=== PATIENT | female | born 1935 | race Caucasian/White ===

== ENCOUNTER 2018-08-27 07:41 | Inpatient (IN) | payer MEDICARE, SELFPAY ==
[2018-08-27] VITALS (24 sets, daily range): BP systolic 108–149; BP diastolic 42–71; PULSE 61–98; RESP 14–18; TEMP 36.3–37.6; O2SAT 92–99; BMI 33.0; BMI 30.8
--- NOTE | 2018-08-27 07:49 | RAD_ITS ---
STUDY: X-RAY CHEST REASON FOR EXAM: Female, 82 years old. Pain TECHNIQUE: Single AP portable view of the chest. COMPARISON: None. FINDINGS: There is a well-circumscribed calcific density in the left apex measuring 4 mm compatible with old granulomatous disease. There is no demonstrated pleural abnormality. There is borderline cardiomegaly. Normal mediastinum and carlton. Normal visualized pulmonary arteries. There is atherosclerotic tortuosity of the aortic arch and descending thoracic aorta. There are diffuse degenerative changes of the visualized thoracic spine. Normal visualized ribs, clavicles, and shoulders. There is no demonstrated abnormality of the visualized soft tissue structures of the upper abdomen. RAD/Chest 1 View (Portable) IMPRESSION: Borderline cardiac enlargement. No evidence of acute focal infiltrate. Electronically Signed: Vicki Gomez MD at 8:32 EST Tel , Service support ,
--- NOTE | 2018-08-27 07:49 | EKG12_ITS ---
Test Reason : CP Blood Pressure : / mmHG Vent. Rate : 068 BPM Atrial Rate : 068 BPM P-R Int : 192 ms QRS Dur : 130 ms QT Int : 414 ms P-R-T Axes : 024 -36 123 degrees QTc Int : 440 ms Normal sinus rhythm with sinus arrhythmia Left axis deviation Left ventricular hypertrophy with QRS widening and repolarization abnormality Cannot rule out Septal infarct , age undetermined Abnormal ECG Confirmed by VAMSI JULES, ERIKA ([id number]), film editor supervisor HAWK ROMAN ([id number]) on 08/30/2018 2:22:18 PM Referred By: THELMA Confirmed By:ERIKA AGUSTIN MD
--- NOTE | 2018-08-27 07:57 | ED.VISSUMM ---
- ER Visit Summary Date of Service: 08/27/18 Chief Complaint: Chest pain History of Present Illness: The patient is a 82 F with history of hypertension, hyperlipidemia, and [id number] diabetes presents to the emergency department chest pain. Patient symptoms began over the past 3 days. She states that every time that she exerts herself or walks a distance, she will get substernal pain that radiates into her back. She will feel mildly short of breath. She denies diaphoresis. She denies any nausea. She states if she rests, the pain goes away. She is never had pain like this before. She denies any fevers chills or cough. The patient does have a history of aortic valve disease and has seen Dr. Melo in the past, but she states she has never had a stress test or heart catheterization. Physical Examination: Vital signs reviewed General: Well-nourished, well-developed Head: Normocephalic, atraumatic Eyes: Pupils equal and reactive, extraocular muscles intact Neck, supple, no lymphadenopathy Heart: Regular rate and rhythm, 3 out of 6 systolic ejection murmur Respiratory: No distress, clear bilaterally Abdomen: Soft, nontender, nondistended, no peritoneal signs Back: Nontender Extremities: Nontender, no edema, no cords Skin: Normal color no rash Neuro: Alert and oriented, no focal or lateralizing deficits Test Results: [] Emergency Department Course and Treatment: [The patient presents with exertional chest pain. Her EKG does show some LVH and what appears to be U waves. The patient has no pain at rest. Screening labs were obtained. Her cardiac enzymes are normal. Her chest x-ray does show some mild cardiomegaly, but there is no CHF. The patient is also hypokalemic. She has been on potassium replacement therapy and states her potassium has been low before. The patient is also anemic. She has seen Dr. Strong in the past for anemia, but has not had a colonoscopy. She states that they held on it because her counts were stable. She is on iron replacement therapy. Rectal exam was done. There is no gross blood. Fecal occult testing was negative. I am unsure of the acute etiology of her anemia, but I do feel that the patient is likely symptomatic she has been having exertional chest pain. The patient's potassium was replaced. I do feel that she is going require admission for her exertional chest pain, symptomatic anemia, and hypokalemia. Patient was discussed with the hospitalist. Treatment Plan: [] Disposition: Admission Impression: 1. Exertional chest pain 2. Hypokalemia with EKG changes 3. Symptomatic anemia This note was generated with [employer] dictation software. It may contain incorrect words, spelling, and punctuation that were not noted in review of the chart prior to signing ED Disposition - Plan for ED Patient: Chief Complaint: Chest Pain Referrals: Gordo Weeks DO [Primary Care Provider] -
[2018-08-27] MEDS: Aspirin 81 MG TAB.CHEW 324 MG PO (08:13)
[2018-08-27 08:14] LABS: Absolute Lymphocyte Count 1.42 X10^3/ul (0.83-4.51); Absolute Neutrophil Count 4.7 X10^3/uL (2.0-7.7); Basophil# 0.02 X10^3/uL; Basophil% 0.3 % (0-1); Eosinophil# 0.05 X10^3/uL; Eosinophils% 0.7 % (0-5); Hematocrit 19.7 % (37-47); Hemoglobin 6.4 g/dl (12.0-15.0); Lymphocyte # 1.42 X10^3/ul (4.0); Lymphocyte % 21.2 % (19-41); Mean Corp Hgb Conc 32.5 g/gl (32-36); Mean Corpuscular Hgb 29.5 pg (27.0-32.0); Mean Corpuscular Volume 90.8 fL (81-99); Mean Platelet Vol. 8.7 fl (6.2-12.0); Monocyte# 0.47 X10^3/uL; Neutrophil # 4.71 X10^3/uL (2.7-7.7); Neutrophil % 70.5 % (47-70); Platelet Count 201 K/mm3 (150-450); RBC Distribution Width CV 17.8 % (11.6-14.6); RBC Distribution Width SD 51.9 fl (35.1-43.9); Red Blood Count 2.17 M/mm3 (4.2-5.4); White Blood Count 6.7 K/mm3 (4.4-11.0)
[2018-08-27 08:15] LABS: POSITIVE COUNT NO; POSITIVE DIFFERENTIAL NO; POSITIVE MORPHOLOGY NO
[2018-08-27 08:42] LABS: Anion Gap 11 (5-15); BUN 38 mg/dL (7-18); BUN/Creat Ratio 35.2 RATIO (10-20); Calcium,Total 9.2 mg/dL (8.5-10.1); Chloride 95 mmol/L (98-107); Creatinine, Serum 1.08 mg/dL (0.55-1.02); EST Glomerular Filtration Rate 52 mL/min (>60); Est Glom Filt Rate - Afr Amer 62 mL/min (>60); Estimated Creatinine Clearance 31.76 ml/min; Glucose 252 mg/dL (74-106); Potassium 2.5 mmol/L (3.5-5.1); Sodium Level 138 mmol/L (136-145)
[2018-08-27] MEDS: Potassium Chloride 10mEq/100mL 10 MEQ/100 ML IV.SOLN. 100 MEQ IV BOLUS ×2 (09:39→10:26)
--- NOTE | 2018-08-27 10:02 | ECHOD_ITS ---
Reason For Study: Chest pain Procedure This was a 2D Doppler, Color Flow transthoracic echocardiogram. The exam was of adequate technical quality. Exam performed in department. Left Ventricle Normal LV size. Left ventricular systolic function is normal. The estimated ejection fraction is 70 %. Diastolic function is indeterminate. No regional wall motion abnormalities noted. Right Ventricle Normal RV size. Normal systolic function. Atria The left atrium is mildly enlarged. Normal right atrium. No doppler evidence for ASD. Mitral Valve There is mild mitral annular calcification. Mild diffuse mitral valve thickening. The mitral papillary muscle appears thickened and/or calcified. Mild (1+) mitral valve insufficiency. Tricuspid Valve Normal tricuspid valve. Trivial tricuspid valve insufficiency. Aortic Valve Trisinus/trileaflet aortic valve. Severe diffuse aortic valve calcification. Severe aortic stenosis. Pulmonic Valve The pulmonic valve is not well visualized. Great Vessels Normal sized aortic root. Pericardium/Pleural No pericardial effusion. MMode/2D Measurements & Calculations LVIDd: 4.3 cm IVSd: 1.2 cm LVOT diam: 2.0 cm LVIDs: 2.6 cm LVPWd: 1.2 cm LVOT area: 3.1 cm2 RVDd: 3.2 cm FS: 40.1 % Ao root diam: 3.0 cm LAV(MOD-bp): 57.1 ml EDV(MOD-sp4): 87.1 ml LAV(MOD-bp) Indexed: 31.3 ml/m2 ESV(MOD-sp4): 34.6 ml LAV(MOD-sp2): 55.0 ml EF(MOD-sp4): 60.3 % LAV(MOD-sp4): 58.1 ml SV(MOD-sp4): 52.5 ml LA dimension(2D): 3.5 cm LA A4 area: 19.0 cm2 RA A4 area: 13.9 cm2 Doppler Measurements & Calculations MV E max huseyin: 92.4 cm/sec Lat Peak E' Huseyin: 6.3 cm/sec Med Peak E' Huseyin: 7.1 cm/sec MV A max huseyin: 114.0 cm/sec E/E' lat: 14.7 E/E' med: 13.0 MV E/A: 0.81 Ao V2 max: 541.5 cm/sec LV V1 max: 138.7 cm/sec SV(LVOT): 101.6 ml Ao max P.3 mmHg LV V1 max P.7 mmHg Ao V2 mean: 367.0 cm/sec LV V1 mean P.9 mmHg Ao mean P.6 mmHg LV V1 mean: 92.9 cm/sec Ao V2 VTI: 126.4 cm LV V1 VTI: 33.3 cm JACINTA(I,D): 0.80 cm2 JACINTA(V,D): 0.78 cm2 PA V2 max: 129.8 cm/sec Interpretation Summary Left ventricular systolic function is normal. The estimated ejection fraction is 70 %. The left atrium is mildly enlarged. There is mild mitral annular calcification. Mild diffuse mitral valve thickening. The mitral papillary muscle appears thickened and/or calcified. Mild (1+) mitral valve insufficiency. Trivial tricuspid valve insufficiency. Severe aortic stenosis. Diastolic function is indeterminate. Ordering Physician: Thai Antonio Referring Physician: Gordo Weeks Performed By: Saima Rubin RDCS
[2018-08-27 10:26] LABS: Iron 23 ug/dL (50-170); Iron Binding Capacity,Total 386 ug/dL (250-450)
[2018-08-27] MEDS: Levothyroxine 125 MCG Tablet PO (11:15)
[2018-08-27] MEDS: Pravastatin 20 MG Tablet PO (11:16)
[2018-08-27] MEDS: amLODIPine 5 MG Tablet PO ×2 (11:16→22:16)
[2018-08-27] MEDS: Doxazosin 4 MG Tablet PO ×2 (11:16→22:16)
[2018-08-27 11:35] LABS: Bedside Glucose 265 mg/dL (70-110)
[2018-08-27 17:06] LABS: Anion Gap 9 (5-15); BUN 33 mg/dL (7-18); BUN/Creat Ratio 29.7 RATIO (10-20); Chloride 97 mmol/L (98-107); Creatinine, Serum 1.11 mg/dL (0.55-1.02); EST Glomerular Filtration Rate 50 mL/min (>60); Est Glom Filt Rate - Afr Amer 60 mL/min (>60); Estimated Creatinine Clearance 33.74 ml/min; Glucose 205 mg/dL (74-106); Sodium Level 138 mmol/L (136-145)
[2018-08-27] MEDS: Insulin Lispro 100 UNIT/ML INSULN.PEN SC ×2 (17:08→22:16)
[2018-08-27 17:10] LABS: Bedside Glucose 208 mg/dL (70-110)
--- NOTE | 2018-08-27 17:30 | HP.PCM_ITS ---
Problem List (1) Chest pain Status: Acute Qualifiers: Chest pain type: precordial pain Qualified Code(s): R07.2 - Precordial pain History of Present Illness Date of Admission: 08/27/18 Chief Complaint: Chest pain The patient is a 82 year old F was seen in the emergency room was from [facility] with chief complaint of precordial chest discomfort which has been nonradiating into her neck or arms, there is some radiation of the discomfort into her mid back area however. She describes the chest discomfort as burning in nature, she denies any diaphoresis, nausea, or vomiting. She states the episodes are intermittent and not related to any particular activity although when she rest, the discomfort goes away. These episodes last 2-3 minutes according to the patient. Patient has had a history of anemia in the past, she underwent iron supplementation which corrected the problem, at one time she saw a GI physician for possible endoscopy but it was felt that she did not need the endoscopy due to the fact her blood count corrected. Lab was performed in the emergency room, CBC was remarkable for hemoglobin of 6.4, chemistry panel was remarkable for a potassium of 2.5, creatinine was 1.08, BUN was 38, troponin was normal. Patient's glucose was elevated at 252. Chest x-ray was unremarkable except for borderline cardiac enlargement. EKG showed a normal sinus rhythm without evidence of ischemia. Patient will be admitted to PCU for hypokalemia, acute anemia, and chest pain. Past Medical History Allergies No Known Allergies Allergy (Verified 08/27/18 07:42) Home Medications: Ambulatory Orders Medication Instructions Recorded Amlodipine [Norvasc] 5 mg PO BID 08/27/18 Doxazosin Mesylate [Cardura] 4 mg PO BID 08/27/18 Furosemide [Lasix] 20 mg PO DAILY 08/27/18 Hydrochlorothiazide [Hctz] 50 mg PO DAILY 08/27/18 Iron Carbonyl [Feosol] 45 mg PO DAILYCM 08/27/18 Levothyroxine Sodium [Synthroid] 125 mcg PO DAILY 08/27/18 Metformin HCl [Glucophage Xr] 500 mg PO BID 08/27/18 Pravastatin [Pravachol] 20 mg PO DAILY 08/27/18 Surgical History: no surgical history Psychiatric History: No pertinent psych hx [employer]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 Denies: Claudication, Chest Pressure, Chest Tightness, Edema, Heaviness, Orthopnea, Palpitations, Paroxysmal Noc. Dyspnea, Syncope Respiratory: Denies: Cough, Hemoptysis, Pleuritic Pain, Shortness of Breath, Shortness of breath at rest, Shortness of breath upon exertion, Sputum production Gastrointestinal: Denies: Abdominal Pain, Constipation, Diarrhea, Hematemesis, Hematochezia, Nausea, Melena, Vomiting Genitourinary: Denies: Dysuria, Frequency, Hematuria, Hesitancy, Nocturia, Urgency Gynecological: Denies: Breast symptoms Musculoskeletal: Denies: Foot Pain, Hand Pain, Joint Pain, Joint stiffness, Joint swelling, Joint Tenderness, Leg Pain Skin: Denies: Dryness, Pruritis, Rash Neurological: Denies: Blurred vision, Double vision, Change in Speech, Slurred speech, Difficulty swallowing, Focal weakness, Headaches, Numbness, Tingling Psychiatric: Denies: Anxiety, Depression, Homicidal Ideations, Suicidal Ideations Endocrine: Denies: Change in Body Habitus, Heat/ Cold Intolerance, Polydipsia, Polyuria Hematologic/ Lymphatic: Denies: Adenopathy, Anemia, Easy Bruising, Easy Bleeding, Petechiae, Purpura VTE Information - Inpt Only VTE Present on Admission: No VTE Mechan Device Prophylaxis: SCD's VTE Pharm Prophylaxis ordered?: No Reason prophylaxis not ordered:: Treatment Not Indicated - SCDs were ordered Patient Problems: Active and Suspected Problems Chest pain (Acute) - Physical Exam General: Alert, Oriented x3, Cooperative, No apparent distress, Well developed HEENT: Atraumatic, PERRLA, EOMI, Normocephalic Oral: Moist Mucosa Neck: Supple, No JVD, Negative Carotid Bruits, No Nuchal Rigidity, Trachea Midline, Thyroid Normal Size and Texture Lungs: Clear to auscultation, Normal air movement, No rhonchi, No wheeze, No rales Cardiovascular: Regular rate, Regular Rhythm, Normal S1, Normal S2, No Ectopic Activity, PMI Normal, Murmur - 2/6 systolic murmur was noted at the apex and left sternal border, No rub noted, No Gallop Abdomen: Bowel Sounds Present, Soft, Non Tender, Non-Distended, No hernias noted Extremities: No clubbing, No cyanosis, No edema, Capillary Refill Less than 3 Seconds Skin: No rashes, No breakdown Musculoskeletal: No Tenderness to Palpation of Joints or Extremities Neurological: Cranial nerves II-XII grossly intact, Neuro grossly intact, Senso ry exam intact to light touch and pain, Coordination normal Psych/Mental Status: Normal Affect, Appropriate, Alert and oriented to time, place, person, mood and affect Vital Signs Temp Pulse Resp BP Pulse Ox 98.8 F 62 18 129/56 H 99 08/27/18 16:50 08/27/18 16:50 08/27/18 16:50 08/27/18 16:50 08/27/18 16:50 Oxygen Delivery Method Room Air Weight: 81.4 kg Body Mass Index (BMI) 30.8 Intake and Output for Last 24 Hours 08/25/18 08/26/18 08/27/18 23:59 23:59 23:59 Intake Total 625 / 625 Balance 625 / 625 Microbiology Past 72 Hours 08/27/18 08:30 Stool Occult Blood (IDRIS) - Final Stool Laboratory Tests Past 24 Hrs 08/27/18 08/27/18 08/27/18 07:55 07:55 07:55 WBC 6.7 RBC 2.17 L Hgb 6.4 L Hct 19.7 L MCV 90.8 MCH 29.5 MCHC 32.5 RDW 17.8 H RDW Differential 51.9 H Plt Count 201 MPV 8.7 Immature Gran % (Auto) 0.300 Neut % (Auto) 70.5 H Lymph % (Auto) 21.2 Bradford % (Auto) 7.0 Eos % (Auto) 0.7 Baso % (Auto) 0.3 Absolute Neuts (auto) 4.7 Absolute Lymphs (auto) 1.42 Total Counted Not Reportable Sodium 138 Potassium 2.5 L* Chloride 95 L Carbon Dioxide 32.0 Anion Gap 11 BUN 38 H Creatinine 1.08 H Estim Creat Clear Calc 31.76 Est GFR (MDRD) Af Amer 62 Est GFR (MDRD) Non-Af 52 L BUN/Creatinine Ratio 35.2 H Glucose 252 H Calcium 9.2 Iron 23 L TIBC 386 Iron Saturation 6.0 L Troponin I < 0.015 Blood Type Antibody Screen Crossmatch 08/27/18 08/27/18 08/27/18 08:40 08:40 10:55 WBC RBC Hgb Hct MCV MCH MCHC RDW RDW Differential Plt Count MPV Immature Gran % (Auto) Neut % (Auto) Lymph % (Auto) Bradford % (Auto) Eos % (Auto) Baso % (Auto) Absolute Neuts (auto) Absolute Lymphs (auto) Total Counted Sodium Potassium Chloride Carbon Dioxide Anion Gap BUN Creatinine Estim Creat Clear Calc Est GFR (MDRD) Af Amer Est GFR (MDRD) Non-Af BUN/Creatinine Ratio Glucose Calcium Iron TIBC Iron Saturation Troponin I 0.027 Blood Type A POSITIVE Antibody Screen NEGATIVE Crossmatch See Detail 08/27/18 08/27/18 14:00 16:40 WBC RBC Hgb Hct MCV MCH MCHC RDW RDW Differential Plt Count MPV Immature Gran % (Auto) Neut % (Auto) Lymph % (Auto) Bradford % (Auto) Eos % (Auto) Baso % (Auto) Absolute Neuts (auto) Absolute Lymphs (auto) Total Counted Sodium 138 Potassium 3.0 L Chloride 97 L Carbon Dioxide 32.0 Anion Gap 9 BUN 33 H Creatinine 1.11 H Estim Creat Clear Calc 33.74 Est GFR (MDRD) Af Amer 60 Est GFR (MDRD) Non-Af 50 L BUN/Creatinine Ratio 29.7 H Glucose 205 H Calcium 9.0 Iron TIBC Iron Saturation Troponin I < 0.015 Blood Type Antibody Screen Crossmatch POC Glucose 08/27/18 08/27/18 16:56 11:20 POC Glucose 208 H 265 H Assessment/Plan All Active Problems Chest pain (Acute) #1 acute on chronic iron deficiency anemia-etiology unclear at this point, patient will be admitted to PCU, she will receive packed red blood cells, iron level will be checked, labs will be repeated. #2 chest pain-etiology unclear, possibly anginal in nature, patient will be scheduled for a resting pharmacological nuclear stress test tomorrow if her enzymes remain normal. Cardiac enzymes will be cycled, patient will be monitored on telemetry, echocardiogram will be obtained. #3 hypokalemia-secondary to use of furosemide and hydrochlorothiazide without potassium replacement, patient has been taking [id number] potassium which has very little potassium in it, I discussed the use of 2 different diuretics with the patient, I do not think it is a harvey idea to take 2 different diuretics and I have told her I would change her medications at the time of discharge. She will also need potassium supplementation when she is discharged #4 moderate aortic stenosis-patient had an echocardiogram 10/14/16 which showed moderate aortic stenosis, echocardiogram will be repeated during this admission #5 hypertension #6 osteoarthritis-patient states she is taking 2 adult aspirins a day in addition to taking ibuprofen on a daily basis, I told her I would not recommend taking either full-strength aspirin or ibuprofen, only Tylenol for pain. This is due to her age and risk for GI bleeding and kidney failure. #7 type 2 diabetes-patient's blood sugars will be monitored, sliding scale insulin will be administered per protocol #8 hyperlipidemia #9 hypothyroidism Code Visit Inpatient E&M: 87431 Init Hosp L3
[2018-08-27 20:11] LABS: Hematocrit 24.2 % (37-47); Hemoglobin 7.8 g/dl (12.0-15.0)
[2018-08-27 22:31] LABS: Bedside Glucose 219 mg/dL (70-110)
[2018-08-28] VITALS (13 sets, daily range): BP systolic 125–152; BP diastolic 50–82; PULSE 52–80; RESP 16–20; TEMP 36.7–37.1; O2SAT 92–95
[2018-08-28 01:55] LABS: Hematocrit 27.7 % (37-47)
[2018-08-28 05:24] LABS: Absolute Lymphocyte Count 1.46 X10^3/ul (0.83-4.51); Absolute Neutrophil Count 4.2 X10^3/uL (2.0-7.7); Basophil# 0.02 X10^3/uL; Basophil% 0.3 % (0-1); Eosinophil# 0.11 X10^3/uL; Eosinophils% 1.8 % (0-5); Hematocrit 26.9 % (37-47); Hemoglobin 8.8 g/dl (12.0-15.0); Lymphocyte # 1.46 X10^3/ul (4.0); Lymphocyte % 23.3 % (19-41); Mean Corp Hgb Conc 32.7 g/gl (32-36); Mean Corpuscular Hgb 28.9 pg (27.0-32.0); Mean Corpuscular Volume 88.5 fL (81-99); Mean Platelet Vol. 8.5 fl (6.2-12.0); Monocyte% 6.4 % (0-10); Neutrophil # 4.23 X10^3/uL (2.7-7.7); Neutrophil % 67.6 % (47-70); Platelet Count 175 K/mm3 (150-450); RBC Distribution Width CV 18.2 % (11.6-14.6); RBC Distribution Width SD 53.5 fl (35.1-43.9); Red Blood Count 3.04 M/mm3 (4.2-5.4); White Blood Count 6.3 K/mm3 (4.4-11.0)
[2018-08-28 05:32] LABS: International Normalized Ratio 1.1; Partial Thromboplast Time 26.7 Seconds (24.1-36.2); Prothrombin Time (Protime)PT. 14.2 SECONDS (11.7-14.9)
[2018-08-28 05:35] LABS: POSITIVE COUNT NO; POSITIVE DIFFERENTIAL NO; POSITIVE MORPHOLOGY NO
[2018-08-28 05:41] LABS: Anion Gap 8 (5-15); BUN 28 mg/dL (7-18); BUN/Creat Ratio 31.1 RATIO (10-20); Calcium,Total 8.6 mg/dL (8.5-10.1); Chloride 103 mmol/L (98-107); EST Glomerular Filtration Rate 64 mL/min (>60); Est Glom Filt Rate - Afr Amer 77 mL/min (>60); Estimated Creatinine Clearance 41.62 ml/min; Glucose 122 mg/dL (74-106); Potassium 3.2 mmol/L (3.5-5.1); Sodium Level 143 mmol/L (136-145)
--- NOTE | 2018-08-28 05:55 | EKG12_ITS ---
Test Reason : AM EKG Blood Pressure : / mmHG Vent. Rate : 059 BPM Atrial Rate : 059 BPM P-R Int : 196 ms QRS Dur : 120 ms QT Int : 422 ms P-R-T Axes : 020 -54 097 degrees QTc Int : 417 ms Sinus bradycardia with sinus arrhythmia Left anterior fascicular block Left ventricular hypertrophy with QRS widening and repolarization abnormality Cannot rule out Septal infarct , age undetermined Abnormal ECG Confirmed by VAMSI JULES, ERIKA ([id number]), technical writer and editor HAWK ROMAN ([id number]) on 08/30/2018 3:01:42 PM Referred By: AMARI Confirmed By:ERIKA AGUSTIN MD
[2018-08-28] MEDS: Levothyroxine 125 MCG Tablet PO (06:04)
[2018-08-28 06:12] LABS: Bedside Glucose 131 mg/dL (70-110)
[2018-08-28 06:58] LABS: Magnesium 1.7 mg/dL (1.6-2.6)
[2018-08-28] MEDS: Doxazosin 4 MG Tablet PO (08:55)
[2018-08-28] MEDS: amLODIPine 5 MG Tablet PO (08:55)
[2018-08-28] MEDS: Magnesium Oxide 400 MG Tablet PO (09:13)
[2018-08-28] MEDS: Insulin Lispro 100 UNIT/ML INSULN.PEN SC (11:58)
--- NOTE | 2018-08-28 12:01 | CASEMGMT ---
KORI RHODES assessment: Face to Face with patient for initial transition planning/care coordination assessment. KORI RHODES introduced self and role at [facility], pt voices understanding and consents to assessment at this time. Pt is sitting up in bed in no distress at this time. Pt is A/Ox4 at this time and answers all questions appropriately at this time. Pt's daughters at bedside during assessment. Care providers, pharmacy, and demographics verified/updated at this time. PCP: Desi Specialists: Kameron, cardio; Preferred [facility]acy: [facility] Insurance: MCR A, AA Prescription Benefit: Self pay and pt states no concerns. Living Will/HPOA: Pt states does not have LW/HPOA and declines info at this time. LNOK: Hunter Avalos, ; Alda Shrestha, daughter Living Arrangements: Pt states lives with on main level of 2 story home and states no concerns at home at this time. Pt states no concerns with ADL's Transportation: Pt states no transportation concerns at this time. DME/HHC: Pt has the following DME: cane and grab bars. Pt states no need for any further DME at this time. Pt states no hx of HHC or SNF in the past. Pt states no concerns with going home at time of discharge. Pt states does not smoke or drink ETOH. Pt states no further concerns/needs at this time. CM to follow for any further discharge planning/needs. Advised pt to ask for CM if any further questions/concerns/needs arise, voices understanding. Plan: [place] KORI RHODES
[2018-08-28 12:11] LABS: Bedside Glucose 160 mg/dL (70-110)
[2018-08-28 17:26] LABS: Bedside Glucose 164 mg/dL (70-110)
--- NOTE | 2018-08-28 17:35 | DCINST_ITS ---
- Discharge Diagnoses Current Active Problems: Current Active and Chronic Problems Chest pain (Acute) You will use the following diet at home:: No restrictions Your food should be the consistency of: Regular Your liquids should be the consistency of: Regular/Thin Discharge Activity: Return to Normal Activity Weight Bearing Status: Full weight bearing Allergies/Adverse Reactions: Allergies No Known Allergies Allergy (Verified 08/27/18 07:42) Medications to take at Discharge Amlodipine [Norvasc] 5 mg PO BID 08/27/18 Doxazosin Mesylate [Cardura] 4 mg PO BID 08/27/18 Furosemide [Lasix] 20 mg PO DAILY 08/27/18 Levothyroxine Sodium [Synthroid] 125 mcg PO DAILY 08/27/18 Metformin HCl [Glucophage Xr] 500 mg PO BID 08/27/18 Pravastatin [Pravachol] 20 mg PO DAILY 08/27/18 Acetaminophen [Tylenol Tablet] 650 mg PO Q6H PRN PRN tablet 08/28/18 Iron Carbonyl [Feosol] 45 mg PO BIDCM #1 capsule 08/28/18 Omeprazole 20 mg PO DAILY #30 tablet. 08/28/18 Potassium Chloride 20 meq PO DAILY #60 capsule.er 08/28/18 The following prescriptions were given: Omeprazole 20 mg PO DAILY #30 tablet.dr Potassium Chloride 20 meq PO DAILY #60 capsule.er Iron Carbonyl [Feosol] 45 mg PO BIDCM #1 capsule Primary Care Physician: Gordo Weeks DO [Primary Care Provider] - Please follow up with your Primary Care Physician in: in 1 week- get repoeat blood count Test Results: Test results from this visit will be discussed in further detail at your follow- up appointment, if applicable. Please Follow Up With: Regis Melo MD When: within 3 weeks
--- NOTE | 2018-08-30 08:37 | DS.PCM_ITS ---
Discharge Date and Diagnosis Date of Admission: 08/27/18 Date of Discharge: 08/28/18 - Primary Discharge Diagnosis #1 Acute on chronic iron deficiency anemia secondary to undiagnosed blood loss in the gastrointestinal tract requiring blood transfusion #2 chest pain-etiology unclear #3 severe aortic stenosis #4 hypothyroidism #5 type 2 diabetes #6 essential hypertension #7 hyperlipidemia #8 osteoarthritis #9 hypokalemia secondary to medication usage (diuretics) #10 chronic kidney disease stage III secondary to type 2 diabetes and hypertension Hospital Course and Treatment Operations: None Procedures: 2-D Echocardiogram, Blood transfusion Summary of Care Provided: The patient is a 82 year old F was seen in the emergency room at [facility] with chief complaint of chest pain. Workup in the emergency room included cardiac enzymes which were negative, chest x-ray which showed borderline cardiac enlargement, chemistry profile which was remarkable for a potassium of 2.5, creatinine of 1.08, glucose of 252, and CBC was obtained which showed a normal blood cell count at 6.7 but a low hemoglobin at 6.4. Patient was admitted to PCU, she was given several units of blood, cardiac enzymes were monitored and remained normal, she was given potassium replacement. She was initially set up for a nuclear stress test but this was canceled owing to her persistent anemia. Patient had an echocardiogram performed which showed severe aortic stenosis. Patient was given IV iron during her hospitalization. On 08/28/18, patient was seen and examined: On examination she appeared in good health and spirits. Vital signs as documented. Skin warm and dry and without overt rashes. Neck without JVD. Lungs clear. Heart exam notable for regular rhythm, normal sounds, there was a 2/6 systolic murmur noted at the apex and left sternal border, no rubs or gallops. Abdomen unremarkable and without evidence of organomegaly, masses, or abdominal aortic enlargement. Extremities nonedematous. Neuro: Cranial nerves II through XII are grossly intact, no focal motor deficits were noted. Psych: Patient was alert and oriented x3 and appropriate, she did not appear to be depressed or anxious. Patient was instructed to follow-up with her architecture professor-Dr. Strong, he was contacted and I requested that their office contact the patient for a GI workup for her chronic anemia. Dr. Strong stated that his office will contact the patient for follow-up. In addition, patient was instructed to follow-up with her manager human resources Dr. Melo concerning her severe aortic stenosis. On 08/28/18, patient was seen and examined and was felt to be in stable condition for discharge home. - Physical Exam Vital Signs Temp Pulse Resp BP Pulse Ox 98.2 F 64 18 148/62 H 94 08/28/18 17:37 08/28/18 17:37 08/28/18 17:37 08/28/18 17:37 08/28/18 17:37 Oxygen Delivery Method Room Air Weight: 81.4 kg Body Mass Index (BMI) 30.8 Intake and Output for Last 24 Hours 08/28/18 08/29/18 08/30/18 23:59 23:59 23:59 Intake Total 830 / 830 Output Total 100 / 100 Balance 730 / 730 Microbiology Past 72 Hours 08/27/18 08:30 Stool Occult Blood (IDRIS) - Final Stool Discharge Activity: Return to Normal Activity Weight Bearing Status: Full weight bearing Home Medications: Medications to take at Discharge Amlodipine [Norvasc] 5 mg PO BID 08/27/18 Doxazosin Mesylate [Cardura] 4 mg PO BID 08/27/18 Furosemide [Lasix] 20 mg PO DAILY 08/27/18 Levothyroxine Sodium [Synthroid] 125 mcg PO DAILY 08/27/18 Metformin HCl [Glucophage Xr] 500 mg PO BID 08/27/18 Pravastatin [Pravachol] 20 mg PO DAILY 08/27/18 Acetaminophen [Tylenol Tablet] 650 mg PO Q6H PRN PRN tablet 08/28/18 Iron Carbonyl [Feosol] 45 mg PO BIDCM #1 capsule 08/28/18 Omeprazole 20 mg PO DAILY #30 tablet. 08/28/18 Potassium Chloride 20 meq PO DAILY #60 capsule.er 08/28/18 Following Prescrptions Were Given to Patient: Omeprazole 20 mg PO DAILY #30 tablet. Potassium Chloride 20 meq PO DAILY #60 capsule.er Iron Carbonyl [Feosol] 45 mg PO BIDCM #1 capsule Primary Care Physician: Gordo Weeks DO [Primary Care Provider] - Please follow up with your Primary Care Physician in: in 1 week- get repoeat blood count Please Follow Up With: Regis Melo MD When: within 3 weeks Disposition: Home Minutes spent on discharge:: 32 Patient Condition:: Stable Medical Necessity - Tobacco Use Smoking Status: Never smoker Tobacco Use: Non-smoker Meaningful Use Info Meaningful Use Diagnoses (Choose all that apply): None applicable Code Visit Inpatient E&M: 26622 Disch Hosp
== END 2018-08-28 18:24 | disposition home or self-care (01) | DRG 812 ==
LOC: ED 09:30 → PCU 09:37
PROVIDERS: Hospitalist; Admitting Provider Internal Medicine; Emergency Provider Emergency Medicine; Family Provider Family Medicine; PCP Family Medicine; Visit Provider Internal Medicine
DX: D50.0 Iron deficiency anemia secondary to blood loss (chronic) (principal); K92.2 Gastrointestinal hemorrhage, unspecified; I35.0 Nonrheumatic aortic (valve) stenosis; M19.90 Unspecified osteoarthritis, unspecified site; E11.9 Type 2 diabetes mellitus without complications; E78.5 Hyperlipidemia, unspecified; E03.9 Hypothyroidism, unspecified; R07.9 Chest pain, unspecified; E11.22 Type 2 diabetes mellitus with diabetic chronic kidney disease; I12.9 Hypertensive chronic kidney disease with stage 1 through stage 4 chronic kidney disease, or unspecified chronic kidney disease; N18.3 Chronic kidney disease, stage 3 (moderate); E87.6 Hypokalemia; T50.1X5A Adverse effect of loop [high-ceiling] diuretics, initial encounter; T50.2X5A Adverse effect of carbonic-anhydrase inhibitors, benzothiadiazides and other diuretics, initial encounter; Z79.84 Long term (current) use of oral hypoglycemic drugs
CPT/HCPCS: 36415; 71045; 80048; 82274; 82962; 83540; 83550; 83735; 84484; 85014; 85018; 85025; 85610; 85730; 86850; 86900; 86920; 86922; 93005; 93306; 99284; J1756; J7040; P9016; A4216; J2785

== ENCOUNTER → 2018-12-14 08:19 | Outpatient (CLI) | payer SELFPAY, OTHER ==
[2018-09-22 08:16] VITALS: BMI 34.4
--- NOTE | 2018-12-14 08:23 | ECHOD_ITS ---
Reason For Study: MURMUR Procedure This was a 2D Doppler, Color Flow transthoracic echocardiogram. Exam performed in department. Left Ventricle Normal LV size. Mild concentric left ventricular hypertrophy. Left ventricular systolic function is normal. The estimated ejection fraction is 65 %. Stage 1 diastolic dysfunction. No regional wall motion abnormalities noted. Right Ventricle Normal RV size. Normal systolic function. Atria The left atrium is mildly enlarged. Normal right atrium. Mitral Valve There is mild mitral annular calcification. Mild (1+) eccentric mitral valve insufficiency. Aortic Valve Trisinus/trileaflet aortic valve. Severe focal aortic valve calcification. Peak aortic valve gradient 117 mmHg. Mean aortic valve gradient 70 mmHg. Calculated aortic valve area (continuity equation) is 0.6 cm2. Critical aortic stenosis. Mild (1+) aortic valve insufficiency. Pulmonic Valve Normal pulmonic valve. Great Vessels Normal aortic root. The pulmonary artery is normal size. Normal inferior vena cava. Pericardium/Pleural No pericardial effusion. MMode/2D Measurements & Calculations LVIDd: 4.4 cm IVSd: 1.2 cm LVOT diam: 2.0 cm LVIDs: 2.7 cm LVPWd: 1.2 cm LVOT area: 3.1 cm2 RVDd: 3.4 cm FS: 39.8 % Ao root diam: 2.9 cm LAV(MOD-bp): 67.6 ml LVAd ap4: 30.3 cm2 LAV(MOD-bp) Indexed: 37.0 ml/m2 EDV(MOD-sp4): 102.0 ml LAV(MOD-sp2): 70.1 ml EDV(sp4-el): 106.6 ml LAV(MOD-sp4): 64.6 ml LVAs ap4: 16.5 cm2 ESV(MOD-sp4): 37.1 ml ESV(sp4-el): 38.2 ml EF(MOD-sp4): 63.6 % EF(sp4-el): 64.1 % SV(MOD-sp4): 64.9 ml SV(sp4-el): 68.4 ml LA A4 area: 21.2 cm2 LA dimension(2D): 3.1 cm RA A4 area: 11.9 cm2 Time Measurements MV dec time: 0.35 sec Doppler Measurements & Calculations MV E max huseyin: 63.2 cm/sec Lat Peak E' Huseyin: 6.9 cm/sec Med Peak E' Huseyin: 5.0 cm/sec MV A max huseyin: 112.3 cm/sec E/E' lat: 9.2 E/E' med: 12.5 MV E/A: 0.56 Ao V2 max: 541.8 cm/sec AI max huseyin: 342.0 cm/sec LV V1 max: 100.9 cm/sec Ao max P.6 mmHg AI max P.8 mmHg LV V1 max P.1 mmHg Ao V2 mean: 403.6 cm/sec LV V1 mean P.1 mmHg Ao mean P.8 mmHg AI dec slope: 158.0 cm/sec2 LV V1 mean: 67.0 cm/sec Ao V2 VTI: 139.0 cm AI P1/2t: 634.2 msec LV V1 VTI: 25.8 cm JACINTA(I,D): 0.58 cm2 JACINTA(V,D): 0.58 cm2 SV(LVOT): 80.9 ml PA V2 max: 133.2 cm/sec TR max huseyin: 263.5 cm/sec TR max P.8 mmHg Interpretation Summary Normal LV size. Mild concentric left ventricular hypertrophy. Left ventricular systolic function is normal. The estimated ejection fraction is 65 %. Stage 1 diastolic dysfunction. The left atrium is mildly enlarged. Severe focal aortic valve calcification. Critical aortic stenosis. Calculated aortic valve area (continuity equation) is 0.6 cm2. AV area is unchanged Compared to previous study, the left ventricular systolic function is the same.. Ordering Physician: Regis Melo Referring Physician: JANES DUGAN Performed By: Emma Treviño RDCS
[2018-12-14 11:35] LABS: Absolute Lymphocyte Count 1.64 X10^3/ul (0.83-4.51); Absolute Neutrophil Count 3.7 X10^3/uL (2.0-7.7); Basophil# 0.02 X10^3/uL; Basophil% 0.3 % (0-1); Eosinophil# 0.09 X10^3/uL; Eosinophils% 1.5 % (0-5); Hematocrit 35.4 % (37-47); Hemoglobin 12.1 g/dl (12.0-15.0); Lymphocyte # 1.64 X10^3/ul (4.0); Lymphocyte % 28.2 % (19-41); Mean Corp Hgb Conc 34.2 g/gl (32-36); Mean Corpuscular Hgb 29.8 pg (27.0-32.0); Mean Corpuscular Volume 87.2 fL (81-99); Mean Platelet Vol. 8.9 fl (6.2-12.0); Monocyte% 5.2 % (0-10); Neutrophil # 3.74 X10^3/uL (2.7-7.7); Neutrophil % 64.5 % (47-70); Platelet Count 174 K/mm3 (150-450); RBC Distribution Width CV 13.8 % (11.6-14.6); RBC Distribution Width SD 43.6 fl (35.1-43.9); Red Blood Count 4.06 M/mm3 (4.2-5.4); White Blood Count 5.8 K/mm3 (4.4-11.0)
[2018-12-14 11:36] LABS: POSITIVE COUNT NO; POSITIVE DIFFERENTIAL NO; POSITIVE MORPHOLOGY NO
[2018-12-14 12:01] LABS: Anion Gap 7 (5-15); BUN 33 mg/dL (7-18); BUN/Creat Ratio 30.8 RATIO (10-20); Chloride 105 mmol/L (98-107); Creatinine, Serum 1.07 mg/dL (0.55-1.02); EST Glomerular Filtration Rate 52 mL/min (>60); Est Glom Filt Rate - Afr Amer 63 mL/min (>60); Glucose 133 mg/dL (74-106); Potassium 4.1 mmol/L (3.5-5.1); Sodium Level 142 mmol/L (136-145)
== END ==
PROVIDERS: Family Provider Family Medicine; PCP Family Medicine; Referring Provider Internal Medicine Cardiovascular Disease; Visit Provider Internal Medicine Cardiovascular Disease
DX: I35.0 Nonrheumatic aortic (valve) stenosis (principal)
CPT/HCPCS: 36415; 80048; 85025; 93306

== ENCOUNTER 2019-10-09 19:29 | Inpatient (IN) | payer MEDICARE, SELFPAY ==
[2019-09-25 11:46] VITALS: BMI 34.7
[2019-10-09] VITALS (8 sets, daily range): BP systolic 110–152; BP diastolic 48–70; PULSE 63–79; RESP 15–18; TEMP 36.6–36.9; O2SAT 95–97; BMI 31.2; BMI 31.1; BMI 31.3
--- NOTE | 2019-10-09 19:52 | EKG12_ITS ---
Test Reason : WEAKNESS Blood Pressure : / mmHG Vent. Rate : 068 BPM Atrial Rate : 068 BPM P-R Int : 200 ms QRS Dur : 122 ms QT Int : 376 ms P-R-T Axes : 033 -41 108 degrees QTc Int : 399 ms Sinus rhythm with Fusion complexes and Premature atrial complexes Left axis deviation Left ventricular hypertrophy with QRS widening and repolarization abnormality Abnormal ECG Confirmed by NGUYEN RUTLEDGE ([id number]), editor book HAWK ROMAN ([id number]) on 10/11/2019 3:08:19 PM Referred By: ROSMERY Confirmed By:NGUYEN RUTLEDGE
--- NOTE | 2019-10-09 19:56 | RAD_ITS ---
STUDY: X-RAY CHEST REASON FOR EXAM: Female, 84 years old. WEAKNESS TECHNIQUE: Single AP portable view of the chest. COMPARISON: Prior study of 08/27/2018 FINDINGS: personnel monitor leads are present. The lungs are clear and expanded. There is no demonstrated pleural abnormality. Normal size heart. Normal mediastinum and carlton. Normal visualized pulmonary arteries. There are calcified plaques of the aortic arch. Normal visualized thoracic spine. Normal visualized ribs, clavicles, and shoulders. There is no demonstrated abnormality of the visualized soft tissue structures of the upper abdomen. RAD/Chest 1 View (Portable) IMPRESSION: Calcified plaques of the aortic arch. A 4 mm left apical density noted on the previous study is not seen at this time. This may have represented a pulmonary vessel viewed en face. Electronically Signed: Corbin Higginbotham MD at 20:18 EST , Service support ,
--- NOTE | 2019-10-09 20:03 | ED.DCSUM_ITS ---
History of Present Illness Chief Complaint: Dizziness Informant: Patient Onset: Days Context: Gradual Onset Timing: Continuous Current Severity: Moderate Maximum Severity: Moderate Narrative: The patient is an 84-year-old female with history of aortic valve regurgitation, diabetes, hypertension, and anemia that presents to the emergency department generalized weakness. Patient states on Tuesday, she has had just generalized malaise. She feels like she cannot walk a distance without getting short of breath. She denies any fevers or chills. She denies any cough. She states the last time this happened, she was found to be anemic. The patient is on iron supplementation. She has had dark stools, but states that this has been going on for months since she started her iron replacement. She was admitted over a year ago when she was anemic. She had upper and lower endoscopy with no evidence of bleeding. She is not on anticoagulants. Prior similar symptoms: Yes Recent Illness/Hospitalization: No Past Medical History - Allergies and Home Meds Allergies/Adverse Reactions: Allergies No Known Allergies Allergy (Verified 10/09/19 19:29) Primary Care Physician: Gordo Weeks DO [Primary Care Provider] - Prior records reviewed: Yes Past Medical History: - - Hypertension, hyperlipidemia Surgical History: no surgical history Smoking Status: Never smoker - Family History Maternal Family History: Family History (Last Reviewed 09/25/19 @ 13:29 by Regis Melo MD) Father CAD (coronary artery disease) Myocardial infarction Brother CAD (coronary artery disease) Myocardial infarction Sister Heart disease Family History: Reports: Diabetes Paternal Family History: Family History (Last Reviewed 09/25/19 @ 13:29 by Regis Melo MD) Father CAD (coronary artery disease) Myocardial infarction Brother CAD (coronary artery disease) Myocardial infarction Sister Heart disease Family History: Reports: Diabetes Review of Systems General: Denies: Chills, Fever, Sweats Eyes: Denies: Visual changes - bilaterally, Diplopia ENT: Denies: Rhinorrhea, Sore throat Cardiovascular: Denies: Chest pain, Palpitations Respiratory: Reports: Dyspnea. Denies: Cough, Dyspnea on exertion Gastrointestinal: Reports: Nausea. Denies: Abdominal pain, Vomiting, Diarrhea, Melena, Hematochezia Genitourinary: Denies: Dysuria, Hematuria, Frequency Musculoskeletal: Denies: Back pain, Extremity Pain Skin: Denies: Rash, Wounds Neurological: Denies: Headache, Weakness, Numbness Physical Exam Vital Signs/Narrative: Vital Signs Temp Pulse Resp BP Pulse Ox 10/09/19 19:30 97.8 F 63 17 148/62 H 97 Inital Vital Signs reviewed: Yes General: Well nourished, Well developed, No Acute Distress Head: Normocephalic, Atraumatic Eyes: Perrl, EOMI ENT: Moist mucous membranes, No rhinorrhea Neck: Supple, Nontender Cardiovascular: Regular rate, Regular rhythm, No murmurs Respiratory: No distress, CTA bilaterally, Chest nontender Abdomen: Soft, Nontender, Nondistended, Normal bowel sounds Back: Nontender, Normal Inspection Extremities: Nontender, No edema Skin: Normal color, No rash Neurological: Alert, Oriented x3, Cranial nerves II-XII grossly intact, Normal Strength, Normal Sensation Psychological: Normal affect, Normal Mood Diagnostic/Tx/Re-eval Clinical Impression(s) from Imaging Studies Chest X-Ray 10/09/19 19:56 IMPRESSION: Calcified plaques of the aortic arch. A 4 mm left apical density noted on the previous study is not seen at this time. This may have represented a pulmonary vessel viewed en face. Electronically Signed: Corbin Higginbotham MD at 20:18 EST , Service support , Abnormal Lab Results 10/09/19 10/09/19 10/09/19 20:15 20:15 20:15 WBC 5.8 RBC 2.40 L Hgb 7.0 L Hct 22.0 L MCV 91.7 MCH 29.2 MCHC 31.8 L RDW Std Deviation 47.2 H RDW Coeff of Elisabeth 14.8 H Plt Count 210 MPV 9.1 Immature Gran % (Auto) 0.500 Neut % (Auto) 69.4 Lymph % (Auto) 21.4 [place]ding % (Auto) 7.0 Eos % (Auto) 1.4 Baso % (Auto) 0.3 Absolute Neuts (auto) 4.0 Absolute Lymphs (auto) 1.23 Nucleated RBC % 0 PT 13.5 INR 1.1 APTT 27.7 Sodium 137 Potassium 4.8 Chloride 106 Carbon Dioxide 24.0 Anion Gap 7 BUN 49 H Creatinine 1.49 H Estim Creat Clear Calc 24.27 Est GFR (MDRD) Af Amer 43 L Est GFR (MDRD) Non-Af 35 L BUN/Creatinine Ratio 32.9 H Glucose 197 H Calcium 9.6 Total Bilirubin 0.20 AST 12 L ALT 21 Alkaline Phosphatase 65 Troponin I < 0.015 Total Protein 6.9 Albumin 3.4 Globulin 3.5 Albumin/Globulin Ratio 1.0 Blood Type Antibody Screen Crossmatch 10/09/19 10/09/19 20:15 20:15 WBC RBC Hgb Hct MCV MCH MCHC RDW Std Deviation RDW Coeff of Elisabeth Plt Count MPV Immature Gran % (Auto) Neut % (Auto) Lymph % (Auto) [place] % (Auto) Eos % (Auto) Baso % (Auto) Absolute Neuts (auto) Absolute Lymphs (auto) Nucleated RBC % PT INR APTT Sodium Potassium Chloride Carbon Dioxide Anion Gap BUN Creatinine Estim Creat Clear Calc Est GFR (MDRD) Af Amer Est GFR (MDRD) Non-Af BUN/Creatinine Ratio Glucose Calcium Total Bilirubin AST ALT Alkaline Phosphatase Troponin I Total Protein Albumin Globulin Albumin/Globulin Ratio Blood Type A POSITIVE Antibody Screen NEGATIVE Crossmatch See Detail - Rhythm Strip Rhythm Strip: Sinus Rhythm Rate: 80 Ectopy: PVC(s) - EKG Initial EKG Interpretation: Sinus Rhythm, No Acute Injury Pattern - Medical Decision Making The patient presents to the emergency department with lightheadedness and generalized weakness. She is felt this way before when she has been anemic. The patient has had multiple upper and lower endoscopies with no definitive etiology of her bleeding found. EKG was obtained. It was sinus rhythm with few PACs. The patient then had what appears to be a rate-dependent right bundle branch block. She has not had chest pain and does have history of underlying aortic stenosis. Chest x-ray shows no evidence of acute volume overload. The patient was found to be anemic with a hemoglobin of 7. Orthostatics were obtained which were negative. She also has mild renal insufficiency. At this point, I do feel the patient has been to require admission for transfusion given her symptomatic anemia. She is agreeable with this plan of care. Impression 1. Symptomatic anemia ED Disposition - Plan for ED Patient: Referrals: Gordo Weeks DO [Primary Care Provider] -
[2019-10-09 20:26] LABS: Absolute Lymphocyte Count 1.23 X10^3/uL (0.83-4.51); Basophil# 0.02 X10^3/uL; Basophil% 0.3 % (0-1); Eosinophil# 0.08 X10^3/uL; Eosinophils% 1.4 % (0-5); Lymphocyte # 1.23 X10^3/ul (4.0); Lymphocyte % 21.4 % (19-41); Mean Corp Hgb Conc 31.8 g/dL (32-36); Mean Corpuscular Hgb 29.2 pg (27.0-32.0); Mean Corpuscular Volume 91.7 fL (81-99); Mean Platelet Vol. 9.1 fl (6.2-12.0); NRBC Flagged by Analyzer 0 % (0-5); Neutrophil # 3.99 X10^3/uL (2.7-7.7); Neutrophil % 69.4 % (47-70); Platelet Count 210 K/mm3 (150-450); RBC Distribution Width CV 14.8 % (11.6-14.6); RBC Distribution Width SD 47.2 fl (35.1-43.9); White Blood Count 5.8 K/mm3 (4.4-11.0)
[2019-10-09 20:39] LABS: International Normalized Ratio 1.1; Prothrombin Time (Protime)PT. 13.5 SECONDS (11.7-14.9)
[2019-10-09 20:40] LABS: Partial Thromboplast Time 27.7 Seconds (24.1-36.2)
[2019-10-09 20:51] LABS: AST(SGOT) 12 U/L (15-37); Alanine Aminotransfer ALT/SGPT 21 U/L (13-56); Albumin, Serum 3.4 g/dL (3.2-5.0); Alkaline Phosphatase 65 U/L (45-117); Anion Gap 7 (5-15); BUN 49 mg/dL (7-18); BUN/Creat Ratio 32.9 RATIO (10-20); Calcium,Total 9.6 mg/dL (8.5-10.1); Chloride 106 mmol/L (98-107); Creatinine, Serum 1.49 mg/dL (0.55-1.02); EST Glomerular Filtration Rate 35 mL/min (>60); Est Glom Filt Rate - Afr Amer 43 mL/min (>60); Estimated Creatinine Clearance 24.27 ml/min; Globulin 3.5 g/dL (2.2-4.2); Glucose 197 mg/dL (74-106); Potassium 4.8 mmol/L (3.5-5.1); Protein, Total 6.9 g/dL (6.4-8.2); Sodium Level 137 mmol/L (136-145)
[2019-10-09 21:17] LABS: Color, Urine Straw (Yellow); Glucose, Dipstick Normal (Normal); Ketone-Dipstick Negative (Negative); Leukocyte Esterase-Dipstick 500 /ul (Negative); Nitrite-Dipstick Negative (Negative); Occult Blood-Urine Negative /ul (Negative); Protein-Dipstick Negative (Negative); Specific Gravity, Urine 1.015 (1.002-1.030); Urine Bilirubin Dipstick Negative (Negative); Urine Clarity Clear (Clear); Urine Urobilinogen Normal (Normal)
--- NOTE | 2019-10-09 21:48 | PCM.HP.STD ---
Problem List (1) GI bleed Status: Acute Qualifiers: GI bleed type/associated pathology: unspecified gastrointestinal hemorrhage type Qualified Code(s): K92.2 - Gastrointestinal hemorrhage, unspecified (2) Acute on chronic blood loss anemia Status: Acute (3) MICHELLE (acute kidney injury) Status: Acute (4) Hypothyroidism Status: Chronic Qualifiers: Hypothyroidism type: unspecified Qualified Code(s): E03.9 - Hypothyroidism, unspecified (5) Diabetes mellitus, type II Status: Chronic Qualifiers: Diabetes mellitus retirement insulin use: without retirement use Diabetes mellitus complication status: with other specified complication Qualified Code(s): E11.69 - Type 2 diabetes mellitus with other specified complication (6) CKD (chronic kidney disease), stage III Status: Chronic (7) Valvular heart disease Status: Chronic (8) Essential (primary) hypertension Status: Chronic (9) Hyperlipidemia Status: Chronic Qualifiers: Hyperlipidemia type: unspecified Qualified Code(s): E78.5 - Hyperlipidemia, unspecified History of Present Illness Date of Admission: 10/09/19 Chief Complaint: Dizziness, weakness, nausea The patient is a 84 y/o F w/ PMHx: HTN, HLD, Chronic anemia, Hypothyroidism, Diabetes mellitus type II, Obesity, Valvular Heart Disease, CKD stage III, Hx GI Bleed with last known endoscopies [place] [address] Strong with no obvious source of bleeding at time who presents to the [facility] ED on 10/09/19 with history of 5 days of progressively worsening fatigue, weakness, mild lightheadedness and dizziness, dyspnea, worse with any exertion with ongoing dark stools of unchanged appearance on chronic iron supplementation with sensation that likely her hemoglobin was decreased as she has felt like this prior prompting eventual ED presentation. Patient denies any abdominal cramping associated nor change in specific change in stool texture. Denies any nausea or emesis. Work-up in the ED included T 97.8, heart rate 63, BP 148/62, respiratory rate 17, 97% on room air, unremarkable orthostatic vital signs, CBC with WBC 5.8, hemoglobin 7, platelet 210 without shift, unremarkable coags, CMP with BUN/creatinine 49/1.49, glucose 197, troponin less than 0.015, urinalysis pending, chest x-ray with calcified plaques of the aortic arch, a 4 mm left apical density noted on the previous study not visualized. In the ED patient initiated with 2 unit PRBC per ED in addition to 40 mg IV Protonix as well as normal saline. Past Medical History Past Medical History (Chronic Problems): Chronic Problems (Last Reviewed 09/25/19 @ 13:29 by Regis Melo MD) Hypothyroidism (Chronic) Diabetes mellitus, type II (Chronic) CKD (chronic kidney disease), stage III (Chronic) Valvular heart disease (Chronic) Non-rheumatic aortic stenosis (Chronic) Essential (primary) hypertension (Chronic) Hyperlipidemia (Chronic) Medical History: Medical History (Last Reviewed 09/25/19 @ 13:29 by Regis Melo MD) Non-rheumatic aortic stenosis (Chronic) I35.0 Essential (primary) hypertension (Chronic) I10 Hyperlipidemia (Chronic) E78.5 Anemia D64.9 Chronic kidney disease, stage 3 N18.3 GI bleed K92.2 Hypothyroidism E03.9 Iron deficiency anemia D50.9 Obesity E66.9 Osteoarthritis M19.90 Type 2 diabetes mellitus E11.9 Allergies No Known Allergies Allergy (Verified 10/09/19 19:29) Home Medications: Ambulatory Orders Medication Instructions Recorded Levothyroxine Sodium [Synthroid] 125 mcg PO DAILY 08/27/18 Metformin HCl [Glucophage Xr] 500 mg PO BID 08/27/18 furosemide 40 mg tablet 40 mg PO DAILY #90 tab 09/25/19 lisinopril 10 mg tablet 10 mg PO BID #180 tab 09/25/19 Acetaminophen [Tylenol Extra 500 mg PO Q6H PRN PRN 10/09/19 Strength] Amlodipine [Norvasc] 5 mg PO BID 10/09/19 Ferrous Sulfate [Iron] 325 mg PO TID 10/09/19 Potassium Chloride 10 meq PO BID 10/09/19 Pravastatin [Pravachol] 20 mg PO QHS 10/09/19 Surgical History: no surgical history 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 PUBLIC HEALTH history Lives: Spouse/ Significant Other Smoking Status: Never smoker Alcohol: None Drugs: None - *Family History Maternal Family History: Family History (Last Reviewed 09/25/19 @ 13:29 by Regis Melo MD) Father CAD (coronary artery disease) Myocardial infarction Brother CAD (coronary artery disease) Myocardial infarction Sister Heart disease History Items: Diabetes Paternal Family History: Family History (Last Reviewed 09/25/19 @ 13:29 by Regis Meol MD) Father CAD (coronary artery disease) Myocardial infarction Brother CAD (coronary artery disease) Myocardial infarction Sister Heart disease History Items: Diabetes, High Cholesterol, Heart Disease, Hypertension Review of Systems Constitutional: Reports: Malaise, Weakness, Fatigue. Denies: Chills, Fever, Weight Change HEENT: Denies: Head Aches, Sinus Congestion, Sinus Drainage Cardiovascular: Reports: Light Headedness. Denies: Chest Pain, Palpitations Respiratory: Reports: Shortness of Breath, Shortness of breath at rest, Shortness of breath upon exertion. Denies: Cough, Sputum production, Wheezing Gastrointestinal: Reports: - - Chronic dark stools, unchanged.. Denies: Abdominal Pain, Nausea, Vomiting Genitourinary: Denies: Dysuria Musculoskeletal: Reports: Back Pain, Joint Pain. Denies: Joint Tenderness Skin: Denies: Rash, Wounds Neurological: Denies: Numbness, Tingling, Focal weakness Psychiatric: Denies: Anxiety, Depression, Homicidal Ideations, Suicidal Ideations Hematologic/ Lymphatic: Reports: Anemia, Easy Bruising, Easy Bleeding VTE Information - Inpt Only VTE Present on Admission: No VTE Mechan Device Prophylaxis: SCD's VTE Pharm Prophylaxis ordered?: No Reason prophylaxis not ordered:: Medical Contraindication Patient Problems: Active and Suspected Problems (Last Reviewed 09/25/19 @ 13:29 by Regis Melo MD) GI bleed (Acute) Acute on chronic blood loss anemia (Acute) MICHELLE (acute kidney injury) (Acute) Subjective: Seated upright in ED bed, fatigued appearance, no acute distress. Objective: Physical Examination: General: awake, alert, oriented x 3 and cooperative, seated upright in the ED bed in no apparent distress. Skin: Pale color, turgor, no icterus, cyanosis. HEENT: AT/NC, EOMI, PERRLA, MMM, no carotid bruits or JVD noted. Lungs: Diminished breath sounds bilaterally, greater bilateral bases, moderate effort, no rales, ronchi or wheezing. Heart: Regular rate and rhythm; no gallop, rub audible, significant SM present. Abdomen: soft, NTTP, ND, mildly hyperactive BS, no HSM. Extremities: no cyanosis, clubbing, or edema. Neurological: patient awake, alert, oriented x 3; cognitive function intact; pupils equally reactive to light and accomodation; cranial nerves II-XII grossly normal, moving all 4 extremities, no focal deficits, strength moderately to severely global decrease secondary to acute presentation. Psychiatric: affect appears mildly fatigued otherwise normal, no acute evidence of depressive or anxiety feelings. - Physical Exam Vitals/I&O's: Vital Signs Temp Pulse Resp BP Pulse Ox 98.2 F 68 16 126/48 H 96 10/09/19 21:36 10/09/19 21:36 10/09/19 21:36 10/09/19 21:36 10/09/19 21:36 Oxygen Delivery Method Room Air Weight: 182 lb 1.629 oz Body Mass Index (BMI) 31.2 Intake and Output for Last 24 Hours 10/07/19 10/08/19 10/09/19 23:59 23:59 23:59 Intake Total 500 / 500 Balance 500 / 500 Laboratory Results 10/09/19 20:15: WBC 5.8, RBC 2.40 L, Hgb 7.0 L, Hct 22.0 L, MCV 91.7, MCH 29.2, MCHC 31.8 L, RDW Std Deviation 47.2 H, RDW Coeff of Elisabeth 14.8 H, Plt Count 210, MPV 9.1, Immature Gran % (Auto) 0.500, Neut % (Auto) 69.4, Lymph % (Auto) 21.4, [place] % (Auto) 7.0, Eos % (Auto) 1.4, Baso % (Auto) 0.3, Absolute Neuts (auto) 4.0, Absolute Lymphs (auto) 1.23, Nucleated RBC % 0 10/09/19 20:15: PT 13.5, INR 1.1, APTT 27.7 10/09/19 20:15: Sodium 137, Potassium 4.8, Chloride 106, Carbon Dioxide 24.0, Anion Gap 7, BUN 49 H, Creatinine 1.49 H, Estim Creat Clear Calc 24.27, Est GFR (MDRD) Af Amer 43 L, Est GFR (MDRD) Non-Af 35 L, BUN/Creatinine Ratio 32.9 H, Glucose 197 H, Calcium 9.6, Total Bilirubin 0.20, AST 12 L, ALT 21, Alkaline Phosphatase 65, Troponin I < 0.015, Total Protein 6.9, Albumin 3.4, Globulin 3.5, Albumin/Globulin Ratio 1.0 10/09/19 20:15: Blood Type A POSITIVE, Antibody Screen NEGATIVE 10/09/19 20:15: Crossmatch See Detail 10/09/19 21:00: Urine Color Straw, Urine Clarity Clear, Urine pH 6.0, Ur Specific [place] 1.015, Urine Protein Negative, Urine Glucose (UA) Normal, Urine Ketones Negative, Urine Occult Blood Negative, Urine Nitrite Negative, Urine Bilirubin Negative, Urine Urobilinogen Normal, Ur Leukocyte Esterase 500 H Assessment/Plan All Active Problems (Last Reviewed 09/25/19 @ 13:29 by Regis Melo MD) GI bleed (Acute) Acute on chronic blood loss anemia (Acute) MICHELLE (acute kidney injury) (Acute) Dyspnea on exertion (Acute) The patient is a 84 y/o F w/ PMHx: HTN, HLD, Chronic anemia, Hypothyroidism, Diabetes mellitus type II, Obesity, Valvular Heart Disease, CKD stage III, Hx GI Bleed with last known endoscopies [place] [address] Strong with no obvious source of bleeding at time who presents to the [facility] ED on 10/09/19 with history of 5 days of progressively worsening fatigue, weakness, mild lightheadedness and dizziness, dyspnea, worse with any exertion with ongoing dark stools of unchanged appearance on chronic iron supplementation. 1. Presumed Acute on Chronic GI Bleed w/ resultant Acute on Chronic Blood Loss Anemia: Admission Hgb 7.0, will admit to PCU, maintain on IVFs, obtain serial H+H q 6 hours, T+C per ED with 2 u PRBC administration started, maintain on IV PPI, will consult General surgery. May need administration lasix following, will closely monitor. 2. Acute kidney injury on CKD stage III: Secondary to acute presentation, #1 as well as concurrent nephrotoxic regimen. Admission BUN/Cr 49/1.49, prior baseline creatinine noted to be 0.9-1.0. Will hydrate, hold nephrotoxic medications and repeat chemistry in AM. If no improvement would plan FeNa assessment on the renal ultrasound. 3. Hypertension: Continue home regimen including Norvasc with hold parameters, temporarily holding lisinopril and Lasix given MICHELLE, PRN hydralazine. 4. Hyperlipidemia: Continue home statin regimen. 5. Diabetes mellitus type II: Hold oral home regimen, continue home insulin regimen, currently n.p.o. status, accu checks w/ ISS. 6. Hypothyroidism: Continue home synthroid regimen. 7. Valvular heart disease: 12/14/18 ECHO w/ size, mild concentric LVH, LV systolic function normal, EF 65%, stage I diastolic dysfunction, LA mildly large, severe focal AV calcification, critical left ear, 0.6 cm?. Patient has deferred cardiac catheterization with TAVR option. 8. GERD: Maintained on IV PPI. 9. DVT prophylaxis: SCDs, defer chemoprophylaxis given acute presentation #1. 10. CODE status: Patient's family and present, she does not have a healthcare power of finance attorney nor living will, recommended that they discuss these items with case management if interested in help setting these things up. Discussed CODE status at length including difference between FULL code, DNR-CCA and DNR-CC status. Following discussions about the differences in these status, requested DNR CCA, no intubation. Advanced Care Planning Face to Face Time: 16 minutes. Code Visit Inpatient E&M: 06706 Init Hosp L3 Procedures: 71824 Advncd Care Plan 30 Min
[2019-10-09 22:08] LABS: Bacteria 0 SEEN /hpf (None Seen); Mucous, Urine 0 SEEN /hpf (<or=2+); Red Blood Cells-Urine 0 SEEN /hpf (0-5)
[2019-10-09 22:10] LABS: Hyaline Cast 0-5 SEEN /lpf (0-5); Squamous Epithelial Cells - UA 0-5 SEEN /hpf (5-10)
[2019-10-09 22:12] LABS: Transitional Epithelial - Ur 0-5 SEEN /hpf (0-5); White Blood Cells 25-50 SEEN /hpf (0-5)
[2019-10-09 23:07] LABS: Magnesium 2.1 mg/dL (1.6-2.6)
[2019-10-09 23:26] LABS: Bedside Glucose 122 mg/dL (70-110)
[2019-10-10] VITALS (13 sets, daily range): BP systolic 113–146; BP diastolic 43–74; PULSE 57–66; RESP 18; TEMP 36.6–36.8; O2SAT 93–97
[2019-10-10] MEDS: 0.9% Normal Saline 1,000 ML 75 ML IV ×2 (02:06→12:45)
[2019-10-10] MEDS: Levothyroxine 125 MCG Tablet PO (06:33)
[2019-10-10 07:01] LABS: Bedside Glucose 94 mg/dL (70-110)
--- NOTE | 2019-10-10 07:04 | CON.PCM_ITS ---
Reason for Consult Date of Consultation: 10/10/19 History of Present Illness: The patient is a 84 year old F presented to the ER due to fatigue. Patient states since Tuesday she noticed she was more fatigued than usual especially when she was up moving around. In the ER patient was found to have a hemoglobin of 7. Patient did get units of packed red blood cells. Currently patient states she is feeling better. Patient states she has bowel movements almost every day but they have been dark however since June she has been on iron 3 times a day. Patient denies being on any PPI at home. Currently she is on Protonix IV. Patient currently does not have a repeat hemoglobin the patient states she would like to go home today. Patient denies any abdominal pain any nausea or vomiting or reflux symptoms. States her last colonoscopy was a year ago by Dr. Strong she had an EGD and colonoscopy which were both negative per patient. Past Medical History Past Medical History (Chronic Problems): Chronic Problems (Last Reviewed 09/25/19 @ 13:29 by Regis Melo MD) Hypothyroidism (Chronic) Diabetes mellitus, type II (Chronic) CKD (chronic kidney disease), stage III (Chronic) Valvular heart disease (Chronic) Non-rheumatic aortic stenosis (Chronic) Essential (primary) hypertension (Chronic) Hyperlipidemia (Chronic) Medical History: Medical History (Last Reviewed 09/25/19 @ 13:29 by Regis Melo MD) Non-rheumatic aortic stenosis (Chronic) I35.0 Essential (primary) hypertension (Chronic) I10 Hyperlipidemia (Chronic) E78.5 Anemia D64.9 Chronic kidney disease, stage 3 N18.3 GI bleed K92.2 Hypothyroidism E03.9 Iron deficiency anemia D50.9 Obesity E66.9 Osteoarthritis M19.90 Type 2 diabetes mellitus E11.9 Allergies No Known Allergies Allergy (Verified 10/09/19 19:29) Home Medications: Ambulatory Orders Medication Instructions Recorded Levothyroxine Sodium [Synthroid] 125 mcg PO DAILY 08/27/18 Metformin HCl [Glucophage Xr] 500 mg PO BID 08/27/18 furosemide 40 mg tablet 40 mg PO DAILY #90 tab 09/25/19 lisinopril 10 mg tablet 10 mg PO BID #180 tab 09/25/19 Acetaminophen [Tylenol Extra 500 mg PO Q6H PRN PRN 10/09/19 Strength] Amlodipine [Norvasc] 5 mg PO BID 10/09/19 Ferrous Sulfate [Iron] 325 mg PO TID 10/09/19 Potassium Chloride 10 meq PO BID 10/09/19 Pravastatin [Pravachol] 20 mg PO QHS 10/09/19 Surgical History: - - Patient states she had an EGD and colonoscopy in [address] Strong which were negative. 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 Lives: Spouse/ Significant Other Smoking Status: Never smoker Alcohol: None Drugs: None - *Family History Maternal Family History: Family History (Last Reviewed 09/25/19 @ 13:29 by Regis Melo MD) Father CAD (coronary artery disease) Myocardial infarction Brother CAD (coronary artery disease) Myocardial infarction Sister Heart disease History Items: Diabetes Paternal Family History: Family History (Last Reviewed 09/25/19 @ 13:29 by Regis Melo MD) Father CAD (coronary artery disease) Myocardial infarction Brother CAD (coronary artery disease) Myocardial infarction Sister Heart disease History Items: Diabetes, High Cholesterol, Heart Disease, Hypertension Review of Systems Constitutional: Reports: Fatigue. Denies: Anorexia Eyes: Denies: Blurred vision HEENT: Denies: Difficulty Swallowing Cardiovascular: Denies: Chest Pain Respiratory: Denies: Cough Gastrointestinal: Reports: Melena - However patient states she is been on iron since June. Denies: Abdominal Pain, Nausea, Vomiting Genitourinary: Denies: Dysuria Musculoskeletal: Denies: Joint Pain Skin: Denies: Rash Neurological: Denies: Balance problems Psychiatric: Denies: Depression Hematologic/ Lymphatic: Denies: Easy Bleeding Patient Problems: Active and Suspected Problems (Last Reviewed 09/25/19 @ 13:29 by Regis Melo MD) GI bleed (Acute) Acute on chronic blood loss anemia (Acute) MICHELLE (acute kidney injury) (Acute) - Physical Exam Vitals/I&O's: Vital Signs Temp Pulse Resp BP Pulse Ox 98 F 57 L 18 113/66 94 10/10/19 01:50 10/10/19 02:58 10/10/19 01:50 10/10/19 01:50 10/10/19 01:50 Oxygen Delivery Method Room Air Weight: 181 lb 10.574 oz Body Mass Index (BMI) 31.1 Intake and Output for Last 24 Hours 10/08/19 10/09/19 10/10/19 23:59 23:59 23:59 Intake Total 900 / 900 511.25 / 511.25 Output Total 0 / 0 Balance 900 / 900 511.25 / 511.25 General: Alert, Oriented x3, Cooperative, No apparent distress HEENT: Atraumatic Lungs: Normal air movement Cardiovascular: Regular rate Abdomen: Soft, Non Tender, Non-Distended Extremities: No clubbing, No cyanosis, No edema Neurological: Cranial nerves II-XII grossly intact Psych/Mental Status: Normal Affect Laboratory Results 10/09/19 20:15: WBC 5.8, RBC 2.40 L, Hgb 7.0 L, Hct 22.0 L, MCV 91.7, MCH 29.2, MCHC 31.8 L, RDW Std Deviation 47.2 H, RDW Coeff of Elisabeth 14.8 H, Plt Count 210, MPV 9.1, Immature Gran % (Auto) 0.500, Neut % (Auto) 69.4, Lymph % (Auto) 21.4, [place] % (Auto) 7.0, Eos % (Auto) 1.4, Baso % (Auto) 0.3, Absolute Neuts (auto) 4.0, Absolute Lymphs (auto) 1.23, Nucleated RBC % 0 10/09/19 20:15: PT 13.5, INR 1.1, APTT 27.7 10/09/19 20:15: Sodium 137, Potassium 4.8, Chloride 106, Carbon Dioxide 24.0, Anion Gap 7, BUN 49 H, Creatinine 1.49 H, Estim Creat Clear Calc 24.27, Est GFR (MDRD) Af Amer 43 L, Est GFR (MDRD) Non-Af 35 L, BUN/Creatinine Ratio 32.9 H, Glucose 197 H, Calcium 9.6, Total Bilirubin 0.20, AST 12 L, ALT 21, Alkaline Phosphatase 65, Troponin I < 0.015, Total Protein 6.9, Albumin 3.4, Globulin 3.5, Albumin/Globulin Ratio 1.0 10/09/19 20:15: Blood Type A POSITIVE, Antibody Screen NEGATIVE 10/09/19 20:15: Crossmatch See Detail 10/09/19 20:15: Magnesium 2.1 10/09/19 21:00: Urine Color Straw, Urine Clarity Clear, Urine pH 6.0, Ur Specific [place] 1.015, Urine Protein Negative, Urine Glucose (UA) Normal, Urine Ketones Negative, Urine Occult Blood Negative, Urine Nitrite Negative, Urine Bilirubin Negative, Urine Urobilinogen Normal, Ur Leukocyte Esterase 500 H, Urine RBC 0 SEEN, Urine WBC 25-50 SEEN, Ur Squamous Epith Cells 0-5 SEEN, Ur Transition Epith Cell 0-5 SEEN, Urine Bacteria 0 SEEN, Hyaline Casts 0-5 SEEN, Urine Mucus 0 SEEN 10/09/19 21:00: Urine Color Cancelled, Urine Clarity Cancelled, Urine pH Cancelled, Ur Specific [place] Cancelled, U Specif Grav (Refrac) Cancelled, Urine Protein Cancelled, Urine Glucose (UA) Cancelled, Urine Ketones Cancelled, Urine Occult Blood Cancelled, Urine Nitrite Cancelled, Urine Bilirubin Cancelled, Urine Urobilinogen Cancelled, Ur Leukocyte Esterase Cancelled, Urine RBC Cancelled, Urine WBC Cancelled, Ur Squamous Epith Cells Cancelled, Ur Transition Epith Cell Cancelled, Ur Renal Epithelial Cell Cancelled, Calcium Ox alate Crystal Cancelled, Uric Acid Crystals Cancelled, Triple Phos Crystals Cancelled, Other Crystals Cancelled, Amorphous Sediment Cancelled, Urine Bacteria Cancelled, Hyaline Casts Cancelled, Fine Granular Casts Cancelled, Coarse Granular Casts Cancelled, Waxy Casts Cancelled, RBC Casts Cancelled, WBC Casts Cancelled, Urine Mucus Cancelled, Urine Trichomonas Cancelled, Urine Yeast Cancelled 10/09/19 23:19: POC Glucose 122 H 10/10/19 06:30: POC Glucose 94 10/10/19 06:40: WBC Pending, RBC Pending, Hgb Pending, Hct Pending, MCV Pending, MCH Pending, MCHC Pending, RDW Std Deviation Pending, RDW Coeff of Elisabeth Pending, Plt Count Pending, Neut % (Auto) Pending, Absolute Neuts (auto) Pending 10/10/19 06:40: Sodium Pending, Potassium Pending, Chloride Pending, Carbon Dioxide Pending, Anion Gap Pending, BUN Pending, Creatinine Pending, Est GFR (MDRD) Af Amer Pending, Est GFR (MDRD) Non-Af Pending, BUN/Creatinine Ratio Pe nding, Glucose Pending, Calcium Pending Current Medications Acetaminophen (Tylenol) 650 mg PO Q6H PRN PRN PRN Reason: Pain Score 1-10/Temp > 100.7 F Albuterol Sulfate (Ventolin Aerosols) 2.5 mg INHALATION Q2H PRN PRN PRN Reason: SOB/Wheezing Amlodipine Besylate (Norvasc) 5 mg PO BID JOSEPH Ferrous Sulfate (Ferrous Sulfate) 325 mg PO 1200,1700,2200 [facility] Furosemide (Lasix) 20 mg IV .with PRBCs PRN PRN Reason: Overload w/PRBCs Glucagon () 1 mg IM .X1 PRN PRN Reason: Hypoglycemia Guaifenesin (Robitussin) 20 ml PO Q4H PRN PRN PRN Reason: COUGH Hydralazine HCl (Apresoline Iv) 10 mg IV Q4H PRN PRN PRN Reason: SBP > 160 Sodium Chloride () 1,000 mls @ 75 mls/hr IV .[id number] [facility] Last Infusion: 10/10/19 02:32 Dose: 75 mls/hr Documented by: Dextrose (Dextrose 10%-Water) 250 mls @ 999 mls/hr IV .Q16M PRN; Protocol PRN Reason: HYPOGLYCEMIA Sodium Chloride () 250 mls @ 15 mls/hr IV .[id number] PRN PRN Reason: Saline Flush Sodium Chloride () 250 mls @ 15 mls/hr IV .[id number] PRN PRN Reason: Additional IVPB Infusion Insulin Human Lispro (Humalog Kwikpen (Bkc)) 0 unit SC Q6 [facility]; Protocol Last Admin: 10/10/19 06:33 Dose: Not Given Documented by: Levothyroxine Sodium (Synthroid) 125 mcg PO DAILY@0600 [facility] Last Admin: 10/10/19 06:33 Dose: 125 mcg Documented by: Melatonin (Melatonin) 3 mg PO QHS PRN PRN PRN Reason: INSOMNIA Morphine Sulfate () 2 mg IV Q3H PRN PRN PRN Reason: Pain Score 6-10/10 Nitroglycerin (Nitrostat) 0.4 mg SUBLINGUAL Q5M PRN PRN Reason: CARDIAC/CHEST PAIN Ondansetron HCl (Zofran) 4 mg IV Q8H PRN PRN PRN Reason: NAUSEA/VOMITING Oxycodone HCl (Oxyir) 5 mg PO Q4H PRN PRN PRN Reason: Pain Score 4-5/10 Potassium Chloride (K-Dur) 10 meq PO BID JOSEPH Pravastatin Sodium (Pravachol) 20 mg PO QHS JOSEPH Prochlorperazine Edisylate (Compazine Iv) 5 mg IV Q4H PRN PRN PRN Reason: Breakthrough Nausea/Vomiting Sodium Chloride () 10 - 40 ml IV UD PRN PRN Reason: SALINE FLUSH Throat Lozenges (Cepacol Sore Throat Lozenge) 1 lozenge MUCOUS MEM Q2H PRN PRN PRN Reason: SORE THROAT Assessment/Plan All Active Problems (Last Reviewed 09/25/19 @ 13:29 by Regis Melo MD) GI bleed (Acute) Acute on chronic blood loss anemia (Acute) MICHELLE (acute kidney injury) (Acute) Dyspnea on exertion (Acute) 84-year-old female with GI bleed 1. Discussed with patient doing EGD and/or colonoscopy. Patient would prefer to defer the colonoscopy unless needed. Did discuss the procedure of an EGD. I have explained the risks/benefits of the procedure and described the procedure. I have discussed the risks with the patient, including but not limited to: infection, bleeding, perforation of the GI tract requiring emergency surgery, inability to complete the procedure, injury to any internal organs, complications of anesthesia, etc. - the patient understands and agrees to proceed. I have answered all the patient's questions to the patient's satisfaction and the patient has no further questions. --- We will check with scheduling--- likely be able to do the EGD tomorrow as patient is also likely benefit from staying on IV Protonix for today as well. Patient does states she would like to go home tonight. Daija Benjamin M.D. Pager: [phone] [facility] [address] [place] [address], [facility], [address] [place] [address] Office: [phone] Code Visit Inpatient E&M: 03806 Init Hosp L2 Multi Select Codes - Visit Charges Visit Charges: 47751 Init Hosp L2
[2019-10-10 07:09] LABS: Absolute Lymphocyte Count 1.77 X10^3/uL (0.83-4.51); Absolute Neutrophil Count 3.6 X10^3/uL (2.0-7.7); Basophil# 0.03 X10^3/uL; Basophil% 0.5 % (0-1); Eosinophil# 0.11 X10^3/uL; Eosinophils% 1.8 % (0-5); Hematocrit 28.6 % (37-47); Hemoglobin 9.5 g/dL (12.0-15.0); Lymphocyte # 1.77 X10^3/ul (4.0); Lymphocyte % 29.7 % (19-41); Mean Corp Hgb Conc 33.2 g/dL (32-36); Mean Corpuscular Hgb 29.7 pg (27.0-32.0); Mean Corpuscular Volume 89.4 fL (81-99); Mean Platelet Vol. 9.2 fl (6.2-12.0); Monocyte# 0.46 X10^3/uL; Monocyte% 7.7 % (0-10); NRBC Flagged by Analyzer 0 % (0-5); Neutrophil # 3.55 X10^3/uL (2.7-7.7); Neutrophil % 59.6 % (47-70); Platelet Count 179 K/mm3 (150-450); RBC Distribution Width CV 14.6 % (11.6-14.6)
[2019-10-10 07:57] LABS: Anion Gap 4 (5-15); BUN 35 mg/dL (7-18); BUN/Creat Ratio 30.4 RATIO (10-20); Calcium,Total 9.3 mg/dL (8.5-10.1); Chloride 112 mmol/L (98-107); Creatinine, Serum 1.15 mg/dL (0.55-1.02); EST Glomerular Filtration Rate 48 mL/min (>60); Est Glom Filt Rate - Afr Amer 58 mL/min (>60); Estimated Creatinine Clearance 31.45 ml/min; Glucose 97 mg/dL (74-106); Potassium 4.5 mmol/L (3.5-5.1); Sodium Level 141 mmol/L (136-145)
[2019-10-10] MEDS: amLODIPine 5 MG Tablet PO ×2 (10:29→21:07)
--- NOTE | 2019-10-10 10:39 | PCM.PN.HOSP ---
Patient Problems: Active and Suspected Problems (Last Reviewed 09/25/19 @ 13:29 by Regis Melo MD) GI bleed (Acute) Acute on chronic blood loss anemia (Acute) MICHELLE (acute kidney injury) (Acute) Reason for Visit: Acute anemia most probably GI bleed Objective: Patient had drop in H&H which required PRBC transfusion. Last H&H 9.01/23. Platelet count 179. Vitals/I&O's: Vital Signs Temp Pulse Resp BP Pulse Ox 97.9 F 63 18 137/50 H 96 10/10/19 07:50 10/10/19 07:50 10/10/19 07:50 10/10/19 07:50 10/10/19 07:50 Oxygen Delivery Method Room Air Weight: 181 lb 10.574 oz Body Mass Index (BMI) 31.1 Intake and Output for Last 24 Hours 10/08/19 10/09/19 10/10/19 23:59 23:59 23:59 Intake Total 900 / 900 511.25 / 511.25 Output Total 0 / 0 Balance 900 / 900 511.25 / 511.25 General: Alert, Oriented x3, Cooperative HEENT: Atraumatic, PERRLA, EOMI, Normocephalic Neck: Supple, No JVD, Negative Carotid Bruits Lungs: Clear to auscultation, No rhonchi, No wheeze, No rales, Diminished Cardiovascular: Regular rate, Normal S1, Normal S2, No murmurs, Murmur - Pansystolic murmur present over left lower sternal border, apical area. Abdomen: Bowel Sounds Present, Soft, Non Tender, Non-Distended Extremities: Capillary Refill Less than 3 Seconds, Edema Skin: No rashes, No breakdown Musculoskeletal: No Tenderness to Palpation of Joints or Extremities, Arthritic Changes Lymphatic: No Cervical, Supraclavicular, or Inguinal Adenopathy Neurological: Cranial nerves II-XII grossly intact, Deep Tendon Reflexes 2+/4 and Symmetrical, Neuro grossly intact Psych/Mental Status: Normal Affect, Appropriate Laboratory Results 10/09/19 20:15: WBC 5.8, RBC 2.40 L, Hgb 7.0 L, Hct 22.0 L, MCV 91.7, MCH 29.2, MCHC 31.8 L, RDW Std Deviation 47.2 H, RDW Coeff of Elisabeth 14.8 H, Plt Count 210, MPV 9.1, Immature Gran % (Auto) 0.500, Neut % (Auto) 69.4, Lymph % (Auto) 21.4, [place] % (Auto) 7.0, Eos % (Auto) 1.4, Baso % (Auto) 0.3, Absolute Neuts (auto) 4.0, Absolute Lymphs (auto) 1.23, Nucleated RBC % 0 10/09/19 20:15: PT 13.5, INR 1.1, APTT 27.7 10/09/19 20:15: Sodium 137, Potassium 4.8, Chloride 106, Carbon Dioxide 24.0, Anion Gap 7, BUN 49 H, Creatinine 1.49 H, Estim Creat Clear Calc 24.27, Est GFR (MDRD) Af Amer 43 L, Est GFR (MDRD) Non-Af 35 L, BUN/Creatinine Ratio 32.9 H, Glucose 197 H, Calcium 9.6, Total Bilirubin 0.20, AST 12 L, ALT 21, Alkaline Phosphatase 65, Troponin I < 0.015, Total Protein 6.9, Albumin 3.4, Globulin 3.5, Albumin/Globulin Ratio 1.0 10/09/19 20:15: Blood Type A POSITIVE, Antibody Screen NEGATIVE 10/09/19 20:15: Crossmatch See Detail 10/09/19 20:15: Magnesium 2.1 10/09/19 21:00: Urine Color Straw, Urine Clarity Clear, Urine pH 6.0, Ur Specific [place] 1.015, Urine Protein Negative, Urine Glucose (UA) Normal, Urine Ketones Negative, Urine Occult Blood Negative, Urine Nitrite Negative, Urine Bilirubin Negative, Urine Urobilinogen Normal, Ur Leukocyte Esterase 500 H, Urine RBC 0 SEEN, Urine WBC 25-50 SEEN, Ur Squamous Epith Cells 0-5 SEEN, Ur Transition Epith Cell 0-5 SEEN, Urine Bacteria 0 SEEN, Hyaline Casts 0-5 SEEN, Urine Mucus 0 SEEN 10/09/19 21:00: Urine Color Cancelled, Urine Clarity Cancelled, Urine pH Cancelled, Ur Specific [place] Cancelled, U Specif Grav (Refrac) Cancelled, Urine Protein Cancelled, Urine Glucose (UA) Cancelled, Urine Ketones Cancelled, Urine Occult Blood Cancelled, Urine Nitrite Cancelled, Urine Bilirubin Cancelled, Urine Urobilinogen Cancelled, Ur Leukocyte Esterase Cancelled, Urine RBC Cancelled, Urine WBC Cancelled, Ur Squamous Epith Cells Cancelled, Ur Transition Epith Cell Cancelled, Ur Renal Epithelial Cell Cancelled, Calcium Oxalate Crystal Cancelled, Uric Acid Crystals Cancelled, Triple Phos Crystals Cancelled, Other Crystals Cancelled, Amorphous Sediment Cancelled, Urine Bacteria Cancelled, Hyaline Casts Cancelled, Fine Granular Casts Cancelled, Coarse Granular Casts Cancelled, Waxy Casts Cancelled, RBC Casts Cancelled, WBC Casts Cancelled, Urine Mucus Cancelled, Urine Trichomonas Cancelled, Urine Yeast Cancelled 10/09/19 23:19: POC Glucose 122 H 10/10/19 06:30: POC Glucose 94 10/10/19 06:40: WBC 6.0, RBC 3.20 L, Hgb 9.5 L, Hct 28.6 L, MCV 89.4, MCH 29.7, MCHC 33.2, RDW Std Deviation 46.0 H, RDW Coeff of Elisabeth 14.6, Plt Count 179, MPV 9.2, Immature Gran % (Auto) 0.700, Neut % (Auto) 59.6, Lymph % (Auto) 29.7, [place] % (Auto) 7.7, Eos % (Auto) 1.8, Baso % (Auto) 0.5, Absolute Neuts (auto) 3.6, Absolute Lymphs (auto) 1.77, Nucleated RBC % 0 10/10/19 06:40: Sodium 141, Potassium 4.5, Chloride 112 H, Carbon Dioxide 25.0, Anion Gap 4 L, BUN 35 H, Creatinine 1.15 H, Estim Creat Clear Calc 31.45, Est GFR (MDRD) Af Amer 58 L, Est GFR (MDRD) Non-Af 48 L, BUN/Creatinine Ratio 30.4 H, Glucose 97, Calcium 9.3 Current Medications Acetaminophen (Tylenol) 650 mg PO Q6H PRN PRN PRN Reason: Pain Score 1-10/Temp > 100.7 F Albuterol Sulfate (Ventolin Aerosols) 2.5 mg INHALATION Q2H PRN PRN PRN Reason: SOB/Wheezing Amlodipine Besylate (Norvasc) 5 mg PO BID [facility] Last Admin: 10/10/19 10:29 Dose: 5 mg Documented by: Ferrous Sulfate (Ferrous Sulfate) 325 mg PO 1200,1700,2200 [facility] Furosemide (Lasix) 20 mg IV .with PRBCs PRN PRN Reason: Overload w/PRBCs Glucagon () 1 mg IM .X1 PRN PRN Reason: Hypoglycemia Guaifenesin (Robitussin) 20 ml PO Q4H PRN PRN PRN Reason: COUGH Hydralazine HCl (Apresoline Iv) 10 mg IV Q4H PRN PRN PRN Reason: SBP > 160 Sodium Chloride () 1,000 mls @ 75 mls/hr IV .[id number] [facility] Last Infusion: 10/10/19 02:32 Dose: 75 mls/hr Documented by: Dextrose (Dextrose 10%-Water) 250 mls @ 999 mls/hr IV .Q16M PRN; Protocol PRN Reason: HYPOGLYCEMIA Sodium Chloride () 250 mls @ 15 mls/hr IV .[id number] PRN PRN Reason: Saline Flush Sodium Chloride () 250 mls @ 15 mls/hr IV .[id number] PRN PRN Reason: Additional IVPB Infusion Pantoprazole Sodium 40 mg/ (Sodium Chloride) 110 mls @ 330 mls/hr IV Q12 [facility] Last Admin: 10/10/19 10:27 Dose: 330 mls/hr Documented by: Insulin Human Lispro (Humalog Kwikpen (Bkc)) 0 unit SC Q6 [facility]; Protocol Last Admin: 10/10/19 06:33 Dose: Not Given Documented by: Levothyroxine Sodium (Synthroid) 125 mcg PO DAILY@0600 [facility] Last Admin: 10/10/19 06:33 Dose: 125 mcg Documented by: Melatonin (Melatonin) 3 mg PO QHS PRN PRN PRN Reason: INSOMNIA Morphine Sulfate () 2 mg IV Q3H PRN PRN PRN Reason: Pain Score 6-10/10 Nitroglycerin (Nitrostat) 0.4 mg SUBLINGUAL Q5M PRN PRN Reason: CARDIAC/CHEST PAIN Ondansetron HCl (Zofran) 4 mg IV Q8H PRN PRN PRN Reason: NAUSEA/VOMITING Oxycodone HCl (Oxyir) 5 mg PO Q4H PRN PRN PRN Reason: Pain Score 4-5/10 Potassium Chloride (K-Dur) 10 meq PO BID [facility] Last Admin: 10/10/19 10:29 Dose: 10 meq Documented by: Pravastatin Sodium (Pravachol) 20 mg PO QHS [facility] Prochlorperazine Edisylate (Compazine Iv) 5 mg IV Q4H PRN PRN PRN Reason: Breakthrough Nausea/Vomiting Sodium Chloride () 10 - 40 ml IV UD PRN PRN Reason: SALINE FLUSH Throat Lozenges (Cepacol Sore Throat Lozenge) 1 lozenge MUCOUS MEM Q2H PRN PRN PRN Reason: SORE THROAT STROKE Vital Signs/Narrative: Vital Signs Temp Pulse Resp BP Pulse Ox 10/10/19 07:50 97.9 F 63 18 137/50 H 96 10/10/19 07:45 94 10/10/19 07:00 64 Medical Necessity - Tobacco Use Smoking Status: Never smoker Assessment/Plan All Active Problems (Last Reviewed 09/25/19 @ 13:29 by Regis Melo MD) GI bleed (Acute) Acute on chronic blood loss anemia (Acute) MICHELLE (acute kidney injury) (Acute) Dyspnea on exertion (Acute) This 84-year-old female with history of hypertension, dyslipidemia, chronic anemia hypothyroidism, diabetes mellitus type 2, valvular heart disease, CKD stage III prior GI bleed admitted with progressive fatigue, weakness lightheadedness and dizziness dyspnea on exertion with ongoing dark stool on iron supplement consistent with acute on chronic anemia. 1. Acute on chronic anemia of blood loss most probably GI origin, acute on chronic GI bleed: Patient is admitted in PCU. Admitting hemoglobin 7.0. Had clearance of PRBC transfusion. Last hemoglobin 9.5. Stool for occult blood ordered. As per daughter, she had EGD and colonoscopy by Dr. Noe recently less than a year and no obvious source of bleeding was found. Monitoring H&H. Hemodynamically stable. Discussed with the surgeon. Plan for EGD tomorrow a.m. Patient wanted to have EGD with Dr. Strong but later on changed mine and wants to get it done here 2. Acute kidney injury on CKD stage III: BUN/creatinine 49/1.49, seems probably from upper GI bleed. Repeat kidney profile is improving. Continue IV fluid, hold nephrotoxic medications and repeat chemistry in AM. 3. Hypertension: Pressure hemodynamically stable. On Norvasc. Lisinopril and Lasix on hold. PRN hydralazine Continue home regimen including Norvasc with hold parameters, temporarily holding lisinopril and Lasix given MICHELLE, PRN hydralazine. 4 Hyperlipidemia: Continue home statin regimen. 5. Diabetes mellitus type II: Hold oral home regimen, continue home insulin regimen, started on clear liquid with Accu-Cheks before meals and at bedtime coverage Humalog sliding scale. 6. Hypothyroidism: Continue home synthroid regimen. 7. Valvular heart disease: As per echo 12/14/18 mild concentric LVH, EF 65%, stage I diastolic dysfunction, LA mildly enlarged, severe focal AV calcification, critical 0.6 cm?. Mild MR patient has deferred cardiac catheterization with TAVR option. 8. GERD: Maintained on IV PPI. 9. DVT prophylaxis: SCDs, pharmacological prophylaxis contraindicated secondary to GI acute anemia 10. CODE status: DNR CCA, no intubation. Total time of the visit including total time spent in counseling or coordination of care, (more than 50% of the total time, spent in obtaining medical information from nurses and other ancillary care providers), discussion with daughter, and her in the room, review of labs and imaging is 35 minutes Laboratory Results 10/09/19 20:15: WBC 5.8, RBC 2.40 L, Hgb 7.0 L, Hct 22.0 L, MCV 91.7, MCH 29.2, MCHC 31.8 L, RDW Std Deviation 47.2 H, RDW Coeff of Elisabeth 14.8 H, Plt Count 210, MPV 9.1, Immature Gran % (Auto) 0.500, Neut % (Auto) 69.4, Lymph % (Auto) 21.4, [place] % (Auto) 7.0, Eos % (Auto) 1.4, Baso % (Auto) 0.3, Absolute Neuts (auto) 4.0, Absolute Lymphs (auto) 1.23, Nucleated RBC % 0 10/09/19 20:15: PT 13.5, INR 1.1, APTT 27.7 10/09/19 20:15: Sodium 137, Potassium 4.8, Chloride 106, Carbon Dioxide 24.0, Anion Gap 7, BUN 49 H, Creatinine 1.49 H, Estim Creat Clear Calc 24.27, Est GFR (MDRD) Af Amer 43 L, Est GFR (MDRD) Non-Af 35 L, BUN/Creatinine Ratio 32.9 H, Glucose 197 H, Calcium 9.6, Total Bilirubin 0.20, AST 12 L, ALT 21, Alkaline Phosphatase 65, Troponin I < 0.015, Total Protein 6.9, Albumin 3.4, Globulin 3.5, Albumin/Globulin Ratio 1.0 10/09/19 20:15: Blood Type A POSITIVE, Antibody Screen NEGATIVE 10/09/19 20:15: Crossmatch See Detail 10/09/19 20:15: Magnesium 2.1 10/09/19 21:00: Urine Color Straw, Urine Clarity Clear, Urine pH 6.0, Ur Specific [place] 1.015, Urine Protein Negative, Urine Glucose (UA) Normal, Urine Ketones Negative, Urine Occult Blood Negative, Urine Nitrite Negative, Urine Bilirubin Negative, Urine Urobilinogen Normal, Ur Leukocyte Esterase 500 H, Urine RBC 0 SEEN, Urine WBC 25-50 SEEN, Ur Squamous Epith Cells 0-5 SEEN, Ur Transition Epith Cell 0-5 SEEN, Urine Bacteria 0 SEEN, Hyaline Casts 0-5 SEEN, Urine Mucus 0 SEEN 10/09/19 23:19: POC Glucose 122 H 10/10/19 06:30: POC Glucose 94 10/10/19 06:40: WBC 6.0, RBC 3.20 L, Hgb 9.5 L, Hct 28.6 L, MCV 89.4, MCH 29.7, MCHC 33.2, RDW Std Deviation 46.0 H, RDW Coeff of Elisabeth 14.6, Plt Count 179, MPV 9.2, Immature Gran % (Auto) 0.700, Neut % (Auto) 59.6, Lymph % (Auto) 29.7, [place] % (Auto) 7.7, Eos % (Auto) 1.8, Baso % (Auto) 0.5, Absolute Neuts (auto) 3.6, Absolute Lymphs (auto) 1.77, Nucleated RBC % 0 10/10/19 06:40: Sodium 141, Potassium 4.5, Chloride 112 H, Carbon Dioxide 25.0, Anion Gap 4 L, BUN 35 H, Creatinine 1.15 H, Estim Creat Clear Calc 31.45, Est GFR (MDRD) Af Amer 58 L, Est GFR (MDRD) Non-Af 48 L, BUN/Creatinine Ratio 30.4 H, Glucose 97, Calcium 9.3 Code Visit Inpatient E&M: 64230 Subs Hosp L3
[2019-10-10 11:40] LABS: Hematocrit 27.7 % (37-47); Hemoglobin 9.3 g/dL (12.0-15.0)
[2019-10-10] MEDS: Ferrous Sulfate 325 MG Tablet PO ×3 (12:44→21:07)
[2019-10-10 13:11] LABS: Bedside Glucose 163 mg/dL (70-110)
--- NOTE | 2019-10-10 13:22 | CASEMGMT ---
Addendum entered by Shaan Diego 10/10/19 13:29: RN CM assessment occurred at 1025 Original Note: RN CM [employer] CM to room to meet with patient for initial transition planning/care coordination assessment. RN CM introduced self and role at [facility]. Pt voices understanding and consents to assessment at this time. Pt resting in bed in no distress at this time. and daughter @ bedside. Pt is A/O at this time and answers all questions appropriately. Care providers, pharmacy, and demographics verified at this time. PCP: Dr Gordo Weeks Specialists: Dr Melo--cardiology Preferred Pharmacy: [facility] in [place] Insurance: MCR A only, [employer] Prescription Benefit: None Living Will/HPOA: Pt does not currently have LW/HCPOA and declines info at this time. Pt made aware that she can contact as an out-pt and make appt in the future if she decides she would like to talk with someone about this or would like to utilize [facility] social work for advanced directive completion. Given [employer] card with information and contact number. Pt expresses understanding. LNOK: Hunter. 7 adult children Living Arrangements: Lives with her in one-story home. Independent. Transportation: [employer] DME: States has the following DME: grab bars in shower, cane--uses on occasion, glucometer-states it is working properly and she has all the needed supplies for it Pt states no need for further DME at this time. HHC/SNF: No history of either, denies needs, and no needs identified Pt wishes to return home and states has no concerns with going home at time of discharge. CM to follow for any discharge planning/needs. Pt//daughter voice no concerns/needs at this time. Advised them to ask for CM if any further questions/concerns/needs arise. They voice understanding. PLAN: Home PT/OT evals pending Pt does not have prescription coverage-- CM to follow for any needs Mckay MANUEL RN, CM
[2019-10-10 17:31] LABS: Bedside Glucose 157 mg/dL (70-110)
[2019-10-10 19:10] LABS: Hematocrit 27.6 % (37-47); Hemoglobin 8.9 g/dL (12.0-15.0)
[2019-10-10] MEDS: Pravastatin 20 MG Tablet PO (21:07)
[2019-10-11] VITALS (10 sets, daily range): BP systolic 102–128; BP diastolic 46–81; PULSE 51–69; RESP 14–18; TEMP 36.7–36.9; O2SAT 92–98; BMI 31.1
[2019-10-11 00:16] LABS: Bedside Glucose 89 mg/dL (70-110)
[2019-10-11] MEDS: 0.9% Normal Saline 1,000 ML 75 ML IV (01:33)
--- NOTE | 2019-10-11 04:00 | EKG12_ITS ---
Test Reason : AM EKG Blood Pressure : / mmHG Vent. Rate : 060 BPM Atrial Rate : 060 BPM P-R Int : 196 ms QRS Dur : 162 ms QT Int : 438 ms P-R-T Axes : 006 -83 017 degrees QTc Int : 438 ms Normal sinus rhythm Right bundle branch block Left anterior fascicular block Bifascicular block Septal infarct (cited on or before 27-AUG-2018) Abnormal ECG When compared with ECG of 28-AUG-2018 05:20, Right bundle branch block is now Present Questionable change in initial forces of Septal leads Confirmed by NGUYEN RUTLEDGE ([id number]), advertising editor DIYA TERRY ([id number]) on 10/12/2019 1:23:29 PM Referred By: DR BRITO Confirmed By:NGUYEN RUTLEDGE
[2019-10-11 04:19] LABS: Absolute Lymphocyte Count 1.28 X10^3/uL (0.83-4.51); Absolute Neutrophil Count 4.1 X10^3/uL (2.0-7.7); Basophil# 0.03 X10^3/uL; Basophil% 0.5 % (0-1); Eosinophil# 0.11 X10^3/uL; Eosinophils% 1.8 % (0-5); Hematocrit 28.9 % (37-47); Hemoglobin 9.2 g/dL (12.0-15.0); Lymphocyte # 1.28 X10^3/ul (4.0); Lymphocyte % 21.5 % (19-41); Mean Corp Hgb Conc 31.8 g/dL (32-36); Mean Corpuscular Hgb 29.2 pg (27.0-32.0); Mean Corpuscular Volume 91.7 fL (81-99); Mean Platelet Vol. 9.9 fl (6.2-12.0); Monocyte# 0.38 X10^3/uL; Monocyte% 6.4 % (0-10); NRBC Flagged by Analyzer 0 % (0-5); Neutrophil # 4.08 X10^3/uL (2.7-7.7); Neutrophil % 68.5 % (47-70); Platelet Count 196 K/mm3 (150-450); RBC Distribution Width CV 14.8 % (11.6-14.6); RBC Distribution Width SD 47.3 fl (35.1-43.9); Red Blood Count 3.15 M/mm3 (4.2-5.4)
[2019-10-11 04:32] LABS: International Normalized Ratio 1.1; Prothrombin Time (Protime)PT. 14.2 SECONDS (11.7-14.9)
[2019-10-11 04:33] LABS: Partial Thromboplast Time 30.2 Seconds (24.1-36.2)
[2019-10-11 04:51] LABS: Anion Gap 5 (5-15); BUN 29 mg/dL (7-18); BUN/Creat Ratio 28.2 RATIO (10-20); Calcium,Total 8.9 mg/dL (8.5-10.1); Chloride 111 mmol/L (98-107); Creatinine, Serum 1.03 mg/dL (0.55-1.02); EST Glomerular Filtration Rate 54 mL/min (>60); Est Glom Filt Rate - Afr Amer 66 mL/min (>60); Estimated Creatinine Clearance 35.11 ml/min; Glucose 94 mg/dL (74-106); Potassium 5.1 mmol/L (3.5-5.1); Sodium Level 139 mmol/L (136-145)
[2019-10-11 04:53] LABS: Thyroid Stim Hormone (TSH) 1.71 uIU/mL (0.358-3.74)
[2019-10-11 06:06] LABS: Bedside Glucose 104 mg/dL (70-110)
--- NOTE | 2019-10-11 07:26 | PCM.PN.SRG ---
Patient Problems: Active and Suspected Problems (Last Reviewed 09/25/19 @ 13:29 by Regis Melo MD) GI bleed (Acute) Acute on chronic blood loss anemia (Acute) MICHELLE (acute kidney injury) (Acute) Subjective: Patient's hemoglobin stable at 9.2 after the initial 2 units packed red blood cells - Physical Exam Vitals/I&O's: Vital Signs Temp Pulse Resp BP Pulse Ox 98.0 F 62 17 123/81 H 95 10/11/19 06:06 10/11/19 06:06 10/11/19 06:06 10/11/19 06:06 10/11/19 06:06 Oxygen Delivery Method Room Air Weight: 181 lb 10.574 oz Body Mass Index (BMI) 31.1 Intake and Output for Last 24 Hours 10/09/19 10/10/19 10/11/19 23:59 23:59 23:59 Intake Total 900 / 900 3086.25 / 3086.25 497.50 / 497.50 Output Total 0 / 0 Balance 900 / 900 3086.25 / 3086.25 497.50 / 497.50 General: Alert, Oriented x3, Cooperative, No apparent distress HEENT: Atraumatic Lungs: Normal air movement Cardiovascular: Regular rate Abdomen: Soft, Non Tender, Non-Distended Neurological: Cranial nerves II-XII grossly intact Laboratory Results 10/10/19 06:40: Sodium 141, Potassium 4.5, Chloride 112 H, Carbon Dioxide 25.0, Anion Gap 4 L, BUN 35 H, Creatinine 1.15 H, Estim Creat Clear Calc 31.45, Est GFR (MDRD) Af Amer 58 L, Est GFR (MDRD) Non-Af 48 L, BUN/Creatinine Ratio 30.4 H, Glucose 97, Calcium 9.3 10/10/19 11:28: Hgb 9.3 L, Hct 27.7 L 10/10/19 12:40: POC Glucose 163 H 10/10/19 17:18: POC Glucose 157 H 10/10/19 19:00: Hgb 8.9 L, Hct 27.6 L 10/11/19 00:00: POC Glucose 89 10/11/19 03:58: WBC 6.0, RBC 3.15 L, Hgb 9.2 L, Hct 28.9 L, MCV 91.7, MCH 29.2, MCHC 31.8 L, RDW Std Deviation 47.3 H, RDW Coeff of Elisabeth 14.8 H, Plt Count 196, MPV 9.9, Immature Gran % (Auto) 1.300 H, Neut % (Auto) 68.5, Lymph % (Auto) 21.5, [place] % (Auto) 6.4, Eos % (Auto) 1.8, Baso % (Auto) 0.5, Absolute Neuts (auto) 4.1, Absolute Lymphs (auto) 1.28, Nucleated RBC % 0 10/11/19 03:58: Sodium 139, Potassium 5.1, Chloride 111 H, Carbon Dioxide 23.0, Anion Gap 5, BUN 29 H, Creatinine 1.03 H, Estim Creat Clear Calc 35.11, Est GFR (MDRD) Af Amer 66, Est GFR (MDRD) Non-Af 54 L, BUN/Creatinine Ratio 28.2 H, Glucose 94, Calcium 8.9 10/11/19 03:58: PT 14.2, INR 1.1, APTT 30.2 10/11/19 03:58: TSH 1.71 10/11/19 03:58: Hemoglobin A1c Pending 10/11/19 05:56: POC Glucose 104 Current Medications Acetaminophen (Tylenol) 650 mg PO Q6H PRN PRN PRN Reason: Pain Score 1-10/Temp > 100.7 F Albuterol Sulfate (Ventolin Aerosols) 2.5 mg INHALATION Q2H PRN PRN PRN Reason: SOB/Wheezing Amlodipine Besylate (Norvasc) 5 mg PO BID [facility] Last Admin: 10/10/19 21:07 Dose: 5 mg Documented by: Ferrous Sulfate (Ferrous Sulfate) 325 mg PO 1200,1700,2200 [facility] Last Admin: 10/10/19 21:07 Dose: 325 mg Documented by: Furosemide (Lasix) 20 mg IV .with PRBCs PRN PRN Reason: Overload w/PRBCs Glucagon () 1 mg IM .X1 PRN PRN Reason: Hypoglycemia Guaifenesin (Robitussin) 20 ml PO Q4H PRN PRN PRN Reason: COUGH Hydralazine HCl (Apresoline Iv) 10 mg IV Q4H PRN PRN PRN Reason: SBP > 160 Sodium Chloride () 1,000 mls @ 75 mls/hr IV .[id number] [facility] Last Infusion: 10/11/19 06:02 Dose: 75 mls/hr Documented by: Dextrose (Dextrose 10%-Water) 250 mls @ 999 mls/hr IV .Q16M PRN; Protocol PRN Reason: HYPOGLYCEMIA Sodium Chloride () 250 mls @ 15 mls/hr IV .[id number] PRN PRN Reason: Saline Flush Sodium Chloride () 250 mls @ 15 mls/hr IV .[id number] PRN PRN Reason: Additional IVPB Infusion Pantoprazole Sodium 40 mg/ (Sodium Chloride) 110 mls @ 330 mls/hr IV Q12 [facility] Last Infusion: 10/10/19 21:27 Dose: Infused Documented by: Insulin Human Lispro (Humalog Kwikpen (Bkc)) 0 unit SC Q6 [facility]; Protocol Last Admin: 10/11/19 06:01 Dose: Not Given Documented by: Levothyroxine Sodium (Synthroid) 125 mcg PO DAILY@0600 [facility] Last Admin: 10/10/19 06:33 Dose: 125 mcg Documented by: Melatonin (Melatonin) 3 mg PO QHS PRN PRN PRN Reason: INSOMNIA Morphine Sulfate () 2 mg IV Q3H PRN PRN PRN Reason: Pain Score 6-10/10 Nitroglycerin (Nitrostat) 0.4 mg SUBLINGUAL Q5M PRN PRN Reason: CARDIAC/CHEST PAIN Ondansetron HCl (Zofran) 4 mg IV Q8H PRN PRN PRN Reason: NAUSEA/VOMITING Oxycodone HCl (Oxyir) 5 mg PO Q4H PRN PRN PRN Reason: Pain Score 4-5/10 Potassium Chloride (K-Dur) 10 meq PO BID [facility] Last Admin: 10/10/19 21:07 Dose: 10 meq Documented by: Pravastatin Sodium (Pravachol) 20 mg PO QHS [facility] Last Admin: 10/10/19 21:07 Dose: 20 mg Documented by: Prochlorperazine Edisylate (Compazine Iv) 5 mg IV Q4H PRN PRN PRN Reason: Breakthrough Nausea/Vomiting Sodium Chloride () 10 - 40 ml IV UD PRN PRN Reason: SALINE FLUSH Throat Lozenges (Cepacol Sore Throat Lozenge) 1 lozenge MUCOUS MEM Q2H PRN PRN PRN Reason: SORE THROAT Medical Necessity - Tobacco Use Smoking Status: Never smoker Assessment/Plan All Active Problems (Last Reviewed 09/25/19 @ 13:29 by Regis Melo MD) GI bleed (Acute) Acute on chronic blood loss anemia (Acute) MICHELLE (acute kidney injury) (Acute) Dyspnea on exertion (Acute) 84-year-old female with GI bleed 1. Patient's hemoglobin is been stable, EGD this morning. Daija Benjamin M.D. Pager: [phone] [facility] [address] [place] [address], [facility], [address] [place] [address] Office: [phone]
--- NOTE | 2019-10-11 07:30 | IMM_PTH ---
PATIENT: JAMIR TORRES LOC: PCU U#:[id number] AGE/SX: 84/F ROOM: [facility] RE10/09/[address]: Dr. Con Smith MD : [id number] BED: 1 DIS: 10/11/2019 SPEC #: [id number] RECD: 10/11/19 12:23 STATUS: DEAN REQ #: [id number] MARCUS: 10/11/19 07:[address]: Daija Benjamin DEPT: IMMUNOHISTOCHEMISTRY RECD BY: Salima Tapia ENTERED: 10/11/19 12:24 SP TYPE: IMMUNO OTHR DR: MD Dr. Gordo Dee DO Dr. Prakash Chand, MD Tissues: A - Stomach, NOS Procedures: H Pylori (initial) PHYSICIAN & INSTITUTION [place] [id number] SPECIMEN INFORMATION: Tissue Source: A - Antrum biopsy Clinical Info: GI bleed Specimen Number: [id number] CPT code: 41356 METHODOLOGY: Deparaffinized sections of prefer/formalin-fixed tissue or PAP/DQ stained slides are incubated with monoclonal/polyclonal antibodies/oligonucleotide probes. Localization is made via biotin free immunoperoxidase method. Appropriate controls are performed and reacted as expected. Results on target cell population are indicated in the following table: RESULTS: ANTIBODY / CLONE RESULT Block A H Pylori (polyclonal) negative These tests were developed and their performance characteristics determined by [facility]. They may not have been cleared or approved by the U.S. Food and Drug Administration. The FDA has determined that such clearance or approval is not necessary. The above immunohistochemical/dualISH markers are ordered and reviewed by the Pathologist. INTERPRETATION: A. Antrum biopsy: Negative for Helicobacter pylori organisms. AM:erin 10/12/19
--- NOTE | 2019-10-11 07:30 | EGD_PTH ---
PATIENT: JAMIR TORRES LOC: PCU U#:[id number] AGE/SX: 84/F ROOM: [facility] RE10/09/[address]: Dr. Con Smith MD : 1935 BED: 1 DIS: 10/11/2019 SPEC #: [id number] RECD: 10/11/19 08:18 STATUS: DEAN RECourtney #: [id number] MARCUS: 10/11/19 07:[address]: Daija Benjamin DEPT: SURGICAL PATHOLOGY RECD BY: Tom Maddox ENTERED: 10/11/19 11:23 SP TYPE: EGD BIOPSY OT DR: MD Dr. Gordo Dee DO Dr. Prakash Chand, MD Tissues: A - Gastric mucous membrane B - Gastric mucous membrane C - Gastric mucous membrane Procedures: Special Stain Group II Surgery Specimen Level IV Alcian Blue/PAS (control) HEADER OPERATION: EGD ([facility]) PRE-OP DIAGNOSIS: GI bleed TISSUE SUBMITTED: A - Antrum biopsy for histo and H. pylori, B - Gastric polyp biopsy, C - GE junction biopsy MICROSCOPIC DIAGNOSIS A. Gastric antrum, biopsy: Mild chronic gastritis. See comment. B. Gastric polyp, biopsy: Suggestive of fundic gland polyp. C. Gastroesophageal junction, biopsy: Fragments of gastric mucosa with mild chronic inflammation. No evidence of intestinal metaplasia. See comment. AM:erin 10/12/19 COMMENT A. The results of immunohistochemistry for Helicobacter pylori will be reported separately ([id number]). C. Alcian blue/PAS stain with matched control supports the above diagnosis. MICROSCOPIC DESCRIPTION Slides are reviewed. GROSS DESCRIPTION A - Received in fixative is one container labeled with the patient's name and designated antrum biopsy. The specimen consists of one irregular fragment of light paulino soft tissue that measures 0.3 x 0.2 x 0.1 cm. The specimen is totally submitted in one cassette. B - Received in fixative is one container labeled with the patient's name and designated gastric polyp biopsy. The specimen consists of one irregular fragment of light paulino soft tissue that measures 0.3 x 0.3 x 0.1 cm. The specimen is totally submitted in one cassette. C - Received in fixative is one container labeled with the patient's name and designated GE junction biopsy. The specimen consists of two irregular fragments of light paulino soft tissue that in aggregate measure 0.5 x 0.3 x 0.1 cm. The specimen is totally submitted in one cassette. / AM:erin 10/11/19 TC:5 CPT: 91519 x3, 25990
--- NOTE | 2019-10-11 07:51 | OP.EGD_ITS ---
Patient Name: Gracie Avalos Procedure Date: 10/11/2019 7:17 AM Date of : 1935 Age: 84 Procedure: Upper GI endoscopy Indications: Iron deficiency anemia Providers: Daija Benjamin MD Medicines: Monitored Anesthesia Care Patient Profile: This is an 84 year old female. Complications: No immediate complications. Procedure: Pre-Anesthesia Assessment: - Prior to the procedure, a History and Physical was performed, and patient medications and allergies were reviewed. The patient's tolerance of previous anesthesia was also reviewed. The risks and benefits of the procedure and the sedation options and risks were discussed with the patient. All questions were answered, and informed consent was obtained. Prior Anticoagulants: The patient has taken no previous anticoagulant or antiplatelet agents. ASA Grade Assessment: II - A patient with mild systemic disease. After reviewing the risks and benefits, the patient was deemed in satisfactory condition to undergo the procedure. After obtaining informed consent, the endoscope was passed under direct vision. Throughout the procedure, the patient's blood pressure, pulse, and oxygen saturations were monitored continuously. The gastroscope was introduced through the mouth, and advanced to the second part of duodenum. The upper GI endoscopy was accomplished without difficulty. The patient tolerated the procedure well. Scope In: 7:35:05 AM Scope Out: 7:41:43 AM Total Procedure Duration Time 0 hours 6 minutes 38 seconds Findings: The Z-line was variable and was found 35 cm from the incisors. Biopsies were taken with a cold forceps for histology. Mildly erythematous mucosa without bleeding was found in the gastric antrum. Biopsies were taken with a cold forceps for histology. Biopsies were taken with a cold forceps for Helicobacter pylori cultures. The examined duodenum was normal. A few less than 5 mm sessile polyps with no bleeding and no stigmata of recent bleeding were found on the lesser curvature of the gastric body. The polyp was removed with a cold biopsy forceps. Resection and retrieval were complete. Impression: - Z-line variable, 35 cm from the incisors. Biopsied. - Erythematous mucosa in the antrum. Biopsied. - Normal examined duodenum. - A few gastric polyps. Resected and retrieved. Recommendation: - Await pathology results. - Return patient to hospital [facility] for ongoing care. - Resume regular diet. - Continue present medications. - Perform a colonoscopy can be scheduled at outpatient with or Dr. Strong as she has seen him in the past - last scopes by him in 09/2018. Procedure Code(s): --- Professional --- 54165, Esophagogastroduodenoscopy, flexible, transoral; with biopsy, single or multiple Diagnosis Code(s): --- Professional --- K22.8, Other specified diseases of esophagus K31.89, Other diseases of stomach and duodenum K31.7, Polyp of stomach and duodenum D50.9, Iron deficiency anemia, unspecified CPT copyright 2017 [employer]. All rights reserved. The codes documented in this report are preliminary and upon medical biller/coder review may be revised to meet current compliance requirements. MD Daija Cagle MD 10/11/2019 7:50:47 AM This report has been signed electronically. Number of Addenda: 0 Note Initiated On: 10/11/2019 7:17 AM
--- NOTE | 2019-10-11 07:51 | OP.CCLET_ITS ---
10/11/2019 Gordo Weeks Re : Upper GI endoscopy procedure for Gracie Avalos Dear Desi This procedure was performed on September. My impressions and recommendations are as follows: Impressions : - Z-line variable, 35 cm from the incisors. Biopsied. - Erythematous mucosa in the antrum. Biopsied. - Normal examined duodenum. - A few gastric polyps. Resected and retrieved. Recommendations : - Await pathology results. - Return patient to hospital [facility] for ongoing care. - Resume regular diet. - Continue present medications. - Perform a colonoscopy can be scheduled at outpatient with me or Dr. Strong as she has seen him in the past - last scopes by him in 09/2018. My findings are described in the full procedure note, which is enclosed. If I can be of further assistance, please feel free to contact me at Doctor phone number(s): , Work: . Sincerely, MD Daija Cagle MD 10/11/2019 7:50:47 AM This report has been signed electronically.
[2019-10-11 07:53] LABS: Hemoglobin A1c 5.5 % (4.2-6.3)
--- NOTE | 2019-10-11 09:33 | PCM.DC ---
- Discharge Diagnoses Current Active Problems: Current Active and Chronic Problems (Last Reviewed 09/25/19 @ 13:29 by Regis Melo MD) GI bleed (Acute) Acute on chronic blood loss anemia (Acute) Hypothyroidism (Chronic) Diabetes mellitus, type II (Chronic) MICHELLE (acute kidney injury) (Acute) CKD (chronic kidney disease), stage III (Chronic) Valvular heart disease (Chronic) You will use the following diet at home:: Calorie/Carbohydrate Controlled (specify 1200, 1400, etc), Cardiac Your food should be the consistency of: Regular Your liquids should be the consistency of: Regular/Thin Discharge Activity: May Not Drive Call your doctor if you observe: Fever of 101 or Higher, Coldness, Increased Pain, Numbness or Tingling, Inability to urinate, Inability to have a bowel movement, Shortness of breath, Dizziness, Fainting spells, Swelling in the ankles, Chest pain, Prolonged hiccoughing, Increased palpitations (irregular heartbeat), Calf discomfort, Uncontrolled pain Allergies/Adverse Reactions: Allergies No Known Allergies Allergy (Verified 10/09/19 19:29) Medications to take at Discharge Levothyroxine Sodium [Synthroid] 125 mcg PO DAILY 08/27/18 Metformin HCl [Glucophage Xr] 500 mg PO BID 08/27/18 furosemide 40 mg tablet 40 mg PO DAILY #90 tab 09/25/19 lisinopril 10 mg tablet 10 mg PO BID #180 tab 09/25/19 Acetaminophen [Tylenol] 500 mg PO Q6H PRN PRN 10/09/19 Amlodipine [Norvasc] 5 mg PO BID 10/09/19 Pravastatin [Pravachol] 20 mg PO QHS 10/09/19 Ferrous Sulfate [Iron] 325 mg PO BID #0 10/11/19 Pantoprazole Sodium [Protonix] 40 mg PO BID #60 tab 10/11/19 Potassium Chloride 10 meq PO BID #60 10/11/19 The following prescriptions were given: Potassium Chloride 10 meq PO BID #60 Pantoprazole Sodium [Protonix] 40 mg PO BID #60 tab Transmission Status: Pending to [facility] Primary Care Physician: Gordo Weeks DO [Primary Care Provider] - Please follow up with your Primary Care Physician in: in 2 weeks Test Results: Test results from this visit will be discussed in further detail at your follow-up appointment, if applicable. Please Follow Up With: Real Strong MD When: in 2-4 weeks for GI Bleed
--- NOTE | 2019-10-11 09:34 | PCM.DC.SUM ---
Discharge Date and Diagnosis - Problem List Patient Problems: Active and Suspected Problems (Last Reviewed 09/25/19 @ 13:29 by Regis Melo MD) GI bleed (Acute) Acute on chronic blood loss anemia (Acute) MICHELLE (acute kidney injury) (Acute) Date of Admission: 10/09/19 Date of Discharge: 10/11/19 - Primary Discharge Diagnosis Active and Suspected Problems (Last Reviewed 09/25/19 @ 13:29 by Regis Melo MD) GI bleed (Acute) Acute on chronic blood loss anemia (Acute) MICHELLE (acute kidney injury) (Acute) - Secondary Discharge Diagnosis Chronic Problems (Last Reviewed 09/25/19 @ 13:29 by Regis Melo MD) Hypothyroidism (Chronic) Diabetes mellitus, type II (Chronic) CKD (chronic kidney disease), stage III (Chronic) Valvular heart disease (Chronic) Non-rheumatic aortic stenosis (Chronic) Essential (primary) hypertension (Chronic) Hyperlipidemia (Chronic) Hospital Course and Treatment Operations: None Summary of Care Provided: This 84-year-old female with history of hypertension, dyslipidemia, chronic anemia hypothyroidism, diabetes mellitus type 2, valvular heart disease, CKD stage III prior GI bleed admitted with progressive fatigue, weakness lightheadedness and dizziness dyspnea on exertion with ongoing dark stool on iron supplement consistent with acute on chronic anemia. 1. Acute on chronic anemia of blood loss most probably GI origin, acute on chronic GI bleed: Patient is admitted in PCU. Admitting hemoglobin 7.0. Had clearance of PRBC transfusion. Last hemoglobin 9.5. Stool for occult blood ordered. As per daughter, she had EGD and colonoscopy by Dr. Noe recently less than a year and no obvious source of bleeding was found. Monitoring H&H. Hemodynamically stable. Discussed with the surgeon. 10/11/2019: Patient had EGD in the morning. It was found erythematous mucosa in antrum. Few gastric polyps removed. Advised to follow-up with Dr. Noe. 2. Acute kidney injury on CKD stage III: BUN/creatinine 49/1.49, seems probably from upper GI bleed. Repeat kidney profile is improving. Continue IV fluid, hold nephrotoxic medications and repeat chemistry in AM. 10/11/2019: Kidney function improved. BUN/creatinine 29/1.03. Advised to hold Lasix and potassium for 3 days and follow with PCP to resume Lasix and potassium. 3. Hypertension: Pressure hemodynamically stable. On Norvasc. Lisinopril and Lasix on hold. PRN hydralazine Continue home regimen including Norvasc with hold parameters, temporarily holding lisinopril and Lasix given MICHELLE, PRN hydralazine. 4 Hyperlipidemia: Continue home statin regimen. 5. Diabetes mellitus type II: Hold oral home regimen, continue home insulin regimen, started on clear liquid with Accu-Cheks before meals and at bedtime coverage Humalog sliding scale. HOld Metformin for 5 days 6. Hypothyroidism: Continue home synthroid regimen. 7. Valvular heart disease: As per echo 12/14/18 mild concentric LVH, EF 65%, stage I diastolic dysfunction, LA mildly enlarged, severe focal AV calcification, critical 0.6 cm?. Mild MR patient has deferred cardiac catheterization with TAVR option. 8. GERD: Maintained on IV PPI. 9. DVT prophylaxis: SCDs, pharmacological prophylaxis contraindicated secondary to GI acute anemia 10. CODE status: DNR CCA, no intubation. Discharge medication reconciliation done. Discharge follow-up instructions completed. Discharge process discussed with the patient and all questions were answered to patient's satisfaction. Prescription given for Protonix. Patient has ferrous sulfate. Rest as mentioned above Total time spent, exact 35 minutes on discharge meds reconciliation, examination, coordination of care with nurses and ancillary staff, review of imaging and blood test and discussion with the patient on follow-up instructions Patient Problems: Active and Suspected Problems (Last Reviewed 09/25/19 @ 13:29 by Regis Melo MD) GI bleed (Acute) Acute on chronic blood loss anemia (Acute) MICHELLE (acute kidney injury) (Acute) Subjective: Patient wants to go home today. Patient wants to go home today. - Physical Exam Vitals/I&O's: Vital Signs Temp Pulse Resp BP Pulse Ox 98.3 F 51 L 14 123/57 H 96 10/11/19 08:36 10/11/19 08:36 10/11/19 08:36 10/11/19 08:36 10/11/19 08:36 Oxygen Flow Rate (L/min) 2 Oxygen Delivery Method Room Air Weight: 181 lb 10.574 oz Body Mass Index (BMI) 31.1 Intake and Output for Last 24 Hours 10/09/19 10/10/1910/11/20 23:59 23:59 23:59 Intake Total 900 / 900 3086.25 / 3086.25 497.50 / 497.50 Output Total 0 / 0 0 / 0 Balance 900 / 900 3086.25 / 3086.25 497.50 / 497.50 General: Alert, Oriented x3, Cooperative HEENT: Atraumatic, PERRLA, EOMI, Normocephalic Neck: Supple, No JVD, Negative Carotid Bruits Lungs: Clear to auscultation, Normal air movement, No rhonchi, No wheeze, No rales Cardiovascular: Regular rate, Regular Rhythm, Normal S1, Normal S2, Murmur Abdomen: Bowel Sounds Present, Soft, Non Tender, Non-Distended Extremities: No edema, Capillary Refill Less than 3 Seconds Skin: No rashes, No breakdown Musculoskeletal: No Tenderness to Palpation of Joints or Extremities, Arthritic Changes Neurological: Cranial nerves II-XII grossly intact Psych/Mental Status: Normal Affect, Appropriate Laboratory Results 10/10/19 11:28: Hgb 9.3 L, Hct 27.7 L 10/10/19 12:40: POC Glucose 163 H 10/10/19 17:18: POC Glucose 157 H 10/10/19 19:00: Hgb 8.9 L, Hct 27.6 L 10/11/19 00:00: POC Glucose 89 10/11/19 03:58: WBC 6.0, RBC 3.15 L, Hgb 9.2 L, Hct 28.9 L, MCV 91.7, MCH 29.2, MCHC 31.8 L, RDW Std Deviation 47.3 H, RDW Coeff of Elisabeth 14.8 H, Plt Count 196, MPV 9.9, Immature Gran % (Auto) 1.300 H, Neut % (Auto) 68.5, Lymph % (Auto) 21.5, Cabell % (Auto) 6.4, Eos % (Auto) 1.8, Baso % (Auto) 0.5, Absolute Neuts (auto) 4.1, Absolute Lymphs (auto) 1.28, Nucleated RBC % 0 10/11/19 03:58: Sodium 139, Potassium 5.1, Chloride 111 H, Carbon Dioxide 23.0, Anion Gap 5, BUN 29 H, Creatinine 1.03 H, Estim Creat Clear Calc 35.11, Est GFR (MDRD) Af Amer 66, Est GFR (MDRD) Non-Af 54 L, BUN/Creatinine Ratio 28.2 H, Glucose 94, Calcium 8.9 10/11/19 03:58: PT 14.2, INR 1.1, APTT 30.2 10/11/19 03:58: TSH 1.71 10/11/19 03:58: Hemoglobin A1c 5.5 10/11/19 05:56: POC Glucose 104 Current Medications Acetaminophen (Tylenol) 650 mg PO Q6H PRN PRN PRN Reason: Pain Score 1-10/Temp > 100.7 F Albuterol Sulfate (Ventolin Aerosols) 2.5 mg INHALATION Q2H PRN PRN PRN Reason: SOB/Wheezing Amlodipine Besylate (Norvasc) 5 mg PO BID [facility] Last Admin: 10/10/19 21:07 Dose: 5 mg Documented by: Ferrous Sulfate (Ferrous Sulfate) 325 mg PO 1200,1700,2200 [facility] Last Admin: 10/10/19 21:07 Dose: 325 mg Documented by: Furosemide (Lasix) 20 mg IV .with PRBCs PRN PRN Reason: Overload w/PRBCs Glucagon () 1 mg IM .X1 PRN PRN Reason: Hypoglycemia Guaifenesin (Robitussin) 20 ml PO Q4H PRN PRN PRN Reason: COUGH Hydralazine HCl (Apresoline Iv) 10 mg IV Q4H PRN PRN PRN Reason: SBP > 160 Sodium Chloride () 1,000 mls @ 75 mls/hr IV .[id number] [facility] Last Infusion: 10/11/19 06:02 Dose: 75 mls/hr Documented by: Dextrose (Dextrose 10%-Water) 250 mls @ 999 mls/hr IV .Q16M PRN; Protocol PRN Reason: HYPOGLYCEMIA Sodium Chloride () 250 mls @ 15 mls/hr IV .[id number] PRN PRN Reason: Saline Flush Sodium Chloride () 250 mls @ 15 mls/hr IV .[id number] PRN PRN Reason: Additional IVPB Infusion Pantoprazole Sodium 40 mg/ (Sodium Chloride) 110 mls @ 330 mls/hr IV Q12 [facility] Last Infusion: 10/10/19 21:27 Dose: Infused Documented by: Insulin Human Lispro (Humalog Kwikpen (Bkc)) 0 unit SC Q6 [facility]; Protocol Last Admin: 10/11/19 06:01 Dose: Not Given Documented by: Levothyroxine Sodium (Synthroid) 125 mcg PO DAILY@0600 [facility] Last Admin: 10/10/19 06:33 Dose: 125 mcg Documented by: Melatonin (Melatonin) 3 mg PO QHS PRN PRN PRN Reason: INSOMNIA Morphine Sulfate () 2 mg IV Q3H PRN PRN PRN Reason: Pain Score 6-10/10 Nitroglycerin (Nitrostat) 0.4 mg SUBLINGUAL Q5M PRN PRN Reason: CARDIAC/CHEST PAIN Ondansetron HCl (Zofran) 4 mg IV Q8H PRN PRN PRN Reason: NAUSEA/VOMITING Oxycodone HCl (Oxyir) 5 mg PO Q4H PRN PRN PRN Reason: Pain Score 4-5/10 Potassium Chloride (K-Dur) 10 meq PO BID [facility] Last Admin: 10/10/19 21:07 Dose: 10 meq Documented by: Pravastatin Sodium (Pravachol) 20 mg PO QHS [facility] Last Admin: 10/10/19 21:07 Dose: 20 mg Documented by: Prochlorperazine Edisylate (Compazine Iv) 5 mg IV Q4H PRN PRN PRN Reason: Breakthrough Nausea/Vomiting Sodium Chloride () 10 - 40 ml IV UD PRN PRN Reason: SALINE FLUSH Throat Lozenges (Cepacol Sore Throat Lozenge) 1 lozenge MUCOUS MEM Q2H PRN PRN PRN Reason: SORE THROAT Discharge Activity: May Not Drive Call your doctor if you observe: Fever of 101 or Higher, Coldness, Increased Pain, Numbness or Tingling, Inability to urinate, Inability to have a bowel movement, Shortness of breath, Dizziness, Fainting spells, Swelling in the ankles, Chest pain, Prolonged hiccoughing, Increased palpitations (irregular heartbeat), Calf discomfort, Uncontrolled pain Home Medications: Medications to take at Discharge Levothyroxine Sodium [Synthroid] 125 mcg PO DAILY 08/27/18 Metformin HCl [Glucophage Xr] 500 mg PO BID 08/27/18 furosemide 40 mg tablet 40 mg PO DAILY #90 tab 09/25/19 lisinopril 10 mg tablet 10 mg PO BID #180 tab 09/25/19 Acetaminophen [Tylenol] 500 mg PO Q6H PRN PRN 10/09/19 Amlodipine [Norvasc] 5 mg PO BID 10/09/19 Pravastatin [Pravachol] 20 mg PO QHS 10/09/19 Ferrous Sulfate [Iron] 325 mg PO BID #0 10/11/19 Pantoprazole Sodium [Protonix] 40 mg PO BID #60 tab 10/11/19 Potassium Chloride 10 meq PO BID #60 10/11/19 Following Prescrptions Were Given to Patient: Potassium Chloride 10 meq PO BID #60 Pantoprazole Sodium [Protonix] 40 mg PO BID #60 tab Transmission Status: Pending to [facility] Primary Care Physician: Gordo Weeks DO [Primary Care Provider] - Please follow up with your Primary Care Physician in: in 2 weeks Please Follow Up With: Real Strong MD When: in 2-4 weeks for GI Bleed Additional Instructions: Hold Lasix and potassium supplement for 3 days and metformin for 5 days 8 follow-up with PCP within 1 week with repeat BMP Medical Necessity - Tobacco Use Smoking Status: Never smoker Meaningful Use Info Meaningful Use Diagnoses (Choose all that apply): None applicable Code Visit Inpatient E&M: 55236 Disch Hosp
[2019-10-11] MEDS: Ferrous Sulfate 325 MG Tablet PO (09:57)
[2019-10-11] MEDS: Levothyroxine 125 MCG Tablet PO (09:57)
[2019-10-11] MEDS: amLODIPine 5 MG Tablet PO (09:57)
== END 2019-10-11 12:13 | disposition home or self-care (01) | DRG 378 ==
LOC: ED 20:12 → PCU 22:15
PROVIDERS: Anesthesiology; Surgery; Admitting Provider Family Medicine; Emergency Provider Emergency Medicine; PCP Family Medicine; Visit Provider Internal Medicine
PROC: 0DJ08ZZ Inspection of Upper Intestinal Tract, Via Natural or Artificial Opening Endoscopic (ICD-10-PCS; CPT 43235; principal; 2019-10-11 07:25)
DX: K92.2 Gastrointestinal hemorrhage, unspecified (principal); D62 Acute posthemorrhagic anemia; N17.9 Acute kidney failure, unspecified; I12.9 Hypertensive chronic kidney disease with stage 1 through stage 4 chronic kidney disease, or unspecified chronic kidney disease; N18.3 Chronic kidney disease, stage 3 (moderate); Z66 Do not resuscitate; E78.5 Hyperlipidemia, unspecified; E03.9 Hypothyroidism, unspecified; E11.22 Type 2 diabetes mellitus with diabetic chronic kidney disease; Z79.4 Long term (current) use of insulin; I35.0 Nonrheumatic aortic (valve) stenosis; K31.7 Polyp of stomach and duodenum
CPT/HCPCS: 36415; 71045; 80048; 80053; 81002; 82962; 83036; 83735; 84443; 84484; 85014; 85018; 85025; 85610; 85730; 86850; 86900; 86901; 86920; 87077; 87086; 87088; 87186; 88305; 88313; 88342; 93005; 97161; 97166; 99251; 99285; J7030; J7040; P9016; A4216; G0463; J2405

== ENCOUNTER → 2020-01-14 12:40 | Outpatient (CLI) | payer SELFPAY ==
[2019-09-25 11:46] VITALS: BMI 34.7
[2019-10-11 06:06] VITALS: BMI 31.1
--- NOTE | 2020-01-14 12:42 | ECHOD_ITS ---
Reason For Study: MURMUR Procedure This was a 2D Doppler, Color Flow transthoracic echocardiogram. The study was technically limited. Very difficult images - pt was not able to lay on her left side due to left hip pain. Exam performed in department. Left Ventricle Normal LV size. Left ventricular systolic function is normal. The estimated ejection fraction is 65 %. Stage 1 diastolic dysfunction. Right Ventricle Normal RV size. Normal systolic function. Atria Normal left atrium. Normal right atrium. Mitral Valve There is moderate mitral annular calcification. Mild-Moderate (1-2+) eccentric mitral valve insufficiency. Tricuspid Valve Normal tricuspid valve. Mild (1+) tricuspid valve insufficiency. Pulmonary artery systolic pressure is 40 mmHg. Aortic Valve Trisinus/trileaflet aortic valve. Severe focal aortic valve calcification. Peak aortic valve gradient 93 mmHg. Mean aortic valve gradient 58 mmHg. Severe aortic stenosis. Calculated aortic valve area (continuity equation) is 0.6 cm2. Mild (1+) aortic valve insufficiency. Pulmonic Valve Normal pulmonic valve. Great Vessels Normal aortic root. The pulmonary artery is normal size. Normal inferior vena cava. Pericardium/Pleural No pericardial effusion. MMode/2D Measurements & Calculations LVIDd: 4.6 cm IVSd: 1.1 cm LVOT diam: 2.0 cm LVIDs: 2.4 cm LVPWd: 1.1 cm LVOT area: 3.0 cm2 RVDd: 3.6 cm FS: 47.5 % Ao root diam: 3.4 cm LAV(MOD-bp): 45.9 ml LA A4 area: 13.9 cm2 LAV(MOD-bp) Indexed: 25.7 ml/m2 LAV(MOD-sp2): 61.2 ml LAV(MOD-sp4): 33.3 ml LA dimension(2D): 3.9 cm RA A4 area: 17.3 cm2 Time Measurements MV dec time: 0.34 sec Doppler Measurements & Calculations MV E max huseyin: 75.2 cm/sec Lat Peak E' Huseyin: 5.8 cm/sec Med Peak E' Huseyin: 4.3 cm/sec MV A max huseyin: 115.4 cm/sec E/E' lat: 12.9 E/E' med: 17.4 MV E/A: 0.65 Ao V2 max: 482.8 cm/sec AI max huseyin: 269.9 cm/sec LV V1 max: 90.6 cm/sec Ao max P.3 mmHg AI max P.1 mmHg LV V1 max P.3 mmHg Ao V2 mean: 366.1 cm/sec AI dec slope: 195.2 cm/sec2 LV V1 mean P.7 mmHg Ao mean P.6 mmHg AI P1/2t: 405.1 msec LV V1 mean: 61.3 cm/sec Ao V2 VTI: 120.4 cm LV V1 VTI: 27.4 cm JACINTA(I,D): 0.68 cm2 JACINTA(V,D): 0.57 cm2 SV(LVOT): 82.4 ml PA V2 max: 136.0 cm/sec TR max huseyin: 302.0 cm/sec TR max P.6 mmHg Interpretation Summary Normal LV size. Left ventricular systolic function is normal. The estimated ejection fraction is 65 %. Stage 1 diastolic dysfunction. Severe aortic stenosis. Calculated aortic valve area (continuity equation) is 0.6 cm2. Mild (1+) aortic valve insufficiency. Pulmonary artery systolic pressure is 40 mmHg. Ordering Physician: Regis Melo Referring Physician: JANES DUGAN Performed By: Zelda Mandel, RDCS, RVT
== END ==
PROVIDERS: PCP Family Medicine; Referring Provider Internal Medicine Cardiovascular Disease; Visit Provider Internal Medicine Cardiovascular Disease
DX: I35.0 Nonrheumatic aortic (valve) stenosis (principal)
CPT/HCPCS: 93306

== ENCOUNTER 2020-04-08 11:23 | Inpatient (IN) | payer MEDICARE, SELFPAY ==
[2020-01-25 13:01] VITALS: BMI 32.1
[2020-04-08] VITALS (19 sets, daily range): BP systolic 113–159; BP diastolic 46–71; PULSE 53–96; RESP 16–20; TEMP 36.1–37.1; O2SAT 94–98; BMI 29.5; BMI 31.0
[2020-04-08] MEDS: 0.9% Normal Saline 1,000 ML 125 ML IV (12:01)
[2020-04-08 12:09] LABS: Absolute Neutrophil Count 4.2 X10^3/uL (2.0-7.7); Basophil# 0.03 X10^3/uL; Basophil% 0.5 % (0-1); Eosinophil# 0.11 X10^3/uL; Eosinophils% 1.8 % (0-5); Hematocrit 20.2 % (37-47); Hemoglobin 6.3 g/dL (12.0-15.0); Lymphocyte % 20.1 % (19-41); Mean Corp Hgb Conc 31.2 g/dL (32-36); Mean Corpuscular Hgb 29.3 pg (27.0-32.0); Mean Platelet Vol. 9.7 fl (6.2-12.0); Monocyte% 6.7 % (0-10); NRBC Flagged by Analyzer 0.3 % (0-5); Neutrophil # 4.17 X10^3/uL (2.7-7.7); Neutrophil % 69.7 % (47-70); Platelet Count 203 K/mm3 (150-450); RBC Distribution Width CV 16.7 % (11.6-14.6); RBC Distribution Width SD 55.8 fl (35.1-43.9); Red Blood Count 2.15 M/mm3 (4.2-5.4)
[2020-04-08 12:21] LABS: Anion Gap 7 (5-15); BUN 48 mg/dL (7-18); Calcium,Total 9.4 mg/dL (8.5-10.1); Chloride 102 mmol/L (98-107); Creatinine, Serum 1.41 mg/dL (0.55-1.02); EST Glomerular Filtration Rate 38 mL/min (>60); Est Glom Filt Rate - Afr Amer 46 mL/min (>60); Estimated Creatinine Clearance 25.65 ml/min; Glucose 137 mg/dL (74-106); Potassium 4.4 mmol/L (3.5-5.1); Sodium Level 137 mmol/L (136-145)
--- NOTE | 2020-04-08 13:09 | ED.DCSUM_ITS ---
- ER Visit Summary Date of Service: 04/08/20 Chief Complaint: [Low hemoglobin] History of Present Illness: The patient is a 84 F [ presents the emergency department with complaint of low hemoglobin counts. Patient apparently had blood work as an outpatient yesterday by her primary care physician due to com plaint of weakness for the last several days. Patient denies any blood in her stool or hematemesis. Patient states she takes iron and her blood is always dark. Patient states that she had a recent EGD in September that was unremarkable and she is had recent colonoscopy which did not show any evidence of bleeding. Patient has history of diabetes, hypertension, high cholesterol.] Physical Examination: [HEENT-PERRLA, EOMI. Cranial nerves II through XII grossly intact. TMs clear. Mucous membranes moist. No adenopathy. Cardiovascular-regular rate and rhythm without murmur or ectopy Lungs-clear to auscultation, chest wall stable without crepitus or subcu emphysema Abdomen-normoactive bowel sounds, soft, nontender, no rebound or rigidity, no peritoneal signs. Rectal exam-patient has dark stool that is blackish green. No rectal masses palpated. Stool was Hemoccult negative. Extremities-intact ?4, normal range of motion, normal pulses, atraumatic] Test Results: [CBC with differential obtained showing a 6.0, hemoglobin 6.3, hematocrit 20, platelets 203. Chemistries unremarkable. BUN was 48 and creatinine 1.41. Orthostatic vital signs were positive and that patient was feeling dizzy with standing but blood pressure did not drop and heart rate did not go up significantly.] Emergency Department Course and Treatment: [Patient was typed and crossed for 2 units packed red cells.] Patient's daughter states that she does not want to have the patient undergo any further diagnostics as she is recently had significant work-up for GI bleed. She would like her to have the blood and then be discharged. Treatment Plan: [Admit for blood transfusion] Disposition: [Admit] Impression: [Symptomatic anemia] This note was generated with [employer] dictation software. It may contain incorrect words, spelling, and punctuation that were not noted in review of the chart prior to signing ED Disposition - Plan for ED Patient: Referrals: Gordo Weeks, [Primary Care Provider] -
--- NOTE | 2020-04-08 13:32 | NURSING ---
PCU SYMPPTOMATIC ANEMIA, MICHELLE GONZALEZ
--- NOTE | 2020-04-08 13:35 | HP.PCM_ITS ---
Problem List (1) Acute on chronic symptomatic anemia Status: Acute (2) Chronic anemia Status: Chronic (3) GI bleed Status: Chronic Qualifiers: (4) Non-rheumatic aortic stenosis Status: Chronic (5) Essential (primary) hypertension Status: Chronic (6) Hyperlipidemia Status: Chronic Qualifiers: (7) CKD (chronic kidney disease), stage III Status: Chronic History of Present Illness Date of Admission: 04/08/20 Chief Complaint: Weakness, fatigue. The patient is a 84 year old F with past medical history as mentioned above presented to the emergency room because of weakness and fatigue. Apparently, patient had blood work done as outpatient by her PCP and she was found to have anemia and she was sent to the emergency department for admission blood transfusion. Patient mentioned that over the last several days, she has been feeling very weak, tired and fatigued, generalized weakness, associated with poor appetite and without aggravating or relieving factors. She does have a history of chronic anemia with acute exacerbations required blood transfusion. Patient denied epistaxis, hemoptysis, hematemesis, hematochezia or melena. She did report dark stools but she has been taking iron pills. She denied chest pain, shortness of breath, dizziness, lightheadedness, syncope or presyncope. Patient mentioned that she is ago, she had upper endoscopy and colonoscopy by Dr. Weiss for GI bleed and there was no evidence of active bleed and no definitive diagnosis was made according to the patient and her daughter. On September,, she was admitted for acute on chronic anemia and GI bleed, had upper EGD that revealed erythematous mucosa in the antrum, few gastric polyps, no active upper GI bleed. In the emergency department, her vital signs are stable. Her orthostatic vitals were unremarkable. Routine blood work was remarkable for hemoglobin 6.3 g/dL, BUN of 48, creatinine 1.41. She is being admitted for acute on chronic symptomatic anemia for blood transfusion and she was found to have acute kidney injury on top of stage III chronic kidney disease. Past Medical History Past Medical History (Chronic Problems): Chronic Problems (Last Updated 04/08/20 @ 13:[address] 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) I45.2 Essential (primary) hypertension (Chronic) I10 Hyperlipidemia (Chronic) E78.5 CKD (chronic kidney disease), stage III (Chronic) N18.3 Chronic kidney disease, stage 3 N18.3 Hypothyroidism E03.9 Iron deficiency anemia D50.9 Obesity E66.9 Osteoarthritis M19.90 Type 2 diabetes mellitus E11.9 Acute on chronic blood loss anemia D62 Allergies No Known Allergies Allergy (Verified 04/08/20 11:25) Home Medications: Ambulatory Orders Medication Instructions Recorded Levothyroxine Sodium [Synthroid] 125 mcg PO DAILY 08/27/18 lisinopril 10 mg tablet 10 mg PO BID #180 tab 09/25/19 Pravastatin [Pravachol] 20 mg PO QHS 10/09/19 Ferrous Sulfate [Iron] 325 mg PO BID #0 10/11/19 Potassium Chloride [K-Dur] 10 meq PO BID tab 10/11/19 amlodipine 5 mg tablet 5 mg PO BID tab 01/25/20 metformin 500 mg tablet,extended 500 mg PO BID tab 01/25/20 release 24 hr Furosemide 40 mg PO DAILY 04/08/20 Lorazepam [Ativan] 0.5 mg PO BID PRN PRN 04/08/20 Surgical History: Surgical History (Last Reviewed 04/08/20 @ 14:[address] Kelsie Solorzano MD) History of esophagogastroduodenoscopy (EGD) Onset Date: 09/2019 Z98.890 Surgical History: - - Patient states she had an EGD and colonoscopy in [address] Strong which were negative. Psychiatric History: No pertinent psych hx [employer] History: No pertinent [employer] history Lives: With Family Smoking Status: Never smoker Alcohol: None Drugs: None - *Family History Paternal Family History: Family History (Last Reviewed 04/08/20 @ 14:[address] Kelsie Solorzano MD) Father CAD (coronary artery disease) Myocardial infarction Brother CAD (coronary artery disease) Myocardial infarction Sister Heart disease Maternal Family History: Family History (Last Reviewed 04/08/20 @ 14:[address] Kelsie Solorzano MD) Father CAD (coronary artery disease) Myocardial infarction Brother CAD (coronary artery disease) Myocardial infarction Sister Heart disease Review of Systems Constitutional: Reports: Anorexia, Weakness, Fatigue. Denies: Chills, Fever Eyes: Denies: Blurred vision, Double vision, Drainage, Redness HEENT: Denies: Difficulty Hearing, Ear Pain, Eye Pain, Nasal Congestion, Sore Throat Cardiovascular: Denies: Chest Pain, Chest Pressure, Chest Tightness, Edema, Heaviness, Light Headedness, Palpitations, Syncope Respiratory: Denies: Cough, Hemoptysis, Pleuritic Pain, Shortness of Breath, Sputum production, Wheezing Gastrointestinal: Denies: Abdominal Pain, Constipation, Diarrhea, Hematemesis, Hematochezia, Nausea, Melena, Vomiting Genitourinary: Denies: Dysuria, Frequency, Hematuria Musculoskeletal: Denies: Arm Pain, Back Pain, Foot Pain Skin: Denies: Dryness, Rash Neurological: Denies: Balance problems, Change in Speech, Slurred speech, Confusion, Focal weakness, Headaches, Incoordination, Numbness Psychiatric: Denies: Anxiety, Depression Endocrine: Denies: Change in Body Habitus, Polydipsia, Polyuria VTE Information - Inpt Only VTE Present on Admission: No VTE Mechan Device Prophylaxis: None VTE Pharm Prophylaxis ordered?: Yes Patient Problems: Active and Suspected Problems (Last Updated 04/08/20 @ 13:[address] Kelsie Solorzano MD) Acute kidney injury superimposed on CKD (Acute) Acute on chronic symptomatic anemia (Acute) - Physical Exam Vitals/I&O's: Vital Signs Temp Pulse Resp BP Pulse Ox 97.6 F L 70 18 115/51 L 97 04/08/20 11:23 04/08/20 12:09 04/08/20 11:23 04/08/20 12:09 04/08/20 11:23 Oxygen Delivery Method Room Air Weight: 171 lb 11.841 oz Body Mass Index (BMI) 29.5 General: Alert, Oriented x3, Cooperative, No apparent distress HEENT: Atraumatic, PERRLA, EOMI, Normocephalic Oral: Moist Mucosa, No Gingival or Mucosal Lesions/ Ulcerations Neck: Supple, No JVD, Negative Carotid Bruits, Trachea Midline, Thyroid Normal Size and Texture Lungs: Clear to auscultation, Normal air movement, No rhonchi, No wheeze, No rales, Diminished Cardiovascular: Regular rate, Regular Rhythm, Normal S1, Normal S2, PMI Normal Abdomen: Bowel Sounds Present, Soft, Non Tender, Non-Distended, No Hepato-splenomegaly Extremities: No clubbing, No cyanosis, No edema Skin: No rashes, No breakdown Lymphatic: No Cervical, Supraclavicular, or Inguinal Adenopathy Neurological: Cranial nerves II-XII grossly intact, Motor Exam 5/5 strength throughout Psych/Mental Status: Normal Affect, Appropriate, Alert and oriented to time, place, person, mood and affect Microbiology Past 72 Hours 04/08/20 12:20 Stool Stool Occult Blood (IDRIS) - Final Laboratory Results 04/08/20 11:55: WBC 6.0, RBC 2.15 L, Hgb 6.3 L, Hct 20.2 L, MCV 94.0, MCH 29.3, MCHC 31.2 L, RDW Std Deviation 55.8 H, RDW Coeff of Elisabeth 16.7 H, Plt Count 203, MPV 9.7, Immature Gran % (Auto) 1.200 H, Neut % (Auto) 69.7, Lymph % (Auto) 20.1, [place] % (Auto) 6.7, Eos % (Auto) 1.8, Baso % (Auto) 0.5, Absolute Neuts (auto) 4.2, Absolute Lymphs (auto) 1.20, Nucleated RBC % 0.3 04/08/20 11:55: Sodium 137, Potassium 4.4, Chloride 102, Carbon Dioxide 28.0, Anion Gap 7, BUN 48 H, Creatinine 1.41 H, Estim Creat Clear Calc 25.65, Est GFR (MDRD) Af Amer 46 L, Est GFR (MDRD) Non-Af 38 L, BUN/Creatinine Ratio 34.0 H, Glucose 137 H, Calcium 9.4 04/08/20 11:55: Blood Type A POSITIVE, Antibody Screen NEGATIVE 04/08/20 11:55: Crossmatch See Detail Current Medications Sodium Chloride () 1,000 mls @ 125 mls/hr IV .Q8H JOSEPH Last Admin: 04/08/20 12:01 Dose: 125 mls/hr Documented by: Assessment/Plan All Active Problems (Last Updated 04/08/20 @ 13:[address] Kelsie Solorzano MD) Acute kidney injury superimposed on CKD (Acute) Acute on chronic symptomatic anemia (Acute) This is an 84 years old female patient was referred to the ED by her PCP because of acute on chronic anemia, found to have MICHELLE on CKD and she is being admitted for treatment of blood transfusion. #1 acute on chronic symptomatic anemia: Patient had upper EGD on September, that showed no upper GI bleed. She had upper EGD and colonoscopy on [address] Strong and no definitive diagnosis was made. At this time, patient requested blood transfusion and no more work-up for this anemia. Her vital signs are stable. Orthostatic vitals were normal. Pro time and INR were normal, platelet count is normal. Plan: Admit to PCU, cardiac monitoring, check H&H every 8 hours x 3, transfuse total of 3 units of packed RBCs, will give IV Lasix in between transfusion, gentle IV fluids for hydration, repeat CBC and BMP tomorrow morning, continue iron supplement, PT OT evaluation and treatment. #2 acute kidney injury on top of stage III chronic kidney disease: Most recent BUN was 29, creatinine was 1.03. Admission BUN is 48, creatinine is 1.41. Likely because of dehydration and poor appetite. Plan: Gentle IV fluids for hydration, input output chart, repeat BMP tomorrow morning. #3 hypertension: Blood pressure stable, continue Norvasc, Lasix. #4 hyperlipidemia: Stable, continue statins. #5 hypothyroidism: Continue levothyroxine. #6 type 2 diabetes mellitus: ADA diet, Accu-Cheks, insulin sliding scale, hold metformin for now. #7 DVT prophylaxis: Subcu heparin. This note was generated with [employer] software. It may contain incorrect words, spelling, and punctuation that were not noted in checking the note bef ore signing. Inpatient E&M: 82934 Init Hosp L3
[2020-04-08 14:29] LABS: International Normalized Ratio 1.1; Prothrombin Time (Protime)PT. 13.5 SECONDS (11.7-14.9)
[2020-04-08] MEDS: 0.9% Normal Saline 1,000 ML 75 ML IV (14:53)
[2020-04-08] MEDS: Ferrous Sulfate 325 MG Tablet PO (16:54)
[2020-04-08 17:00] LABS: Bedside Glucose 125 mg/dL (70-110)
[2020-04-08] MEDS: Furosemide 20 MG/2 ML VIAL IV (18:42)
[2020-04-08] MEDS: 0.9% Saline Lock 10 ML Syringe IV (18:42)
[2020-04-08] MEDS: amLODIPine 5 MG Tablet PO (21:20)
[2020-04-08] MEDS: Pravastatin 20 MG Tablet PO (21:20)
[2020-04-08] MEDS: Heparin Injection (Vial) 5,000 UNIT/ML VIAL 5000 UNIT SC (21:26)
[2020-04-08 21:36] LABS: Bedside Glucose 142 mg/dL (70-110)
[2020-04-09] VITALS (7 sets, daily range): BP systolic 123–148; BP diastolic 48–63; PULSE 57–72; RESP 16–18; TEMP 36.3–36.8; O2SAT 93–96
[2020-04-09 02:36] LABS: Hematocrit 27.9 % (37-47); Hemoglobin 9.4 g/dL (12.0-15.0)
[2020-04-09] MEDS: Levothyroxine 125 MCG Tablet PO (05:28)
[2020-04-09 06:11] LABS: Absolute Lymphocyte Count 1.44 X10^3/uL (0.83-4.51); Absolute Neutrophil Count 4.2 X10^3/uL (2.0-7.7); Basophil# 0.03 X10^3/uL; Basophil% 0.5 % (0-1); Eosinophils% 1.6 % (0-5); Hematocrit 27.4 % (37-47); Hemoglobin 8.7 g/dL (12.0-15.0); Lymphocyte # 1.44 X10^3/ul (4.0); Lymphocyte % 22.6 % (19-41); Mean Corp Hgb Conc 31.8 g/dL (32-36); Mean Corpuscular Hgb 29.3 pg (27.0-32.0); Mean Corpuscular Volume 92.3 fL (81-99); Mean Platelet Vol. 9.1 fl (6.2-12.0); Monocyte# 0.53 X10^3/uL; Monocyte% 8.3 % (0-10); NRBC Flagged by Analyzer 0 % (0-5); Neutrophil # 4.23 X10^3/uL (2.7-7.7); Neutrophil % 66.4 % (47-70); Platelet Count 169 K/mm3 (150-450); RBC Distribution Width CV 15.6 % (11.6-14.6); RBC Distribution Width SD 50.3 fl (35.1-43.9); Red Blood Count 2.97 M/mm3 (4.2-5.4); White Blood Count 6.4 K/mm3 (4.4-11.0)
[2020-04-09 06:45] LABS: Anion Gap 4 (5-15); BUN 45 mg/dL (7-18); BUN/Creat Ratio 40.5 RATIO (10-20); Chloride 110 mmol/L (98-107); Creatinine, Serum 1.11 mg/dL (0.55-1.02); EST Glomerular Filtration Rate 50 mL/min (>60); Est Glom Filt Rate - Afr Amer 60 mL/min (>60); Estimated Creatinine Clearance 29.84 ml/min; Glucose 108 mg/dL (74-106); Potassium 3.9 mmol/L (3.5-5.1); Sodium Level 142 mmol/L (136-145)
[2020-04-09 06:51] LABS: Bedside Glucose 111 mg/dL (70-110)
[2020-04-09] MEDS: Furosemide 40 MG Tablet PO (08:49)
[2020-04-09] MEDS: Heparin Injection (Vial) 5,000 UNIT/ML VIAL 5000 UNIT SC (08:49)
[2020-04-09] MEDS: amLODIPine 5 MG Tablet PO (08:49)
[2020-04-09] MEDS: Ferrous Sulfate 325 MG Tablet PO (10:47)
[2020-04-09] MEDS: Insulin Lispro 100 UNIT/ML INSULN.PEN SC (10:49)
[2020-04-09 11:01] LABS: Bedside Glucose 176 mg/dL (70-110)
[2020-04-09 11:59] LABS: Magnesium 1.9 mg/dL (1.6-2.6)
--- NOTE | 2020-04-09 13:02 | DCINST_ITS ---
- Discharge Diagnoses Current Active Problems: Current Active and Chronic Problems (Last Updated 04/08/20 @ 13:[address] Kelsie Solorzano MD) Acute kidney injury superimposed on CKD (Acute) Acute on chronic symptomatic anemia (Acute) Chronic anemia (Chronic) You will use the following diet at home:: Cardiac Your food should be the consistency of: Regular Your liquids should be the consistency of: Regular/Thin Discharge Activity: Return to Normal Activity Call your doctor if you observe: Shortness of breath, Swelling in the ankles, Chest pain Allergies/Adverse Reactions: Allergies No Known Allergies Allergy (Verified 04/08/20 11:25) Medications to take at Discharge Levothyroxine Sodium [Synthroid] 125 mcg PO DAILY 08/27/18 lisinopril 10 mg tablet 10 mg PO BID #180 tab 09/25/19 Pravastatin [Pravachol] 20 mg PO QHS 10/09/19 Ferrous Sulfate [Iron] 325 mg PO BID #0 10/11/19 Potassium Chloride [K-Dur] 10 meq PO BID tab 10/11/19 amlodipine 5 mg tablet 5 mg PO BID tab 01/25/20 metformin 500 mg tablet,extended release 24 hr 500 mg PO BID tab 01/25/20 Furosemide 40 mg PO DAILY 04/08/20 Lorazepam [Ativan] 0.5 mg PO BID PRN PRN 04/08/20 Primary Care Physician: Gordo Weeks DO [Primary Care Provider] - Please follow up with your Primary Care Physician in: 1-2 weeks Test Results: Test results from this visit will be discussed in further detail at your follow- up appointment, if applicable. Please Follow Up With: call for appt for chronic anemia
--- NOTE | 2020-04-09 13:04 | DS.PCM_ITS ---
Discharge Date and Diagnosis - Problem List Patient Problems: Active and Suspected Problems (Last Updated 04/08/20 @ 13:[address] Kelsie Solorzano MD) Acute kidney injury superimposed on CKD (Acute) Acute on chronic symptomatic anemia (Acute) Date of Admission: 04/08/20 Date of Discharge: 04/09/20 - Primary Discharge Diagnosis Acute Problems: Active Problems (Last Updated 04/08/20 @ 13:[address] Kelsie Solorzano MD) Acute kidney injury superimposed on CKD (Acute) Acute on chronic symptomatic anemia (Acute) - Secondary Discharge Diagnosis Chronic Problems: Chronic Problems (Last Updated 04/08/20 @ 13:[address] 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 She has undergone recent EGD and C-Scopes and they were both negative. She was never able to undergo a capsule endoscopy because she has difficulty swallowing pills. She to the ED with weakness and fatigue on 04/08 and her PCP sent her to the ED for a blood transfusion. She Had 3 units of blood and her hgb went from 6.3 to 9.7 after transfusion. She take Fe daily with Vit C and states that she has a family h/o anemia. She has known severe but from discussing this with her today the only time she gets symptomatic (SOB) from this is when she needs blood and now that she has had blood she states that she feels that she is back to baseline. She has decided with her that she, at her age, does not want any aggressive interventions done. She is anxious to go home today. She needs further w/u regarding her anemia and if a cause can be found we should correct this but if not she would like to be able to have periodic transfusions without being admitted to this hospital. She was given the name of a [facility] and recommend to f/u for further workup. She declined staying for further workup acutely. She would like to discuss this option with her and call and make an appt if they agree this is the best course for her care. She was referred to Dr. Epperson. Patient Problems: Active and Suspected Problems (Last Updated 04/08/20 @ 13:[address] Kelsie Solorzano MD) Acute kidney injury superimposed on CKD (Acute) Acute on chronic symptomatic anemia (Acute) Subjective: Pt states that she feels like she is back to her baseline and is anxious to go home. - Physical Exam Vitals/I&O's: Vital Signs Temp Pulse Resp BP Pulse Ox 97.4 F L 65 18 123/48 H 96 04/09/20 08:47 04/09/20 11:01 04/09/20 08:47 04/09/20 08:47 04/09/20 08:47 Oxygen Delivery Method Room Air Weight: 77 kg Body Mass Index (BMI) 31.0 Intake and Output for Last 24 Hours 04/07/20 04/08/20 04/09/20 23:59 23:59 23:59 Intake Total 977.50 / 977.50 1810 / 1810 Balance 977.50 / 977.50 1809 / 1809 General: Alert, Oriented x3, Cooperative, No apparent distress, Well developed, Well nourished, - - Elderly WF sitting up in a chair with daughter at bedside, appears well HEENT: Atraumatic, PERRLA, EOMI, Normocephalic, EAC Clear Oral: Moist Mucosa, No Gingival or Mucosal Lesions/ Ulcerations Neck: Supple, Trachea Midline, - - radiation of murmur to B carotids Lungs: Clear to auscultation, No rhonchi, No wheeze, No rales Cardiovascular: Regular rate, Regular Rhythm, Normal S1, Murmur - 4/6 SM radiates to B carotids, No rub noted, No Gallop, - - soft S2 Abdomen: Bowel Sounds Present, Soft, Non Tender, Non-Distended Extremities: No clubbing, No cyanosis, Capillary Refill Less than 3 Seconds, Edema - trace Skin: No rashes, No breakdown, Ulcer/ Wound Musculoskeletal: No Tenderness to Palpation of Joints or Extremities, No Muscle Wasting Lymphatic: No Cervical, Supraclavicular, or Inguinal Adenopathy Neurological: Muscle tone normal, Coordination normal Psych/Mental Status: Normal Affect, Appropriate, - - pleasant, Alert and oriented to time, place, person, mood and affect Microbiology Past 72 Hours 04/08/20 12:20 Stool Stool Occult Blood (IDRIS) - Final Laboratory Results 04/08/20 11:55: Blood Type A POSITIVE, Antibody Screen NEGATIVE 04/08/20 11:55: Crossmatch See Detail 04/08/20 11:55: Crossmatch See Detail 04/08/20 11:55: PT 13.5, INR 1.1 04/08/20 16:52: POC Glucose 125 H 04/08/20 21:25: POC Glucose 142 H 04/09/20 02:15: Hgb 9.4 L, Hct 27.9 L 04/09/20 05:50: Sodium 142, Potassium 3.9, Chloride 110 H, Carbon Dioxide 28.0, Anion Gap 4 L, BUN 45 H, Creatinine 1.11 H, Estim Creat Clear Calc 29.84, Est GFR (MDRD) Af Amer 60, Est GFR (MDRD) Non-Af 50 L, BUN/Creatinine Ratio 40.5 H, Glucose 108 H, Calcium 9.0 04/09/20 05:50: WBC 6.4, RBC 2.97 L, Hgb 8.7 L, Hct 27.4 L, MCV 92.3, MCH 29.3, MCHC 31.8 L, RDW Std Deviation 50.3 H, RDW Coeff of Elisabeth 15.6 H, Plt Count 169, MPV 9.1, Immature Gran % (Auto) 0.600, Neut % (Auto) 66.4, Lymph % (Auto) 22.6, [place] % (Auto) 8.3, Eos % (Auto) 1.6, Baso % (Auto) 0.5, Absolute Neuts (auto) 4.2, Absolute Lymphs (auto) 1.44, Nucleated RBC % 0 04/09/20 05:50: Magnesium 1.9 04/09/20 06:45: POC Glucose 111 H 04/09/20 10:46: POC Glucose 176 H Current Medications Acetaminophen (Tylenol) 650 mg PO Q6H PRN PRN PRN Reason: Pain Score 1-10/Temp > 100.7 F Amlodipine Besylate (Norvasc) 5 mg PO BID COUNTS INCLUDE 234 BEDS AT THE [facility] Last Admin: 04/09/20 08:49 Dose: 5 mg Documented by: Ferrous Sulfate (Ferrous Sulfate) 325 mg PO BID@1200,1700 COUNTS INCLUDE 234 BEDS AT THE [facility] Last Admin: 04/09/20 10:47 Dose: 325 mg Documented by: Furosemide (Lasix) 40 mg PO DAILY COUNTS INCLUDE 234 BEDS AT THE [facility] Last Admin: 04/09/20 08:49 Dose: 40 mg Documented by: Heparin Sodium (Porcine) (Heparin Na) 5,000 unit SC Q12 COUNTS INCLUDE 234 BEDS AT THE [facility] Last Admin: 04/09/20 08:49 Dose: 5,000 unit Documented by: Sodium Chloride () 250 mls @ 15 mls/hr IV .[id number] PRN PRN Reason: Saline Flush Sodium Chloride () 250 mls @ 15 mls/hr IV .[id number] PRN PRN Reason: Additional IVPB Infusion Insulin Human Lispro (Humalog Kwikpen (Bkc)) 0 unit SC ACHS COUNTS INCLUDE 234 BEDS AT THE [facility]; Protocol Last Admin: 04/09/20 10:49 Dose: 1 units Documented by: Levothyroxine Sodium (Synthroid) 125 mcg PO DAILY@0600 COUNTS INCLUDE 234 BEDS AT THE [facility] Last Admin: 04/09/20 05:28 Dose: 125 mcg Documented by: Ondansetron HCl (Zofran) 4 mg IV Q8H PRN PRN PRN Reason: NAUSEA/VOMITING [facility] Last Admin: 04/09/20 08:49 Dose: 10 meq Documented by: Pravastatin Sodium (Pravachol) 20 mg PO QHS COUNTS INCLUDE 234 BEDS AT THE [facility] Last Admin: 04/08/20 21:20 Dose: 20 mg Documented by: Senna/Docusate Sodium (Senokot-S, Irene-Colace) 2 tablet PO BID PRN PRN PRN Reason: Constipation Sodium Chloride () 10 - 40 ml IV UD PRN PRN Reason: SALINE FLUSH Last Admin: 04/08/20 18:42 Dose: 10 ml Documented by: Zolpidem Tartrate (Ambien (Generic)) 5 mg PO QHS PRN PRN PRN Reason: INSOMNIA Discharge Activity: Return to Normal Activity Call your doctor if you observe: Shortness of breath, Swelling in the ankles, Chest pain Home Medications: Medications to take at Discharge Levothyroxine Sodium [Synthroid] 125 mcg PO DAILY 08/27/18 lisinopril 10 mg tablet 10 mg PO BID #180 tab 09/25/19 Pravastatin [Pravachol] 20 mg PO QHS 10/09/19 Ferrous Sulfate [Iron] 325 mg PO BID #0 10/11/19 Potassium Chloride [K-Dur] 10 meq PO BID tab 10/11/19 amlodipine 5 mg tablet 5 mg PO BID tab 01/25/20 metformin 500 mg tablet,extended release 24 hr 500 mg PO BID tab 01/25/20 Furosemide 40 mg PO DAILY 04/08/20 Lorazepam [Ativan] 0.5 mg PO BID PRN PRN 04/08/20 Primary Care Physician: Gordo Weeks DO [Primary Care Provider] - Please follow up with your Primary Care Physician in: 1-2 weeks Please Follow Up With: call for appt for chronic anemia Medical Necessity - Tobacco Use Smoking Status: Never smoker Meaningful Use Info Meaningful Use Diagnoses (Choose all that apply): None applicable Inpatient E&M: 47525 [facility] Hosp
--- NOTE | 2020-04-09 13:23 | PCA ---
At the RN's request I asked the PT if she would like me to schedule a f/u appt. with her PCP and the PT told me she would like to call and make that appt. on her own. Lucina Chen
--- NOTE | 2020-04-09 13:44 | CASEMGMT ---
RN CM Assessment Note Intro role of CM to patient and her daughter. Patient is dressed, sitting in chair and ready to go home. Patient states she is independent and does not have concerns re: discharge today. -discussed referral for Dr. Epperson that is recommended for f/u with H/H and outpt blood transfusions if needed. Daughter and asked questions, daughter states patient would like to speak with her re: f/u, but daughter did say she would assist with making appointment. Presentation: weakness, fatigue Diagnosis: MICHELLE, chronic anemia PCP: Dr. Weeks Specialists: Referral to F/U with Dr. Epperson for workup and outpatient transfusions if needed. Insurance: [facility] A only/ patient states she uses [employer] for Outpt expenses. Preferred Pharmacy: [facility] Prescription Benefit: no.patient states they are able to pay out of pocket for medications LNOK: Hunter Avalos Living Arrangements: Lives independently, no DME. Daughter is able to assist with any needs. DME: no DME use per patient Patient DC Goals: Home DC Plan: Home today. No questions or concerns by pt or daughter. Olamide MANUEL RN ACM
--- NOTE | 2020-04-09 13:52 | PHA.DC.MR ---
Pharmacy Service has performed discharge medication reconciliation for this patient. The patient's discharge medication list was reviewed for discrepancies and discrepancies were resolved. Home Medications Levothyroxine Sodium [Synthroid] 125 mcg PO DAILY 08/27/18 lisinopril 10 mg tablet 10 mg PO BID #180 tab 09/25/19 Pravastatin [Pravachol] 20 mg PO QHS 10/09/19 Ferrous Sulfate [Iron] 325 mg PO BID #0 10/11/19 Potassium Chloride [K-Dur] 10 meq PO BID tab 10/11/19 amlodipine 5 mg tablet 5 mg PO BID tab 01/25/20 metformin 500 mg tablet,extended release 24 hr 500 mg PO BID tab 01/25/20 Furosemide 40 mg PO DAILY 04/08/20 Lorazepam [Ativan] 0.5 mg PO BID PRN PRN 04/08/20
--- NOTE | 2020-04-10 14:40 | CASEMGMT ---
KORI RHODES Discharge Follow-Up Phone Call. Kelin: Ever Strata: 3 Discharge Date: 04/09/20 Adm Dx: Acute on Chronic symptomatic anemia, MICHELLE Call to pt to inquire about how she has been doing since being discharged from the hospital. She states, I'm doing okay. A little tired, but I guess it will take awhile to get my strength back. She denies having any questions about the discharge instructions or medications. She states she has made a f/u appt w/Dr Weeks yet but plans to do so soon. She denies having any concerns/needs. She states I'm very satisfied with the care I got. KORI RHODES thanked pt for choosing [facility]. Mckay MANUEL RN, CM
== END 2020-04-09 14:21 | disposition home or self-care (01) | DRG 812 ==
LOC: ED 13:37 → PCU 14:27
PROVIDERS: Admitting Provider Hospitalist; Emergency Provider Emergency Medicine; PCP Family Medicine; Visit Provider Internal Medicine
DX: D64.9 Anemia, unspecified (principal); N17.9 Acute kidney failure, unspecified; I45.2 Bifascicular block; I12.9 Hypertensive chronic kidney disease with stage 1 through stage 4 chronic kidney disease, or unspecified chronic kidney disease; E11.22 Type 2 diabetes mellitus with diabetic chronic kidney disease; N18.3 Chronic kidney disease, stage 3 (moderate); I27.21 Secondary pulmonary arterial hypertension; I35.0 Nonrheumatic aortic (valve) stenosis; Z87.19 Personal history of other diseases of the digestive system; E03.9 Hypothyroidism, unspecified; E66.9 Obesity, unspecified; M19.90 Unspecified osteoarthritis, unspecified site; Z79.84 Long term (current) use of oral hypoglycemic drugs; Z79.899 Other long term (current) drug therapy; E78.00 Pure hypercholesterolemia, unspecified; Z68.31 Body mass index [BMI] 31.0-31.9, adult; E86.0 Dehydration; E78.5 Hyperlipidemia, unspecified
CPT/HCPCS: 36415; 80048; 82274; 82962; 83735; 85014; 85018; 85025; 85610; 86850; 86900; 86901; 86920; 86922; 97161; 97166; 99251; 99285; J7030; J7040; P9016; A4216; G0463; J1940

== ENCOUNTER 2021-07-12 16:57 | Observation (INO) | payer OTHER, SELFPAY ==
[2021-07-12] VITALS (10 sets, daily range): BP systolic 124–148; BP diastolic 48–64; PULSE 63–75; RESP 14–16; TEMP 35.6–36.3; O2SAT 94–99; BMI 35.9; BMI 33.7
--- NOTE | 2021-07-12 17:24 | RAD_ITS ---
STUDY: X-RAY CHEST REASON FOR EXAM: Female, 85 years old. Technologist Notes CHEST PAIN STARTED AT 0300 TODAY, WOKE PT UP, PT C/O PAIN IS INTERMITTENT THROUGHOUT TODAY, DENIES PAIN AT THIS TIME. PT DID VOMIT LARGE AMOUNT WHEN SQUAD PLACED PT ON COT. chest pain TECHNIQUE: XR Chest 1 View COMPARISON: 10.09.19 FINDINGS: There is no demonstrated pleural abnormality. Normal size heart. Normal mediastinum and carlton. Normal visualized pulmonary arteries. There is atherosclerotic calcification of the aortic arch with tortuosity. There are diffuse degenerative changes of the visualized thoracic spine. There is degenerative osteoarthritis of the bilateral shoulders. There is no demonstrated abnormality of the visualized soft tissue structures of the upper abdomen. RAD/Chest 1 View (Portable) IMPRESSION: There are no acute findings. Electronically Signed: Holden Aguilera MD at 17:44 EST , Service support ,
--- NOTE | 2021-07-12 17:24 | EKG12_ITS ---
Test Reason : CP Blood Pressure : / mmHG Vent. Rate : 067 BPM Atrial Rate : 067 BPM P-R Int : 210 ms QRS Dur : 170 ms QT Int : 482 ms P-R-T Axes : 021 -84 035 degrees QTc Int : 509 ms Sinus rhythm with 1st degree A-V block Right bundle branch block Left anterior fascicular block Bifascicular block Septal infarct , age undetermined Abnormal ECG Confirmed by NGUYEN RUTLEDGE ([id number]), editor department TULIO MEANS ([id number]) on 07/13/2021 11:08:40 AM Referred By: LISHA/DEVANTE Confirmed By:NGUYEN RUTLEDGE
--- NOTE | 2021-07-12 17:25 | ED.VIS.CHEST ---
HPI History of Present Illness Chief Complaint: Chest Pain Informant: patient and family Onset/Context/Timing Onset: Today and Hours Activity at onset: gradual Timing: Continuous Quality: Positive for Heaviness Location: Substernal Current Severity: Gone Maximum Severity: Moderate Worsened By: Nothing Relieved By: Nothing Narrative Narrative: 85-year-old female history of chronic kidney disease, anemia, diabetes right bundle branch block and aortic stenosis. Prior Similar Symptoms: Yes Recent Illness/Hospitalization: No CVD Risk Factors: Positive for Diabetes PE Risk Factors: Negative for Recent Travel/Surgery, Recent Immobilization, Prior DVT or PE, Cancer and OCP + Smoking + >/=35 TAD Risk Factors: Negative for Marfan's Syndrome [facility] Medical History Acute kidney injury superimposed on CKD Acute on chronic blood loss anemia Chronic anemia Chronic kidney disease, stage 3 CKD (chronic kidney disease), stage III Essential (primary) hypertension GI bleed (10/09/19) Hyperlipidemia Hypothyroidism Iron deficiency anemia Non-rheumatic aortic stenosis Obesity Osteoarthritis 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 Type 2 diabetes mellitus Home Medications levothyroxine 125 mcg PO DAILY 08/27/18 [History Last Taken 04/08/20 07:00] pravastatin 20 mg PO QHS 10/09/19 [History Last Taken 04/07/20 21:00] ferrous sulfate 325 mg PO BID #0 10/11/19 [Rx Last Taken 04/08/20 10:00] potassium chloride 10 meq PO BID tab 10/11/19 [Rx Last Taken 04/08/20 07:00] metformin 500 mg tablet,extended release 24 hr 500 mg PO BID tab 01/25/20 [History Last Taken 04/08/20 07:00] lorazepam 0.5 mg PO BID PRN PRN 04/08/20 [History Last Taken 04/07/20 21:00] amlodipine 5 mg tablet 5 mg PO DAILY tab 07/09/20 [History Last Taken Unknown] lisinopril 10 mg tablet 10 mg PO BID #180 tab 09/05/20 [Rx Last Taken Unknown] furosemide 40 mg tablet 40 mg PO DAILY #90 tab 03/18/21 [Rx Last Taken Unknown] Allergy/AdvReac Type Severity Reaction Status Date / Time No Known Allergies Allergy Verified 03/18/21 09:12 Family History Father CAD (coronary artery disease) Myocardial infarction in his 80's from 80's Brother CAD (coronary artery disease) Myocardial infarction from his 70's from [place] Sister Heart disease Rheumatic Heart Disease Surgical History History of esophagogastroduodenoscopy (EGD) (09/2019) Social History Smoking Status: Never smoker ROS ROS ED ROS Narrative Denies recent illness. Review of Systems ROS Unobtainable: Denies due to encephalopathy Constitutional Constitutional ED: Denies fever(s) Eyes Eyes: Denies none ENT ENT ED: Denies ear pain Cardiovascular Cardiovascular: Reports as per HPI and chest pain Respiratory/Chest Respiratory/Chest: Denies cough or dyspnea Gastrointestinal Gastrointestinal: Reports nausea and vomiting; Denies abdominal pain Genitourinary Genitourinary ED: Denies dysuria Musculoskeletal Musculoskeletal: Denies myalgias Integumentary Denies rash Neurologic Neurologic: Denies headache(s) Psychiatric Psychiatric: Denies depression Endocrine Endocrinology: Denies polyuria Hematologic/Lymphatic Hematologic/Lymphatic: Denies easy bruising Allergic/Immunologic Allergic/Immunologic ED: Denies urticaria EXAM Physical Exam Narrative Exam Narrative: 85-year-old female lying in bed no acute distress currently pain-free. 96% on room air. No hypoxia. HEENT exam unremarkable. Neck nontender no JVD. Lungs clear to auscultation bilaterally. Heart regular rhythm rate about 70 4/6 systolic ejection murmur. She has a history of a heart murmur and aortic stenosis. Abdomen soft nontender normal bowel sounds no peritoneal signs. Moving all four extremities. Calves are nontender without edema or cords. Neurologically she is awake and alert with no focal motor deficits. Const Vital Signs: 07/12/21 16:58 07/12/21 17:03 07/12/21 17:45 Temperature 96.0 F L 96.0 F L Temperature Source Temporal Temporal Pulse Rate 68 70 Respiratory Rate 16 16 Blood Pressure 133/48 H 133/48 H Blood Pressure Mean 76 76 Pulse Ox 96 94 96 Oxygen Delivery Method Room Air Room Air Room Air 07/12/21 18:04 07/12/21 19:05 Temperature Temperature Source Pulse Rate 63 69 Respiratory Rate 16 16 Blood Pressure 132/52 H 125/64 H Blood Pressure Mean 78 84 Pulse Ox 98 95 Oxygen Delivery Method Room Air Room Air Positive well nourished, well developed and obese; Negative for cachectic, contractures or unkempt General Appearance ED: well developed and NAD; Negative for unkempt, cachectic or contractures Nutritional Appearance: obese; Negative for cachectic HEENT Reports moist mucous membranes normocephalic and atraumatic; Negative for trauma or tenderness Eyes PERRL and EOMs intact bilaterally Neck no lymphadenopathy, supple and no JVD General: Negative for tenderness Chest Wall inspection of chest normal and palpation of chest normal Resp normal respiratory effort and clear to auscultation bilaterally Effort and Inspection: respiratory distress Auscultation: Negative for rales, rhonchi or wheezes Cardio regular rate, regular rhythm, S1 normal heart sound and S2 normal heart sound; Negative for no murmurs GI normal to inspection, nondistended, normoactive bowel sounds, soft to palpation, non-tender, non-distended and no masses Auscultation: Negative for hyperactive bowel sounds Back/Spine no CVA tenderness Extremity normal to inspection General Extremety ED: Negative for edema or tenderness General Extremity: Negative for edema Neuro oriented x3 Sensorium / Orientation: awake, alert, oriented to person, oriented to place and oriented to time Motor Exam: strength 5/5 throughout Psych mental status grossly normal Appearance: Negative for unkempt Skin no rashes or lesions noted and no wounds General Skin Exam: Negative for jaundice Heart Score History: Highly Suspicious ECG: Normal Age: >/= 65 years Risk Factors: 1 or 2 Risk Factors Score: 5 MDM MDM MDM Narrative Medical decision making narrative: 85-year-old female with chest pain that woke her up this morning. She has a history of valvular heart disease. She denies ever having cardiac catheterization or stress test. She is currently and has been under the care of Dr. Melo. Exam is benign except for an impressive cardiac murmur which she has been told she has had in the past. She will undergo cardiac work-up the most likely need admitted. Lab Data Attestation: I reviewed the patient's lab results. Lab results narrative: CBC showed a white count of 5. Hemoglobin is 7. Platelets of 176. Electrolytes unremarkable gap of 8 BUN of 89 creatinine 1.63 she has a history of chronic renal insufficiency glucose of 245 troponin of 35. Chest x-ray chronic changes no acute process. Labs: Laboratory Results - last 24 hr 07/12/21 07/12/21 17:10 17:10 WBC 5.7 RBC 2.24 L Hgb 7.0 L Hct 20.7 L MCV 92.4 MCH 31.3 MCHC 33.8 RDW Std Deviation 48.6 H RDW Coeff of Elisabeth 15.1 H Plt Count 176 MPV 9.9 Immature Gran % (Auto) 1.800 H Neut % (Auto) 71.0 H Lymph % (Auto) 20.0 [place] % (Auto) 6.2 Eos % (Auto) 0.5 Baso % (Auto) 0.5 Absolute Neuts (auto) 4.0 Absolute Lymphs (auto) 1.13 Nucleated RBC % 0.4 Sodium 136 Potassium 4.4 Chloride 103 Carbon Dioxide 25.0 Anion Gap 8 BUN 89 H Creatinine 1.63 H Estim Creat Clear Calc 19.96 Est GFR (MDRD) Af Amer 39 L Est GFR (MDRD) Non-Af 32 L BUN/Creatinine Ratio 54.6 H Glucose 245 H Calcium 9.3 Troponin I High Sens 35 Radiography Chest X-Ray - ED: 1 View, Read by ED Physician, Heart, Lungs, Mediastinum, Bony Structures, No Acute Disease and Chronic Changes Diagnostic Testing: Clinical Impression(s) from Imaging Studies Chest X-Ray 07/12/21 17:24 IMPRESSION: There are no acute findings. Electronically Signed: Holden Aguilera MD at 17:44 EST , Service support , Chest x-ray shows chronic changes no acute processes normal cardiac silhouette mediastinum interpreted by myself and the radiologist. Rhythm Strip Rhythm Strip: Sinus Rhythm Rate: 67 Ectopy: None EKG Initial EKG: Attestation: I personally reviewed and interpreted this EKG as follows: Interpretation: Sinus Rhythm and No Acute Injury Pattern Comments: Normal sinus rhythm rate of 67 no acute signs of CO or ischemia. She has a right bundle branch block and left anterior fascicular block which have been seen on prior EKGs in the past. Prior EKG tracings: available for review Prior: Unchanged Discharge Plan Triage Chief Complaint: Chest Pain ED Provider: Matt Peters Dx/Rx/DC Orders Clinical Impression: Chest pain, CKD (chronic kidney disease), stage III, Acute on chronic anemia Prescriptions: No Action metformin 500 mg tablet extended release 24 hr 500 mg PO BID RF: 0 amlodipine 5 mg tablet 5 mg PO DAILY RF: 0 furosemide 40 mg tablet 40 mg PO DAILY Qty: 90 RF: 3 levothyroxine 125 MCG tablet 125 mcg PO DAILY RF: 0 pravastatin 20 MG tablet 20 mg PO QHS RF: 0 ferrous sulfate 325 mg (65 mg iron) tablet 325 mg PO BID Qty: 0 RF: 0 potassium chloride 10 MEQ tablet 10 meq PO BID RF: 0 lorazepam 0.5 MG tablet 0.5 mg PO BID PRN PRN (Reason: Anxiety) RF: 0 lisinopril 10 mg tablet 10 mg PO BID Qty: 180 RF: 3 Primary Care Provider: Gordo eWeks Referrals: Gordo Weeks DO [Primary Care Provider] - Disposition Disposition: Acute Care Hospital [facility] [place] [facility]
[2021-07-12 17:47] LABS: Absolute Lymphocyte Count 1.13 X10^3/uL (0.83-4.51); Basophil# 0.03 X10^3/uL; Basophil% 0.5 % (0-1); Eosinophil# 0.03 X10^3/uL; Eosinophils% 0.5 % (0-5); Hematocrit 20.7 % (37-47); Lymphocyte # 1.13 X10^3/ul (0.83-4.51); Mean Corp Hgb Conc 33.8 g/dL (32-36); Mean Corpuscular Hgb 31.3 pg (27.0-32.0); Mean Corpuscular Volume 92.4 fL (81-99); Mean Platelet Vol. 9.9 fl (6.2-12.0); Monocyte# 0.35 X10^3/uL; Monocyte% 6.2 % (0-10); NRBC Flagged by Analyzer 0.4 % (0-5); Neutrophil # 4.02 X10^3/uL (2.7-7.7); Platelet Count 176 K/mm3 (150-450); RBC Distribution Width CV 15.1 % (11.6-14.6); RBC Distribution Width SD 48.6 fl (35.1-43.9); Red Blood Count 2.24 M/mm3 (4.2-5.4); White Blood Count 5.7 K/mm3 (4.4-11.0)
[2021-07-12] MEDS: Aspirin 81 MG TAB.CHEW 324 MG PO (17:47)
[2021-07-12 18:01] LABS: Anion Gap 8 (5-15); BUN 89 mg/dL (7-18); BUN/Creat Ratio 54.6 RATIO (10-20); Calcium,Total 9.3 mg/dL (8.5-10.1); Chloride 103 mmol/L (98-107); Creatinine, Serum 1.63 mg/dL (0.55-1.02); EST Glomerular Filtration Rate 32 mL/min (>60); Est Glom Filt Rate - Afr Amer 39 mL/min (>60); Estimated Creatinine Clearance 19.96 ml/min; Glucose 245 mg/dL (74-106); Potassium 4.4 mmol/L (3.5-5.1); Sodium Level 136 mmol/L (136-145); Troponin-I HS 35 pg/mL (3.0-54.0)
--- NOTE | 2021-07-12 20:23 | PCS.PANDOC ---
PANDEMIC DOCUMENTATION INITIATED: Date: 04/13/2021 Time: 190
--- NOTE | 2021-07-12 20:25 | EKG12_ITS ---
Test Reason : CP ADMISSION Blood Pressure : / mmHG Vent. Rate : 066 BPM Atrial Rate : 066 BPM P-R Int : 200 ms QRS Dur : 168 ms QT Int : 462 ms P-R-T Axes : 038 -83 008 degrees QTc Int : 484 ms Sinus rhythm with occasional Premature ventricular complexes Right bundle branch block Left anterior fascicular block Bifascicular block Septal infarct , age undetermined Abnormal ECG When compared with ECG of 12-JUL-2021 17:03, MANUAL COMPARISON REQUIRED, DATA IS UNCONFIRMED Confirmed by BATSHEVA JULES, TRENA ([id number]), editor in chief TULIO MEANS ([id number]) on 07/14/2021 11:22:27 AM Referred By: KRISTEN Confirmed By:TRENA HERMAN MD
--- NOTE | 2021-07-12 20:39 | HP.PCM.HOS_ITS ---
HPI - General General Date of Admission: 07/12/21 HPI Narrative JAMIR TORRES, is a 85 F who presents to the hospital with chest pain. She says that it it happens pretty much every day throughout the day she notices it mostly as pressure but she also has some chronic dizziness throughout the day as well. Yesterday the family was concerned decent size dinner and had some chest pain afterwards. She assumed that lisinopril was on heart medication to help with her pain therefore she took 2 doses last night and then she took 1 dose again this morning. I explained to her that lisinopril is a blood pressure medication that does not help with any type of chest pain. She is aware that she has severe aortic stenosis and does not want any heart cath or aggressive intervention. She was offered an aortic valve replacement a few years ago which she has refused. She does have a history of chronic anemia that she is being followed up as an outpatient. She has had multiple EGDs and colonoscopies which have never been able to find a diagnosis and on occasions she gets severe enough that she needs transfusion. 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 Type 2 diabetes mellitus Home Medications levothyroxine 125 mcg PO DAILY 08/27/18 [History Last Taken 04/08/20 07:00] pravastatin 20 mg PO QHS 10/09/19 [History Last Taken 04/07/20 21:00] ferrous sulfate 325 mg PO BID #0 10/11/19 [Rx Last Taken 04/08/20 10:00] metformin 500 mg tablet,extended release 24 hr 500 mg PO BID tab 01/25/20 [History Last Taken 04/08/20 07:00] lorazepam 0.5 mg PO BID PRN PRN 04/08/20 [History Last Taken 04/07/20 21:00] amlodipine 5 mg tablet 5 mg PO DAILY tab 07/09/20 [History Last Taken Unknown] furosemide 40 mg tablet 40 mg PO DAILY #90 tab 03/18/21 [Rx Last Taken Unknown] lisinopril 10 mg PO BID 07/12/21 [History Last Taken Unknown] potassium chloride 10 meq PO BID 07/12/21 [History Last Taken Unknown] Allergy/AdvReac Type Severity Reaction Status Date / Time No Known Allergies Allergy Verified 03/18/21 09:12 Family History Father CAD (coronary artery disease) Myocardial infarction in his 80's from 80's Brother CAD (coronary artery disease) Myocardial infarction from his 70's [place] Sister Heart disease Rheumatic Heart Disease Surgical History History of esophagogastroduodenoscopy (EGD) (09/2019) Social History Smoking Status: Never smoker ROS Constitutional Constitutional: Denies chills, fatigue, fever(s) or malaise Eyes Eyes: Denies blurry vision ENT HEENT: Denies headache(s) or nasal discharge Cardiovascular Cardiovascular: Reports chest pain and lightheadedness; Denies dyspnea on exertion or syncope Respiratory/Chest Respiratory/Chest: Denies cough, shortness of breath at rest or shortness of breath with exertion Gastrointestinal Gastrointestinal: Denies constipation, diarrhea, nausea or vomiting Genitourinary Genitourinary: Denies dysuria Neurologic Neurologic: Denies focal weakness, numbness or tremor(s) Psychiatric Psychiatric: Denies anxiety or depression Vital Signs Vital Signs Vital Signs: 07/12/21 16:58 07/12/21 17:03 07/12/21 17:45 Temperature 96.0 F L 96.0 F L Temperature Source Temporal Temporal Pulse Rate 68 70 Respiratory Rate 16 16 Blood Pressure 133/48 H 133/48 H Blood Pressure Mean 76 76 Blood Pressure Source Blood Pressure Position Blood Pressure Location Pulse Ox 96 94 96 Oxygen Delivery Method Room Air Room Air Room Air 07/12/21 18:04 07/12/21 19:05 07/12/21 19:52 Temperature 97.3 F L Temperature Source Temporal Pulse Rate 63 69 66 Respiratory Rate 16 16 14 Blood Pressure 132/52 H 125/64 H 132/58 H Blood Pressure Mean 78 84 82 Blood Pressure Source Blood Pressure Position Blood Pressure Location Pulse Ox 98 95 95 Oxygen Delivery Method Room Air Room Air Room Air 07/12/21 20:25 Temperature 97.0 F L Temperature Source Temporal Pulse Rate 75 Respiratory Rate 16 Blood Pressure 148/53 H Blood Pressure Mean 84 Blood Pressure Source Monitor Blood Pressure Position Semi-Fowlers Blood Pressure Location Right Arm Pulse Ox 99 Oxygen Delivery Method Room Air Weight Weight: 184 lb 8.43 oz Body Mass Index (BMI) 33.7 Physical Exam Const alert, oriented x3 and no apparent distress General Appearance: cooperative HEENT normocephalic Mouth: dry mucous membranes Eyes PERRL, EOMs intact bilaterally and conjunctivae normal Neck supple and no JVD Resp normal respiratory effort, no retractions, no use of accessory muscles and clear to auscultation bilaterally Auscultation: Negative for crackles, rales, rhonchi or wheezes Cardio regular rate, regular rhythm, S1 normal heart sound and S2 normal heart sound Heart Sounds: murmur systolic III/ GI soft to palpation, non-tender and non-distended; Negative for hepatosplenomegaly Extremity no clubbing, cyanosis or edema Skin no rashes or lesions noted Neuro no focal motor deficits and no sensory deficits noted Psych affect normal Appearance: appropriate Results Lab / Micro Data Result Diagrams: 07/12/21 17:10 07/12/21 17:10 Labs: Laboratory Results - last 24 hr 07/12/21 17:10: WBC 5.7, RBC 2.24 L, Hgb 7.0 L, Hct 20.7 L, MCV 92.4, MCH 31.3, MCHC 33.8, RDW Std Deviation 48.6 H, RDW Coeff of Elisabeth 15.1 H, Plt Count 176, MPV 9.9, Immature Gran % (Auto) 1.800 H, Neut % (Auto) 71.0 H, Lymph % (Auto) 20.0, [place] % (Auto) 6.2, Eos % (Auto) 0.5, Baso % (Auto) 0.5, Absolute Neuts (auto) 4.0, Absolute Lymphs (auto) 1.13, Nucleated RBC % 0.4 07/12/21 17:10: Sodium 136, Potassium 4.4, Chloride 103, Carbon Dioxide 25.0, Anion Gap 8, BUN 89 H, Creatinine 1.63 H, Estim Creat Clear Calc 19.96, Est GFR (MDRD) Af Amer 39 L, Est GFR (MDRD) Non-Af 32 L, BUN/Creatinine Ratio 54.6 H, Glucose 245 H, Calcium 9.3, Troponin I High Sens 35 Rhythm Strip Rhythm Strip: Sinus Rhythm Rate: 67 Ectopy: None Radiology Impression Chest X-Ray 07/12/21 17:24 IMPRESSION: There are no acute findings. Electronically Signed: Holden Aguilera MD at 17:44 EST , Service support , Assessment & Plan Assessment/Plan (1) Acute on chronic anemia: (2) Non-rheumatic aortic stenosis: (3) Chest pain: PLAN: 1. Chest pain/HTN/HLD/severe aortic stenosis/pulmonary hypertension -Blood pressure is stable we will continue with her home medications -We will consult cardiology to see if there is any medication adjustments that can be made to assist with her pain or if this is something that she needs to live with -I did broach the topic of hospice with the family as they were at one point considering going home with her and were asking what that would look like -We will obtain cardiac enzymes -Given her chronic anemia, will plan on transfusing her 1 unit 2. DM2 -Blood glucose is stable, will hold her home Metformin -Accu-Cheks AC at bedtime, sliding scale insulin -We will make adjustments as necessary 3. Acute on chronic anemia -No etiology is known she is on iron replacement -Given her cardiac disease, will transfuse 1 unit and continue with her iron DVT: SCDs Charges/Coding Visit Charges OBSV E&M: 79230 Initial observation care L3
[2021-07-12 21:50] LABS: Troponin-I HS 76 pg/mL (3.0-54.0)
[2021-07-12] MEDS: Insulin Lispro 100 UNIT/ML INSULN.PEN SC (22:16)
[2021-07-12] MEDS: Lisinopril 10 MG Tablet PO (22:17)
[2021-07-12] MEDS: LORazepam 0.5 MG Tablet PO (22:17)
[2021-07-12] MEDS: Pravastatin 20 MG Tablet PO (22:17)
[2021-07-12] MEDS: 0.9% Saline Lock 10 ML Syringe IV (22:19)
[2021-07-12 22:36] LABS: Bedside Glucose 221 mg/dL (70-110)
[2021-07-12] MEDS: MELATONIN 3 MG TABLET PO (23:10)
[2021-07-13] VITALS (13 sets, daily range): BP systolic 108–143; BP diastolic 48–70; PULSE 50–64; RESP 16–18; TEMP 36.1–37.3; O2SAT 94–99
[2021-07-13 00:08] LABS: Troponin-I HS 73 pg/mL (3.0-54.0)
[2021-07-13] MEDS: Levothyroxine 125 MCG Tablet PO (06:01)
[2021-07-13 06:41] LABS: Bedside Glucose 144 mg/dL (70-110)
[2021-07-13 07:17] LABS: Absolute Lymphocyte Count 1.41 X10^3/uL (0.83-4.51); Absolute Neutrophil Count 4.1 X10^3/uL (2.0-7.7); Basophil# 0.02 X10^3/uL; Basophil% 0.3 % (0-1); Eosinophil# 0.01 X10^3/uL; Eosinophils% 0.2 % (0-5); Hematocrit 21.4 % (37-47); Lymphocyte # 1.41 X10^3/ul (0.83-4.51); Lymphocyte % 23.4 % (19-41); Mean Corp Hgb Conc 32.7 g/dL (32-36); Mean Corpuscular Hgb 29.8 pg (27.0-32.0); Mean Corpuscular Volume 91.1 fL (81-99); Monocyte# 0.39 X10^3/uL; Monocyte% 6.5 % (0-10); NRBC Flagged by Analyzer 0.5 % (0-5); Neutrophil # 4.12 X10^3/uL (2.7-7.7); Neutrophil % 68.3 % (47-70); Platelet Count 167 K/mm3 (150-450); RBC Distribution Width CV 15.9 % (11.6-14.6); RBC Distribution Width SD 50.3 fl (35.1-43.9); Red Blood Count 2.35 M/mm3 (4.2-5.4)
[2021-07-13 07:47] LABS: Anion Gap 4 (5-15); BUN 72 mg/dL (7-18); BUN/Creat Ratio 55.8 RATIO (10-20); Chloride 108 mmol/L (98-107); Creatinine, Serum 1.29 mg/dL (0.55-1.02); EST Glomerular Filtration Rate 42 mL/min (>60); Est Glom Filt Rate - Afr Amer 50 mL/min (>60); Estimated Creatinine Clearance 25.22 ml/min; Glucose 157 mg/dL (74-106); Potassium 4.5 mmol/L (3.5-5.1); Sodium Level 138 mmol/L (136-145)
--- NOTE | 2021-07-13 07:48 | PCM.CONS.C ---
Assessment & Plan Assessment/Plan (1) Chest pain: PLAN: She does have chest discomfort which is somewhat atypical. There are no EKG changes noted and no cardiac enzyme abnormalities. I suspect the above is secondary to the anemia with a fixed aortic stenosis. She has been transfused and appears to be feeling better. At this time the therapy for the above would be to try and keep her hemoglobin over a critical level of probably 8 or 9. We will need to discuss this with a pharmacist per diem. Not inclined to perform any invasive therapy and the patient is not interested anyway. (2) Non-rheumatic aortic stenosis: PLAN: The patient has critical aortic stenosis and does not want any intervention. We will continue to follow her clinically. At this time antihypertensive medication appears to be stable and I would not make any major changes. 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 I would not recommend that we make any changes with respect to the above. (4) Essential (primary) hypertension: PLAN: Her blood pressure is under good control at this particular time. No major changes will be made. She is on lisinopril, and amlodipine. We will continue these at the present dose for now. There does not appear to be of any indication of hypotension induced. (5) Iron deficiency anemia: PLAN: She does have severe iron deficiency anemia. The plan will be to continue her on her iron therapy as well as follow-up with the oncologist. The plan to be to keep her hemoglobin over 8 or 9. I think this would help with preventing any symptomatology. For now we will continue with expectant therapy. HPI Consult Data Date of Consult: 07/13/21 HPI Narrative HPI Narrative: JAMIR TORRES, is a 85 F who presents for evaluation of chest discomfort which she describes as a chest heaviness. She presented to the emergency room last evening on account of the above and was admitted because she was severely anemic and was transfused 1 unit of packed red blood cells. She is a lady with a history of known aortic stenosis. She has previously been known to have a history of significant anemia the etiology of which is not entirely clear but has been secondary to undiagnosed blood loss in the GI tract. Her hemoglobin at one time was 6.4 and currently is up to 11 on iron supplementation. As part of her evaluation she was noted to be hypertensive and also had an echocardiogram performed which demonstrated severe aortic stenosis with a peak gradient of 117 mmHg and a mean gradient of 60 mmHg across the aortic valve. Her aortic valve area was calculated at 0.8 cm square. A repeat echocardiogram was performed in December of this year which demonstrated an ejection fraction of 65%, moderate mitral calcification, 1-2+ mitral regurgitation, and a mean gradient of 58 mmHg across the aortic valve with a peak gradient of 93 mmHg. The aortic valve area was 0.6 cm?. This suggests critical aortic stenosis. She has some shortness of breath with exertion but no dizziness or diaphoresis no near syncope or syncope. She tells me that she has been following with the pharmacist per diem oncologist. She has had some bilateral pedal edema which is better in the morning. As you know we have discussed with her on multiple occasions about aortic valve replacement and she is not interested. We have therefore continued medical therapy. She appears to be fairly normotensive on this medication. 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 Type 2 diabetes mellitus Home Medications levothyroxine 125 mcg PO DAILY 08/27/18 [History Last Taken 07/12/21 09:00] pravastatin 20 mg PO QHS 10/09/19 [History Last Taken 07/11/21 22:00] ferrous sulfate 325 mg PO BID #0 10/11/19 [Rx Last Taken 07/12/21 09:00] metformin 500 mg tablet,extended release 24 hr 500 mg PO BID tab 01/25/20 [History Last Taken 07/12/21 09:00] lorazepam 0.5 mg PO BID PRN PRN 04/08/20 [History Last Taken 07/11/21 22:00] amlodipine 5 mg tablet 5 mg PO DAILY tab 07/09/20 [History Last Taken 07/12/21 09:00] furosemide 40 mg tablet 40 mg PO DAILY #90 tab 03/18/21 [Rx Last Taken 07/12/21 09:00] lisinopril 10 mg PO BID 07/12/21 [History Last Taken 07/12/21 09:00] potassium chloride 10 meq PO BID 07/12/21 [History Last Taken 07/12/21 09:00] Allergy/AdvReac Type Severity Reaction Status Date / Time No Known Allergies Allergy Verified 03/18/21 09:12 Family History Father CAD (coronary artery disease) Myocardial infarction in his 80's from 80's Brother CAD (coronary artery disease) Myocardial infarction from his 70's from [place] Sister Heart disease Rheumatic Heart Disease Surgical History History of esophagogastroduodenoscopy (EGD) (09/2019) Social History Smoking Status: Never smoker ROS Constitutional Constitutional: Denies fever(s) or weight loss Eyes Eyes: Reports systems reviewed and no addt'l complaints, except as documented ENT HEENT: Reports systems reviewed and no addt'l complaints, except as documented Cardiovascular Cardiovascular: Reports chest pain at rest and dyspnea at rest; Denies chest pain with activity, dyspnea on exertion, edema, palpitations or paroxysmal nocturnal dyspnea Respiratory/Chest Respiratory/Chest: Denies dyspnea on exertion, productive cough, shortness of breath at rest or shortness of breath with exertion Gastrointestinal Gastrointestinal: Denies change in bowel habits, nausea, vomiting or weight changes Genitourinary Genitourinary: Denies difficulty urinating Musculoskeletal Musculoskeletal: Denies joint stiffness or muscle weakness Integumentary Integumentary: Denies lesions Neurologic Neurologic: Denies dizziness or syncope Psychiatric Psychiatric: Denies anxiety Endocrine Endocrinology: Denies excessive sweating or fatigue Hematologic/Lymphatic Hematologic/Lymphatic: Denies anemia Allergic/Immunologic Allergic/Immunologic: Denies seasonal rhinorrhea Physical Exam Const alert, oriented x3 and no apparent distress General Appearance: cooperative HEENT hearing grossly normal bilaterally Head and Scalp: atraumatic Eyes EOMs intact bilaterally Neck General: normal visual inspection Chest inspection of chest normal and palpation of chest normal Resp normal respiratory effort Auscultation: clear to auscultation bilaterally Cardio regular rate, regular rhythm, S1 normal heart sound and S2 normal heart sound Jugular Venous Distention: JVD Heart Sounds: murmur systolic IV/ crescendo LVOT GI normal to inspection, nondistended, normoactive bowel sounds Extremity normal capillary refill and no pedal edema Peripheral Pulses: Yes pulses 2+ throughout and femoral pulses present Skin no rashes or lesions noted Neuro oriented x3 and CN's II-XII intact bilaterally Psych Appearance: grossly normal and appropriate Risk Stratification Risk Stratification Applicable: Yes Age >/= 65: Yes >/= 3 CAD Risk Factors (HTN, HLD, DM, family hx of CAD, or current smoker): Yes Aspirin Use in the Past 7 Days: No Severe Angina (>/= episodes in 24 hours): No EKG ST Changes >/= 0.5mm: No Positive Cardiac Marker: No MARCIO Risk Stratification Score: 2 MARCIO % Risk: 8% Risk Objective Data Vital Signs: Vital Signs Temp Pulse Resp BP Pulse Ox 97.6 F L 61 16 127/52 H 98 07/13/21 06:05 07/13/21 06:39 07/13/21 06:05 07/13/21 06:05 07/13/21 06:05 Oxygen Delivery Method Room Air Weight: 184 lb 8.43 oz Body Mass Index (BMI) 33.7 Intake & Output: Intake and Output for Last 24 Hours 07/11/21 07/12/21 07/13/21 23:59 23:59 23:59 Intake Total 0 / 240 760 / 760 Balance 0 / 240 760 / 760 Lab / Micro Data Result Diagrams: 07/13/21 06:10 07/13/21 06:10 Labs: Laboratory Results - last 24 hr 07/12/21 17:10: WBC 5.7, RBC 2.24 L, Hgb 7.0 L, Hct 20.7 L, MCV 92.4, MCH 31.3, MCHC 33.8, RDW Std Deviation 48.6 H, RDW Coeff of Elisabeth 15.1 H, Plt Count 176, MPV 9.9, Immature Gran % (Auto) 1.800 H, Neut % (Auto) 71.0 H, Lymph % (Auto) 20.0, Wilkinson % (Auto) 6.2, Eos % (Auto) 0.5, Baso % (Auto) 0.5, Absolute Neuts (auto) 4.0, Absolute Lymphs (auto) 1.13, Nucleated RBC % 0.4 07/12/21 17:10: Sodium 136, Potassium 4.4, Chloride 103, Carbon Dioxide 25.0, Anion Gap 8, BUN 89 H, Creatinine 1.63 H, Estim Creat Clear Calc 19.96, Est GFR (MDRD) Af Amer 39 L, Est GFR (MDRD) Non-Af 32 L, BUN/Creatinine Ratio 54.6 H, Glucose 245 H, Calcium 9.3, Troponin I High Sens 35 07/12/21 19:24: Blood Type A POSITIVE, Antibody Screen NEGATIVE 07/12/21 19:24: Crossmatch See Detail 07/12/21 21:12: Troponin I High Sens 76 H 07/12/21 22:15: POC Glucose 221 H 07/12/21 23:36: Troponin I High Sens 73 H 07/13/21 06:10: WBC 6.0, RBC 2.35 L, Hgb 7.0 L, Hct 21.4 L, MCV 91.1, MCH 29.8, MCHC 32.7, RDW Std Deviation 50.3 H, RDW Coeff of Elisabeth 15.9 H, Plt Count 167, MPV 10.0, Immature Gran % (Auto) 1.300 H, Neut % (Auto) 68.3, Lymph % (Auto) 23.4, Wilkinson % (Auto) 6.5, Eos % (Auto) 0.2, Baso % (Auto) 0.3, Absolute Neuts (auto) 4.1, Absolute Lymphs (auto) 1.41, Nucleated RBC % 0.5 07/13/21 06:10: Sodium 138, Potassium 4.5, Chloride 108 H, Carbon Dioxide 26.0, Anion Gap 4 L, BUN 72 H, Creatinine 1.29 H, Estim Creat Clear Calc 25.22, Est GFR (MDRD) Af Amer 50 L, Est GFR (MDRD) Non-Af 42 L, BUN/Creatinine Ratio 55.8 H, Glucose 157 H, Calcium 9.0 07/13/21 06:13: POC Glucose 144 H Rhythm Strip Rhythm Strip: Sinus Rhythm Rate: 67 Ectopy: None Cardiology Labs/Tests 07/12/21 17:10: WBC 5.7, RBC 2.24 L, Hgb 7.0 L, Hct 20.7 L, MCV 92.4, MCH 31.3, MCHC 33.8, Plt Count 176, MPV 9.9, Immature Gran % (Auto) 1.800 H, Neut % (Auto) 71.0 H, Lymph % (Auto) 20.0, Wilkinson % (Auto) 6.2, Eos % (Auto) 0.5, Baso % (Auto) 0.5, Absolute Neuts (auto) 4.0, Nucleated RBC % 0.4 07/12/21 17:10: Sodium 136, Potassium 4.4, Chloride 103, Carbon Dioxide 25.0, Anion Gap 8, BUN 89 H, Creatinine 1.63 H, Est GFR (MDRD) Af Amer 39 L, Est GFR (MDRD) Non-Af 32 L, BUN/Creatinine Ratio 54.6 H, Glucose 245 H, Calcium 9.3 07/13/21 06:10: WBC 6.0, RBC 2.35 L, Hgb 7.0 L, Hct 21.4 L, MCV 91.1, MCH 29.8, MCHC 32.7, Plt Count 167, MPV 10.0, Immature Gran % (Auto) 1.300 H, Neut % (Auto) 68.3, Lymph % (Auto) 23.4, Wilkinson % (Auto) 6.5, Eos % (Auto) 0.2, Baso % (Auto) 0.3, Absolute Neuts (auto) 4.1, Nucleated RBC % 0.5 07/13/21 06:10: Sodium 138, Potassium 4.5, Chloride 108 H, Carbon Dioxide 26.0, Anion Gap 4 L, BUN 72 H, Creatinine 1.29 H, Est GFR (MDRD) Af Amer 50 L, Est GFR (MDRD) Non-Af 42 L, BUN/Creatinine Ratio 55.8 H, Glucose 157 H, Calcium 9.0 Rhythm: EKG: ECHO: Stress Test: Cardiac Cath: PCI: CT Surgery: Holter monitor: EPS: PPM: CXR: Chest CT Scan: Radiography Diagnostic Testing: Radiology Impression Chest X-Ray 07/12/21 17:24 IMPRESSION: There are no acute findings. Electronically Signed: Holden Aguilera MD at 17:44 EST , Service support ,
[2021-07-13] MEDS: Potassium Chloride Oral Tablet 10 MEQ PO ×2 (07:57→16:36)
[2021-07-13] MEDS: metFORMIN (XR) 500 MG Tablet PO ×2 (07:57→16:36)
[2021-07-13] MEDS: Lisinopril 10 MG Tablet PO (09:06)
[2021-07-13] MEDS: amLODIPine 5 MG Tablet PO (09:06)
[2021-07-13] MEDS: Furosemide 40 MG Tablet PO (09:07)
--- NOTE | 2021-07-13 10:45 | PCM.PN.HOSP ---
Subjective Subjective Feels little bit better today. Especially after her blood transfusion. In discussion with cardiology this is likely the reason why she was having some dizziness and chest pain was her anemia. Objective Data Objective Data Vital Signs: Vital Signs Temp Pulse Resp BP Pulse Ox 98.1 F 64 18 126/64 H 97 07/13/21 09:04 07/13/21 09:04 07/13/21 09:04 07/13/21 09:04 07/13/21 09:04 Oxygen Delivery Method Room Air Weight: 184 lb 8.43 oz Body Mass Index (BMI) 33.7 Intake & Output: Intake and Output for Last 24 Hours 07/12/21 07/13/21 07/14/21 03:59 03:59 03:59 Intake Total 640 / 640 120 / 120 Balance 640 / 640 120 / 120 Lab / Micro Data Result Diagrams: 07/13/21 06:10 07/13/21 06:10 Labs: Laboratory Results - last 24 hr 07/12/21 17:10: WBC 5.7, RBC 2.24 L, Hgb 7.0 L, Hct 20.7 L, MCV 92.4, MCH 31.3, MCHC 33.8, RDW Std Deviation 48.6 H, RDW Coeff of Elisabeth 15.1 H, Plt Count 176, MPV 9.9, Immature Gran % (Auto) 1.800 H, Neut % (Auto) 71.0 H, Lymph % (Auto) 20.0, Louisa % (Auto) 6.2, Eos % (Auto) 0.5, Baso % (Auto) 0.5, Absolute Neuts (auto) 4.0, Absolute Lymphs (auto) 1.13, Nucleated RBC % 0.4 07/12/21 17:10: Sodium 136, Potassium 4.4, Chloride 103, Carbon Dioxide 25.0, Anion Gap 8, BUN 89 H, Creatinine 1.63 H, Estim Creat Clear Calc 19.96, Est GFR (MDRD) Af Amer 39 L, Est GFR (MDRD) Non-Af 32 L, BUN/Creatinine Ratio 54.6 H, Glucose 245 H, Calcium 9.3, Troponin I High Sens 35 07/12/21 19:24: Blood Type A POSITIVE, Antibody Screen NEGATIVE 07/12/21 19:24: Crossmatch See Detail 07/12/21 21:12: Troponin I High Sens 76 H 07/12/21 22:15: POC Glucose 221 H 07/12/21 23:36: Troponin I High Sens 73 H 07/13/21 06:10: WBC 6.0, RBC 2.35 L, Hgb 7.0 L, Hct 21.4 L, MCV 91.1, MCH 29.8, MCHC 32.7, RDW Std Deviation 50.3 H, RDW Coeff of Elisabeth 15.9 H, Plt Count 167, MPV 10.0, Immature Gran % (Auto) 1.300 H, Neut % (Auto) 68.3, Lymph % (Auto) 23.4, Louisa % (Auto) 6.5, Eos % (Auto) 0.2, Baso % (Auto) 0.3, Absolute Neuts (auto) 4.1, Absolute Lymphs (auto) 1.41, Nucleated RBC % 0.5 07/13/21 06:10: Sodium 138, Potassium 4.5, Chloride 108 H, Carbon Dioxide 26.0, Anion Gap 4 L, BUN 72 H, Creatinine 1.29 H, Estim Creat Clear Calc 25.22, Est GFR (MDRD) Af Amer 50 L, Est GFR (MDRD) Non-Af 42 L, BUN/Creatinine Ratio 55.8 H, Glucose 157 H, Calcium 9.0 07/13/21 06:13: POC Glucose 144 H Radiography Diagnostic Testing: Radiology Impression Chest X-Ray 07/12/21 17:24 IMPRESSION: There are no acute findings. Electronically Signed: Holden Aguilera MD at 17:44 EST , Service support , Rhythm Strip Rhythm Strip: Sinus Rhythm Rate: 67 Ectopy: None Physical Exam Const alert, oriented x3 and no apparent distress General Appearance: cooperative HEENT normocephalic Eyes PERRL, EOMs intact bilaterally and conjunctivae normal Neck supple and no JVD Resp normal respiratory effort, no retractions, no use of accessory muscles and clear to auscultation bilaterally Auscultation: Negative for crackles, rales, rhonchi or wheezes Cardio regular rate, regular rhythm, S1 normal heart sound and S2 normal heart sound Heart Sounds: murmur systolic III/ GI soft to palpation, non-tender and non-distended; Negative for hepatosplenomegaly Extremity no clubbing, cyanosis or edema Skin no rashes or lesions noted Neuro no focal motor deficits and no sensory deficits noted Psych affect normal Appearance: appropriate Assessment & Plan Assessment/Plan (1) Acute on chronic anemia: (2) Non-rheumatic aortic stenosis: (3) Chest pain: PLAN: 1. Chest pain/HTN/HLD/severe aortic stenosis/pulmonary hypertension -Blood pressure is stable we will continue with her home medications -Cardiology did not have any further medication changes other than continuing with transfusions. -I did broach the topic of hospice with the family as they were at one point considering going home with her and were asking what that would look like -Troponins came back minimally elevated -Given her chronic anemia, will plan on transfusing her 1 more unit today 2. DM2 -Blood glucose is stable, will hold her home Metformin -Accu-Cheks AC at bedtime, sliding scale insulin -We will make adjustments as necessary 3. 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
[2021-07-13] MEDS: Ferrous Sulfate 325 MG Tablet PO ×2 (11:05→16:36)
[2021-07-13] MEDS: Insulin Lispro 100 UNIT/ML INSULN.PEN SC (11:06)
[2021-07-13 11:11] LABS: Bedside Glucose 236 mg/dL (70-110)
[2021-07-13 17:05] LABS: Hematocrit 26.9 % (37-47); Hemoglobin 8.9 g/dL (12.0-15.0)
--- NOTE | 2021-07-13 17:06 | PCM.DC ---
Discharge Instructions Diet Discharge Diet: Low fat / Low cholesterol Activity Discharge Activity: Return to Normal Activity Dressing / Incision Call your doctor if you observe: Fever of 101 or Higher, Shortness of breath, Dizziness, Fainting spells, Swelling in the ankles, Chest pain and Increased palpitations (irregular heartbeat) Follow Up Care Test Results: Test results from this visit will be discussed in further detail at your follow-up appointment, if applicable. Discharge Plan Admission Admit Date/Time: 07/12/21 20:37 Attending Provider: Isaac Hassan Primary Care Provider: Gordo Weeks Consulting Providers: Sara Jain Instructions Additional Instructions / Restrictions: Follow-up with your PCP in 3 to 5 days to obtain a CBC to monitor your hemoglobin. On discharge her hemoglobin is 8.9 Discharge Orders/Prescriptions Prescriptions: Continued metformin 500 mg tablet extended release 24 hr 500 mg PO BID RF: 0 amlodipine 5 mg tablet 5 mg PO DAILY RF: 0 furosemide 40 mg tablet 40 mg PO DAILY Qty: 90 RF: 3 levothyroxine 125 MCG tablet 125 mcg PO DAILY RF: 0 pravastatin 20 MG tablet 20 mg PO QHS RF: 0 ferrous sulfate 325 mg (65 mg iron) tablet 325 mg PO BID Qty: 0 RF: 0 lorazepam 0.5 MG tablet 0.5 mg PO BID PRN PRN (Reason: Anxiety) RF: 0 lisinopril 10 mg tablet 10 mg PO BID RF: 0 potassium chloride 10 MEQ tablet,ER particles/crystals 10 meq PO BID RF: 0 Referrals / Follow Up: Gordo Weeks DO [Primary Care Provider] - Within 1 Week Phani Epperson DO [STAFF PHYSICIAN] - Within 2 Weeks Disposition Disposition (needs filled in before D/C Order can be placed): Home, Self Care
--- NOTE | 2021-07-13 17:10 | DS.PCM_ITS ---
Providers Date of Admission: 07/12/21 Primary Care Physician: Dr. Gordo Weeks, Consultations 07/12/21 20:36 Consult: Cardiology Routine Consulting Provider: Sara Jain Reason for Consult: chest pain EMERGENT Consult: No MD Notified: Yes Date Notified: 07/13/21 Time Notified: 06:55 Method of Notification: Text Reason For Visit: CP ANEMIA CKD AORTIC STENOSIS Diagnosis Discharge Diagnosis (1) Acute on chronic anemia: Status: Chronic Code(s): D64.9 - Anemia, unspecified (2) Non-rheumatic aortic stenosis: Status: Chronic Code(s): I35.0 - Nonrheumatic aortic (valve) stenosis (3) Chest pain: Status: Acute Code(s): R07.9 - Chest pain, unspecified Medications at Discharge Home Medications levothyroxine 125 mcg PO DAILY 08/27/18 pravastatin 20 mg PO QHS 10/09/19 ferrous sulfate 325 mg PO BID #0 10/11/19 metformin 500 mg tablet,extended release 24 hr 500 mg PO BID tab 01/25/20 lorazepam 0.5 mg PO BID PRN PRN 04/08/20 amlodipine 5 mg tablet 5 mg PO DAILY tab 07/09/20 furosemide 40 mg tablet 40 mg PO DAILY #90 tab 03/18/21 lisinopril 10 mg PO BID 07/12/21 potassium chloride 10 meq PO BID 07/12/21 Hospital Course Operations None Procedures Blood transfusion Summary of Care Provided Minutes Spent on Discharge: 45 Hospital Course: Per HPI: JAMIR TORRES, is a 85 F who presents to the hospital with chest pain. She says that it it happens pretty much every day throughout the day she notices it mostly as pressure but she also has some chronic dizziness throughout the day as well. Yesterday the family was concerned decent size dinner and had some chest pain afterwards. She assumed that lisinopril was on heart medication to help with her pain therefore she took 2 doses last night and then she took 1 dose again this morning. I explained to her that lisinopril is a blood pressure medication that does not help with any type of chest pain. She is aware that she has severe aortic stenosis and does not want any heart cath or aggressive intervention. She was offered an aortic valve replacement a few years ago which she has refused. She does have a history of chronic anemia that she is being followed up as an outpatient. She has had multiple EGDs and colonoscopies which have never been able to find a diagnosis and on occasions she gets severe enough that she needs transfusion. Hospital Course: 1. Chest pain/HTN/HLD/severe aortic stenosis/pulmonary hypertension -Blood pressure is stable we will continue with her home medications -Cardiology did not have any further medication changes other than continuing with transfusions. -I did broach the topic of hospice with the family as they were at one point considering going home with her and were asking what that would look like -Troponins came back minimally elevated -Given her chronic anemia, will plan on transfusing her 1 more unit today -Hemoglobin an hour after her transfusion was completed, was 8.9. I discussed with her and the daughter the plan for discharge and expressed understanding of the risk benefits going home and would like to go home today. I did discuss with them that the need to follow-up with her aerospace quality engineer for further iron infusions and closer monitoring of her hemoglobin given the symptomatic nature of her aortic stenosis and the fact that cardiology feels that her symptoms are attributable to her anemia in the setting of aortic stenosis. No changes were made to her medications and I recommended she follow-up with her PCP in 3 to 5 days for repeat CBC. 2. DM2 -Blood glucose is stable, will hold her home Metformin -Accu-Cheks AC at bedtime, sliding scale insulin -We will make adjustments as necessary 3. Acute on chronic anemia -No etiology is known she is on iron replacement -Given her cardiac disease, will transfuse 1 unit again today and continue with her iron -If her hemoglobin is stable after transfusion then we can plan for discharge later today especially since she does not want any cardiac intervention ?We will need to follow-up with her aerospace quality engineer for outpatient management Weight / BMI Weight Weight: 184 lb 8.43 oz Body Mass Index (BMI) 33.7 ABG / Lab / Microbiology Data Result Diagrams: 07/13/21 16:57 07/13/21 06:10 Laboratory: Laboratory Results - last 24 hr 07/12/21 17:10: WBC 5.7, RBC 2.24 L, Hgb 7.0 L, Hct 20.7 L, MCV 92.4, MCH 31.3, MCHC 33.8, RDW Std Deviation 48.6 H, RDW Coeff of Elisabeth 15.1 H, Plt Count 176, MPV 9.9, Immature Gran % (Auto) 1.800 H, Neut % (Auto) 71.0 H, Lymph % (Auto) 20.0, [place] % (Auto) 6.2, Eos % (Auto) 0.5, Baso % (Auto) 0.5, Absolute Neuts (auto) 4.0, Absolute Lymphs (auto) 1.13, Nucleated RBC % 0.4 07/12/21 17:10: Sodium 136, Potassium 4.4, Chloride 103, Carbon Dioxide 25.0, Anion Gap 8, BUN 89 H, Creatinine 1.63 H, Estim Creat Clear Calc 19.96, Est GFR (MDRD) Af Amer 39 L, Est GFR (MDRD) Non-Af 32 L, BUN/Creatinine Ratio 54.6 H, Gl ucose 245 H, Calcium 9.3, Troponin I High Sens 35 07/12/21 19:24: Blood Type A POSITIVE, Antibody Screen NEGATIVE 07/12/21 19:24: Crossmatch See Detail 07/12/21 19:24: Crossmatch See Detail 07/12/21 21:12: Troponin I High Sens 76 H 07/12/21 22:15: POC Glucose 221 H 07/12/21 23:36: Troponin I High Sens 73 H 07/13/21 06:10: WBC 6.0, RBC 2.35 L, Hgb 7.0 L, Hct 21.4 L, MCV 91.1, MCH 29.8, MCHC 32.7, RDW Std Deviation 50.3 H, RDW Coeff of Elisabeth 15.9 H, Plt Count 167, MPV 10.0, Immature Gran % (Auto) 1.300 H, Neut % (Auto) 68.3, Lymph % (Auto) 23.4, [place] % (Auto) 6.5, Eos % (Auto) 0.2, Baso % (Auto) 0.3, Absolute Neuts (auto) 4.1, Absolute Lymphs (auto) 1.41, Nucleated RBC % 0.5 07/13/21 06:10: Sodium 138, Potassium 4.5, Chloride 108 H, Carbon Dioxide 26.0, Anion Gap 4 L, BUN 72 H, Creatinine 1.29 H, Estim Creat Clear Calc 25.22, Est GFR (MDRD) Af Amer 50 L, Est GFR (MDRD) Non-Af 42 L, BUN/Creatinine Ratio 55.8 H , Glucose 157 H, Calcium 9.0 07/13/21 06:13: POC Glucose 144 H 07/13/21 11:04: POC Glucose 236 H 07/13/21 16:57: Hgb 8.9 L, Hct 26.9 L Radiography Diagnostic Testing: Radiology Impression Chest X-Ray 07/12/21 17:24 IMPRESSION: There are no acute findings. Electronically Signed: Holden Aguilera MD at 17:44 EST , Service support , D/C Instructions Discharge Diet: Low fat / Low cholesterol Call your doctor if you observe: Fever of 101 or Higher, Shortness of breath, Dizziness, Fainting spells, Swelling in the ankles, Chest pain and Increased palpitations (irregular heartbeat) Meaningful Use Info Meaningful Use Diagnoses (Choose all that apply): None applicable Discharge Plan Admission Admit Date/Time: 07/12/21 20:37 Attending Provider: Isaac Hassan Primary Care Provider: Gordo Weeks Consulting Providers: Sara Jain Instructions Additional Instructions / Restrictions: Follow-up with your PCP in 3 to 5 days to obtain a CBC to monitor your hemoglobin. On discharge her hemoglobin is 8.9 Discharge Orders/Prescriptions Prescriptions: Continued metformin 500 mg tablet extended release 24 hr 500 mg PO BID RF: 0 amlodipine 5 mg tablet 5 mg PO DAILY RF: 0 furosemide 40 mg tablet 40 mg PO DAILY Qty: 90 RF: 3 levothyroxine 125 MCG tablet 125 mcg PO DAILY RF: 0 pravastatin 20 MG tablet 20 mg PO QHS RF: 0 ferrous sulfate 325 mg (65 mg iron) tablet 325 mg PO BID Qty: 0 RF: 0 lorazepam 0.5 MG tablet 0.5 mg PO BID PRN PRN (Reason: Anxiety) RF: 0 lisinopril 10 mg tablet 10 mg PO BID RF: 0 potassium chloride 10 MEQ tablet,ER particles/crystals 10 meq PO BID RF: 0 Referrals / Follow Up: Gordo Weeks DO [Primary Care Provider] - Within 1 Week Phani Epperson DO [STAFF PHYSICIAN] - Within 2 Weeks Disposition Disposition (needs filled in before D/C Order can be placed): Home, Self Care Charges/Coding Visit Charges OBSV E&M: 73092 Observation care discharge
== END 2021-07-13 17:09 | disposition home or self-care (01) ==
LOC: ED 19:14 → PCU 20:58
PROVIDERS: Admitting Provider Family Medicine; Emergency Provider Emergency Medicine; PCP Family Medicine; Visit Provider Family Medicine
DX: R07.89 Other chest pain (principal); E11.22 Type 2 diabetes mellitus with diabetic chronic kidney disease; I12.9 Hypertensive chronic kidney disease with stage 1 through stage 4 chronic kidney disease, or unspecified chronic kidney disease; E03.9 Hypothyroidism, unspecified; E78.5 Hyperlipidemia, unspecified; E66.9 Obesity, unspecified; M19.90 Unspecified osteoarthritis, unspecified site; I27.21 Secondary pulmonary arterial hypertension; N18.32 Chronic kidney disease, stage 3b; I45.2 Bifascicular block; D50.9 Iron deficiency anemia, unspecified; Z79.899 Other long term (current) drug therapy; Z79.84 Long term (current) use of oral hypoglycemic drugs; Z68.33 Body mass index [BMI] 33.0-33.9, adult
CPT/HCPCS: 36415; 36430; 71045; 80048; 82962; 84484; 85014; 85018; 85025; 86850; 86900; 86901; 86920; 86922; 93005; 97802; 99218; 99285; J7040; P9016; A4216; G0378

== ENCOUNTER → 2021-07-17 10:27 | Outpatient (CLI) | payer MEDICARE, SELFPAY ==
[2021-07-17] MEDS: 0.9% NaCl Peripheral Flush Adult/Peds IV (10:55)
[2021-07-17 11:31] VITALS: BP 107/56; PULSE 56; RESP 16; TEMP 36.3; O2SAT 100
[2021-07-17 11:55] VITALS: BP 110/42; PULSE 54; RESP 16; TEMP 35.9; O2SAT 98
[2021-07-17 12:55] VITALS: BP 114/38; PULSE 59; RESP 16; TEMP 36.1; O2SAT 98
[2021-07-17 14:16] VITALS: BP 116/48; PULSE 60; RESP 16; TEMP 36.4; O2SAT 99
[2021-07-17] MEDS: Furosemide 20 MG/2 ML VIAL IV (14:20)
== END ==
PROVIDERS: PCP Family Medicine; Referring Provider Internal Medicine Hematology & Oncology; Visit Provider Internal Medicine Hematology & Oncology
DX: N18.30 Chronic kidney disease, stage 3 unspecified (principal); D63.1 Anemia in chronic kidney disease
CPT/HCPCS: 36430; 86850; 86900; 86901; 86920; 86922; J7040; P9016; A4216; J1940

== ENCOUNTER 2021-09-16 14:18 | Outpatient (CLI) | payer OTHER, SELFPAY | END 2021-09-16 23:59 | disposition home or self-care (01) | LOC: MEDOUTP 11-24 14:18 | PROVIDERS: PCP Family Medicine; Referring Provider Internal Medicine Hematology & Oncology; Visit Provider Internal Medicine Hematology & Oncology | DX: N18.30 Chronic kidney disease, stage 3 unspecified (principal); D63.1 Anemia in chronic kidney disease | CPT/HCPCS: 86850; 86900; 86901; 86920; 86922 ==

== ENCOUNTER 2021-09-16 21:01 | Inpatient (IN) | payer MEDICARE, SELFPAY ==
[2021-09-16 21:02] VITALS: BP 100/50; PULSE 92; RESP 23; TEMP 35.9; O2SAT 95; BMI 33.6
[2021-09-16 21:09] VITALS: O2SAT 96
--- NOTE | 2021-09-16 21:09 | EKG12_ITS ---
Test Reason : CP Blood Pressure : / mmHG Vent. Rate : 094 BPM Atrial Rate : 100 BPM P-R Int : 000 ms QRS Dur : 160 ms QT Int : 374 ms P-R-T Axes : 000 263 044 degrees QTc Int : 467 ms Atrial fibrillation Right bundle branch block Septal infarct , age undetermined Abnormal ECG Confirmed by VAMSI JULES, ERIKA ([id number]), metropolitan editor TULIO MEANS ([id number]) on 09/18/2021 8:59:27 AM Referred By: ISADORA Confirmed By:ERIKA AGUSTIN MD
--- NOTE | 2021-09-16 21:19 | EDS_ITS ---
HPI History of Present Illness Chief Complaint: Chest Pain Informant: patient Onset/Context/Timing Onset: Today Activity at onset: gradual Timing: Intermittent (Intermittent all day but constant for the past 2 hours) Location: Left Chest Worsened By: Nothing Relieved By: Nothing Associated Symptoms: Positive for Diaphoresis, Dyspnea, Lightheadedness and Palpitations; Negative for Nausea, Vomiting, Cough, Fever and Acid Reflux Narrative Narrative: Patient presents with chest pain that began today. Patient states it has been constant for the past 2 hours. Patient states it has been intermittent throughout the day however. Patient states it came on gradually. Patient states pain is over the left side of her chest. Patient is unable to describe the pain. Patient states nothing makes it worse and nothing makes it better. Patient admits to some shortness of breath and lightheadedness. Patient also admits to some palpitations and diaphoresis. Patient denies any nausea or vomiting. CVD Risk Factors: Positive for Hypertension, Diabetes and Hypercholesterolemia; Negative for Family History 1' </=55 and Smoking PE Risk Factors: Negative for Recent Travel/Surgery, Recent Immobilization, Prior DVT or PE, Cancer and OCP + Smoking + >/=35 PFSH PFS Medical History Acute kidney injury superimposed on CKD Acute on chronic anemia Acute on chronic blood loss anemia Chronic anemia Chronic kidney disease, stage 3 CKD (chronic kidney disease), stage III Essential (primary) hypertension GI bleed (10/09/19) Hyperlipidemia Hypothyroidism Iron deficiency anemia Iron deficiency anemia Non-rheumatic aortic stenosis Obesity Osteoarthritis 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 Type 2 diabetes mellitus Home Medications levothyroxine 125 mcg PO DAILY 08/27/18 [History Last Taken 07/12/21 09:00] pravastatin 20 mg PO QHS 10/09/19 [History Last Taken 07/11/21 22:00] ferrous sulfate 325 mg PO BID #0 10/11/19 [Rx Last Taken 07/12/21 09:00] metformin 500 mg tablet,extended release 24 hr 500 mg PO BID tab 01/25/20 [History Last Taken 07/12/21 09:00] lorazepam 0.5 mg PO BID PRN PRN 04/08/20 [History Last Taken 07/11/21 22:00] furosemide 40 mg tablet 40 mg PO DAILY #90 tab 03/18/21 [Rx Last Taken 07/12/21 09:00] lisinopril 10 mg PO BID 07/12/21 [History Last Taken 07/12/21 09:00] potassium chloride 10 meq PO BID 07/12/21 [History Last Taken 07/12/21 09:00] amlodipine [Norvasc] 5 mg PO DAILY 09/16/21 [History Last Taken Unknown] Allergy/AdvReac Type Severity Reaction Status Date / Time No Known Allergies Allergy Verified 09/16/21 21:02 Family History Father CAD (coronary artery disease) Myocardial infarction in his 80's from 80's Brother CAD (coronary artery disease) Myocardial infarction from his 70's from [place] Sister Heart disease Rheumatic Heart Disease Surgical History History of esophagogastroduodenoscopy (EGD) (09/2019) Social History Smoking Status: Never smoker ROS ROS ED Constitutional Constitutional ED: Denies chills or fever(s) Eyes Eyes: Denies blurry vision or change in vision ENT ENT ED: Denies rhinorrhea or sore throat Cardiovascular Cardiovascular: Reports as per HPI, chest pain and palpitations Respiratory/Chest Respiratory/Chest: Reports dyspnea; Denies cough Gastrointestinal Gastrointestinal: Denies abdominal pain, nausea or vomiting Genitourinary Genitourinary ED: Denies dysuria or hematuria Musculoskeletal Musculoskeletal: Reports back pain; Denies neck pain Integumentary Denies abscess or rash Neurologic Neurologic: Denies headache(s) or weakness Allergic/Immunologic Allergic/Immunologic ED: Denies mouth swelling or urticaria EXAM Physical Exam Const Vital Signs: 09/16/21 21:02 09/16/21 21:09 09/16/21 21:14 Temperature 96.7 F L Temperature Source Temporal Pulse Rate 92 Respiratory Rate 23 H Respiratory Effort Normal Non-Labored Respiratory Pattern Normal Blood Pressure 100/50 L Blood Pressure Mean 66 Pulse Ox 95 96 Oxygen Delivery Method Room Air Room Air 09/16/21 22:43 09/16/21 22:45 09/16/21 22:48 Temperature Temperature Source Pulse Rate 91 91 Respiratory Rate 19 H Respiratory Effort Respiratory Pattern Blood Pressure 126/66 H 126/66 H 101/56 L Blood Pressure Mean 86 71 Pulse Ox 96 Oxygen Delivery Method Room Air Positive well nourished, well developed and obese General Appearance ED: well developed Nutritional Appearance: obese HEENT normocephalic and atraumatic Eyes PERRL and EOMs intact bilaterally Neck supple and no JVD Chest Wall palpation of chest normal Resp normal respiratory effort and clear to auscultation bilaterally Effort and Inspection: Negative for respiratory distress Cardio regular rate Rate: other Other Details: There is a 3/6 systolic murmur at the right upper sternal border Rhythm: abnormal rhythm irregularly irregular GI normal to inspection, nondistended, normoactive bowel sounds, soft to palpation, non-tender and non-distended Extremity normal to inspection General Extremety ED: Negative for edema or tenderness General Extremity: Negative for edema Neuro oriented x3, CN's II-XII intact bilaterally and no sensory deficits noted Sensorium / Orientation: awake and alert Motor Exam: strength 5/5 throughout Psych mental status grossly normal Heart Score History: Moderately Suspicious ECG: Nonspecific Repolarization Age: >/= 65 years Risk Factors: 1 or 2 Risk Factors Troponin: </= Normal Limit Score: 5 MDM MDM MDM Narrative Medical decision making narrative: Patient was given aspirin. Patient was given a dose of sublingual nitroglycerin. Patient's blood pressure dropped after this but her chest pain did not change. Therefore this was not given any further. Patient's blood pressure improved. EKG was obtained. On my interpretation, it shows atrial fibrillation with a rate of 94. There is a right bundle branch block pattern noted. There are nonspecific ST-T wave changes. This was uncha nged compared to previous EKG. CBC shows a hemoglobin of 6.5 and hematocrit of 20.0. Platelets were normal. Basic metabolic profile showed a BUN of 105 and creatinine of 1.63. These were slightly increased from previous results. Glucose was 316 and potassium was 5.2. Patient was given 10 units of Humalog subcu for this. Initial high-sensitivity troponin was normal at 23. Portable chest x-ray was obtained. On my interpretation, there are chronic changes. There is no cardiomegaly. The film was rotated. Bony thorax is normal. Radiologist also interpreted the x-ray and felt that there could be bronchopneumonia in the right upper and lower lobes and left lower lobe. Patient does not have a cough or fever. I do not feel that this is pneumonia. Stool was sent for occult blood. Patient was typed and crossed for 1 unit of packed red blood cells. Case was discussed with the hospitalist. He will admit the patient for observation. Patient and family understood and were agreeable with the plan. All questions were answered. 2-hour repeat high-sensitivity troponin was elevated at 254. Lab Data Attestation: I reviewed the patient's lab results. Labs: Laboratory Results - last 24 hr 09/16/21 09/16/21 09/16/21 21:05 21:05 21:05 WBC 7.0 RBC 2.11 L Hgb 6.5 L Hct 20.0 L MCV 94.8 MCH 30.8 MCHC 32.5 RDW Std Deviation 45.5 H RDW Coeff of Elisabeth 13.4 Plt Count 208 MPV 9.8 Immature Gran % (Auto) 1.600 H Neut % (Auto) 82.5 H Lymph % (Auto) 11.0 L [place] % (Auto) 4.7 Eos % (Auto) 0.1 Baso % (Auto) 0.1 Absolute Neuts (auto) 5.8 Absolute Lymphs (auto) 0.77 L Nucleated RBC % 0.4 Sodium 136 Potassium 5.2 H Chloride 104 Carbon Dioxide 21.0 Anion Gap 11 BUN 105 H* Creatinine 1.63 H Estim Creat Clear Calc 19.59 Est GFR (MDRD) Af Amer 39 L Est GFR (MDRD) Non-Af 32 L BUN/Creatinine Ratio 64.4 H Glucose 316 H Calcium 9.8 Troponin I High Sens 23 Crossmatch See Detail 09/16/21 09/16/21 23:05 23:06 WBC RBC Hgb Hct MCV MCH MCHC RDW Std Deviation RDW Coeff of Elisabeth Plt Count MPV Immature Gran % (Auto) Neut % (Auto) Lymph % (Auto) [place] % (Auto) Eos % (Auto) Baso % (Auto) Absolute Neuts (auto) Absolute Lymphs (auto) Nucleated RBC % Sodium Cancelled Potassium Cancelled Chloride Cancelled Carbon Dioxide Cancelled Anion Gap Cancelled BUN Cancelled Creatinine Cancelled Estim Creat Clear Calc Est GFR (MDRD) Af Amer Cancelled Est GFR (MDRD) Non-Af Cancelled BUN/Creatinine Ratio Cancelled Glucose Cancelled Calcium Cancelled Troponin I High Sens 254 H* Crossmatch Radiography Chest X-Ray - ED: 1 View, Read by ED Physician, Read by Radiologist and Chronic Changes Diagnostic Testing: Clinical Impression(s) from Imaging Studies Chest X-Ray 09/16/21 21:20 IMPRESSION: Heterogeneous ill-defined opacities involving the right upper and lower lobes and left lower lobe may represent bronchopneumonia in the appropriate clinical setting. Electronically Signed: Aguilar Thorne MD at 22:05 EST Tel , Service support , EKG Initial EKG: Attestation: I personally reviewed and interpreted this EKG as follows: Interpretation: Atrial Fibrillation (94), RBBB and Non-Specific ST Changes Prior EKG tracings: available for review Prior: Unchanged (07/12/2021) Treatment and Re-Evaluation Vital Sign Attestation:: Vital signs were reviewed prior to admission. They are stable. Discharge Plan Dx/Rx/DC Orders Clinical Impression: Chest pain, Anemia, Acute kidney injury superimposed on CKD Disposition Disposition: Acute Care Hospital [facility]
--- NOTE | 2021-09-16 21:20 | RAD_ITS ---
EXAM: XR CHEST, 1 VIEW CLINICAL INDICATION: chest pain TECHNIQUE: Frontal view of the chest. This report was created using [employer] report generation technology. COMPARISON: 07/12/2021 chest x-ray FINDINGS: LUNGS AND PLEURAL SPACES: Heterogeneous opacities involving the right upper and lower lobes and the left lower lobe. No pleural effusion or pneumothorax. HEART: Fullness on the cardiac silhouette raises concern for cardiomegaly. MEDIASTINUM: Central airways and mediastinal contour are unremarkable. BONES/JOINTS: Degenerative changes of spine and acromioclavicular joints. SOFT TISSUES: Unremarkable. VASCULATURE: Atherosclerotic calculations of the nonenlarged thoracic arch. LYMPH NODES: Fullness of the mediastinum for which adenopathy is not excluded. RAD/Chest 1 View (Portable) IMPRESSION: Heterogeneous ill-defined opacities involving the right upper and lower lobes and left lower lobe may represent bronchopneumonia in the appropriate clinical setting. Electronically Signed: Aguilar Thorne MD at 22:05 EST Tel , Service support ,
[2021-09-16 21:30] LABS: Absolute Lymphocyte Count 0.77 X10^3/uL (0.83-4.51); Absolute Neutrophil Count 5.8 X10^3/uL (2.0-7.7); Basophil# 0.01 X10^3/uL; Basophil% 0.1 % (0-1); Eosinophil# 0.01 X10^3/uL; Eosinophils% 0.1 % (0-5); Hemoglobin 6.5 g/dL (12.0-15.0); Lymphocyte # 0.77 X10^3/ul (0.83-4.51); Mean Corp Hgb Conc 32.5 g/dL (32-36); Mean Corpuscular Hgb 30.8 pg (27.0-32.0); Mean Corpuscular Volume 94.8 fL (81-99); Mean Platelet Vol. 9.8 fl (6.2-12.0); Monocyte# 0.33 X10^3/uL; Monocyte% 4.7 % (0-10); NRBC Flagged by Analyzer 0.4 % (0-5); Neutrophil % 82.5 % (47-70); Platelet Count 208 K/mm3 (150-450); RBC Distribution Width CV 13.4 % (11.6-14.6); RBC Distribution Width SD 45.5 fl (35.1-43.9); Red Blood Count 2.11 M/mm3 (4.2-5.4)
[2021-09-16] MEDS: Aspirin 81 MG TAB.CHEW 324 MG PO (21:38)
[2021-09-16 22:16] LABS: Troponin-I HS 23 pg/mL (3.0-54.0)
[2021-09-16 22:43] VITALS: BP 126/66; PULSE 91; RESP 19; O2SAT 96
[2021-09-16 22:45] VITALS: BP 126/66; PULSE 91
[2021-09-16] MEDS: Nitroglycerin SL (ED/IMG/CATH) 0.4 MG TABLET SL (22:45)
[2021-09-16 22:48] VITALS: BP 101/56
[2021-09-16 22:55] LABS: Anion Gap 11 (5-15); BUN 105 mg/dL (7-18); BUN/Creat Ratio 64.4 RATIO (10-20); Calcium,Total 9.8 mg/dL (8.5-10.1); Chloride 104 mmol/L (98-107); Creatinine, Serum 1.63 mg/dL (0.55-1.02); EST Glomerular Filtration Rate 32 mL/min (>60); Est Glom Filt Rate - Afr Amer 39 mL/min (>60); Estimated Creatinine Clearance 19.59 ml/min; Glucose 316 mg/dL (74-106); Potassium 5.2 mmol/L (3.5-5.1); Sodium Level 136 mmol/L (136-145)
[2021-09-16] MEDS: Insulin Lispro 100 UNIT/ML INSULN.PEN 10 UNIT SC (23:31)
[2021-09-16 23:33] VITALS: BP 115/55; PULSE 76; RESP 18; TEMP 36.2; O2SAT 95
--- NOTE | 2021-09-16 23:37 | PCM.HP.STD ---
[facility] - General General Date of Admission: 09/16/21 HPI Narrative JAMIR TORRES, is a 86 F with a significant history of CKD stage III; severe aortic stenosis; diabetes mellitus and hypertension who presents to the emergency department with chest pain that started on the same day of presentation. Initial her chest pain was intermittent but about 2 hours before presentation her chest pain became persistent. She described the chest pain as it just hurts. Chest pain is substernal but closer to the left side of her chest and it radiates to her left arm and to her middle back. Walking initially aggravated the pain and sitting and resting initially made the pain improved. However during the course of the day her chest pain could not improve with sitting and resting. Of note patient complains of a chronic black stool and occult stool done at the emergency department was reportedly negative. Prior to coming to the hospital patient had outpatient hemoglobin checked and the plan was for patient to get 2 units of blood on 09/17/2021 outpatient. However because of her symptoms of chest pain she came to emergency department. Reportedly patient told nurses that her chest pain is related to her anemia and after she received blood she will be okay. At the time of evaluation patient has not received any blood yet but she had no chest pain. Reportedly her chest pain resolved with sublingual nitroglycerin given to her at the emergency department. Of note patient has a history of chronic anemia and she follows up with GI doctors at the [facility] and also with Dr. Epperson convention planner/oncologist. Also importantly patient had a scope previously with Dr. Naomi Benjamin at our Hospital. 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 Type 2 diabetes mellitus Home Medications levothyroxine 125 mcg PO DAILY 08/27/18 [History Last Taken 07/12/21 09:00] pravastatin 20 mg PO QHS 10/09/19 [History Last Taken 07/11/21 22:00] ferrous sulfate 325 mg PO BID #0 10/11/19 [Rx Last Taken 07/12/21 09:00] metformin 500 mg tablet,extended release 24 hr 500 mg PO BID tab 01/25/20 [History Last Taken 07/12/21 09:00] lorazepam 0.5 mg PO BID PRN PRN 04/08/20 [History Last Taken 07/11/21 22:00] furosemide 40 mg tablet 40 mg PO DAILY #90 tab 03/18/21 [Rx Last Taken 07/12/21 09:00] lisinopril 10 mg PO BID 07/12/21 [History Last Taken 07/12/21 09:00] potassium chloride 10 meq PO BID 07/12/21 [History Last Taken 07/12/21 09:00] Allergy/AdvReac Type Severity Reaction Status Date / Time No Known Allergies Allergy Verified 09/16/21 21:02 Family History Father CAD (coronary artery disease) Myocardial infarction in his 80's from 80's Brother CAD (coronary artery disease) Myocardial infarction from his 70's from [place] Sister Heart disease Rheumatic Heart Disease Surgical History History of esophagogastroduodenoscopy (EGD) (09/2019) Social History Smoking Status: Never smoker ROS ROS Narrative Constitutional: Denies fever, chills, fatigue, anorexia and change in weight Eyes: Denies blurry vision, change in eye color, change in vision, discharge from eye(s), double vision, erythema, eye pain, loss of vision or other HEENT: Denies abnormal hearing, dysphagia, ear pain, epistaxis, headache(s), hearing loss, nasal congestion, nasal discharge, post nasal drip, sinus pressure, sore throat or other Cardiovascular: Reports chest pain. Denies palpitations. Respiratory/Chest: Reports shortness of breath. Denies coughing. Denies wheezes. Gastrointestinal: Denies abdominal pain, coffee ground emesis, constipation, diarrhea, dyspepsia, hematemesis, hematochezia, loose stools, melena, nausea, vomiting or other Genitourinary: Denies burning urination, difficulty urinating, dysuria, hematuria, nocturia, urinary frequency, urinary hesitancy, urinary incontinence, urinary urgency or other Musculoskeletal: Denies arthralgias, back pain, joint pain, joint stiffness, joint swelling, myalgias, neck pain or other Neurologic: Denies abnormal gait, abnormal speech, confusion, disequilibrium, dizziness, focal weakness, headache(s), numbness, paresthesias, seizure-like activity, seizures, syncope, tingling, tremor(s) or other Psychiatric: Denies anxiety, depression, homicidal ideation, suicidal ideation or other Endocrinology: Denies change in body appearance, cold intolerance, excessive sweating, heat intolerance, polydipsia, polyuria or other Hematologic/Lymphatic: Denies anemia, easy bleeding, easy bruising, lymphadenopathy or other Integumentary: Denies rashes Allergic/Immunologic: Denies rhinitis, hives, eczema, asthma or other Vital Signs Vital Signs Vital Signs: 09/16/21 21:02 09/16/21 21:09 09/16/21 21:14 Temperature 96.7 F L Temperature Source Temporal Pulse Rate 92 Respiratory Rate 23 H Respiratory Effort Normal Non-Labored Respiratory Pattern Normal Blood Pressure 100/50 L Blood Pressure Mean 66 Pulse Ox 95 96 Oxygen Delivery Method Room Air Room Air Oxygen Flow Rate (L/min) 09/16/21 22:43 09/16/21 22:45 09/16/21 22:48 Temperature Temperature Source Pulse Rate 91 91 Respiratory Rate 19 H Respiratory Effort Respiratory Pattern Blood Pressure 126/66 H 126/66 H 101/56 L Blood Pressure Mean 86 71 Pulse Ox 96 Oxygen Delivery Method Room Air Oxygen Flow Rate (L/min) 09/16/21 23:33 Temperature 97.2 F L Temperature Source Temporal Pulse Rate 76 Respiratory Rate 18 Respiratory Effort Respiratory Pattern Blood Pressure 115/55 L Blood Pressure Mean 75 Pulse Ox 95 Oxygen Delivery Method Nasal Cannula Oxygen Flow Rate (L/min) 2 Weight Weight: 83.5 kg Body Mass Index (BMI) 33.6 Physical Exam Narrative Physical exam: General: Well-nourished, well-developed. Head: Normocephalic, atraumatic, no tenderness Eyes: PERRLA, EOMI ENT, no trauma, moist mucous membranes, no rhinorrhea Neck: Nontender, full range of motion, no spinal tenderness, deformities, step-off CVS: Regular rate and rhythm. S1-S2 present. Murmur 5/6, gallop or rub. Respiratory : clear to auscultation bilaterally, chest wall nontender, no wheezing Abdomen: Soft, nontender, nondistended, normal bowel sounds, no masses : Deferred Back: Nontender, no CVA tenderness, no midline spinal tenderness, deformities, step-offs Extremities: 2+ edema of bilateral ankles and legs. Nontender full range of motion, no trauma Skin: Pale, no trauma, abrasions Neuro: Alert, oriented, cranial nerves II through XII grossly intact. Psychiatry: Normal mood. Normal affect. Not depressed. Not anxious. Results Lab / Micro Data Result Diagrams: 09/16/21 21:05 09/16/21 21:05 Labs: Laboratory Results - last 24 hr 09/16/21 21:05: WBC 7.0, RBC 2.11 L, Hgb 6.5 L, Hct 20.0 L, MCV 94.8, MCH 30.8, MCHC 32.5, RDW Std Deviation 45.5 H, RDW Coeff of Elisabeth 13.4, Plt Count 208, MPV 9.8, Immature Gran % (Auto) 1.600 H, Neut % (Auto) 82.5 H, Lymph % (Auto) 11.0 L, [place] % (Auto) 4.7, Eos % (Auto) 0.1, Baso % (Auto) 0.1, Absolute Neuts (auto) 5.8, Absolute Lymphs (auto) 0.77 L, Nucleated RBC % 0.4 09/16/21 21:05: Sodium 136, Potassium 5.2 H, Chloride 104, Carbon Dioxide 21.0, Anion Gap 11, BUN 105 H*, Creatinine 1.63 H, Estim Creat Clear Calc 19.59, Est GFR (MDRD) Af Amer 39 L, Est GFR (MDRD) Non-Af 32 L, BUN/Creatinine Ratio 64.4 H, Glucose 316 H, Calcium 9.8, Troponin I High Sens 23 09/16/21 21:05: Crossmatch See Detail 09/16/21 23:05: Sodium Cancelled, Potassium Cancelled, Chloride Cancelled, Carbon Dioxide Cancelled, Anion Gap Cancelled, BUN Cancelled, Creatinine Cancelled, Est GFR (MDRD) Af Amer Cancelled, Est GFR (MDRD) Non-Af Cancelled, BUN/Creatinine Ratio Cancelled, Glucose Cancelled, Calcium Cancelled Radiology Impression Chest X-Ray 09/16/21 21:20 IMPRESSION: Heterogeneous ill-defined opacities involving the right upper and lower lobes and left lower lobe may represent bronchopneumonia in the appropriate clinical setting. Electronically Signed: Aguilar Thorne MD at 22:05 EST Tel , Service support , Assessment & Plan Assessment/Plan (1) Anemia: QUALIFIERS: Anemia type: iron deficiency Iron deficiency anemia type: unspecified iron deficiency Qualified Code(s): D50.9 - Iron deficiency anemia, unspecified (2) Elevated troponin: (3) Chest pain: QUALIFIERS: Chest pain type: unspecified Qualified Code(s): R07.9 - Chest pain, unspecified (4) Acute kidney injury superimposed on CKD: PLAN: Acute on iron deficiency chronic anemia. Review of [place] department labs showed hemoglobin was 6.5. We will continue iron supplementation. From review of cardiology notes patient hemoglobin goal will be 8-9. 1 unit of packed red blood cells was ordered at the emergency department, transfuse. Will check H&H 1 hour after transfusion and his H&H is less than 8 will transfuse another unit of blood. 1 unit of blood ordered to hold. No anticoagulants for DVT prophylaxis. Occult stool done at the emergency department was negative. Patient to follow-up with her convention planner/oncologist and technical internship upon discharge. Non-ST elevation OR Initial high sensitive troponin was 23 but it increased to 254. Trend troponin. Place on a monitored bed at progressive care unit Actual CXR image was independently visualized. Chest x-ray showed bilateral lower lung opacities. Old chest x-ray was reviewed and it appears unchanged. Actual EKG tracing was independently visualized. EKG tracing showed atrial fibrillation with right bundle branch block . Previous EKG reviewed showed right bundle branch block but no evidence of atrial fibrillation. Received aspirin 324 mg at the emergency department. Morphine IV as needed ordered. No anticoagulation/antiplatelets because of anemia. Of note the patient reported that in 2019 she had blood in her stools and ever since she was instructed to take aspirin. Continue pravastatin. Check lipid panel MICHELLE on CKD stage IIIa/hyperkalemia CKD Likely from Diabetic nephropathy Her creatinine on presentation was 1.63. Her creatinine on 07/13/2021 was a 1.29. Her creatinine on 07/12/2021 was 1.63. Cannot completely rule out progression of CKD. However her BUN is extremely elevated to 105. Prior higher BUN was on 07/12/2021 and it was 89. Likely secondary to dehydration from anemia. Blood transfusion as above. Hold nephrotoxins. Home Lasix and lisinopril on hold. Patient with mild hyperkalemia. Hold potassium supplementation. Trend BMP. Diabetes mellitus Patient with hyperglycemia on presentation Hold metformin. Accu-Chek QA CHS with correction scale insulin ordered. Atrial fibrillation EKG obtained in the hospital showed atrial fibrillation. From review of records no history of atrial fibrillation was found on previous EKGs. Other similar presentation patient went to crimper operator office and reported palpitations. Per cardiology notes it was discussed with patient on getting a 30-day event monitor. However the crimper operator knows patient can think about that. [id number] Score of 6. However with anemia risk may outweigh benefits of anticoagulation. Her rate is controlled at this time. Potassium level is mildly elevated at 5.2 and patient received insulin for concomitant hyperglycemia at the ED. Will check magnesium and TSH level. Of note patient is on levothyroxine for hypothyroidism. Aortic stenosis Cardiology notes on 07/17/2022 was reviewed. Her amlodipine was discontinued because of aortic stenosis. Same with patient and family who was at the bedside. Will avoid vasodilators at this time. History of Hypertension Blood pressures are soft at this time. And with MICHELLE lisinopril, Lasix has been held. Trend blood pressures. Hopefully with blood her blood pressure will improve. DVT prophylaxis: No chemical prophylaxis secondary to anemia. SCD ordered. COVID-19 vaccination status: Not vaccinated. Denies history of COVID-19 infection. Charges/Coding Visit Charges Inpatient E&M: 13686 Init Hosp L3
[2021-09-16 23:45] LABS: Troponin-I HS 254 pg/mL (3.0-54.0)
[2021-09-17] VITALS (23 sets, daily range): BP systolic 91–139; BP diastolic 43–63; PULSE 57–86; RESP 16–18; TEMP 36.1–37.2; O2SAT 97–100; BMI 34.0
--- NOTE | 2021-09-17 00:21 | PCS.PANDOC ---
PANDEMIC DOCUMENTATION INITIATED: Date: 04/13/2021 Time: 190
--- NOTE | 2021-09-17 00:48 | EKG12_ITS ---
Test Reason : CP ADMIT Blood Pressure : / mmHG Vent. Rate : 071 BPM Atrial Rate : 071 BPM P-R Int : 202 ms QRS Dur : 166 ms QT Int : 442 ms P-R-T Axes : -06 -85 -25 degrees QTc Int : 480 ms Sinus rhythm with Premature atrial complexes Right bundle branch block Left anterior fascicular block Bifascicular block Septal infarct (cited on or before 11-OCT-2019) Abnormal ECG Confirmed by BATSHEVA JULES, TRENA ([id number]), staff editor TULIO MEANS ([id number]) on 09/17/2021 1:36:37 PM Referred By: DR MUJICA Confirmed By:TRENA HERMAN MD
[2021-09-17 01:58] LABS: Magnesium 2.2 mg/dL (1.6-2.6)
[2021-09-17 04:43] LABS: Hemoglobin 6.8 g/dL (12.0-15.0)
[2021-09-17] MEDS: Levothyroxine 125 MCG Tablet PO (05:20)
[2021-09-17 05:23] LABS: Anion Gap 6 (5-15); BUN 97 mg/dL (7-18); BUN/Creat Ratio 68.8 RATIO (10-20); Calcium,Total 9.6 mg/dL (8.5-10.1); Chloride 107 mmol/L (98-107); Cholesterol 127 mg/dL (200); Creatinine, Serum 1.41 mg/dL (0.55-1.02); EST Glomerular Filtration Rate 38 mL/min (>60); Est Glom Filt Rate - Afr Amer 46 mL/min (>60); Estimated Creatinine Clearance 21.61 ml/min; Glucose 233 mg/dL (74-106); High Density Lipoprotein 33 mg/dL; Potassium 4.8 mmol/L (3.5-5.1); Sodium Level 137 mmol/L (136-145); Thyroid Stim Hormone (TSH) 0.36 uIU/mL (0.358-3.74); Triglycerides 249 mg/dL; Very Low Density Lipoprotein 50 mg/dL (5-40)
[2021-09-17 05:37] LABS: Troponin-I HS 6697 pg/mL (3.0-54.0)
[2021-09-17] MEDS: Insulin Lispro 100 UNIT/ML INSULN.PEN SC ×4 (06:42→22:14)
[2021-09-17 06:51] LABS: Bedside Glucose 188 mg/dL (70-110)
--- NOTE | 2021-09-17 09:30 | CON.PCM.CA_ITS ---
Documented by User: Aleta PAGE, PA 09/17/21 13:42 Assessment & Plan Assessment/Plan (1) Non-rheumatic aortic stenosis: (2) Anemia: QUALIFIERS: Anemia type: iron deficiency Iron deficiency anemia type: unspecified iron deficiency Qualified Code(s): D50.9 - Iron deficiency anemia, unspecified (3) NSTEMI (non-ST elevated myocardial infarction): PLAN: * NSTEMI type II secondary to her critical and anemia * because of her critical and lower BP readings would like to stop her lisinopril. Would like to start her on a low dose BB- metoprolol 12.5 mg BID. Will continue statin. * Pt is currently not symptomatic, her CP has resolved. With the significance o f her her anemia, and how quickly it dropped from June until now, it would be difficult for her to pursue a heart cath in case if she needed stenting it would be difficult for her to safely be an antiplatelets. * pt continues to decline surgical intervention of her critical , pt would benefit from a palliative referral. HPI Consult Data Date of Consult: 09/17/21 HPI Narrative HPI Narrative: JAMIR TORRES, is a 86 F who presented to the emergency room on 09/16/21 for chest discomfort. Prior to her coming in she noted to have been constant for 2 hours. She states that it came on gradually over the left side of her chest. Patient was given 1 dose of sublingual nitroglycerin. Chest pain did not resolve but her blood pressure did drop. Second nitroglycerin was not given because of this. Initial troponin was 23, second troponin was elevated at 254, third troponin 6697. Patient was noted to be anemic with hemoglobin of 6.5. She did receive 2 unit of packed red blood cells. Patient is established with [facility]. She was actually seen in the office earlier that day. She tells me that her CP started when she was at home after her OV. She does have a history of critical aortic stenosis. Patient has not wish to pursue any surgical options, this has been discussed with her several times. During that office visit she had complained of increased palpitations. A 30day monitor was offered however she wished to think about this. It was noted that her blood pressure was low in the office and her amlodipine was discontinued. She also does have a history of chronic kidney disease in which her primary care doctor follows with this. She also has a history of chronic anemia in which she follows with Dr. Epperson. She did have a colonoscopy done in [address] Strong, she tells me that this was negative. She did undergo an EGD by Dr. Benjamin in September 2019. This did demonstrate erythematous mucosa in the antrum and a few gastric polyps were removed. Polyps were negative however she did have mild chronic inflammation noted. She has not followed up with GI. [facility] Medical History (Updated 09/17/21 @ 10:53 by Aleta PAGE, PA) Acute kidney injury superimposed on CKD Acute on chronic anemia Acute on chronic blood loss anemia Chronic anemia Chronic kidney disease, stage 3 CKD (chronic kidney disease), stage III Essential (primary) hypertension GI bleed (10/09/19) Hyperlipidemia Hypothyroidism Iron deficiency anemia Iron deficiency anemia Non-rheumatic aortic stenosis Obesity Osteoarthritis 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 Type 2 diabetes mellitus Home Medications levothyroxine 125 mcg PO DAILY 08/27/18 [History Last Taken 09/16/21] pravastatin 20 mg PO QHS 10/09/19 [History Last Taken 09/15/21] ferrous sulfate 325 mg PO BID #0 10/11/19 [Rx Last Taken 09/16/21] metformin 500 mg tablet,extended release 24 hr 500 mg PO BID tab 01/25/20 [History Last Taken 09/16/21] lorazepam 0.5 mg PO BID PRN PRN 04/08/20 [History Last Taken 09/16/21] furosemide 40 mg tablet 40 mg PO DAILY #90 tab 03/18/21 [Rx Last Taken 09/16/21] lisinopril 10 mg PO BID 07/12/21 [History Last Taken 09/17/21] potassium chloride 10 meq PO BID 07/12/21 [History Last Taken 09/16/21] Allergy/AdvReac Type Severity Reaction Status Date / Time No Known Allergies Allergy Verified 09/16/21 21:02 Family History Father CAD (coronary artery disease) Myocardial infarction in his 80's from 80's Brother CAD (coronary artery disease) Myocardial infarction from his 70's from [place] Sister Heart disease Rheumatic Heart Disease Surgical History History of esophagogastroduodenoscopy (EGD) (09/2019) Social History Smoking Status: Never smoker ROS Constitutional Constitutional: Reports systems reviewed and no addt'l complaints, except as documented; Denies body ache(s), chills, fatigue or headache(s) Eyes Eyes: Denies blindness, blurry vision, change in vision or loss of vision ENT HEENT: Denies dysphagia, ear pain, nasal discharge or sinus pressure Cardiovascular Cardiovascular: Reports as per HPI Respiratory/Chest Respiratory/Chest: Denies chest congestion or cough Gastrointestinal Gastrointestinal: Denies abdominal pain, change in bowel habits or rectal bleeding Musculoskeletal Musculoskeletal: Reports arthralgias and myalgias; Denies abnormal gait Neurologic Neurologic: Reports none, abnormal gait and abnormal movements Hematologic/Lymphatic Hematologic/Lymphatic: Reports anemia Physical Exam Const alert, oriented x3, no apparent distress, average body habitus and healthy appearing HEENT normocephalic, head/scalp atraumatic, hearing grossly normal bilaterally, external ears normal, external nose normal and moist oral mucous membranes Eyes PERRL, EOMs intact bilaterally, conjunctivae normal and no scleral icterus Neck full ROM, no lymphadenopathy and no JVD Chest inspection of chest normal Resp normal respiratory effort, normal air movement, no use of accessory muscles and clear to auscultation bilaterally Cardio regular rate, regular rhythm, S1 normal heart sound and S2 normal heart sound Heart Sounds: murmur systolic III/ late Peripheral Pulses: pulses 2+ throughout GI normal to inspection, nondistended, normoactive bowel sounds, soft to palpation and non-tender Neuro oriented x3, CN's II-XII intact bilaterally, moves all extremities, no focal motor deficits and no sensory deficits noted Psych mental status grossly normal Risk Stratification Risk Stratification Applicable: Yes Age >/= 65: Yes >/= 3 CAD Risk Factors (HTN, HLD, DM, family hx of CAD, or current smoker): Yes Aspirin Use in the Past 7 Days: No Severe Angina (>/= episodes in 24 hours): Yes EKG ST Changes >/= 0.5mm: No Positive Cardiac Marker: Yes MARCIO Risk Stratification Score: 4 MARCIO % Risk: 20% Risk Charges/Coding Visit Charges Office Visits / Consults: 45802 IP Consult L4 Objective Data Vital Signs: Vital Signs Temp Pulse Resp BP Pulse Ox 98.3 F 68 16 126/50 H 100 09/17/21 08:14 09/17/21 08:14 09/17/21 08:14 09/17/21 08:14 09/17/21 08:14 Oxygen Flow Rate (L/min) 2 Oxygen Delivery Method Nasal Cannula Weight: 180 lb 5.41 oz Body Mass Index (BMI) 34.0 Intake & Output: Intake and Output for Last 24 Hours 09/15/21 09/16/21 09/17/21 23:59 23:59 23:59 Intake Total 460 / 460 Output Total 350 / 350 Balance 110 / 110 Lab / Micro Data Result Diagrams: 09/17/21 10:15 09/17/21 04:26 Labs: Laboratory Results - last 24 hr 09/16/21 21:05: WBC 7.0, RBC 2.11 L, Hgb 6.5 L, Hct 20.0 L, MCV 94.8, MCH 30.8, MCHC 32.5, RDW Std Deviation 45.5 H, RDW Coeff of Elisabeth 13.4, Plt Count 208, MPV 9.8, Immature Gran % (Auto) 1.600 H, Neut % (Auto) 82.5 H, Lymph % (Auto) 11.0 L , [place] % (Auto) 4.7, Eos % (Auto) 0.1, Baso % (Auto) 0.1, Absolute Neuts (auto) 5.8, Absolute Lymphs (auto) 0.77 L, Nucleated RBC % 0.4 09/16/21 21:05: Sodium 136, Potassium 5.2 H, Chloride 104, Carbon Dioxide 21.0, Anion Gap 11, BUN 105 H*, Creatinine 1.63 H, Estim Creat Clear Calc 19.59, Est GFR (MDRD) Af Amer 39 L, Est GFR (MDRD) Non-Af 32 L, BUN/Creatinine Ratio 64.4 H , Glucose 316 H, Calcium 9.8, Troponin I High Sens 23 09/16/21 21:05: Blood Type A POSITIVE, Antibody Screen NEGATIVE, Crossmatch See Detail 09/16/21 21:05: Crossmatch See Detail 09/16/21 23:05: Sodium Cancelled, Potassium Cancelled, Chloride Cancelled, Carbon Dioxide Cancelled, Anion Gap Cancelled, BUN Cancelled, Creatinine Can celled, Est GFR (MDRD) Af Amer Cancelled, Est GFR (MDRD) Non-Af Cancelled, BUN/Creatinine Ratio Cancelled, Glucose Cancelled, Calcium Cancelled 09/16/21 23:06: Troponin I High Sens 254 H* 09/17/21 04:26: Troponin I High Sens 6697 H* 09/17/21 04:26: Sodium 137, Potassium 4.8, Chloride 107, Carbon Dioxide 24.0, Anion Gap 6, BUN 97 H, Creatinine 1.41 H, Estim Creat Clear Calc 21.61, Est GFR (MDRD) Af Amer 46 L, Est GFR (MDRD) Non-Af 38 L, BUN/Creatinine Ratio 68.8 H, Glucose 233 H, Calcium 9.6, Triglycerides 249 H, Cholesterol 127, LDL Cholesterol 44, VLDL Cholesterol 50 H, HDL Cholesterol 33 L, TSH 0.36 09/17/21 04:26: Hgb 6.8 L 09/17/21 04:26: Hct 21.0 L 09/17/21 06:40: POC Glucose 188 H 09/17/21 23:06: Magnesium 2.2 Micro: Microbiology 09/16/21 23:11 Stool Stool Occult Blood (IDRIS) - Final Cardiology Labs/Tests 09/16/21 21:05: WBC 7.0, RBC 2.11 L, Hgb 6.5 L, Hct 20.0 L, MCV 94.8, MCH 30.8, MCHC 32.5, Plt Count 208, MPV 9.8, Immature Gran % (Auto) 1.600 H, Neut % (Auto) 82.5 H, Lymph % (Auto) 11.0 L, Loíza % (Auto) 4.7, Eos % (Auto) 0.1, Baso % (Auto) 0.1, Absolute Neuts (auto) 5.8, Nucleated RBC % 0.4 09/16/21 21:05: Sodium 136, Potassium 5.2 H, Chloride 104, Carbon Dioxide 21.0, Anion Gap 11, BUN 105 H*, Creatinine 1.63 H, Est GFR (MDRD) Af Amer 39 L, Est GFR (MDRD) Non-Af 32 L, BUN/Creatinine Ratio 64.4 H, Glucose 316 H, Calcium 9.8 09/16/21 23:05: Sodium Cancelled, Potassium Cancelled, Chloride Cancelled, Carbon Dioxide Cancelled, Anion Gap Cancelled, BUN Cancelled, Creatinine Canc elled, Est GFR (MDRD) Af Amer Cancelled, Est GFR (MDRD) Non-Af Cancelled, BUN/Creatinine Ratio Cancelled, Glucose Cancelled, Calcium Cancelled 09/17/21 04:26: Sodium 137, Potassium 4.8, Chloride 107, Carbon Dioxide 24.0, Anion Gap 6, BUN 97 H, Creatinine 1.41 H, Est GFR (MDRD) Af Amer 46 L, Est GFR (MDRD) Non-Af 38 L, BUN/Creatinine Ratio 68.8 H, Glucose 233 H, Calcium 9.6, Triglycerides 249 H, Cholesterol 127, LDL Cholesterol 44, VLDL Cholesterol 50 H, HDL Cholesterol 33 L 09/17/21 04:26: Hgb 6.8 L 09/17/21 04:26: Hct 21.0 L 09/17/21 23:06: Magnesium 2.2 Rhythm: SR ECHO 12/2019: Normal LV size. Left ventricular systolic function is normal. The estimated ejection fraction is 65 %. Stage 1 diastolic dysfunction. Severe aortic stenosis. Calculated aortic valve area (continuity equation) is 0.6 cm2. Mild (1+) aortic valve insufficiency. Pulmonary artery systolic pressure is 40 mmHg. Radiography Diagnostic Testing: Radiology Impression Chest X-Ray 09/16/21 21:20 IMPRESSION: Heterogeneous ill-defined opacities involving the right upper and lower lobes and left lower lobe may represent bronchopneumonia in the appropriate clinical setting. Electronically Signed: Aguilar Thorne MD at 22:05 EST Tel , Service support , Documented by User: Dr. Sara Jain MD 09/17/21 13:50 Assessment & Plan Assessment/Plan (1) Non-rheumatic aortic stenosis: (2) Anemia: QUALIFIERS: Anemia type: iron deficiency Iron deficiency anemia type: unspecified iron deficiency Qualified Code(s): D50.9 - Iron deficiency anemia, unspecified (3) NSTEMI (non-ST elevated myocardial infarction): (4) Elevated troponin: (5) Chest pain: QUALIFIERS: Chest pain type: unspecified Qualified Code(s): R07.9 - Chest pain, unspecified (6) Acute kidney injury superimposed on CKD: PLAN: I saw this patient at bedside along with the midlevel, patient well-known to the cardiac team here at [facility]. I reviewed the current data, including EKG, asphalt smoother, lab test, current medication I discussed cardiac care plan in detail with the patient, daughter at bedside. Patient known to have severe aortic stenosis with chronic anemia his presentation with chest pain with evidence of non-ST elevation [place]/type II secondary to her critical aortic stenosis and anemia Her symptoms of chest pain resolved. Patient continues to deny any further cardiac or GI work-up I would agree with the current plan of medical treatment and will continue to monitor and follow-up clinically. 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 Type 2 diabetes mellitus Home Medications levothyroxine 125 mcg PO DAILY 08/27/18 [History Last Taken 09/16/21] pravastatin 20 mg PO QHS 10/09/19 [History Last Taken 09/15/21] ferrous sulfate 325 mg PO BID #0 10/11/19 [Rx Last Taken 09/16/21] metformin 500 mg tablet,extended release 24 hr 500 mg PO BID tab 01/25/20 [History Last Taken 09/16/21] lorazepam 0.5 mg PO BID PRN PRN 04/08/20 [History Last Taken 09/16/21] furosemide 40 mg tablet 40 mg PO DAILY #90 tab 03/18/21 [Rx Last Taken 09/16/21] lisinopril 10 mg PO BID 07/12/21 [History Last Taken 09/17/21] potassium chloride 10 meq PO BID 07/12/21 [History Last Taken 09/16/21] Allergy/AdvReac Type Severity Reaction Status Date / Time No Known Allergies Allergy Verified 09/16/21 21:02 Family History Father CAD (coronary artery disease) Myocardial infarction in his 80's from 80's Brother CAD (coronary artery disease) Myocardial infarction from his 70's from [place] Sister Heart disease Rheumatic Heart Disease Surgical History History of esophagogastroduodenoscopy (EGD) (09/2019) Social History Smoking Status: Never smoker Lab / Micro Data Result Diagrams: 09/17/21 10:15 09/17/21 04:26
[2021-09-17 10:44] LABS: Hematocrit 25.6 % (37-47); Hemoglobin 8.5 g/dL (12.0-15.0)
[2021-09-17] MEDS: Ferrous Sulfate 325 MG Tablet PO ×2 (11:34→17:29)
[2021-09-17 11:40] LABS: Bedside Glucose 188 mg/dL (70-110)
--- NOTE | 2021-09-17 11:55 | CASEMGMT ---
Addendum entered by Vicky Vinicio 09/17/21 15:13: Pt informs this RN CM that she has not been consistent with taking her iron and that she will try to do better about taking. Steve SHEIKH CM Original Note: KORI RHODES assessment: Face to Face with patient for initial transition planning/care coordination assessment. KORI RHODES introduced self and role at [facility], pt voices understanding and consents to assessment. Pt is sitting up in bed on room air in no distress. Pt is A/Ox4 and answers all questions appropriately. Care providers, pharmacy, and demographics verified. Presentation: Pt c/o CP for 1-2 hours and set up to get OP blood transfusion tomorrow for anemia Admitting dx: CP, acute on chronic anemia PCP: Desi Specialists: Zhou onc; [facility] cardio Preferred Pharmacy: [facility] Insurance: [facility] [place] Prescription Benefit: Self-pt states no concerns Living Will/HPOA: Pt does not have LW/HPOA and declines AD info. LNOK: Hunter Avalos, ; Alda Shrestha, daughter Living Arrangements: Pt lives with on main level of 2 story home with daughter who lives in home next door. Pt states is independent with ADL's. Transportation: Pt states no concerns getting transportation. DME/HHC: Pt states has the following DME but does not use: walker and grab bars. Pt states no need for any further DME. Pt states no hx of HHC or SNF. Pt voices no concerns with going home at time of discharge. Pt is retired. Pt does not smoke cigarettes or drink ETOH. Pt states no further concerns/needs. CM to follow for any further discharge planning/needs. Advised pt to ask for CM if any further questions/concerns/needs arise, voices understanding. Pt Goal: Home Plan: Home Steve SHEIKH CM
--- NOTE | 2021-09-17 13:20 | CASEMGMT ---
Per cardiology ENVIRONMENTAL DESIGNER, Aleta Choudhary, pt is agreeable to palliative c/s but not hospice at this time. Palliative referral e-mailed and order placed. Steve SHEIKH CM
--- NOTE | 2021-09-17 15:26 | CHAPLAIN ---
Type of Pastoral Visit _x__ Initial Visit ___ Follow-up Visit ___ On-call Visit ___ General Patient Visit ___ Spiritual Assessment ___ Family Conference ___ Bereavement ___ Rapid Response ___ Code Blue ___ Other (describe below) Pastoral Care Referral From _x__ Patient ___ Family ___ Nurse ___ Physician ___ Program Research Specialist ___ Seamless Tube Mill Operator ___ Other (describe below) Sacrament/Intervention _x__ Active listening ___ Anointing ___ Mormonism ___ Bereavement ___ Communion ___ [place] exploration ___ ___ Life review _x__ Prayer ___ Reconciliation ___ Sacrament of Sick _x__ Supportive presence ___ Wedding ___ Other (describe below) Pastoral Comments
--- NOTE | 2021-09-17 16:15 | PCM.CONS.P ---
Assessment & Plan Assessment/Plan (1) CARROLL (dyspnea on exertion): (2) Weakness: (3) Anemia: QUALIFIERS: Anemia type: iron deficiency Iron deficiency anemia type: unspecified iron deficiency Qualified Code(s): D50.9 - Iron deficiency anemia, unspecified (4) Chest pain: QUALIFIERS: Chest pain type: unspecified Qualified Code(s): R07.9 - Chest pain, unspecified (5) NSTEMI (non-ST elevated myocardial infarction): (6) Non-rheumatic aortic stenosis: PLAN: 86-year-old female with medical aortic stenosis, presented with chest pain and found to have a hemoglobin of 6.5. Seen today for palliative consultation for symptom management of shortness of breath and weakness. 1. Dyspnea on exertion: Chronic, fluctuates at home. She is not on any supplemental oxygen. Follows with Dr. Melo, recent discontinuation of amlodipine and lisinopril due to hypotension in the setting of severe . Patient is unsure if she wants to pursue palliative care, she would like to speak with her . Agreeable to liaison reaching out in the next couple of weeks to discuss services more in depth. We also touched on hospice services, as patient would be appropriate given her diagnoses of persistent anemia and critical aortic stenosis. 2. Weakness: Multifactorial, typically independent with a cane at home. She feels very fatigued from anemia. 3. Anemia/chest pain/NSTEMI/CKD: Complicates overall care, management, recovery, and prognosis. Patient would like to continue with blood transfusions and is worried if she decided to pursue hospice, this would be discontinued. Blood transfusions are covered under hospice care at times, I will pass her concerns along to our team. Thank you for the opportunity to participate in this patient's care, please do not hesitate to contact [facility] with any further questions or concerns. Palliative direct line is [phone]. We will follow up after discharge and will discuss palliative services further at that time. Greater than 50% of F2F visit dedicated to education and counseling of palliative care services, medications, comorbid conditions and potential assistance with management, and plan of care moving forward. Start time: 1615 End time: 1652 HPI Consult Data Date of Consult: 09/17/21 HPI Narrative HPI Narrative: JAMIR TORRES, is a 86 F who presented to [facility] 09/16/2021 with complaints of chest pain, worse with exertion. Patient does have a history of significant anemia and requires blood transfusions periodically. She follows with Dr. Epperson. She just had an appointment at cardiology earlier in the day and had declined a 30-day event monitor for palpitations. She also has severe aortic stenosis, for which she has declined any surgical interventions. Patient does not take nitro for her chronic chest pain due to hypotension or aortic stenosis. She was scheduled to receive 2 units of blood 09/17/2021, however due to severity of her symptoms that were persistent, she presented to ED. She was admitted for further evaluation and management. Hemoglobin upon presentation 6.5. Last time she needed a blood transfusion was in June when hemoglobin was down to 7. She does get chest pain when levels are low. Chest x-ray showed ill-defined opacities right upper and lower lobes and left lower lobe. Apparently, patient has had extensive work-up for her anemia and no source of bleeding has been found. They did check Hemoccult stool in the ED which was negative. EKG showed sinus rhythm with PACs, right bundle branch block, left anterior fascicular block, old septal infarct. Patient lives at home with her , Hunter and a daughter who lives next door. She is typically independent with ADLs. Patient is Gnosticist. DME in the home includes walker and grab bars, however she does not use them. [facility]. Follows with Dr. Melo for cardiology. Patient was seen by cardiology PA, Aleta Choudhary earlier today. She does note that the patient declined surgical intervention of her critical and would benefit from palliative referral. She does not have any significant symptoms that we currently need to manage, however given the severity of her and comorbidities, I anticipate her symptoms will wax and wane and patient will continue to decline. Patient would be hospice appropriate as well. However, she would like to continue with blood transfusions. Hospice does allow blood transfusions at times. I will talk with the hospice team for more information. Patient denies any nausea, vomiting, diarrhea. Her appetite is somewhat fair right now but typically very good. No constipation. Still has a little bit of chest pain but has mostly resolved. She denies any current palpitations. States she can hear the aortic stenosis in her ears all the time, which is frustrating. She also has chronic lower extremity edema, worse at night. She does not wear any compression stockings. [facility] Medical History Acute kidney injury superimposed on CKD Acute on chronic anemia Acute on chronic blood loss anemia Chronic anemia Chronic kidney disease, stage 3 CKD (chronic kidney disease), stage III Essential (primary) hypertension GI bleed (10/09/19) Hyperlipidemia Hypothyroidism Iron deficiency anemia Iron deficiency anemia Non-rheumatic aortic stenosis Obesity Osteoarthritis 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 Type 2 diabetes mellitus Home Medications levothyroxine 125 mcg PO DAILY 08/27/18 [History Last Taken 09/16/21] pravastatin 20 mg PO QHS 10/09/19 [History Last Taken 09/15/21] ferrous sulfate 325 mg PO BID #0 10/11/19 [Rx Last Taken 09/16/21] metformin 500 mg tablet,extended release 24 hr 500 mg PO BID tab 01/25/20 [History Last Taken 09/16/21] lorazepam 0.5 mg PO BID PRN PRN 04/08/20 [History Last Taken 09/16/21] furosemide 40 mg tablet 40 mg PO DAILY #90 tab 03/18/21 [Rx Last Taken 09/16/21] lisinopril 10 mg PO BID 07/12/21 [History Last Taken 09/17/21] potassium chloride 10 meq PO BID 07/12/21 [History Last Taken 09/16/21] Allergy/AdvReac Type Severity Reaction Status Date / Time No Known Allergies Allergy Verified 09/16/21 21:02 Family History Father CAD (coronary artery disease) Myocardial infarction in his 80's from 80's Brother CAD (coronary artery disease) Myocardial infarction from his 70's from [place] Sister Heart disease Rheumatic Heart Disease Surgical History History of esophagogastroduodenoscopy (EGD) (09/2019) Social History Smoking Status: Never smoker ROS ROS Narrative Review of systems otherwise negative from a constitutional, HEENT, respiratory, cardiovascular, GI, genitourinary, musculoskeletal, skin, neurologic, psychiatric and hematologic system unless stated above. Physical Exam Const alert, oriented x3 and no apparent distress General Appearance: cooperative and comfortable Nutritional Appearance: obese HEENT normocephalic and head/scalp atraumatic Neck supple General: trachea midline Resp normal respiratory effort Effort and Inspection: able to speak in complete sentences and symmetric chest movement Auscultation: clear to auscultation bilaterally and diminished lung sounds Cardio regular rate, regular rhythm, S1 normal heart sound and S2 normal heart sound Heart Sounds: murmur Peripheral Pulses: pulses 2+ throughout GI normal to inspection, nondistended, normoactive bowel sounds Extremity General Extremity: edema; Negative for clubbing or cyanosis Skin no rashes or lesions noted Neuro oriented x3, CN's II-XII intact bilaterally, moves all extremities and no focal motor deficits Psych mental status grossly normal
--- NOTE | 2021-09-17 17:04 | PN.HOSP_ITS ---
Subjective Subjective Doing well, no issues overnight. Chest pain has resolved and hemoglobin is now 8.5 after 2 units of blood. We are on a national blood shortage therefore unfortunately she will not receive any more blood while she is here. Objective Data Objective Data Vital Signs: Vital Signs Temp Pulse Resp BP Pulse Ox 97.7 F L 65 16 136/63 H 97 09/17/21 14:35 09/17/21 15:00 09/17/21 14:35 09/17/21 14:35 09/17/21 14:35 Oxygen Flow Rate (L/min) 2 Oxygen Delivery Method Room Air Weight: 180 lb 5.41 oz Body Mass Index (BMI) 34.0 Intake & Output: Intake and Output for Last 24 Hours 09/16/21 09/17/21 09/18/21 03:59 03:59 03:59 Intake Total 0 / 0 860 / 860 Output Total 350 / 350 Balance 0 / 0 510 / 510 Lab / Micro Data Result Diagrams: 09/17/21 10:15 09/17/21 04:26 Labs: Laboratory Results - last 24 hr 09/16/21 21:05: WBC 7.0, RBC 2.11 L, Hgb 6.5 L, Hct 20.0 L, MCV 94.8, MCH 30.8, MCHC 32.5, RDW Std Deviation 45.5 H, RDW Coeff of Elisabeth 13.4, Plt Count 208, MPV 9.8, Immature Gran % (Auto) 1.600 H, Neut % (Auto) 82.5 H, Lymph % (Auto) 11.0 L , [place] % (Auto) 4.7, Eos % (Auto) 0.1, Baso % (Auto) 0.1, Absolute Neuts (auto) 5.8, Absolute Lymphs (auto) 0.77 L, Nucleated RBC % 0.4 09/16/21 21:05: Sodium 136, Potassium 5.2 H, Chloride 104, Carbon Dioxide 21.0, Anion Gap 11, BUN 105 H*, Creatinine 1.63 H, Estim Creat Clear Calc 19.59, Est GFR (MDRD) Af Amer 39 L, Est GFR (MDRD) Non-Af 32 L, BUN/Creatinine Ratio 64.4 H , Glucose 316 H, Calcium 9.8, Troponin I High Sens 23 01/19/22 21:05: Blood Type A POSITIVE, Antibody Screen NEGATIVE, Crossmatch See Detail 09/16/21 21:05: Crossmatch See Detail 09/16/21 23:05: Sodium Cancelled, Potassium Cancelled, Chloride Cancelled, Carbon Dioxide Cancelled, Anion Gap Cancelled, BUN Cancelled, Creatinine Cancelled, Est GFR (MDRD) Af Amer Cancelled, Est GFR (MDRD) Non-Af Cancelled, BUN/Creatinine Ratio Cancelled, Glucose Cancelled, Calcium Cancelled 09/16/21 23:06: Troponin I High Sens 254 H* 09/17/21 04:26: Troponin I High Sens 6697 H* 09/17/21 04:26: Sodium 137, Potassium 4.8, Chloride 107, Carbon Dioxide 24.0, Anion Gap 6, BUN 97 H, Creatinine 1.41 H, Estim Creat Clear Calc 21.61, Est GFR (MDRD) Af Amer 46 L, Est GFR (MDRD) Non-Af 38 L, BUN/Creatinine Ratio 68.8 H, Glucose 233 H, Calcium 9.6, Triglycerides 249 H, Cholesterol 127, LDL Cholesterol 44, VLDL Cholesterol 50 H, HDL Cholesterol 33 L, TSH 0.36 09/17/21 04:26: Hgb 6.8 L 09/17/21 04:26: Hct 21.0 L 09/17/21 06:40: POC Glucose 188 H 09/17/21 10:15: Hgb 8.5 L, Hct 25.6 L 09/17/21 11:32: POC Glucose 188 H 09/17/21 23:06: Magnesium 2.2 Micro: Microbiology 09/16/21 23:11 Stool Stool Occult Blood (IDRIS) - Final Radiography Diagnostic Testing: Radiology Impression Chest X-Ray 09/16/21 21:20 IMPRESSION: Heterogeneous ill-defined opacities involving the right upper and lower lobes and left lower lobe may represent bronchopneumonia in the appropriate clinical setting. Electronically Signed: Aguilar Thorne MD at 22:05 EST Tel , Service support , Physical Exam Narrative Const alert, oriented x3 and no apparent distress General Appearance: cooperative HEENT normocephalic Eyes PERRL, EOMs intact bilaterally and conjunctivae normal Neck supple and no JVD Resp normal respiratory effort, no retractions, no use of accessory muscles and clear to auscultation bilaterally Auscultation: Negative for crackles, rales, rhonchi or wheezes Cardio regular rate, regular rhythm, S1 normal heart sound and S2 normal heart sound Heart Sounds: murmur systolic III/ GI soft to palpation, non-tender and non-distended; Negative for hepatosplenomegaly Extremity no clubbing, cyanosis or edema Skin no rashes or lesions noted Neuro no focal motor deficits and no sensory deficits noted Psych affect normal Appearance: appropriate Assessment & Plan Assessment/Plan (1) Non-rheumatic aortic stenosis: (2) Anemia: QUALIFIERS: Anemia type: iron deficiency Iron deficiency anemia type: unspecified iron deficiency Qualified Code(s): D50.9 - Iron deficiency anemia, unspecified (3) NSTEMI (non-ST elevated myocardial infarction): PLAN: 1. Non-STEMI/HTN/HLD/severe aortic stenosis/pulmonary hypertension -Blood pressure is stable we will continue with her home medications -She was transfused 2 units ? Cardiology was consulted recommended addition of 12.5 mg metoprolol unfortunately this was not started immediately but starting tonight at 10:00 before she can go home today as we do not know how she will react -Last time she was here to discuss hospice however today they did agree to palliative care -Troponins were elevated to over 6000 however she is still not a candidate for intervention as she does not want any type of aggressive intervention -Given the national blood shortage if she needs anything might need to transfuse her iron 2. DM2 -Blood glucose is stable, will hold her home Metformin -Accu-Cheks AC at bedtime, sliding scale insulin -We will make adjustments as necessary 3. Acute on chronic anemia -No etiology is known she is on iron replacement -She was transfused 2 units today and she did acknowledge the fact that she had does not take her iron as regularly as she should secondary to GI complaints ?We will need to follow-up with her print developer automatic for outpatient management DVT: SCDs Charges/Coding Visit Charges Inpatient E&M: 27540 Subs Hosp L2
[2021-09-17] MEDS: 0.9% Saline Lock 10 ML Syringe IV (20:36)
[2021-09-17 20:51] LABS: Bedside Glucose 174 mg/dL (70-110)
[2021-09-17] MEDS: Pravastatin 20 MG Tablet PO (22:15)
[2021-09-17] MEDS: Metoprolol Tartrate 25 MG Tablet 12.5 MG PO (22:15)
[2021-09-17 22:25] LABS: Bedside Glucose 169 mg/dL (70-110)
[2021-09-17] MEDS: MELATONIN 3 MG TABLET PO (22:43)
[2021-09-18 03:34] VITALS: PULSE 61
[2021-09-18 04:00] VITALS: BP 123/50; PULSE 73; RESP 16; TEMP 37.1; O2SAT 96
[2021-09-18 06:17] LABS: Absolute Lymphocyte Count 0.83 X10^3/uL (0.83-4.51); Absolute Neutrophil Count 4.4 X10^3/uL (2.0-7.7); Basophil# 0.02 X10^3/uL; Basophil% 0.3 % (0-1); Eosinophil# 0.02 X10^3/uL; Eosinophils% 0.3 % (0-5); Hematocrit 21.1 % (37-47); Hemoglobin 7.1 g/dL (12.0-15.0); Lymphocyte # 0.83 X10^3/ul (0.83-4.51); Lymphocyte % 14.1 % (19-41); Mean Corp Hgb Conc 33.6 g/dL (32-36); Mean Corpuscular Hgb 31.8 pg (27.0-32.0); Mean Corpuscular Volume 94.6 fL (81-99); Mean Platelet Vol. 8.9 fl (6.2-12.0); Monocyte# 0.48 X10^3/uL; Monocyte% 8.1 % (0-10); NRBC Flagged by Analyzer 0.3 % (0-5); Neutrophil # 4.44 X10^3/uL (2.7-7.7); Neutrophil % 75.5 % (47-70); Platelet Count 142 K/mm3 (150-450); RBC Distribution Width SD 47.3 fl (35.1-43.9); Red Blood Count 2.23 M/mm3 (4.2-5.4); White Blood Count 5.9 K/mm3 (4.4-11.0)
[2021-09-18] MEDS: Levothyroxine 125 MCG Tablet PO (06:26)
[2021-09-18 06:35] LABS: Bedside Glucose 149 mg/dL (70-110)
[2021-09-18 06:37] LABS: Anion Gap 4 (5-15); BUN 70 mg/dL (7-18); BUN/Creat Ratio 52.6 RATIO (10-20); Calcium,Total 9.5 mg/dL (8.5-10.1); Chloride 111 mmol/L (98-107); Creatinine, Serum 1.33 mg/dL (0.55-1.02); EST Glomerular Filtration Rate 40 mL/min (>60); Est Glom Filt Rate - Afr Amer 49 mL/min (>60); Estimated Creatinine Clearance 22.91 ml/min; Glucose 161 mg/dL (74-106); Potassium 4.9 mmol/L (3.5-5.1); Sodium Level 140 mmol/L (136-145)
[2021-09-18 07:00] VITALS: PULSE 75
[2021-09-18] MEDS: 0.9% Saline Lock 10 ML Syringe IV (08:18)
--- NOTE | 2021-09-18 09:38 | PN.CARD_ITS ---
Subjective Subjective Pt sts that she feels somewhat better now that she has received 2 unites of RBCs. It is noted that her Hgb did drop again this morning. She has not had any chest pain. She does not have any worsening SOB. She has noted some irregular heart beats by hearing them in her ear. Objective Data Vital Signs: Vital Signs Temp Pulse Resp BP Pulse Ox 98.8 F 75 16 123/50 H 96 09/18/21 04:00 09/18/21 07:00 09/18/21 04:00 09/18/21 04:00 09/18/21 04:00 Oxygen Flow Rate (L/min) 2 Oxygen Delivery Method Room Air Weight: 180 lb 5.41 oz Body Mass Index (BMI) 34.0 Intake & Output: Intake and Output for Last 24 Hours 09/16/21 09/17/21 09/18/21 23:59 23:59 23:59 Intake Total 1560 / 1560 120 / 120 Output Total 350 / 350 Balance 1210 / 1210 120 / 120 Lab / Micro Data Result Diagrams: 09/18/21 06:04 09/18/21 06:04 Labs: Laboratory Results - last 24 hr 09/17/21 10:15: Hgb 8.5 L, Hct 25.6 L 09/17/21 11:32: POC Glucose 188 H 09/17/21 17:22: POC Glucose 174 H 09/17/21 22:13: POC Glucose 169 H 09/18/21 06:04: WBC 5.9, RBC 2.23 L, Hgb 7.1 L, Hct 21.1 L, MCV 94.6, MCH 31.8, MCHC 33.6, RDW Std Deviation 47.3 H, RDW Coeff of Elisabeth 14.0, Plt Count 142 L, MPV 8.9, Immature Gran % (Auto) 1.700 H, Neut % (Auto) 75.5 H, Lymph % (Auto) 14.1 L , [place] % (Auto) 8.1, Eos % (Auto) 0.3, Baso % (Auto) 0.3, Absolute Neuts (auto) 4.4, Absolute Lymphs (auto) 0.83, Nucleated RBC % 0.3 09/18/21 06:04: Sodium 140, Potassium 4.9, Chloride 111 H, Carbon Dioxide 25.0, Anion Gap 4 L, BUN 70 H, Creatinine 1.33 H, Estim Creat Clear Calc 22.91, Est GFR (MDRD) Af Amer 49 L, Est GFR (MDRD) Non-Af 40 L, BUN/Creatinine Ratio 52.6 H , Glucose 161 H, Calcium 9.5 09/18/21 06:25: POC Glucose 149 H Cardiology Labs/Tests 09/17/21 10:15: Hgb 8.5 L, Hct 25.6 L 09/18/21 06:04: WBC 5.9, RBC 2.23 L, Hgb 7.1 L, Hct 21.1 L, MCV 94.6, MCH 31.8, MCHC 33.6, Plt Count 142 L, MPV 8.9, Immature Gran % (Auto) 1.700 H, Neut % (Auto) 75.5 H, Lymph % (Auto) 14.1 L, [place] % (Auto) 8.1, Eos % (Auto) 0.3, Baso % (Auto) 0.3, Absolute Neuts (auto) 4.4, Nucleated RBC % 0.3 09/18/21 06:04: Sodium 140, Potassium 4.9, Chloride 111 H, Carbon Dioxide 25.0, Anion Gap 4 L, BUN 70 H, Creatinine 1.33 H, Est GFR (MDRD) Af Amer 49 L, Est GFR (MDRD) Non-Af 40 L, BUN/Creatinine Ratio 52.6 H, Glucose 161 H, Calcium 9.5 Rhythm: SR with BBB Physical Exam Const alert, oriented x3, no apparent distress, average body habitus and healthy appearing HEENT normocephalic, head/scalp atraumatic, hearing grossly normal bilaterally, external ears normal, external nose normal and moist oral mucous membranes Eyes PERRL, EOMs intact bilaterally, conjunctivae normal and no scleral icterus Neck full ROM, no lymphadenopathy and no JVD Chest inspection of chest normal Resp normal respiratory effort, normal air movement and no use of accessory muscles Auscultation: crackles bilateral base Cardio regular rate, regular rhythm, S1 normal heart sound and S2 normal heart sound Heart Sounds: murmur systolic III/ late Peripheral Pulses: pulses 2+ throughout GI normal to inspection, nondistended, normoactive bowel sounds, soft to palpation and non-tender Neuro oriented x3, CN's II-XII intact bilaterally, moves all extremities, no focal motor deficits and no sensory deficits noted Psych mental status grossly normal Assessment & Plan Assessment/Plan (1) Non-rheumatic aortic stenosis: (2) Anemia: QUALIFIERS: Anemia type: iron deficiency Iron deficiency anemia type: unspecified iron deficiency Qualified Code(s): D50.9 - Iron deficiency anemia, unspecified (3) NSTEMI (non-ST elevated myocardial infarction): PLAN: * NSTEMI type II secondary to her critical and anemia * because of her critical and lower BP readings would like to stop her lisinopril. She tolerated her metoprolol last night. Will continue statin. * Pt is currently not symptomatic, her CP has resolved. With the significance of her her anemia, and how quickly it dropped from June until now, it would be difficult for her to pursue a heart cath in case if she needed stenting it would be difficult for her to safely be an antiplatelets. * pt continues to decline surgical intervention of her critical , pt is considering palliative care. * She does follow with Dr. Epperson for her anemia. Charges/Coding Visit Charges Inpatient E&M: 02846 Subs Hosp L2
[2021-09-18 10:00] VITALS: BP 115/48; PULSE 66; RESP 16; TEMP 36.8; O2SAT 97
[2021-09-18 10:04] VITALS: PULSE 66
[2021-09-18] MEDS: Metoprolol Tartrate 25 MG Tablet 12.5 MG PO (10:04)
[2021-09-18 11:30] LABS: Bedside Glucose 169 mg/dL (70-110)
[2021-09-18] MEDS: Ferrous Sulfate 325 MG Tablet PO (12:16)
[2021-09-18] MEDS: Insulin Lispro 100 UNIT/ML INSULN.PEN SC (12:16)
--- NOTE | 2021-09-18 13:16 | PCM.DC ---
Discharge Instructions Diet Discharge Diet: No restrictions Activity Discharge Activity: Return to Normal Activity Dressing / Incision Call your doctor if you observe: Fever of 101 or Higher, Shortness of breath, Dizziness, Fainting spells, Swelling in the ankles, Chest pain and Increased palpitations (irregular heartbeat) Follow Up Care Test Results: Test results from this visit will be discussed in further detail at your follow-up appointment, if applicable. Discharge Plan Admission Admit Date/Time: 09/17/21 00:48 Attending Provider: Isaac Hassan Primary Care Provider: Gordo Weeks Consulting Providers: Sara Jain Instructions Additional Instructions / Restrictions: Follow-up with Dr. Heaton on Tuesday for iron studies and an iron infusion. Discharge Orders/Prescriptions Prescriptions: New metoprolol tartrate 25 mg Tablet 12.5 mg PO BID Qty: 60 RF: 0 Continued metformin 500 mg tablet extended release 24 hr 500 mg PO BID RF: 0 furosemide 40 mg tablet 40 mg PO DAILY Qty: 90 RF: 3 levothyroxine 125 MCG tablet 125 mcg PO DAILY RF: 0 pravastatin 20 MG tablet 20 mg PO QHS RF: 0 ferrous sulfate 325 mg (65 mg iron) tablet 325 mg PO BID Qty: 0 RF: 0 lorazepam 0.5 MG tablet 0.5 mg PO BID PRN PRN (Reason: Anxiety) RF: 0 lisinopril 10 mg tablet 10 mg PO BID RF: 0 potassium chloride 10 MEQ tablet,ER particles/crystals 10 meq PO BID RF: 0 Referrals / Follow Up: Gordo Weeks DO [Primary Care Provider] - Within 1 Week Phani Epperson DO [STAFF PHYSICIAN] - 09/21/21 Disposition Disposition (needs filled in before D/C Order can be placed): Home, Self Care
--- NOTE | 2021-09-18 13:21 | DS.PCM_ITS ---
Providers Date of Admission: 09/17/21 Primary Care Physician: Dr. Gordo Weeks, Consultations 09/17/21 05:44 Consult: Cardiology Routine Consulting Provider: Sara Jain Reason for Consult: ELEVATED TROP EMERGENT Consult: No MD Notified: Yes Date Notified: 09/17/21 Time Notified: 07:12 Method of Notification: Text Reason For Visit: CHEST PAIN, ACUTE ON CHRONIC ANEMIA Diagnosis Discharge Diagnosis (1) Non-rheumatic aortic stenosis: Status: Chronic Code(s): I35.0 - Nonrheumatic aortic (valve) stenosis (2) Anemia: Status: Acute Code(s): D64.9 - Anemia, unspecified Qualifiers: Anemia type: iron deficiency Iron deficiency anemia type: unspecified iron deficiency Qualified Code(s): D50.9 - Iron deficiency anemia, unspecified (3) NSTEMI (non-ST elevated myocardial infarction): Status: Acute Code(s): I21.4 - Non-ST elevation (NSTEMI) myocardial infarction Medications at Discharge Home Medications levothyroxine 125 mcg PO DAILY 08/27/18 pravastatin 20 mg PO QHS 10/09/19 ferrous sulfate 325 mg PO BID #0 10/11/19 metformin 500 mg tablet,extended release 24 hr 500 mg PO BID tab 01/25/20 lorazepam 0.5 mg PO BID PRN PRN 04/08/20 furosemide 40 mg tablet 40 mg PO DAILY #90 tab 03/18/21 lisinopril 10 mg PO BID 07/12/21 potassium chloride 10 meq PO BID 07/12/21 metoprolol tartrate 12.5 mg PO BID #60 tab 09/18/21 Hospital Course Operations None Procedures None Summary of Care Provided Minutes Spent on Discharge: 42 Hospital Course: Per HPI: JAMIR TORRES, is a 86 F with a significant history of CKD stage III; severe aortic stenosis; diabetes mellitus and hypertension who presents to the emergency department with chest pain that started on the same day of presentation. Initial her chest pain was intermittent but about 2 hours before presentation her chest pain became persistent. She described the chest pain as it just hurts. Chest pain is substernal but closer to the left side of her chest and it radiates to her left arm and to her middle back. Walking initially aggravated the pain and sitting and resting initially made the pain improved. However during the course of the day her chest pain could not improve with sitting and resting. Of note patient complains of a chronic black stool and occult stool done at the emergency department was reportedly negative. Prior to coming to the hospital patient had outpatient hemoglobin checked and the plan was for patient to get 2 units of blood on 09/17/2021 outpatient. However because of her symptoms of chest pain she came to emergency department. Reportedly patient told nurses that her chest pain is related to her anemia and after she received blood she will be okay. At the time of evaluation patient has not received any blood yet but she had no chest pain. Reportedly her chest pain resolved with sublingual nitroglycerin given to her at the emergency department. Of note patient has a history of chronic anemia and she follows up with GI doctors at the [facility] and also with Dr. Epperson interactive web developer/oncologist. Also importantly patient had a scope previously with Dr. Naomi Benjamin at our Hospital. Hospital Course: 1. Non-STEMI/HTN/HLD/severe aortic stenosis/pulmonary hypertension -Blood pressure is stable we will continue with her home medications -She was transfused 2 units ? Cardiology was consulted recommended addition of 12.5 mg metoprolol unfortunately this was not started immediately but starting tonight at 10:00 before she can go home today as we do not know how she will react -Last time she was here to discuss hospice however today they did agree to palliative care -Troponins were elevated to over 6000 however she is still not a candidate for intervention as she does not want any type of aggressive intervention -Given the national blood shortage if she needs anything might need to transfuse her iron ? September 18, 2021: Discussed case with her interactive web developer and they will follow-up with her on Tuesday for iron studies and iron infusions. I discussed with her and the family that given the national blood shortage I do not feel comfortable providing her with any more blood despite the fact that her hemoglobin is 7.1 since she is 86 years old with severe aortic stenosis who does not want any procedures or scopes. Her Hemoccult was negative for blood on this admission. She did receive a Venofer infusion today and she will likely continue to receive IV iron infusions as an outpatient. I do encourage her to take her oral iron replacement as well. I discussed with her and her daughter the plan for discharge today and expressed understanding of the risk benefits of going home and would like to go home today. 2. DM2 -Blood glucose is stable, will hold her home Metformin -Accu-Cheks AC at bedtime, sliding scale insulin -We will make adjustments as necessary 3. Acute on chronic anemia -No etiology is known she is on iron replacement -She was transfused 2 units today and she did acknowledge the fact that she had does not take her iron as regularly as she should secondary to GI complaints ?We will need to follow-up with her interactive web developer for outpatient management Physical Exam Narrative Const alert, oriented x3 and no apparent distress General Appearance: cooperative HEENT normocephalic Eyes PERRL, EOMs intact bilaterally and conjunctivae normal Neck supple and no JVD Resp normal respiratory effort, no retractions, no use of accessory muscles and clear to auscultation bilaterally Auscultation: Negative for crackles, rales, rhonchi or wheezes Cardio regular rate, regular rhythm, S1 normal heart sound and S2 normal heart sound Heart Sounds: murmur systolic III/ GI soft to palpation, non-tender and non-distended; Negative for hepatosplenomegaly Extremity no clubbing, cyanosis or edema Skin no rashes or lesions noted Neuro no focal motor deficits and no sensory deficits noted Psych affect normal Appearance: appropriate Weight / BMI Weight Weight: 180 lb 5.41 oz Body Mass Index (BMI) 34.0 ABG / Lab / Microbiology Data Result Diagrams: 09/18/21 06:04 09/18/21 06:04 Laboratory: Laboratory Results - last 24 hr 09/17/21 17:22: POC Glucose 174 H 09/17/21 22:13: POC Glucose 169 H 09/18/21 06:04: WBC 5.9, RBC 2.23 L, Hgb 7.1 L, Hct 21.1 L, MCV 94.6, MCH 31.8, MCHC 33.6, RDW Std Deviation 47.3 H, RDW Coeff of Elisabeth 14.0, Plt Count 142 L, MPV 8.9, Immature Gran % (Auto) 1.700 H, Neut % (Auto) 75.5 H, Lymph % (Auto) 14.1 L , [place] % (Auto) 8.1, Eos % (Auto) 0.3, Baso % (Auto) 0.3, Absolute Neuts (auto) 4.4, Absolute Lymphs (auto) 0.83, Nucleated RBC % 0.3 09/18/21 06:04: Sodium 140, Potassium 4.9, Chloride 111 H, Carbon Dioxide 25.0, Anion Gap 4 L, BUN 70 H, Creatinine 1.33 H, Estim Creat Clear Calc 22.91, Est GFR (MDRD) Af Amer 49 L, Est GFR (MDRD) Non-Af 40 L, BUN/Creatinine Ratio 52.6 H , Glucose 161 H, Calcium 9.5 09/18/21 06:25: POC Glucose 149 H 09/18/21 11:27: POC Glucose 169 H Microbiology: Microbiology 09/16/21 23:11 Stool Stool Occult Blood (IDRIS) - Final D/C Instructions Discharge Diet: No restrictions Call your doctor if you observe: Fever of 101 or Higher, Shortness of breath, Dizziness, Fainting spells, Swelling in the ankles, Chest pain and Increased palpitations (irregular heartbeat) Meaningful Use Info Meaningful Use Diagnoses (Choose all that apply): None applicable Discharge Plan Admission Admit Date/Time: 09/17/21 00:48 Attending Provider: Isaac Hassan Primary Care Provider: Gordo Weeks Consulting Providers: Sara Jain Instructions Additional Instructions / Restrictions: Follow-up with Dr. Heaton on Tuesday for iron studies and an iron infusion. Discharge Orders/Prescriptions Prescriptions: New metoprolol tartrate 25 mg Tablet 12.5 mg PO BID Qty: 60 RF: 0 Continued metformin 500 mg tablet extended release 24 hr 500 mg PO BID RF: 0 furosemide 40 mg tablet 40 mg PO DAILY Qty: 90 RF: 3 levothyroxine 125 MCG tablet 125 mcg PO DAILY RF: 0 pravastatin 20 MG tablet 20 mg PO QHS RF: 0 ferrous sulfate 325 mg (65 mg iron) tablet 325 mg PO BID Qty: 0 RF: 0 lorazepam 0.5 MG tablet 0.5 mg PO BID PRN PRN (Reason: Anxiety) RF: 0 lisinopril 10 mg tablet 10 mg PO BID RF: 0 potassium chloride 10 MEQ tablet,ER particles/crystals 10 meq PO BID RF: 0 Referrals / Follow Up: Gordo Weeks DO [Primary Care Provider] - Within 1 Week Phani Epperson DO [STAFF PHYSICIAN] - 09/21/21 Disposition Disposition (needs filled in before D/C Order can be placed): Home, Self Care Charges/Coding Visit Charges Inpatient E&M: 53884 Disch Hosp
== END 2021-09-18 14:25 | disposition home or self-care (01) | DRG 811 ==
LOC: ED 23:38 → PCU 23:45
PROVIDERS: Emergency Medicine; Admitting Provider Hospitalist; Emergency Provider Emergency Medicine; PCP Family Medicine; Visit Provider Family Medicine
DX: D50.9 Iron deficiency anemia, unspecified (principal); I21.A1 Myocardial infarction type 2; N17.9 Acute kidney failure, unspecified; I45.2 Bifascicular block; I27.20 Pulmonary hypertension, unspecified; I48.91 Unspecified atrial fibrillation; E03.9 Hypothyroidism, unspecified; E86.0 Dehydration; E11.22 Type 2 diabetes mellitus with diabetic chronic kidney disease; E11.65 Type 2 diabetes mellitus with hyperglycemia; N18.31 Chronic kidney disease, stage 3a; E87.5 Hyperkalemia; I12.9 Hypertensive chronic kidney disease with stage 1 through stage 4 chronic kidney disease, or unspecified chronic kidney disease; E78.5 Hyperlipidemia, unspecified; I35.0 Nonrheumatic aortic (valve) stenosis; Z79.84 Long term (current) use of oral hypoglycemic drugs; Z79.899 Other long term (current) drug therapy; E66.9 Obesity, unspecified; Z68.33 Body mass index [BMI] 33.0-33.9, adult; Z79.890 Hormone replacement therapy
CPT/HCPCS: 36415; 71045; 80048; 80061; 82274; 82962; 83735; 84443; 84484; 85014; 85018; 85025; 86850; 86900; 86901; 86920; 86922; 93005; 99285; J7040; J7050; P9016; A4216; J2916

== ENCOUNTER 2021-09-22 13:00 | Outpatient (CLI) | payer OTHER, SELFPAY ==
[2021-09-22 13:51] VITALS: BP 128/44; PULSE 60; RESP 16; TEMP 36.2; O2SAT 97; BMI 34.0
[2021-09-22] MEDS: 0.9% NaCl Peripheral Flush Adult/Peds IV (13:57)
[2021-09-22 14:38] VITALS: BP 122/43; PULSE 61; RESP 16; TEMP 36.6; O2SAT 98
[2021-09-22 15:43] VITALS: BP 141/40; PULSE 56; RESP 16; TEMP 36.1; O2SAT 99
[2021-09-22 16:15] VITALS: BP 145/43; PULSE 59; RESP 16; TEMP 36.7; O2SAT 98
== END 2021-09-22 23:59 | disposition short-term general hospital (02) ==
PROVIDERS: PCP Family Medicine; Referring Provider Internal Medicine Hematology & Oncology; Visit Provider Internal Medicine Hematology & Oncology
DX: N18.9 Chronic kidney disease, unspecified (principal); D63.1 Anemia in chronic kidney disease
CPT/HCPCS: 36430; 86850; 86900; 86901; 86920; 86922; J7040; P9016; A4216

== ENCOUNTER 2022-03-19 13:54 | Inpatient (IN) | payer MEDICARE, SELFPAY ==
[2022-03-19] VITALS (20 sets, daily range): BP systolic 107–148; BP diastolic 47–72; PULSE 51–73; RESP 16–22; TEMP 35.5–36.7; O2SAT 91–100; BMI 33.4; BMI 32.9
--- NOTE | 2022-03-19 14:01 | EKG12_ITS ---
Test Reason : HR Blood Pressure : / mmHG Vent. Rate : 057 BPM Atrial Rate : 057 BPM P-R Int : 200 ms QRS Dur : 170 ms QT Int : 428 ms P-R-T Axes : 016 -85 -78 degrees QTc Int : 416 ms Sinus bradycardia with Premature atrial complexes Right bundle branch block Left anterior fascicular block Bifascicular block Left ventricular hypertrophy with repolarization abnormality Abnormal ECG Confirmed by BATSHEVA JULES, TRENA ([id number]), visual effects editor TULIO MEANS ([id number]) on 03/23/2022 9:18:55 AM Referred By: ESTRADA Confirmed By:TRENA HERAMN MD
--- NOTE | 2022-03-19 14:07 | EX.ED.DYSGE1 ---
HPI History of Present Illness Chief Complaint: Weakness Informant: patient and EMS Narrative Narrative: Is an 86-year-old female with history of NSTEMI, nonrheumatic aortic stenosis, hypertension, hyperlipidemia and anemia presenting for generalized weakness. Apparently patient was making herself and family lunch when she suddenly started feel very weak. She states she felt dizzy like she was going to pass out. She had to sit down. EMS was called. Patient she denied any chest pain however on further questioning she did admit to me that she been having some chest discomfort for the past 3 days. She was told to begin the week that her hemoglobin had dropped another 2 points. Patient states she is on iron does have dark stools does not know if this is been any different. Chart review shows that patient was admitted at beginning of this year and August 2021 where she had an NSTEMI, MICHELLE on CKD and anemia. Patient had significantly elevated troponins however she was not a candidate for intervention as she did not want any type of aggressive mention. She received 2 units of cross red blood cells at that time as well as iron infusions. 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 Type 2 diabetes mellitus Home Medications levothyroxine 125 mcg tablet 125 mcg PO DAILY thyroid 08/27/18 [History Last Taken 09/16/21] pravastatin 20 mg tablet 20 mg PO QHS CHOLESTEROL 10/09/19 [History Last Taken 09/15/21] ferrous sulfate 325 mg (65 mg iron) tablet 325 mg PO BID SUPPLEMENT ##0 10/11/19 [Rx Last Taken 09/16/21] metformin 500 mg tablet,extended release 24 hr 500 mg PO BID diabetes 01/25/20 [History Last Taken 09/16/21] lorazepam 0.5 mg tablet 0.5 mg PO BID PRN PRN Anxiety 04/08/20 [History Last Taken 09/16/21] furosemide 40 mg tablet 40 mg PO DAILY diuretic #90 tabs 03/18/21 [Rx Last Taken 09/16/21] potassium chloride 10 mEq tablet,extended release(part/cryst) 10 meq PO BID supplement 07/12/21 [History Last Taken 09/16/21] allopurinol 100 mg tablet 100 mg PO DAILY 03/19/22 [History Last Taken Unknown] metoprolol tartrate 25 mg tablet 25 mg PO BID 03/19/22 [History Last Taken Unknown] Allergy/AdvReac Type Severity Reaction Status Date / Time No Known Allergies Allergy Verified 03/19/22 14:04 Family History Father CAD (coronary artery disease) Myocardial infarction in his 80's from 80's Brother CAD (coronary artery disease) Myocardial infarction from his 70's from [place] Sister Heart disease Rheumatic Heart Disease Surgical History History of esophagogastroduodenoscopy (EGD) (09/2019) Social History Smoking Status: Never smoker ROS ROS ED Constitutional Constitutional ED: Reports other Details: Lightheaded ; Denies chills or fever(s) Eyes Eyes: Denies blurry vision ENT ENT ED: Denies rhinorrhea or sore throat Cardiovascular Cardiovascular: Reports chest pain; Denies palpitations or racing heartbeat Respiratory/Chest Respiratory/Chest: Denies cough or dyspnea Gastrointestinal Gastrointestinal: Reports other Details: Dark stools ; Denies abdominal pain, nausea or vomiting Genitourinary Genitourinary ED: Denies dysuria or hematuria Musculoskeletal Musculoskeletal: Denies arthralgias, back pain or myalgias Integumentary Denies rash Neurologic Neurologic: Reports weakness; Denies headache(s) or paresthesias Psychiatric Psychiatric: Denies anxiety EXAM Physical Exam Const Vital Signs: 03/19/22 13:55 03/19/22 14:01 03/19/22 14:01 Temperature 96 F L Temperature Source Temporal Pulse Rate 63 Respiratory Rate 22 H 19 H Respiratory Effort Non-Labored Respiratory Pattern Normal Blood Pressure 148/67 H Blood Pressure Mean 94 Pulse Ox 95 91 Oxygen Delivery Method Room Air Room Air Oxygen Flow Rate (L/min) 03/19/22 14:05 03/19/22 15:00 Temperature Temperature Source Pulse Rate 58 L Respiratory Rate 18 Respiratory Effort Respiratory Pattern Blood Pressure 127/60 H Blood Pressure Mean 82 Pulse Ox 95 99 Oxygen Delivery Method Nasal Cannula Nasal Cannula Oxygen Flow Rate (L/min) 2 2 Positive well nourished, well developed and obese Constitutional Narrative: Ill-appearing General Appearance ED: well developed and pallor Nutritional Appearance: obese HEENT Reports moist mucous membranes Negative for trauma Eyes PERRL and EOMs intact bilaterally General Eye ED: Negative for pale conjunctiva Neck supple and no JVD Chest Wall inspection of chest normal and palpation of chest normal Resp normal respiratory effort and clear to auscultation bilaterally Cardio regular rate and regular rhythm Heart Sounds: murmur Peripheral Pulses: pulses 2+ throughout GI normal to inspection, nondistended, normoactive bowel sounds and non-tender Extremity normal to inspection General Extremety ED: Yes edema; Negative for tenderness General Extremity: edema Neuro oriented x3 Neuro Narrative: Somnolent Motor Exam: general weakness Psych mental status grossly normal Skin no rashes or lesions noted General Skin Exam: pallor MDM MDM MDM Narrative Medical decision making narrative: Patient evaluated for generalized weakness. She has extensive medical history as well as a cardiac history including aortic stenosis. EKG is concerning but not consistent with STEMI criteria. She does have an elevated high since he troponin of 272. Patient has an acute on chronic anemia with a hemoglobin of 6.5 today. From the patient's description sounds like she has myelodysplastic syndrome and does not produce red blood cells. She states she has been worked up thoroughly for this. Hemoccult is negative for blood however her stool is quite dark. Suspect is from her iron. Chest x-ray shows stable changes. Patient is bradycardic in the emergency room however she is on metoprolol and actually increased her dose today. This could be contributing to some of her symptoms.She has a CKD which is stable. Her BNP is elevated at 612. Patient does appear edematous. Case is discussed with Dr. Jain, cardiology on-call who feels that patient likely would benefit from echocardiogram and further cardiac evaluation especially given her elevated hesitancy troponin. Given her anemia which could be contributing to her NSTEMI we will defer any type of anticoagulation I do not want to cause any further bleeding or worsening hemoglobin. She is given a unit of packed red blood cells in the emergency room. She will be admitted for further cardiac evaluation. Lab Data Attestation: I reviewed the patient's lab results. Labs: Laboratory Results - last 24 hr 03/19/22 03/19/22 03/19/22 14:08 14:08 14:08 WBC 7.3 RBC 2.26 L Hgb 6.5 L Hct 20.3 L MCV 89.8 MCH 28.8 MCHC 32.0 RDW Std Deviation 51.5 H RDW Coeff of Elisabeth 16.7 H Plt Count 177 MPV 10.0 Immature Gran % (Auto) 1.400 H Neut % (Auto) 77.6 H Lymph % (Auto) 14.6 L [place] % (Auto) 5.5 Eos % (Auto) 0.6 Baso % (Auto) 0.3 Absolute Neuts (auto) 5.6 Absolute Lymphs (auto) 1.06 Nucleated RBC % 0.6 Sodium 136 Potassium 3.8 Chloride 102 Carbon Dioxide 27.0 Anion Gap 7 BUN 46 H Creatinine 1.26 H Estim Creat Clear Calc 26.51 Est GFR (MDRD) Af Amer 52 L Est GFR (MDRD) Non-Af 43 L BUN/Creatinine Ratio 36.5 H Glucose 229 H Lactic Acid Calcium 9.5 Magnesium 1.9 Iron TIBC Iron Saturation Ferritin Troponin I High Sens 272 H* B-Natriuretic Peptide 612.7 H TSH 2.60 Blood Type Antibody Screen Crossmatch 03/19/22 03/19/22 03/19/22 14:08 14:08 14:08 WBC RBC Hgb Hct MCV MCH MCHC RDW Std Deviation RDW Coeff of Elisabeth Plt Count MPV Immature Gran % (Auto) Neut % (Auto) Lymph % (Auto) [place] % (Auto) Eos % (Auto) Baso % (Auto) Absolute Neuts (auto) Absolute Lymphs (auto) Nucleated RBC % Sodium Potassium Chloride Carbon Dioxide Anion Gap BUN Creatinine Estim Creat Clear Calc Est GFR (MDRD) Af Amer Est GFR (MDRD) Non-Af BUN/Creatinine Ratio Glucose Lactic Acid 1.9 Calcium Magnesium Iron TIBC Iron Saturation Ferritin Troponin I High Sens B-Natriuretic Peptide TSH Blood Type A POSITIVE Antibody Screen NEGATIVE Crossmatch See Detail 03/19/22 03/19/22 14:08 14:08 WBC RBC Hgb Hct MCV MCH MCHC RDW Std Deviation RDW Coeff of Elisabeth Plt Count MPV Immature Gran % (Auto) Neut % (Auto) Lymph % (Auto) [place] % (Auto) Eos % (Auto) Baso % (Auto) Absolute Neuts (auto) Absolute Lymphs (auto) Nucleated RBC % Sodium Potassium Chloride Carbon Dioxide Anion Gap BUN Creatinine Estim Creat Clear Calc Est GFR (MDRD) Af Amer Est GFR (MDRD) Non-Af BUN/Creatinine Ratio Glucose Lactic Acid Calcium Magnesium Iron 47 L TIBC 323 Iron Saturation 14.6 L Ferritin 51 Troponin I High Sens B-Natriuretic Peptide TSH Blood Type Antibody Screen Crossmatch See Detail ABG Data ABG results: ABG 03/19/22 14:36 Specimen Type ART Sample Site L Brach pH 7.42 Bicarbonate Actual 25.7 Total CO2 27 Base Excess 1 O2 Saturation 96 ABG pCO2 40.1 ABG pO2 78 [place] Test Positive Liter Flow 1.5 Radiography Chest X-Ray - ED: 1 View, Read by ED Physician, Read by Radiologist, No Acute Disease and Cardiomegaly Diagnostic Testing: Clinical Impression(s) from Imaging Studies Chest X-Ray 03/19/22 14:40 IMPRESSION: Stable mild increased markings in the right upper and right lower lobes as well as at the left lung base suggestive of scarring. Electronically Signed: Yuval Bills MD at 15:05 EDT , Rhythm Strip Rhythm Strip: Sinus Rhythm Rate: 57 Ectopy: None EKG Initial EKG: Attestation: I personally reviewed and interpreted this EKG as follows: Interpretation: Sinus Bradycardia Comments: Sinus bradycardia at a rate of 57 MS intervals 200 Bifascicular block Right bundle branch block and left anterior fascicular block QRS 170 QTC 416 LVH with repolarization abnormalities Compared to prior EKG on 09/17/2021 patient has some flattening of her T waves in V2 through V6 but no other acute changes Critical Care Time Critical Care Time: Yes Critical care time (excluding procedures): 30-74 minutes, Discussing w/Patient &/or Family/Safety Consultant, Discussing w/Consultants and Arranging Admission or Transfer Discharge Plan Dx/Rx/DC Orders Clinical Impression: Non-rheumatic aortic stenosis, Right bundle branch block (RBBB) with left anterior fascicular block, Acute on chronic anemia, Non-ST elevation [place] (NSTEMI) Disposition Disposition: Acute Care Hospital [facility] Discharge Date/Time: 03/19/22 16:26
[2022-03-19 14:27] LABS: Absolute Lymphocyte Count 1.06 X10^3/uL (0.83-4.51); Absolute Neutrophil Count 5.6 X10^3/uL (2.0-7.7); Basophil# 0.02 X10^3/uL; Basophil% 0.3 % (0-1); Eosinophil# 0.04 X10^3/uL; Eosinophils% 0.6 % (0-5); Hematocrit 20.3 % (37-47); Hemoglobin 6.5 g/dL (12.0-15.0); Lymphocyte # 1.06 X10^3/ul (0.83-4.51); Lymphocyte % 14.6 % (19-41); Mean Corpuscular Hgb 28.8 pg (27.0-32.0); Mean Corpuscular Volume 89.8 fL (81-99); Monocyte% 5.5 % (0-10); NRBC Flagged by Analyzer 0.6 % (0-5); Neutrophil # 5.64 X10^3/uL (2.7-7.7); Neutrophil % 77.6 % (47-70); Platelet Count 177 K/mm3 (150-450); RBC Distribution Width CV 16.7 % (11.6-14.6); RBC Distribution Width SD 51.5 fl (35.1-43.9); Red Blood Count 2.26 M/mm3 (4.2-5.4); White Blood Count 7.3 K/mm3 (4.4-11.0)
[2022-03-19 14:40] LABS: Lactic Acid 1.9 mmol/L (0.4-1.9)
--- NOTE | 2022-03-19 14:40 | RAD_ITS ---
STUDY: X-RAY CHEST REASON FOR EXAM: Female, 86 years old. Chest pain TECHNIQUE: Single AP portable view of the chest. COMPARISON: Comparison is made with prior study dated 09/16/2021. FINDINGS: EKG electrodes are seen. Persistent mild degree of increased markings in the right upper and right lower lobe as well as in the left lung base. These are unchanged and may represent scarring. There is mild cardiac enlargement. Normal mediastinum and carlton. Normal visualized pulmonary arteries. Normal visualized aortic arch and descending thoracic aorta. There are degenerative changes of the visualized thoracic spine. Normal visualized ribs, clavicles, and shoulders. There is no demonstrated abnormality of the visualized soft tissue structures of the upper abdomen. RAD/Chest 1 View (Portable) IMPRESSION: Stable mild increased markings in the right upper and right lower lobes as well as at the left lung base suggestive of scarring. Electronically Signed: Yuval Bills MD at 15:05 EDT ,
[2022-03-19 14:41] LABS: Allen Test Positive; Base Excess 1 mmol/L (-2 to +2); Bicarbonate 25.7 mmol/L (22-26); Blood Gas Specimen Type ART; LPM 1.5 /min; PO2 78 mmHG (75-100); SITE L Brach; SO2 96 % (95-99); Total Carbon Dioxide 27 mmol/L; pCO2 40.1 mmHg (35-45); pH 7.42 (7.35-7.45)
[2022-03-19 14:49] LABS: BNP,B-Type NATRIURETIC PEPTIDE 612.7 pg/mL (0-100)
[2022-03-19 15:13] LABS: Anion Gap 7 (5-15); BUN 46 mg/dL (7-18); BUN/Creat Ratio 36.5 RATIO (10-20); Calcium,Total 9.5 mg/dL (8.5-10.1); Chloride 102 mmol/L (98-107); Creatinine, Serum 1.26 mg/dL (0.55-1.02); EST Glomerular Filtration Rate 43 mL/min (>60); Est Glom Filt Rate - Afr Amer 52 mL/min (>60); Estimated Creatinine Clearance 26.51 ml/min; Glucose 229 mg/dL (74-106); Magnesium 1.9 mg/dL (1.6-2.6); Potassium 3.8 mmol/L (3.5-5.1); Sodium Level 136 mmol/L (136-145); Troponin-I HS (w/2H Reflex) 272 pg/mL (3.0-54.0)
--- NOTE | 2022-03-19 15:48 | ECHOD_ITS ---
Reason For Study: CHF Procedure This was a 2D Doppler, Color Flow transthoracic echocardiogram. Technically difficult study. Very hard to obtain images:patient would not cooperate with proper positioning for exam. and refused further pedoff probe evaluation. Exam performed portable in patient room. Left Ventricle Normal left ventricle. The estimated ejection fraction is 55-60 %. Right Ventricle Normal right ventricle. Normal systolic function. Atria The left atrium is moderately enlarged. Normal right atrium. Mitral Valve There is moderate mitral annular calcification. Mild-Moderate (1-2+) mitral valve insufficiency. Tricuspid Valve Normal tricuspid valve. Mild tricuspid valve insufficiency. Aortic Valve Severe Aortic valve stenosis JACINTA 0.43 cm2 Aortic mean pressure gradient 88 mmhg Mild AI. Pulmonic Valve The pulmonic valve is not well visualized. Great Vessels Normal aortic root. Pericardium/Pleural No pericardial effusion. MMode/2D Measurements & Calculations LVIDd: 5.1 cm IVSd: 1.1 cm LVOT diam: 2.0 cm LVIDs: 3.0 cm LVPWd: 1.2 cm LVOT area: 3.0 cm2 RVDd: 3.8 cm FS: 40.0 % LA dimension: 4.9 cm LAV(MOD-bp): 90.7 ml LA A4 area: 25.5 cm2 LAV(MOD-bp) Indexed: 48.1 ml/m2 LAV(MOD-sp2): 85.3 ml LAV(MOD-sp4): 83.9 ml RA A4 area: 18.2 cm2 Time Measurements MV dec time: 0.26 sec Doppler Measurements & Calculations MV E max irish: 114.3 cm/sec MV V2 max: 117.4 cm/sec Ao V2 max: 610.6 cm/sec MV A max irish: 124.9 cm/sec MV max P.5 mmHg Ao max P.3 mmHg MV E/A: 0.92 MV V2 mean: 72.5 cm/sec Ao V2 mean: 439.1 cm/sec MV mean P.4 mmHg Ao mean P.1 mmHg MV V2 VTI: 49.5 cm Ao V2 VTI: 183.2 cm MVA(VTI): 1.5 cm2 JACINTA(I,D): 0.40 cm2 JACINTA(V,D): 0.43 cm2 AI max irish: 290.8 cm/sec LV V1 max: 86.6 cm/sec MR max irish: 706.0 cm/sec AI max P.8 mmHg LV V1 max P.0 mmHg MR max P.4 mmHg AI dec slope: 167.1 cm/sec2 LV V1 mean P.9 mmHg MR mean irish: 526.2 cm/sec AI P1/2t: 509.6 msec LV V1 mean: 64.5 cm/sec MR mean P.8 mmHg LV V1 VTI: 24.5 cm MR VTI: 300.4 cm SV(LVOT): 73.5 ml MV P1/2t-pr_phl: 99.3 msec ECHO/Echo Complete Interpretation Summary The estimated ejection fraction is 55-60 %. Normal LV systolic function Severe Aortic valve stenosis JACINTA 0.43 cm2 Aortic mean pressure gradient 88 mmhg Mild AI. Ordering Physician: Marlyn Rust Referring Physician: Gordo Weeks Performed By: Travis Leary RCS
--- NOTE | 2022-03-19 15:58 | NURSING ---
PCU [facility] NSTEMI, ANEMIA
[2022-03-19 16:17] LABS: Reflex Troponin-HS? (from REC) Y
--- NOTE | 2022-03-19 16:48 | HP.PCM_ITS ---
Documented by User: JANY Cain 03/19/22 17:05 HPI - General General Date of Admission: 03/19/22 Date of Service: 03/19/22 Chief Complaint: Weakness HPI Narrative JAMIR TORRES, is a 86 F who presents with complaints of weakness. Patient has a history of significant aortic stenosis and anemia. Patient reports that her blood counts have been decreasing and she currently has a hgb 6.5. Patient was admitted in august with similar problems. Patient also has a history of NSTEMI, Hyperlipidemia, Pulmonary arterial hypertension, and essential hypertension. Patient has been talked to in the past regarding TAVR for her aortic stenosis and it is unclear whether patient refused procedure or if she was determined to not be a candidate. 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 Type 2 diabetes mellitus Home Medications levothyroxine 125 mcg tablet 125 mcg PO DAILY thyroid 08/27/18 [History Last Taken 09/16/21] pravastatin 20 mg tablet 20 mg PO QHS CHOLESTEROL 10/09/19 [History Last Taken 09/15/21] ferrous sulfate 325 mg (65 mg iron) tablet 325 mg PO BID SUPPLEMENT ##0 10/11/19 [Rx Last Taken 09/16/21] metformin 500 mg tablet,extended release 24 hr 500 mg PO BID diabetes 01/25/20 [History Last Taken 09/16/21] lorazepam 0.5 mg tablet 0.5 mg PO BID PRN PRN Anxiety 04/08/20 [History Last Taken 09/16/21] furosemide 40 mg tablet 40 mg PO DAILY diuretic #90 tabs 03/18/21 [Rx Last Taken 09/16/21] potassium chloride 10 mEq tablet,extended release(part/cryst) 10 meq PO BID supplement 07/12/21 [History Last Taken 09/16/21] allopurinol 100 mg tablet 100 mg PO DAILY 03/19/22 [History Last Taken Unknown] metoprolol tartrate 25 mg tablet 25 mg PO BID 03/19/22 [History Last Taken Unknown] Allergy/AdvReac Type Severity Reaction Status Date / Time No Known Allergies Allergy Verified 03/19/22 14:04 Family History Father CAD (coronary artery disease) Myocardial infarction in his 80's from 80's Brother CAD (coronary artery disease) Myocardial infarction from his 70's from [place] Sister Heart disease Rheumatic Heart Disease Surgical History History of esophagogastroduodenoscopy (EGD) (09/2019) Social History Smoking Status: Never smoker ROS Constitutional Constitutional: Reports fatigue and weakness; Denies anorexia, change in weight, chills, fever(s) or malaise Cardiovascular Cardiovascular: Reports edema; Denies chest pain or palpitations Respiratory/Chest Respiratory/Chest: Reports shortness of breath with exertion; Denies cough, shortness of breath at rest or wheezing Gastrointestinal Gastrointestinal: Denies abdominal pain, constipation, diarrhea, nausea or vomiting Genitourinary Genitourinary: Denies dysuria Musculoskeletal Musculoskeletal: Denies back pain, extremity pain, joint pain or joint stiffness Integumentary Integumentary: Denies dry skin Neurologic Neurologic: Reports weakness; Denies abnormal gait, abnormal speech, confusion or dizziness Psychiatric Psychiatric: Denies anxiety or depression Endocrine Endocrinology: Denies change in body appearance Hematologic/Lymphatic Hematologic/Lymphatic: Reports anemia Vital Signs Vital Signs Vital Signs: 03/19/22 13:55 03/19/22 14:01 03/19/22 14:01 Temperature 96 F L Temperature Source Temporal Pulse Rate 63 Respiratory Rate 22 H 19 H Respiratory Effort Non-Labored Respiratory Pattern Normal Blood Pressure 148/67 H Blood Pressure Mean 94 Pulse Ox 95 91 Oxygen Delivery Method Room Air Room Air Oxygen Flow Rate (L/min) 03/19/22 14:05 03/19/22 15:00 03/19/22 16:25 Temperature 97.7 F L Temperature Source Temporal Pulse Rate 58 L 58 L Respiratory Rate 18 18 Respiratory Effort Respiratory Pattern Blood Pressure 127/60 H 135/53 H Blood Pressure Mean 82 80 Pulse Ox 95 99 99 Oxygen Delivery Method Nasal Cannula Nasal Cannula Nasal Cannula Oxygen Flow Rate (L/min) 2 2 2 Weight Weight: 188 lb 11.451 oz Body Mass Index (BMI) 33.4 Physical Exam Const alert, oriented x3 and no apparent distress General Appearance: cooperative HEENT normocephalic, head/scalp atraumatic and moist oral mucous membranes Neck no lymphadenopathy and supple General: trachea midline Resp normal respiratory effort and normal air movement Effort and Inspection: able to speak in complete sentences and symmetric chest movement Auscultation: crackles bilateral lower Cardio regular rate, regular rhythm, S1 normal heart sound, S2 normal heart sound and peripheral pulses 2+ throughout Heart Sounds: murmur systolic IV/ loud Peripheral Pulses: pulses 2+ throughout GI normal to inspection, nondistended, normoactive bowel sounds and soft to p alpation Extremity normal capillary refill General Extremity: edema bilateral lower extremity Details: moderate Skin General Skin Exam: no breakdown Lesions: no lesions Rashes: no rashes Neuro no focal motor deficits and no sensory deficits noted Motor Exam: general weakness Psych thought process normal, cooperative and affect normal Results Lab / Micro Data Result Diagrams: 03/19/22 14:08 03/19/22 14:08 Labs: Laboratory Results - last 24 hr 03/19/22 14:08: WBC 7.3, RBC 2.26 L, Hgb 6.5 L, Hct 20.3 L, MCV 89.8, MCH 28.8, MCHC 32.0, RDW Std Deviation 51.5 H, RDW Coeff of Elisabeth 16.7 H, Plt Count 177, MPV 10.0, Immature Gran % (Auto) 1.400 H, Neut % (Auto) 77.6 H, Lymph % (Auto) 14.6 L, [place] % (Auto) 5.5, Eos % (Auto) 0.6, Baso % (Auto) 0.3, Absolute Neuts (auto) 5.6, Absolute Lymphs (auto) 1.06, Nucleated RBC % 0.6 03/19/22 14:08: Sodium 136, Potassium 3.8, Chloride 102, Carbon Dioxide 27.0, Anion Gap 7, BUN 46 H, Creatinine 1.26 H, Estim Creat Clear Calc 26.51, Est GFR (MDRD) Af Amer 52 L, Est GFR (MDRD) Non-Af 43 L, BUN/Creatinine Ratio 36.5 H, Gl ucose 229 H, Calcium 9.5, Magnesium 1.9, Troponin I High Sens 272 H*, TSH 2.60 03/19/22 14:08: B-Natriuretic Peptide 612.7 H 03/19/22 14:08: Blood Type A POSITIVE, Antibody Screen NEGATIVE 03/19/22 14:08: Lactic Acid 1.9 03/19/22 14:08: Crossmatch See Detail Micro: Microbiology 03/19/22 14:08 Nasal Secretion SARS-CoV-2 Antigen (Rapid) - Final 03/19/22 14:25 Stool Stool Occult Blood (IDRIS) - Final ABG Data ABG results: ABG 03/19/22 14:36 Specimen Type ART Sample Site L Brach pH 7.42 Bicarbonate Actual 25.7 Total CO2 27 Base Excess 1 O2 Saturation 96 ABG pCO2 40.1 ABG pO2 78 [place] Test Positive Liter Flow 1.5 Radiology Impression Chest X-Ray 03/19/22 14:40 IMPRESSION: Stable mild increased markings in the right upper and right lower lobes as well as at the left lung base suggestive of scarring. Electronically Signed: Yuval Bills MD at 15:05 EDT , Assessment & Plan Assessment/Plan (1) Essential (primary) hypertension: (2) Non-rheumatic aortic stenosis: (3) Hyperlipidemia: PLAN: Plan 1. Acute on chronic anemia -Admit to PCU -Type and screen ordered in ER, 2 units packed red blood cells ordered -CBC repeat in a.m. -Continue ferrous sulfate 2. Congestive heart failure exacerbation secondary to acute anemia and aortic stenosis -BNP 618, shortness of breath with exertion and 3+ pitting edema -Lasix IV ordered twice daily -Echocardiogram ordered for a.m. -Consult cardiology, discussed with Dr. Jain -Daily weights with strict intake and output -Continue potassium 3. Elevated troponin -Patient had elevated troponin during last admission as well -Will trend -Dr. Jain following 4. Hypothyroidism -Continue levothyroxine 5. Diabetes mellitus type 2 -ACH S blood sugars with sliding scale insulin ordered -Hold metformin 6. Hypertension -Continue metoprolol -Lasix IV -Vital signs per protocol, currently stable DVT prophylaxis-SCDs, no pharmacological prophylaxis ordered secondary to anemia This patient was seen by Geraldine Romo NP-C under the supervision of Dr. Ruts. 30 minutes spent in clinical coordination of patient's plan of care. Documented by User: Dr. 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 Type 2 diabetes mellitus Home Medications levothyroxine 125 mcg tablet 125 mcg PO DAILY thyroid 08/27/18 [History Last Taken 09/16/21] pravastatin 20 mg tablet 20 mg PO QHS CHOLESTEROL 10/09/19 [History Last Taken 09/15/21] ferrous sulfate 325 mg (65 mg iron) tablet 325 mg PO BID SUPPLEMENT ##0 10/11/19 [Rx Last Taken 09/16/21] metformin 500 mg tablet,extended release 24 hr 500 mg PO BID diabetes 01/25/20 [History Last Taken 09/16/21] lorazepam 0.5 mg tablet 0.5 mg PO BID PRN PRN Anxiety 04/08/20 [History Last Taken 09/16/21] furosemide 40 mg tablet 40 mg PO DAILY diuretic #90 tabs 03/18/21 [Rx Last Taken 09/16/21] potassium chloride 10 mEq tablet,extended release(part/cryst) 10 meq PO BID supplement 07/12/21 [History Last Taken 09/16/21] allopurinol 100 mg tablet 100 mg PO DAILY 03/19/22 [History Last Taken Unknown] metoprolol tartrate 25 mg tablet 25 mg PO BID 03/19/22 [History Last Taken Unknown] Allergy/AdvReac Type Severity Reaction Status Date / Time No Known Allergies Allergy Verified 03/19/22 14:04 Family History Father CAD (coronary artery disease) Myocardial infarction in his 80's from 80's Brother CAD (coronary artery disease) Myocardial infarction from his 70's from [place] Sister Heart disease Rheumatic Heart Disease Surgical History History of esophagogastroduodenoscopy (EGD) (09/2019) Social History Smoking Status: Never smoker Results Lab / Micro Data Result Diagrams: 03/19/22 14:08 03/19/22 14:08 Assessment & Plan Assessment/Plan (1) Essential (primary) hypertension: (2) Non-rheumatic aortic stenosis: (3) Hyperlipidemia: Charges/Coding Addendum Addendum: This patient was seen in conjunction with Luis Alberto Romo NP. I have independently interviewed and examined the patient and reviewed pertinent historical, laboratory, and other data. I have reviewed her note and concur with her documentation 86-year-old female with past medical history of severe anemia, critical severe aortic stenosis, chronic failure with preserved EF, EF 65%, stage I diastolic dysfunction on 2D echo in 2019, hypertension who comes in with a syncopal episode as well as dizziness. Patient follows chronically with Dr. Epperson in the outpatient for anemia. She last saw him 5 days ago and was told her hemoglobin was 9. She typically walks with a walker and noticed that she was fatigued and short of breath on ambulation yesterday. She woke up this morning feeling dizzy. Around 12 noon on the day of admission, patient had a syncopal episode. She passed out and fell for a few minutes. lifted her head up and she awoke but was not fully out of passing out. This appeared to have her pain for about 30 minutes until her daughter came when she brought her to the hospital. Patient denies feeling confused, admitted to some chest discomfort but no chest pain. Admitted to palpitation. She admits to leg swelling, or thopnea but denies PND Physical Exam: Gen: Comfortable, pale, not jaundiced CVS:HS I +II, regular, no murmurs RESP: Diminished at lung bases GI: BS present and normal, soft, nontender, no palpable organs EXT: Bilateral pedal edema +2-3 ASSESSMENT: 1. Acute severe anemia on chronic anemia, unclear etiology for acute anemia for now 2. Acute exacerbation of chronic heart failure preserved EF 3. Syncope 4. Critical aortic stenosis 5. Acute non-STEMI, type II, secondary to #1 6. Hypertension 7. Hyperlipidemia Plan: Admit to PCU, cardiology consult Transfuse a total of 2 units of packed RBCs Lasix IV twice daily Cardiology consult Daily weight Incentive spirometer Strict I's and Os Time spent taking history, physical examining patient, coordinating all aspects of patient's care, discussing with cardiology and nursin minutes I discussed and explained in details the various types of CODE STATUS-full code, DNR CCA, DNR CC. Patient chose to be DNR CCA, no intubation. Time spent discussing CODE STATUS 16 minutes Visit Charges Inpatient E&M: 52914 Init Hosp L3 Procedures Hospitalists Procedures: 73103 Advncd Care Plan 30 Min
[2022-03-19 17:05] LABS: Bedside Glucose 212 mg/dL (74-106)
[2022-03-19 17:23] LABS: Troponin-I HS 287 pg/mL (3.0-54.0)
[2022-03-19 17:50] LABS: Ferritin 51 ng/mL (8-252); Iron 47 ug/dL (50-170); Iron Binding Capacity,Total 323 ug/dL (250-450); PERCENT IRON SATURATION 14.6 % (15.0-55.0)
[2022-03-19] MEDS: Insulin Lispro 100 UNIT/ML INSULN.PEN SC ×2 (18:15→21:21)
[2022-03-19] MEDS: Ferrous Sulfate 325 MG Tablet PO (18:15)
--- NOTE | 2022-03-19 18:23 | PCM.CONS.C ---
Assessment & Plan Assessment/Plan (1) Essential (primary) hypertension: (2) Hyperlipidemia: (3) Right bundle branch block (RBBB) with left anterior fascicular block: (4) Non-rheumatic aortic stenosis: PLAN: 86-year-old patient who presented with a weakness Noted she has anemia with a hemoglobin of 6.5 Also patient had prior admission with elevated cardiac biomarkers Also has severe aortic stenosis Cardiac care plan recommendation; 1. I discussed today in detail with the patient and family Regarding cardiac evaluation for severe aortic stenosis?TAVR And also to evaluate with left heart catheterization in preparation for the procedure Patient and family would like to discuss this further 2. She has chronic anemia and she has been followed as outpatient by the camper assembler/myelodysplastic syndrome 3. Patient has no active symptoms of chest pain and she has mild elevation of cardiac biomarker high sensitive troponin This is likely secondary to demand myocardial ischemia/type II AL I would agree with the current treatment of blood transfusion and diuretic for the congestive heart failure which is likely HFpEF Secondary to severe aortic stenosis and anemia 4. We will review the echocardiogram and discuss further plan regarding to set up as an outpatient for TAVR evaluation If the patient and family agreeable HPI Consult Data Date of Consult: 03/19/22 HPI Narrative Reason for Consultation: Patient is critical aortic stenosis and had anemia HPI Narrative: JAMIR TORRES, is a 86 F who presents [facility] Medical History Acute kidney injury superimposed on CKD Acute on chronic anemia Acute on chronic blood loss anemia Anemia Chronic anemia Chronic kidney disease, stage 3 CKD (chronic kidney disease), stage III Essential (primary) hypertension GI bleed (10/09/19) History of non-ST elevation myocardial infarction (NSTEMI) (09/17/21) Hyperlipidemia Hypothyroidism Iron deficiency anemia Non-rheumatic aortic stenosis Obesity Osteoarthritis 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 Type 2 diabetes mellitus Home Medications levothyroxine 125 mcg tablet 125 mcg PO DAILY thyroid 08/27/18 [History Last Taken 09/16/21] pravastatin 20 mg tablet 20 mg PO QHS CHOLESTEROL 10/09/19 [History Last Taken 09/15/21] ferrous sulfate 325 mg (65 mg iron) tablet 325 mg PO BID SUPPLEMENT ##0 10/11/19 [Rx Last Taken 09/16/21] metformin 500 mg tablet,extended release 24 hr 500 mg PO BID diabetes 01/25/20 [History Last Taken 09/16/21] lorazepam 0.5 mg tablet 0.5 mg PO BID PRN PRN Anxiety 04/08/20 [History Last Taken 09/16/21] furosemide 40 mg tablet 40 mg PO DAILY diuretic #90 tabs 03/18/21 [Rx Last Taken 09/16/21] potassium chloride 10 mEq tablet,extended release(part/cryst) 10 meq PO BID supplement 07/12/21 [History Last Taken 09/16/21] allopurinol 100 mg tablet 100 mg PO DAILY 03/19/22 [History Last Taken Unknown] metoprolol tartrate 25 mg tablet 25 mg PO BID 03/19/22 [History Last Taken Unknown] Allergy/AdvReac Type Severity Reaction Status Date / Time No Known Allergies Allergy Verified 03/19/22 14:04 Family History Father CAD (coronary artery disease) Myocardial infarction in his 80's from 80's Brother CAD (coronary artery disease) Myocardial infarction from his 70's from [place] Sister Heart disease Rheumatic Heart Disease Surgical History History of esophagogastroduodenoscopy (EGD) (09/2019) Social History Smoking Status: Never smoker Physical Exam Narrative In and evaluated today at bedside Along with the nursing staff, family and daughter at bedside She is alert orientated Does not have any active chest pain Her monitoring coordinator showed underlying normal sinus with sinus bradycardia heart rate of around 53 Cardiovascular domination; S1-S2 regular She had systolic murmur heard in the aortic valve area Chest examination clear to auscultation bilateral Examination lower extremity she has +1?+2 lower extremity edema Risk Stratification Risk Stratification Applicable: No Objective Data Vital Signs: Vital Signs Temp Pulse Resp BP Pulse Ox O2 Del Method O2 Flow Rate 97.7 F L 64 18 135/53 H 99 Nasal Cannula 2 03/19/22 16:25 03/19/22 16:38 03/19/22 16:25 03/19/22 16:25 03/19/22 16:25 03/19/22 16:25 03/19/22 16:25 Oxygen Flow Rate (L/min) 2 Oxygen Delivery Method Nasal Cannula Weight: 188 lb 11.451 oz Body Mass Index (BMI) 33.4 Intake & Output: Intake and Output for Last 24 Hours 03/17/22 03/18/22 03/19/22 23:59 23:59 23:59 Intake Total 0 / 0 Balance 0 / 0 Lab / Micro Data Result Diagrams: 03/19/22 14:08 03/19/22 14:08 Labs: Laboratory Results - last 24 hr 03/19/22 14:08: WBC 7.3, RBC 2.26 L, Hgb 6.5 L, Hct 20.3 L, MCV 89.8, MCH 28.8, MCHC 32.0, RDW Std Deviation 51.5 H, RDW Coeff of Elisabeth 16.7 H, Plt Count 177, MPV 10.0, Immature Gran % (Auto) 1.400 H, Neut % (Auto) 77.6 H, Lymph % (Auto) 14.6 L, [place] % (Auto) 5.5, Eos % (Auto) 0.6, Baso % (Auto) 0.3, Absolute Neuts (auto) 5.6, Absolute Lymphs (auto) 1.06, Nucleated RBC % 0.6 03/19/22 14:08: Sodium 136, Potassium 3.8, Chloride 102, Carbon Dioxide 27.0, Anion Gap 7, BUN 46 H, Creatinine 1.26 H, Estim Creat Clear Calc 26.51, Est GFR (MDRD) Af Amer 52 L, Est GFR (MDRD) Non-Af 43 L, BUN/Creatinine Ratio 36.5 H, Glucose 229 H, Calcium 9.5, Magnesium 1.9, Troponin I High Sens 272 H*, TSH 2.60 03/19/22 14:08: B-Natriuretic Peptide 612.7 H 03/19/22 14:08: Blood Type A POSITIVE, Antibody Screen NEGATIVE 03/19/22 14:08: Lactic Acid 1.9 03/19/22 14:08: Crossmatch See Detail 03/19/22 14:08: Iron 47 L, TIBC 323, Iron Saturation 14.6 L, Ferritin 51 03/19/22 16:40: Troponin I High Sens 287 H* 03/19/22 16:43: POC Glucose 212 H Micro: Microbiology 03/19/22 14:08 Nasal Secretion SARS-CoV-2 Antigen (Rapid) - Final 03/19/22 14:25 Stool Stool Occult Blood (IDRIS) - Final ABG Data ABG results: ABG 03/19/22 14:36 Specimen Type ART Sample Site L Brach pH 7.42 Bicarbonate Actual 25.7 Total CO2 27 Base Excess 1 O2 Saturation 96 ABG pCO2 40.1 ABG pO2 78 [place] Test Positive Liter Flow 1.5 Cardiology Labs/Tests 03/19/22 14:08: WBC 7.3, RBC 2.26 L, Hgb 6.5 L, Hct 20.3 L, MCV 89.8, MCH 28.8, MCHC 32.0, Plt Count 177, MPV 10.0, Immature Gran % (Auto) 1.400 H, Neut % (Auto) 77.6 H, Lymph % (Auto) 14.6 L, [place] % (Auto) 5.5, Eos % (Auto) 0.6, Baso % (Auto) 0.3, Absolute Neuts (auto) 5.6, Nucleated RBC % 0.6 03/19/22 14:08: Sodium 136, Potassium 3.8, Chloride 102, Carbon Dioxide 27.0, Anion Gap 7, BUN 46 H, Creatinine 1.26 H, Est GFR (MDRD) Af Amer 52 L, Est GFR (MDRD) Non-Af 43 L, BUN/Creatinine Ratio 36.5 H, Glucose 229 H, Calcium 9.5, Magnesium 1.9 03/19/22 14:08: B-Natriuretic Peptide 612.7 H 03/19/22 14:08: Lactic Acid 1.9 03/19/22 14:08: Iron 47 L, TIBC 323, Iron Saturation 14.6 L, Ferritin 51 03/19/22 14:36: pH 7.42, Bicarbonate Actual 25.7, Base Excess 1, O2 Saturation 96, ABG pCO2 40.1, ABG pO2 78, [place] Test Positive Rhythm: Normal sinus rhythm EKG: Normal sinus rhythm, right bundle branch block, left anterior fascicular block, Bifascicular block. Radiography Diagnostic Testing: Radiology Impression Chest X-Ray 03/19/22 14:40 IMPRESSION: Stable mild increased markings in the right upper and right lower lobes as well as at the left lung base suggestive of scarring. Electronically Signed: Yuval Bills MD at 15:05 EDT ,
[2022-03-19] MEDS: Furosemide 40 MG/4 ML Vial IV (20:00)
[2022-03-19] MEDS: 0.9% Saline Lock 10 ML Syringe IV (20:01)
[2022-03-19 21:23] LABS: Platelet Count 182 K/mm3 (150-450); RET-HE 32.7 pg (30-35); Reticulocyte Count 5.48 % (0.5-1.5)
[2022-03-19] MEDS: Pravastatin 20 MG Tablet PO (21:27)
[2022-03-19] MEDS: Metoprolol Tartrate 25 MG Tablet 12.5 MG PO (21:28)
[2022-03-19 21:45] LABS: Troponin-I HS 269 pg/mL (3.0-54.0)
[2022-03-20] VITALS (13 sets, daily range): BP systolic 116–141; BP diastolic 50–57; PULSE 47–63; RESP 16–20; TEMP 36.2–36.9; O2SAT 96–99
[2022-03-20 01:16] LABS: Bedside Glucose 203 mg/dL (74-106)
[2022-03-20] MEDS: Levothyroxine 125 MCG Tablet PO (05:20)
[2022-03-20] MEDS: Insulin Lispro 100 UNIT/ML INSULN.PEN SC ×4 (06:12→21:59)
[2022-03-20 06:14] LABS: Absolute Neutrophil Count 5.2 X10^3/uL (2.0-7.7); Basophil# 0.03 X10^3/uL; Basophil% 0.4 % (0-1); Eosinophil# 0.08 X10^3/uL; Hematocrit 26.4 % (37-47); Hemoglobin 8.9 g/dL (12.0-15.0); Lymphocyte % 25.9 % (19-41); Mean Corp Hgb Conc 33.7 g/dL (32-36); Mean Corpuscular Hgb 30.4 pg (27.0-32.0); Mean Corpuscular Volume 90.1 fL (81-99); Mean Platelet Vol. 9.4 fl (6.2-12.0); Monocyte# 0.56 X10^3/uL; Monocyte% 6.9 % (0-10); NRBC Flagged by Analyzer 0.9 % (0-5); Neutrophil # 5.24 X10^3/uL (2.7-7.7); Neutrophil % 64.7 % (47-70); Platelet Count 159 K/mm3 (150-450); RBC Distribution Width CV 15.9 % (11.6-14.6); RBC Distribution Width SD 49.4 fl (35.1-43.9); Red Blood Count 2.93 M/mm3 (4.2-5.4); White Blood Count 8.1 K/mm3 (4.4-11.0)
[2022-03-20 06:35] LABS: Bedside Glucose 180 mg/dL (74-106)
[2022-03-20 06:39] LABS: ALB/GLOB Ratio 0.9 RATIO (0.9-2.4); AST(SGOT) 12 U/L (15-37); Alanine Aminotransfer ALT/SGPT 15 U/L (13-56); Albumin, Serum 2.9 g/dL (3.2-5.0); Alkaline Phosphatase 59 U/L (45-117); Anion Gap 7 (5-15); BUN 50 mg/dL (7-18); BUN/Creat Ratio 42.4 RATIO (10-20); Calcium,Total 9.5 mg/dL (8.5-10.1); Chloride 103 mmol/L (98-107); Creatinine, Serum 1.18 mg/dL (0.55-1.02); EST Glomerular Filtration Rate 46 mL/min (>60); Est Glom Filt Rate - Afr Amer 56 mL/min (>60); Estimated Creatinine Clearance 27.07 ml/min; Globulin 3.2 g/dL (2.2-4.2); Glucose 175 mg/dL (74-106); Potassium 3.4 mmol/L (3.5-5.1); Protein, Total 6.1 g/dL (6.4-8.2); Sodium Level 140 mmol/L (136-145)
[2022-03-20] MEDS: Metoprolol Tartrate 25 MG Tablet 12.5 MG PO ×2 (09:17→21:56)
[2022-03-20] MEDS: Potassium Chloride Oral Tablet 20 MEQ 40 MEQ PO (09:17)
[2022-03-20] MEDS: Furosemide 40 MG/4 ML Vial IV ×2 (09:19→17:05)
--- NOTE | 2022-03-20 09:35 | CASEMGMT ---
KORI RHODES Assessment: Face to Face with pt for initial transition planning/care coordination assessment. RN CARMELO introduced self and role at [facility], pt voices understanding and consents to assessment. Pt is A/O x4 and answers all questions appropriately at this time. Pt sitting up in chair eating breakfast with at bedside in no distress. Care providers, pharmacy, and demographics verified/updated. Admitting Dx: severe anemia PCP: Desi Specialists: prerna Epperson; CASSANDRAG, cardio Preferred Pharmacy: [facility] Insurance: [employer] Prescription Benefit: no LW/HPOA: Pt denies having a LW/DPOA and denies need for info regarding AD. LNOK: Hunter Avalos, ; Juli Avalos, dtr Living Arrangements: Pt lives with and dtr in a two story house with 3 steps to enter with a rail. Pt lives on the main level. She states two dtrs also live in the house right beside hers. Pt reports she is I in ADL's and denies concerns at home. Transportation: Pt hires transportation. DME/HHC/SNF: Pt has a BGM with sufficient supplies. She also has grab bars in the bathroom, shower chair, FWW and cane. Pt denies previous HHC or SNF stays. Pt states no concerns with going home at time of dc. Pt states no further concerns/needs. CM to follow. Advised pt to ask CM if any further question/concerns/needs arise, voices understanding. Pt Goal: Home Plan: Home
--- NOTE | 2022-03-20 10:45 | PCM.PN.HOSP ---
Documented by User: Geraldine Romo NP-C 03/20/22 10:52 Subjective Subjective Patient seen and examined. Patient sitting in chair, no distress noted. Patients family at bedside, POC discussed. Patient and family do not want any invasive interventions. Palliative Care consulted. Objective Data Objective Data Vital Signs: Vital Signs Temp Pulse Resp BP Pulse Ox O2 Del Method O2 Flow Rate 98.0 F 59 L 20 H 141/53 H 99 Nasal Cannula 2 03/20/22 05:14 03/20/22 09:17 03/20/22 05:14 03/20/22 09:17 03/20/22 05:14 03/20/22 05:14 03/20/22 05:14 Oxygen Flow Rate (L/min) 2 Oxygen Delivery Method Nasal Cannula Weight: 179 lb 14.355 oz Body Mass Index (BMI) 32.9 Intake & Output: Intake and Output for Last 24 Hours 03/18/22 03/19/22 03/20/22 23:59 23:59 23:59 Intake Total 1400 / 1400 120 / 120 Output Total 575 / 575 525 / 525 Balance 825 / 825 -405 / -405 Lab / Micro Data Result Diagrams: 03/20/22 11:45 03/20/22 05:45 Labs: Laboratory Results - last 24 hr 03/19/22 14:08: WBC 7.3, RBC 2.26 L, Hgb 6.5 L, Hct 20.3 L, MCV 89.8, MCH 28.8, MCHC 32.0, RDW Std Deviation 51.5 H, RDW Coeff of Elisabeth 16.7 H, Plt Count 177, MPV 10.0, Immature Gran % (Auto) 1.400 H, Neut % (Auto) 77.6 H, Lymph % (Auto) 14.6 L, [place] % (Auto) 5.5, Eos % (Auto) 0.6, Baso % (Auto) 0.3, Absolute Neuts (auto) 5.6, Absolute Lymphs (auto) 1.06, Nucleated RBC % 0.6 03/19/22 14:08: Sodium 136, Potassium 3.8, Chloride 102, Carbon Dioxide 27.0, Anion Gap 7, BUN 46 H, Creatinine 1.26 H, Estim Creat Clear Calc 26.51, Est GFR (MDRD) Af Amer 52 L, Est GFR (MDRD) Non-Af 43 L, BUN/Creatinine Ratio 36.5 H, Glucose 229 H, Calcium 9.5, Magnesium 1.9, Troponin I High Sens 272 H*, TSH 2.60 03/19/22 14:08: B-Natriuretic Peptide 612.7 H 03/19/22 14:08: Blood Type A POSITIVE, Antibody Screen NEGATIVE 03/19/22 14:08: Lactic Acid 1.9 03/19/22 14:08: Crossmatch See Detail 03/19/22 14:08: Iron 47 L, TIBC 323, Iron Saturation 14.6 L, Ferritin 51 03/19/22 14:08: Crossmatch See Detail 03/19/22 16:40: Troponin I High Sens 287 H* 03/19/22 16:43: POC Glucose 212 H 03/19/22 20:25: Troponin I High Sens 269 H* 03/19/22 20:25: Retic Count 5.48 H, Immature Retic Fraction 37.10 H, Retic Hgb Equivalent 32.7 03/19/22 21:20: POC Glucose 203 H 03/20/22 05:45: WBC 8.1, RBC 2.93 L, Hgb 8.9 L, Hct 26.4 L, MCV 90.1, MCH 30.4, MCHC 33.7 D, RDW Std Deviation 49.4 H, RDW Coeff of Elisabeth 15.9 H, Plt Count 159, MPV 9.4, Immature Gran % (Auto) 1.100 H, Neut % (Auto) 64.7, Lymph % (Auto) 25.9, [place] % (Auto) 6.9, Eos % (Auto) 1.0, Baso % (Auto) 0.4, Absolute Neuts (auto) 5.2, Absolute Lymphs (auto) 2.10, Nucleated RBC % 0.9 03/20/22 05:45: Sodium 140, Potassium 3.4 L, Chloride 103, Carbon Dioxide 30.0, Anion Gap 7, BUN 50 H, Creatinine 1.18 H, Estim Creat Clear Calc 27.07, Est GFR (MDRD) Af Amer 56 L, Est GFR (MDRD) Non-Af 46 L, BUN/Creatinine Ratio 42.4 H, Glucose 175 H, Calcium 9.5, Total Bilirubin 0.80, AST 12 L, ALT 15, Alkaline Phosphatase 59, Total Protein 6.1 L, Albumin 2.9 L, Globulin 3.2, Albumin/Globulin Ratio 0.9 03/20/22 06:10: POC Glucose 180 H Micro: Microbiology 03/19/22 14:08 Nasal Secretion SARS-CoV-2 Antigen (Rapid) - Final 03/19/22 14:25 Stool Stool Occult Blood (IDRIS) - Final ABG Data ABG results: ABG 03/19/22 14:36 Specimen Type ART Sample Site L Brach pH 7.42 Bicarbonate Actual 25.7 Total CO2 27 Base Excess 1 O2 Saturation 96 ABG pCO2 40.1 ABG pO2 78 [place] Test Positive Liter Flow 1.5 Radiography Diagnostic Testing: Radiology Impression Chest X-Ray 03/19/22 14:40 IMPRESSION: Stable mild increased markings in the right upper and right lower lobes as well as at the left lung base suggestive of scarring. Electronically Signed: Yuval Bills MD at 15:05 EDT , Rhythm Strip Rhythm Strip: Sinus Rhythm Rate: 57 Ectopy: None Physical Exam Const alert, oriented x3 and no apparent distress General Appearance: cooperative HEENT normocephalic, head/scalp atraumatic and moist oral mucous membranes Neck no lymphadenopathy and supple General: trachea midline Resp normal respiratory effort, normal air movement and clear to auscultation bilaterally Effort and Inspection: able to speak in complete sentences and symmetric chest movement Cardio regular rate, regular rhythm, S1 normal heart sound, S2 normal heart sound and peripheral pulses 2+ throughout Heart Sounds: murmur systolic IV/ loud Peripheral Pulses: pulses 2+ throughout GI normal to inspection, nondistended, normoactive bowel sounds and soft to palpation Extremity normal capillary refill General Extremity: edema bilateral lower extremity Details: moderate Skin General Skin Exam: no breakdown Lesions: no lesions Rashes: no rashes Neuro no focal motor deficits and no sensory deficits noted Motor Exam: general weakness Psych thought process normal, cooperative and affect normal Assessment & Plan Assessment/Plan (1) Essential (primary) hypertension: (2) Non-rheumatic aortic stenosis: (3) Hyperlipidemia: PLAN: Plan 1. Acute on chronic anemia -Type and screen ordered in ER, 2 units packed red blood cells given overnight -Hgb 8.9 this am, will recheck H&H 1200. If hemoglobin has decreased will order 1 more unit of packed red blood cells -CBC in a.m. -Continue ferrous sulfate 2. Congestive heart failure exacerbation secondary to acute anemia and aortic stenosis -Lasix IV ordered twice daily -Echocardiogram pending -Discussed patient's wishes regarding invasive procedures with Dr. Jain who is amenable to palliative consult -Daily weights with strict intake and output -Potassium chloride 40 mEq p.o. daily ordered, potassium 3.4 3. Elevated troponin -Patient had elevated troponin during last admission as well -Will trend -Dr. Jain following 4. Hypothyroidism -Continue levothyroxine 5. Diabetes mellitus type 2 -ACH S blood sugars with sliding scale insulin ordered -Hold metformin 6. Hypertension -Continue metoprolol -Lasix IV -Vital signs per protocol, currently stable DVT prophylaxis-SCDs, no pharmacological prophylaxis ordered secondary to anemia This patient was seen by BERTA CainC under the supervision of Dr. Rust. 14 minutes spent in clinical coordination of patient's plan of care. Documented by User: Dr. Marlyn Rust MD 03/20/22 14:32 Objective Data Lab / Micro Data Result Diagrams: 03/20/22 11:45 03/20/22 05:45 Assessment & Plan Assessment/Plan (1) Essential (primary) hypertension: (2) Non-rheumatic aortic stenosis: (3) Hyperlipidemia: Charges/Coding Addendum Addendum: This patient was seen in conjunction with Luis Alberto Romo NP.? I have independently interviewed and examined the patient and reviewed pertinent historical, laboratory, and other data. I have reviewed her note and concur with her documentation Patient was seen and examined. She denies any chest pain or dizziness. She received 2 units of packed RBCs. I had a long talk with her concerning her goals of care. Patient has had a discussion about TAVR with cardiology. She declines any aggressive work-up. She stated that she is hesitant and afraid actually. She stated that she is ready and anytime God wants her, she is ready. She also declined cardiac catheterization. Physical Exam: Gen: Comfortable, pale, not jaundiced CVS:HS I +II, regular, 4/6 ejection systolic murmur RESP: Diminished at lung bases GI: BS present and normal, soft, nontender, no palpable organs EXT: Bilateral pedal edema +2-3 ASSESSMENT: 1.? Acute severe anemia on chronic anemia, unclear etiology for acute anemia for now 2.? Acute exacerbation of chronic heart failure preserved EF 3.? Syncope 4.? Critical aortic stenosis 5.? Acute non-STEMI, type II, secondary to #1 6.? Hypertension 7.? Hyperlipidemia Plan: Continue to monitor HH Lasix IV twice daily Cardiology following Daily weight Incentive spirometer Strict I's and Os Possible DC in am if stable Time spent coordinating all aspects of patient's care, discussing with cardiology and nursin minutes Visit Charges Inpatient E&M: 62443 Subs Hosp L2
[2022-03-20] MEDS: Ferrous Sulfate 325 MG Tablet PO ×2 (11:29→17:05)
[2022-03-20 12:02] LABS: Hematocrit 28.4 % (37-47); Hemoglobin 9.5 g/dL (12.0-15.0)
--- NOTE | 2022-03-20 12:17 | PN.CARD_ITS ---
Subjective Subjective Seen and evaluated at bedside along with the nursing staff Family at bedside and daughter Shortness of breath is improving Objective Data Vital Signs: Vital Signs Temp Pulse Resp BP Pulse Ox O2 Del Method O2 Flow Rate 98.0 F 59 L 20 H 141/53 H 99 Nasal Cannula 2 03/20/22 05:14 03/20/22 09:17 03/20/22 05:14 03/20/22 09:17 03/20/22 05:14 03/20/22 05:14 03/20/22 05:14 Oxygen Flow Rate (L/min) 2 Oxygen Delivery Method Nasal Cannula Weight: 179 lb 14.355 oz Body Mass Index (BMI) 32.9 Intake & Output: Intake and Output for Last 24 Hours 03/18/22 03/19/22 03/20/22 23:59 23:59 23:59 Intake Total 1400 / 1400 120 / 120 Output Total 575 / 575 525 / 525 Balance 825 / 825 -405 / -405 Lab / Micro Data Result Diagrams: 03/20/22 11:45 03/20/22 05:45 Labs: Laboratory Results - last 24 hr 03/19/22 14:08: WBC 7.3, RBC 2.26 L, Hgb 6.5 L, Hct 20.3 L, MCV 89.8, MCH 28.8, MCHC 32.0, RDW Std Deviation 51.5 H, RDW Coeff of Elisabeth 16.7 H, Plt Count 177, MPV 10.0, Immature Gran % (Auto) 1.400 H, Neut % (Auto) 77.6 H, Lymph % (Auto) 14.6 L, [place] % (Auto) 5.5, Eos % (Auto) 0.6, Baso % (Auto) 0.3, Absolute Neuts (auto) 5.6, Absolute Lymphs (auto) 1.06, Nucleated RBC % 0.6 03/19/22 14:08: Sodium 136, Potassium 3.8, Chloride 102, Carbon Dioxide 27.0, Anion Gap 7, BUN 46 H, Creatinine 1.26 H, Estim Creat Clear Calc 26.51, Est GFR (MDRD) Af Amer 52 L, Est GFR (MDRD) Non-Af 43 L, BUN/Creatinine Ratio 36.5 H, Glucose 229 H, Calcium 9.5, Magnesium 1.9, Troponin I High Sens 272 H*, TSH 2.60 03/19/22 14:08: B-Natriuretic Peptide 612.7 H 03/19/22 14:08: Blood Type A POSITIVE, Antibody Screen NEGATIVE 03/19/22 14:08: Lactic Acid 1.9 03/19/22 14:08: Crossmatch See Detail 03/19/22 14:08: Iron 47 L, TIBC 323, Iron Saturation 14.6 L, Ferritin 51 03/19/22 14:08: Crossmatch See Detail 03/19/22 16:40: Troponin I High Sens 287 H* 03/19/22 16:43: POC Glucose 212 H 03/19/22 20:25: Troponin I High Sens 269 H* 03/19/22 20:25: Retic Count 5.48 H, Immature Retic Fraction 37.10 H, Retic Hgb Equivalent 32.7 03/19/22 21:20: POC Glucose 203 H 03/20/22 05:45: WBC 8.1, RBC 2.93 L, Hgb 8.9 L, Hct 26.4 L, MCV 90.1, MCH 30.4, MCHC 33.7 D, RDW Std Deviation 49.4 H, RDW Coeff of Elisabeth 15.9 H, Plt Count 159, MPV 9.4, Immature Gran % (Auto) 1.100 H, Neut % (Auto) 64.7, Lymph % (Auto) 25.9, [place] % (Auto) 6.9, Eos % (Auto) 1.0, Baso % (Auto) 0.4, Absolute Neuts (auto) 5.2, Absolute Lymphs (auto) 2.10, Nucleated RBC % 0.9 03/20/22 05:45: Sodium 140, Potassium 3.4 L, Chloride 103, Carbon Dioxide 30.0, Anion Gap 7, BUN 50 H, Creatinine 1.18 H, Estim Creat Clear Calc 27.07, Est GFR (MDRD) Af Amer 56 L, Est GFR (MDRD) Non-Af 46 L, BUN/Creatinine Ratio 42.4 H, Glucose 175 H, Calcium 9.5, Total Bilirubin 0.80, AST 12 L, ALT 15, Alkaline Phosphatase 59, Total Protein 6.1 L, Albumin 2.9 L, Globulin 3.2, Albumin/Globulin Ratio 0.9 03/20/22 06:10: POC Glucose 180 H 03/20/22 11:45: Hgb 9.5 L, Hct 28.4 L Micro: Microbiology 03/19/22 14:08 Nasal Secretion SARS-CoV-2 Antigen (Rapid) - Final 03/19/22 14:25 Stool Stool Occult Blood (IDRIS) - Final ABG Data ABG results: ABG 03/19/22 14:36 Specimen Type ART Sample Site L Brach pH 7.42 Bicarbonate Actual 25.7 Total CO2 27 Base Excess 1 O2 Saturation 96 ABG pCO2 40.1 ABG pO2 78 [place] Test Positive Liter Flow 1.5 Rhythm Strip Rhythm Strip: Sinus Rhythm Rate: 57 Ectopy: None Cardiology Labs/Tests 03/19/22 14:08: WBC 7.3, RBC 2.26 L, Hgb 6.5 L, Hct 20.3 L, MCV 89.8, MCH 28.8, MCHC 32.0, Plt Count 177, MPV 10.0, Immature Gran % (Auto) 1.400 H, Neut % (Auto) 77.6 H, Lymph % (Auto) 14.6 L, [place] % (Auto) 5.5, Eos % (Auto) 0.6, Baso % (Auto) 0.3, Absolute Neuts (auto) 5.6, Nucleated RBC % 0.6 03/19/22 14:08: Sodium 136, Potassium 3.8, Chloride 102, Carbon Dioxide 27.0, Anion Gap 7, BUN 46 H, Creatinine 1.26 H, Est GFR (MDRD) Af Amer 52 L, Est GFR (MDRD) Non-Af 43 L, BUN/Creatinine Ratio 36.5 H, Glucose 229 H, Calcium 9.5, Magnesium 1.9 03/19/22 14:08: B-Natriuretic Peptide 612.7 H 03/19/22 14:08: Lactic Acid 1.9 03/19/22 14:08: Iron 47 L, TIBC 323, Iron Saturation 14.6 L, Ferritin 51 03/19/22 14:36: pH 7.42, Bicarbonate Actual 25.7, Base Excess 1, O2 Saturation 96, ABG pCO2 40.1, ABG pO2 78, [place] Test Positive 03/20/22 05:45: WBC 8.1, RBC 2.93 L, Hgb 8.9 L, Hct 26.4 L, MCV 90.1, MCH 30.4, MCHC 33.7 D, Plt Count 159, MPV 9.4, Immature Gran % (Auto) 1.100 H, Neut % (Auto) 64.7, Lymph % (Auto) 25.9, [place] % (Auto) 6.9, Eos % (Auto) 1.0, Baso % (Auto) 0.4, Absolute Neuts (auto) 5.2, Nucleated RBC % 0.9 03/20/22 05:45: Sodium 140, Potassium 3.4 L, Chloride 103, Carbon Dioxide 30.0, Anion Gap 7, BUN 50 H, Creatinine 1.18 H, Est GFR (MDRD) Af Amer 56 L, Est GFR (MDRD) Non-Af 46 L, BUN/Creatinine Ratio 42.4 H, Glucose 175 H, Calcium 9.5, T otal Bilirubin 0.80 03/20/22 11:45: Hgb 9.5 L, Hct 28.4 L Rhythm: EKG: ECHO: Stress Test: Cardiac Cath: PCI: CT Surgery: Holter monitor: EPS: PPM: CXR: Chest CT Scan: Radiography Diagnostic Testing: Radiology Impression Chest X-Ray 03/19/22 14:40 IMPRESSION: Stable mild increased markings in the right upper and right lower lobes as well as at the left lung base suggestive of scarring. Electronically Signed: Yuval Bills MD at 15:05 EDT , Echocardiogram 03/19/22 15:48 Interpretation Summary The estimated ejection fraction is 55-60 %. Normal LV systolic function Severe Aortic valve stenosis JACINTA 0.43 cm2 Aortic mean pressure gradient 88 mmhg Mild AI. 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 With a mean gradient of 88 mmHg consistent with critical severe aortic stenosis LV function is preserved Cardiac care plan recommendations; 1. Discussed in detail plan of treatment patient, and daughter decided conservative treatment No plan for any further invasive evaluation Patient and family declined cardiac cath and TAVR evaluation 2. We will continue to monitor and follow-up with the current treatment 3. We will arrange for outpatient follow-up with the primary water and fire technician Dr. Melo for continuation of cardiac care
[2022-03-20 16:50] LABS: Bedside Glucose 253 mg/dL (74-106)
[2022-03-20 17:31] LABS: Bedside Glucose 215 mg/dL (74-106)
[2022-03-20] MEDS: 0.9% Saline Lock 10 ML Syringe IV (20:26)
[2022-03-20] MEDS: Pravastatin 20 MG Tablet PO (21:56)
[2022-03-20] MEDS: LORazepam 0.5 MG Tablet PO (22:08)
[2022-03-21] VITALS (10 sets, daily range): BP systolic 114–141; BP diastolic 47–70; PULSE 56–71; RESP 14–20; TEMP 36.4–36.9; O2SAT 95–97
[2022-03-21 00:01] LABS: Bedside Glucose 228 mg/dL (74-106)
[2022-03-21 06:16] LABS: Absolute Lymphocyte Count 1.41 X10^3/uL (0.83-4.51); Absolute Neutrophil Count 3.7 X10^3/uL (2.0-7.7); Basophil# 0.02 X10^3/uL; Basophil% 0.3 % (0-1); Eosinophil# 0.14 X10^3/uL; Eosinophils% 2.4 % (0-5); Hematocrit 25.1 % (37-47); Hemoglobin 8.2 g/dL (12.0-15.0); Lymphocyte # 1.41 X10^3/ul (0.83-4.51); Lymphocyte % 24.2 % (19-41); Mean Corp Hgb Conc 32.7 g/dL (32-36); Mean Corpuscular Volume 91.9 fL (81-99); Mean Platelet Vol. 9.6 fl (6.2-12.0); Monocyte# 0.44 X10^3/uL; Monocyte% 7.6 % (0-10); Neutrophil # 3.72 X10^3/uL (2.7-7.7); Platelet Count 161 K/mm3 (150-450); RBC Distribution Width CV 16.6 % (11.6-14.6); RBC Distribution Width SD 51.4 fl (35.1-43.9); Red Blood Count 2.73 M/mm3 (4.2-5.4); White Blood Count 5.8 K/mm3 (4.4-11.0)
[2022-03-21] MEDS: Insulin Lispro 100 UNIT/ML INSULN.PEN SC ×2 (06:50→11:35)
[2022-03-21] MEDS: Levothyroxine 125 MCG Tablet PO (06:50)
[2022-03-21 06:51] LABS: ALB/GLOB Ratio 0.9 RATIO (0.9-2.4); AST(SGOT) 13 U/L (15-37); Alanine Aminotransfer ALT/SGPT 12 U/L (13-56); Albumin, Serum 2.7 g/dL (3.2-5.0); Alkaline Phosphatase 56 U/L (45-117); Anion Gap 2 (5-15); BUN 56 mg/dL (7-18); BUN/Creat Ratio 44.8 RATIO (10-20); Calcium,Total 9.4 mg/dL (8.5-10.1); Chloride 104 mmol/L (98-107); Creatinine, Serum 1.25 mg/dL (0.55-1.02); EST Glomerular Filtration Rate 43 mL/min (>60); Est Glom Filt Rate - Afr Amer 52 mL/min (>60); Estimated Creatinine Clearance 25.55 ml/min; Globulin 3.1 g/dL (2.2-4.2); Glucose 168 mg/dL (74-106); Potassium 3.5 mmol/L (3.5-5.1); Protein, Total 5.8 g/dL (6.4-8.2); Sodium Level 138 mmol/L (136-145)
[2022-03-21 07:56] LABS: Bedside Glucose 186 mg/dL (74-106)
[2022-03-21] MEDS: Metoprolol Tartrate 25 MG Tablet 12.5 MG PO (10:11)
[2022-03-21] MEDS: Potassium Chloride Oral Tablet 20 MEQ 40 MEQ PO (10:12)
[2022-03-21] MEDS: Furosemide 40 MG/4 ML Vial IV (10:15)
[2022-03-21] MEDS: Ferrous Sulfate 325 MG Tablet PO (11:35)
[2022-03-21 11:55] LABS: Bedside Glucose 251 mg/dL (74-106)
[2022-03-21 12:10] LABS: Hematocrit 32.7 % (37-47); Hemoglobin 10.8 g/dL (12.0-15.0)
--- NOTE | 2022-03-21 12:15 | DCINST_ITS ---
Discharge Instructions Diet Discharge Diet: Low fat / Low cholesterol Activity Discharge Activity: Return to Normal Activity and Use Walker Dressing / Incision Call your doctor if you observe: Shortness of breath, Swelling in the ankles, Chest pain and Increased palpitations (irregular heartbeat) Follow Up Care Test Results: Test results from this visit will be discussed in further detail at your follow- up appointment, if applicable. Discharge Plan Admission Admit Date/Time: 03/19/22 15:37 Primary Reason for Your Visit: Weakness, Shortness of breath Attending Provider: Marlyn Rust Primary Care Provider: Gordo Weeks Consulting Providers: Sara Jain Instructions Additional Instructions / Restrictions: Will need a repeat CBC and BMP later this week Discharge Orders/Prescriptions Prescriptions: New potassium chloride 20 mEq tablet extended release 40 meq PO DAILY Qty: 20 0RF Continued metformin 500 mg tablet extended release 24 hr 500 mg PO BID levothyroxine 125 MCG tablet 125 mcg PO DAILY pravastatin 20 MG tablet 20 mg PO QHS ferrous sulfate 325 mg (65 mg iron) tablet 325 mg PO BID Qty: 0 0RF Label Comments: as directed as directed lorazepam 0.5 MG tablet 0.5 mg PO BID PRN PRN (Reason: Anxiety) metoprolol tartrate 25 mg tablet 25 mg PO BID allopurinol 100 mg Tablet 100 mg PO DAILY Changed furosemide 40 mg tablet 40 mg PO BID Qty: 90 3RF Discontinued potassium chloride 10 MEQ tablet,ER particles/crystals 10 meq PO BID Rx Instructions: Hold it while not taking lasix Referrals / Follow Up: Gordo Weeks DO [Primary Care Provider] - Phani Epperson DO [STAFF PHYSICIAN] - See Referral Note (as scheduled) Disposition Disposition (needs filled in before D/C Order can be placed): Home, Self Care
--- NOTE | 2022-03-21 12:37 | DS.PCM_ITS ---
Documented by User: JANY Cain 03/21/22 12:43 Providers Date of Admission: 03/19/22 Date of Discharge: 03/21/22 Primary Care Physician: Dr. Gordo Weeks, Consultations 03/19/22 16:20 Consult: Cardiology Routine Consulting Provider: Sara Jain Reason for Consult: NSTEMI EMERGENT Consult: No MD Notified: Yes Date Notified: 03/19/22 Time Notified: 15:41 Method of Notification: Verbal Method of Consult:: In-Person Reason For Visit: SEVERE ANEMIA Diagnosis Discharge Diagnosis (1) Essential (primary) hypertension: Status: Chronic Code(s): I10 - Essential (primary) hypertension (2) Non-rheumatic aortic stenosis: Status: Chronic Code(s): I35.0 - Nonrheumatic aortic (valve) stenosis (3) Hyperlipidemia: Status: Chronic Code(s): E78.5 - Hyperlipidemia, unspecified Plan 1. Acute on chronic anemia -Type and screen ordered in ER, 2 units packed red blood cells given overnight -Hgb 8.9 this am, will recheck H&H 1200. If hemoglobin has decreased will order 1 more unit of packed red blood cells -CBC in a.m. -Continue ferrous sulfate 2. Congestive heart failure exacerbation secondary to acute anemia and aortic stenosis -Lasix IV ordered twice daily -Echocardiogram pending -Discussed patient's wishes regarding invasive procedures with Dr. Jain who is amenable to palliative consult -Daily weights with strict intake and output -Potassium chloride 40 mEq p.o. daily ordered, potassium 3.4 3. Elevated troponin -Patient had elevated troponin during last admission as well -Will trend -Dr. Jain following 4. Hypothyroidism -Continue levothyroxine 5. Diabetes mellitus type 2 -ACH S blood sugars with sliding scale insulin ordered -Hold metformin 6. Hypertension -Continue metoprolol -Lasix IV -Vital signs per protocol, currently stable DVT prophylaxis-SCDs, no pharmacological prophylaxis ordered secondary to anemia This patient was seen by JANY Cain under the supervision of Dr. Rust. 14 minutes spent in clinical coordination of patient's plan of care. Medications at Discharge Home Medications levothyroxine 125 mcg tablet 125 mcg PO DAILY thyroid 08/27/18 pravastatin 20 mg tablet 20 mg PO QHS CHOLESTEROL 10/09/19 ferrous sulfate 325 mg (65 mg iron) tablet 325 mg PO BID SUPPLEMENT ##0 10/11/19 metformin 500 mg tablet,extended release 24 hr 500 mg PO BID diabetes 01/25/20 lorazepam 0.5 mg tablet 0.5 mg PO BID PRN PRN Anxiety 04/08/20 allopurinol 100 mg tablet 100 mg PO DAILY 03/19/22 metoprolol tartrate 25 mg tablet 25 mg PO BID 03/19/22 furosemide 40 mg tablet 40 mg PO BID diuretic #90 tabs 03/21/22 potassium chloride 20 mEq tablet,extended release 40 meq PO DAILY #20 tabs 03/21/22 Hospital Course Operations None Procedures 2-D Echocardiogram and Blood transfusion Summary of Care Provided Minutes Spent on Discharge: 35 Hospital Course: Patient is an 86-year-old female who initially presented with weakness and shortness of breath with exertion. Patient has chronic anemia and was found to have a initial hemoglobin of 6.5. Patient's baseline appears to be between 8 and 9. Patient follows with Dr. pEperson for chronic anemia patient received 3 units of packed red blood cells during her admission and her hemoglobin at discharge is 10.8. Patient also received echocardiogram while she was inpatient to evaluate her aortic stenosis and was determined to have critically severe aortic stenosis. Patient and family discussed possibility of cardiac charlotte terization and TAVR evaluation however patient does not want any invasive procedures done. Patient will be sent home with palliative consult. Patient was also noted to have increased swelling in her bilateral lower extremities and was subsequently diuresed with IV Lasix. Patient will be discharged home with Lasix twice daily increased from daily as well as increase potassium as patient was noted to be hypokalemic. Patient will follow up with Dr. Epperson tomorrow 03/22/2022 for determination of repeat labs. Physical Exam Const alert, oriented x3 and no apparent distress General Appearance: cooperative HEENT normocephalic, head/scalp atraumatic and moist oral mucous membranes Neck no lymphadenopathy and supple General: trachea midline Resp normal respiratory effort, normal air movement and clear to auscultation bilaterally Effort and Inspection: able to speak in complete sentences and symmetric chest movement Auscultation: crackles bilateral lower Cardio regular rate, regular rhythm, S1 normal heart sound, S2 normal heart sound and peripheral pulses 2+ throughout Heart Sounds: murmur systolic IV/ loud Peripheral Pulses: pulses 2+ throughout GI normal to inspection, nondistended, normoactive bowel sounds and soft to palpation Extremity normal capillary refill General Extremity: edema bilateral lower extremity Details: trace Skin General Skin Exam: no breakdown Lesions: no lesions Rashes: no rashes Neuro no focal motor deficits and no sensory deficits noted Motor Exam: general weakness Psych thought process normal, cooperative and affect normal Weight / BMI Weight Weight: 183 lb 10.321 oz Body Mass Index (BMI) 32.9 ABG / Lab / Microbiology Data Result Diagrams: 03/21/22 12:00 03/21/22 05:35 Laboratory: Laboratory Results - last 24 hr 03/19/22 14:08: Crossmatch See Detail 03/20/22 11:24: POC Glucose 253 H 03/20/22 17:02: POC Glucose 215 H 03/20/22 21:58: POC Glucose 228 H 03/21/22 05:35: WBC 5.8, RBC 2.73 L, Hgb 8.2 L, Hct 25.1 L, MCV 91.9, MCH 30.0, MCHC 32.7, RDW Std Deviation 51.4 H, RDW Coeff of Elisabeth 16.6 H, Plt Count 161, MPV 9.6, Immature Gran % (Auto) 1.500 H, Neut % (Auto) 64.0, Lymph % (Auto) 24.2, [place] % (Auto) 7.6, Eos % (Auto) 2.4, Baso % (Auto) 0.3, Absolute Neuts (auto) 3.7, Absolute Lymphs (auto) 1.41, Nucleated RBC % 1.0 03/21/22 05:35: Sodium 138, Potassium 3.5, Chloride 104, Carbon Dioxide 32.0, Anion Gap 2 L, BUN 56 H, Creatinine 1.25 H, Estim Creat Clear Calc 25.55, Est GFR (MDRD) Af Amer 52 L, Est GFR (MDRD) Non-Af 43 L, BUN/Creatinine Ratio 44.8 H , Glucose 168 H, Calcium 9.4, Total Bilirubin 0.50, AST 13 L, ALT 12 L, Alkaline Phosphatase 56, Total Protein 5.8 L, Albumin 2.7 L, Globulin 3.1, Albumin/Globulin Ratio 0.9 03/21/22 06:47: POC Glucose 186 H 03/21/22 11:33: POC Glucose 251 H 03/21/22 12:00: Hgb 10.8 L, Hct 32.7 L Microbiology: Microbiology 03/19/22 14:08 Nasal Secretion SARS-CoV-2 Antigen (Rapid) - Final 03/19/22 14:25 Stool Stool Occult Blood (IDRIS) - Final D/C Instructions Discharge Diet: Low fat / Low cholesterol Call your doctor if you observe: Shortness of breath, Swelling in the ankles, Chest pain and Increased palpitations (irregular heartbeat) Meaningful Use Info Meaningful Use Diagnoses (Choose all that apply): None applicable Discharge Plan Admission Admit Date/Time: 03/19/22 15:37 Primary Reason for Your Visit: Weakness, Shortness of breath Attending Provider: Marlyn Rust Primary Care Provider: Gordo Weeks Consulting Providers: Sara Jain Instructions Additional Instructions / Restrictions: Will need a repeat CBC and BMP later this week Discharge Orders/Prescriptions Prescriptions: New potassium chloride 20 mEq tablet extended release 40 meq PO DAILY Qty: 20 0RF Continued metformin 500 mg tablet extended release 24 hr 500 mg PO BID levothyroxine 125 MCG tablet 125 mcg PO DAILY pravastatin 20 MG tablet 20 mg PO QHS ferrous sulfate 325 mg (65 mg iron) tablet 325 mg PO BID Qty: 0 0RF Label Comments: as directed as directed lorazepam 0.5 MG tablet 0.5 mg PO BID PRN PRN (Reason: Anxiety) metoprolol tartrate 25 mg tablet 25 mg PO BID allopurinol 100 mg Tablet 100 mg PO DAILY Changed furosemide 40 mg tablet 40 mg PO BID Qty: 90 3RF Discontinued potassium chloride 10 MEQ tablet,ER particles/crystals 10 meq PO BID Rx Instructions: Hold it while not taking lasix Referrals / Follow Up: Gordo Weeks DO [Primary Care Provider] - Phani Epperson DO [STAFF PHYSICIAN] - See Referral Note (as scheduled) Disposition Disposition (needs filled in before D/C Order can be placed): Home, Self Care Documented by User: Dr. Marlyn Rust MD 03/21/22 17:13 Providers Date of Admission: 03/19/22 Reason For Visit: SEVERE ANEMIA Diagnosis Discharge Diagnosis (1) Essential (primary) hypertension: Status: Chronic Code(s): I10 - Essential (primary) hypertension (2) Non-rheumatic aortic stenosis: Status: Chronic Code(s): I35.0 - Nonrheumatic aortic (valve) stenosis (3) Hyperlipidemia: Status: Chronic Code(s): E78.5 - Hyperlipidemia, unspecified Medications at Discharge Home Medications levothyroxine 125 mcg tablet 125 mcg PO DAILY thyroid 08/27/18 pravastatin 20 mg tablet 20 mg PO QHS CHOLESTEROL 10/09/19 ferrous sulfate 325 mg (65 mg iron) tablet 325 mg PO BID SUPPLEMENT ##0 10/11/19 metformin 500 mg tablet,extended release 24 hr 500 mg PO BID diabetes 01/25/20 lorazepam 0.5 mg tablet 0.5 mg PO BID PRN PRN Anxiety 04/08/20 allopurinol 100 mg tablet 100 mg PO DAILY 03/19/22 metoprolol tartrate 25 mg tablet 25 mg PO BID 03/19/22 furosemide 40 mg tablet 40 mg PO BID diuretic #90 tabs 03/21/22 potassium chloride 20 mEq tablet,extended release 40 meq PO DAILY #20 tabs 03/21/22 ABG / Lab / Microbiology Data Result Diagrams: 03/21/22 12:00 03/21/22 05:35 Discharge Plan Admission Admit Date/Time: 03/19/22 15:37 Primary Reason for Your Visit: Weakness, Shortness of breath Attending Provider: Marlyn Rust Primary Care Provider: Gordo Weeks Consulting Providers: Sara Jain Instructions Additional Instructions / Restrictions: Will need a repeat CBC and BMP later this week Discharge Orders/Prescriptions Prescriptions: New potassium chloride 20 mEq tablet extended release 40 meq PO DAILY Qty: 20 0RF Continued metformin 500 mg tablet extended release 24 hr 500 mg PO BID levothyroxine 125 MCG tablet 125 mcg PO DAILY pravastatin 20 MG tablet 20 mg PO QHS ferrous sulfate 325 mg (65 mg iron) tablet 325 mg PO BID Qty: 0 0RF Label Comments: as directed as directed lorazepam 0.5 MG tablet 0.5 mg PO BID PRN PRN (Reason: Anxiety) metoprolol tartrate 25 mg tablet 25 mg PO BID allopurinol 100 mg Tablet 100 mg PO DAILY Changed furosemide 40 mg tablet 40 mg PO BID Qty: 90 3RF Discontinued potassium chloride 10 MEQ tablet,ER particles/crystals 10 meq PO BID Rx Instructions: Hold it while not taking lasix Referrals / Follow Up: Gordo Weeks DO [Primary Care Provider] - Phani Epperson DO [STAFF PHYSICIAN] - See Referral Note (as scheduled) Disposition Disposition (needs filled in before D/C Order can be placed): Home, Self Care Charges/Coding Addendum Addendum: This patient was seen in conjunction with Luis Alberto Romo NP.? I have independently interviewed and examined the patient and reviewed pertinent historical, laboratory, and other data. I have reviewed her note and concur with her documentation 86-year-old female with past medical history of chronic anemia, follows chronically with [facility] oncology, history of critical aortic stenosis, who comes in with a syncopal episode. Patient was found to have severe anemia with hemoglobin 6.5. Her troponins were elevated and that was felt to be secondary to her anemia and a critical aortic stenosis. Cardiology was consulted from the ED. Patient was also found to be in acute on chronic heart failure preserved EF. 2D echo shows EF of 55 to 60% with severe aortic valve stenosis. Patient was reluctant to have any aggressive work-up or treatment for the critical aortic stenosis including TAVR. She was also reluctant to have any other work-up such as cardiac cath. She was transfused a total of 3 units of packed RBCs in the hospital. Her posttransfusion hemoglobin was 10.8. She was discharged on Lasix 40 mg twice daily. She was strongly recommended to follow- up with hematology and with her primary care doctor. On the day of discharge, patient was seen and examined. Denied any new complaints. Physical Exam: Gen: Comfortable, pale, not jaundiced CVS:HS I +II, regular, 4/6 ejection systolic murmur RESP: Diminished at lung bases GI: BS present and normal, soft, nontender, no palpable organs EXT: Bilateral pedal edema +2 Time spent coordinating all aspects of patient's care, discussing with cardiology and nursin minutes Visit Charges Inpatient E&M: 77474 Disch Hosp
== END 2022-03-21 13:59 | disposition home or self-care (01) | DRG 291 ==
LOC: ED 14:35 → PCU 17:14
PROVIDERS: Nurse Practitioner Family; Admitting Provider Internal Medicine; Emergency Provider Emergency Medicine; PCP Family Medicine; Visit Provider Internal Medicine
DX: I13.0 Hypertensive heart and chronic kidney disease with heart failure and stage 1 through stage 4 chronic kidney disease, or unspecified chronic kidney disease (principal); I50.33 Acute on chronic diastolic (congestive) heart failure; I45.2 Bifascicular block; I27.21 Secondary pulmonary arterial hypertension; D63.1 Anemia in chronic kidney disease; E11.22 Type 2 diabetes mellitus with diabetic chronic kidney disease; D46.9 Myelodysplastic syndrome, unspecified; D50.9 Iron deficiency anemia, unspecified; N18.32 Chronic kidney disease, stage 3b; E03.9 Hypothyroidism, unspecified; I35.0 Nonrheumatic aortic (valve) stenosis; E78.5 Hyperlipidemia, unspecified; I25.2 Old myocardial infarction; E66.9 Obesity, unspecified; Z87.19 Personal history of other diseases of the digestive system; Z79.84 Long term (current) use of oral hypoglycemic drugs; Z79.899 Other long term (current) drug therapy; Z68.33 Body mass index [BMI] 33.0-33.9, adult
CPT/HCPCS: 36415; 36600; 71045; 80048; 80053; 82274; 82728; 82803; 82962; 83540; 83550; 83605; 83735; 83880; 84443; 84484; 85014; 85018; 85025; 85045; 86850; 86900; 86901; 86920; 86922; 87811; 93005; 93306; 99251; 99285; J7030; P9016; Q9957; A4216; G0463; J1940

== ENCOUNTER 2022-04-01 13:07 | Day surgery (SDC) | payer SELFPAY ==
[2022-04-01] VITALS (7 sets, daily range): BP systolic 107–138; BP diastolic 46–80; PULSE 55–93; RESP 16; TEMP 36.1–36.4; O2SAT 92–98; BMI 32.8
--- NOTE | 2022-04-01 | IMM_PTH ---
PATIENT: JAMIR TORRES LOC: [facility] U#:[id number] AGE/SX: 86/F ROOM: RE04/01/[address]: Dr. Daija Benjamin MD : 1935 BED: DIS: 04/01/2022 SPEC #: [id number] RECD: 04/05/22 13:02 STATUS: DEAN REQ #: [id number] MARCUS: 04/01/22 00:[address]: Daija Benjamin DEPT: IMMUNOHISTOCHEMISTRY RECD BY: Salima Tapia ENTERED: 04/05/22 13:03 SP TYPE: IMMUNO OTHR DR: Dr. Gordo Weeks DO Tissues: A - Ascending colon Procedures: SMA (add) DESMIN (add) KI-67 (add) P53 (add) Vimentin (add) SMM (add) Pankeratin (initial) S-100 (add) PHYSICIAN & INSTITUTION [place] [id number] SPECIMEN INFORMATION: Tissue Source: A ? Ascending polyp biopsy Clinical Info: Acute on chronic anemia Specimen Number: [id number] CPT code: 07821, 92932 x7 METHODOLOGY: Deparaffinized sections of prefer/formalin-fixed tissue or PAP/DQ stained slides are incubated with monoclonal/polyclonal antibodies/oligonucleotide probes. Localization is made via biotin free immunoperoxidase method. Appropriate controls are performed and reacted as expected. Results on target cell population are indicated in the following table: RESULTS: ANTIBODY / CLONE RESULT Block A AE1-3 (AE1/AE3/PCK26) negative Vimentin (V9) negative Actin (1A4) positive Myosin (simms1) positive Desmin (CE-R-11) negative S-100 (4C4.9) negative P53 (DO-7) negative Ki-67 (30-9) negative These tests were developed and their performance characteristics determined by [facility]. They may not have been cleared or approved by the U.S. Food and Drug Administration. The FDA has determined that such clearance or approval is not necessary. The above immunohistochemical/dualISH markers are ordered and reviewed by the Pathologist. INTERPRETATION: A. Ascending polyp, biopsy: Consistent with mucosal/submucosal leiomyoma. AM:erin 04/06/2022
[2022-04-01] MEDS: Lactated Ringers 1,000 ML 15 ML IV (13:51)
--- NOTE | 2022-04-01 13:52 | HP.PCM_ITS ---
History and Physical Date of Admission: 04/01/22 Date of Service:? 03/26/22 Intake Vital Signs ? 03/19/2216:38 03/26/2209:00 Height 5 ft 2 in 5 ft 2 in Weight: ? 178 lb 5 oz BMI ? 32.5 BP ? 131/68 H Blood Pressure Location ? Rt brachial Position ? Sitting Respiration ? 18 Pulse ? 56 L Pulse Source ? NIBP Temp ? 96.9 F L Temp Source ? Temporal Pulse Oximetry (%) ? 98 Oxygen Delivery Method ? room air Intake Visit Reasons:?Anemia Chief Complaint: anemia Palaeontologist Required: No Is patient in pain?: No Allergies No Known Allergies Allergy (Verified 03/29/22 11:39) Medications levothyroxine 125 mcg tablet 125 mcg PO DAILY thyroid 08/27/18 [History Confirmed 03/29/22] pravastatin 20 mg tablet 20 mg PO QHS CHOLESTEROL 10/09/19 [History Confirmed 03/29/22] ferrous sulfate 325 mg (65 mg iron) tablet 325 mg PO BID SUPPLEMENT ##0 10/11/19 [Rx Confirmed 03/29/22] metformin 500 mg tablet,extended release 24 hr 500 mg PO BID diabetes 01/25/20 [History Confirmed 03/29/22] lorazepam 0.5 mg tablet 0.5 mg PO BID PRN PRN Anxiety 04/08/20 [History Confirmed 03/29/22] metoprolol tartrate 25 mg tablet 25 mg PO BID 03/19/22 [History Confirmed 03/29/22] furosemide 40 mg tablet 40 mg PO BID diuretic #90 tabs 03/21/22 [Rx Confirmed 03/29/22] potassium chloride 20 mEq tablet,extended release 40 meq PO DAILY #20 tabs 03/21/22 [Rx Confirmed 03/29/22] allopurinol 100 mg tablet 100 mg PO BID 03/29/22 [History Confirmed 03/29/22] Is last menstrual period known: No Post menopausal: Yes Patient : No PFSH Medical History?(Updated 03/30/22 @ 14:[address] Daija Benjamin MD) Acute kidney injury superimposed on CKD Acute on chronic anemia Acute on chronic blood loss anemia Ambulates with cane Anemia Anxiety Arthritis Cardiology follow-up encounter Chronic anemia Chronic kidney disease, stage 3 CKD (chronic kidney disease), stage III Diabetes Difficulty swallowing Essential (primary) hypertension GI bleed (10/09/19) Gout High cholesterol History of echocardiogram History of edema History of heart attack History of non-ST elevation myocardial infarction (NSTEMI) (09/17/21) History of renal disease Hyperlipidemia Hypertension Hypothyroidism Iron deficiency anemia Non-rheumatic aortic stenosis Non-smoker Obesity Osteoarthritis Post-menopausal 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 Father CAD (coronary artery disease) Myocardial infarction ?? ? in his 80's from 80'sBrother CAD (coronary artery disease) Myocardial infarction ?? ? from his 70's from MISister Heart disease ?? ? Rheumatic Heart Disease Social History? Smoking Status:? Never smoker HPI HPI HPI: JAMIR TORRES, is a 86 F who presents to the office today for acute on chronic anemia referred by Dr. Epperson.? Patient was recently in the hospital due to hemoglobin of 6.5.? Patient was given 3 units packed red blood cells and come up to 9.5.? Patient denies any prior red blood per rectum.? Patient does have black stools but is also been on iron.? Patient also additional episode of anemia requiring transfusions in August.? Patient previously had an EGD done by me in 2019 which did not show any obvious source of bleeding as well as a colonoscopy done in 2018 which again did not show any signs of bleeding.? Patient does have a past medical history for severe aortic stenosis.? Patient had this diagnosis back in 2019 as well.? Patient states she has bowel movements 2-3 times a week. ROS General General: Yes fatigue HEENT HEENT: No difficulty swallowing Cardio Cardiovascular: No chest pain Resp Respiratory: No shortness of breath Gastro Gastrointestinal: No abdominal pain, No diarrhea, Yes constipation, No blood in stool and No acid reflux Exam Const General: cooperative, healthy appearing and no acute distress HENMT Head: normal to inspection Resp Effort & Inspection: normal respiratory effort Cardio Rate: regular rate GI Inspection: non-distended Palpation: soft, no guarding, no hernias and nontender Skin General: no rashes or lesions noted Neuro General: patient oriented x3 Extrem General: no clubbing Psych Affect: normal affect Assessment and Plan Assessment and Plan (1) Acute on chronic anemia: ?Status:?Acute Plan I have discussed the above with the patient. I have offered the patient EGD and colonoscopy for evaluation. I have explained the risks/benefits of the procedure and described the procedure.? I have discussed the risks with the patient, including but not limited to:? infection, bleeding, perforation of the GI tract requiring emergency surgery, inability to complete the procedure, injury to any internal organs, complications of anesthesia, etc. - the patient understands and agrees to proceed. I have answered all the patient's questions to the patient's satisfaction and the patient has no further questions. The patient has been given instructions for the colon cleansing preparation. Daija Benjamin M.D. Pager: [phone] [facility] [address] [place] [address], [address] [place] [address] Office: [phone] Coding Level of Care Code Off vis,est,level 4 Diagnoses Acute on chronic anemia? D64.9 03/30/22 1404 <Electronically signed by Daija Benjamin MD> Date Daija Benjamin MD
[2022-04-01 14:10] LABS: Bedside Glucose 141 mg/dL (74-106)
--- NOTE | 2022-04-01 14:30 | EGD_PTH ---
PATIENT: JAMIR TORRES LOC: [facility] U#:[id number] AGE/SX: 86/F ROOM: RE04/01/[address]: Dr. Daija Benjamin MD : 1935 BED: DIS: 04/01/2022 SPEC #: [id number] RECD: 04/01/22 15:11 STATUS: DEAN RECourtney #: [id number] MARCUS: 04/01/22 14:[address]: Daija Benjamin DEPT: SURGICAL PATHOLOGY RECD BY: Cesia Harrell ENTERED: 04/02/22 08:19 SP TYPE: EGD BIOPSY OT DR: Dr. Gordo Weeks DO Tissues: A - Ascending colon B - Sigmoid colon biopsy Procedures: Surgery Specimen Level IV HEADER OPERATION: [place] [place] with [place] PRE-OP DIAGNOSIS: Acute on chronic anemia TISSUE SUBMITTED: A ? Ascending polyp biopsy, B ? Sigmoid polyp biopsy MICROSCOPIC DIAGNOSIS A. Ascending colon polyp, biopsy: Consistent with leiomyoma. See comment. B. Sigmoid colon polyp, biopsy: Hyperplastic polyp. AM:erin 04/05/2022 COMMENT A. Immunohistochemistry ([id number]) supports the above diagnosis. Case has been reviewed in consultation with Dr. Torrez who concurs with the above diagnosis. IDC:CASSIA MICROSCOPIC DESCRIPTION Slides are reviewed. GROSS DESCRIPTION A - Received in fixative is one container labeled with the patient's name and designated ascending colon polyp biopsy. The specimen consists of one irregular fragment of light paulino soft tissue that measures 0.5 x 0.3 x 0.1 cm. The specimen is totally submitted in one cassette. B - Received in fixative is one container labeled with the patient's name and designated sigmoid polyp biopsy. The specimen consists of two irregular fragments of light paulino soft tissue that in aggregate measure 1 x 0.2 x 0.1 cm. The specimen is totally submitted in one cassette. / AM:erin 04/02/2022 TC:5 CPT: 92645 x2
--- NOTE | 2022-04-01 14:52 | OP.CCLET_ITS ---
04/01/2022 Gordo Weeks Re : Upper GI endoscopy procedure for Gracie Briceñor Desi This procedure was performed on March. My impressions and recommendations are as follows: Impressions : - Z-line variable, 35 cm from the incisors. - A few gastric polyps. - Normal examined duodenum. - No specimens collected. Recommendations : - Discharge patient to home. - Resume previous diet. - Continue present medications. - Await pathology results. My findings are described in the full procedure note, which is enclosed. If I can be of further assistance, please feel free to contact me at Doctor phone number(s): , Work: . Sincerely, MD Daija Cagle MD 04/01/2022 2:52:28 PM This report has been signed electronically.
--- NOTE | 2022-04-01 14:52 | OP.EGD_ITS ---
Patient Name: Gracie Avalos Procedure Date: 04/01/2022 2:02 PM Date of : 1935 Age: 86 Procedure: Upper GI endoscopy Indications: Iron deficiency anemia Providers: Daija Benjamin MD Referring MD: Gordo Weeks Medicines: Monitored Anesthesia Care Patient Profile: This is an 86 year old female. Complications: No immediate complications. Procedure: Pre-Anesthesia Assessment: - Prior to the procedure, a History and Physical was performed, and patient medications and allergies were reviewed. The patient's tolerance of previous anesthesia was also reviewed. The risks and benefits of the procedure and the sedation options and risks were discussed with the patient. All questions were answered, and informed consent was obtained. Prior Anticoagulants: The patient has taken no previous anticoagulant or antiplatelet agents. ASA Grade Assessment: Per anesthesia. After reviewing the risks and benefits, the patient was deemed in satisfactory condition to undergo the procedure. After obtaining informed consent, the endoscope was passed under direct vision. Throughout the procedure, the patient's blood pressure, pulse, and oxygen saturations were monitored continuously. The colonoscope was introduced through the mouth, and advanced to the second part of duodenum. The upper GI endoscopy was accomplished without difficulty. The patient tolerated the procedure well. Scope In: 2:13:55 PM Scope Out: 2:25:15 PM Total Procedure Duration Time 0 hours 11 minutes 20 seconds Findings: The Z-line was variable and was found 35 cm from the incisors. A few less than 5 mm sessile polyps with no bleeding and no stigmata of recent bleeding were found in the gastric fundus. The exam of the stomach was otherwise normal. The cardia and gastric fundus were normal on retroflexion. The examined duodenum was normal. Impression: - Z-line variable, 35 cm from the incisors. - A few gastric polyps. - Normal examined duodenum. - No specimens collected. Recommendation: - Discharge patient to home. - Resume previous diet. - Continue present medications. - Await pathology results. Procedure Code(s): --- Professional --- 49878, PT, Esophagogastroduodenoscopy, flexible, transoral; diagnostic, including collection of specimen(s) by brushing or washing, when performed (separate procedure) Diagnosis Code(s): --- Professional --- K22.8, Other specified diseases of esophagus K31.7, Polyp of stomach and duodenum D50.9, Iron deficiency anemia, unspecified CPT copyright 2017 [employer]. All rights reserved. The codes documented in this report are preliminary and upon bottle blower review may be revised to meet current compliance requirements. MD Daija Cagle MD 04/01/2022 2:52:28 PM This report has been signed electronically. Number of Addenda: 0 Note Initiated On: 04/01/2022 2:02 PM
--- NOTE | 2022-04-01 14:58 | OP.COLON_ITS ---
Patient Name: Gracie Avalos Procedure Date: 04/01/2022 2:25 PM Date of : 1935 Age: 86 Procedure: Colonoscopy Indications: Iron deficiency anemia Providers: Daija Benjamin MD Referring MD: Gordo Weeks Medicines: Monitored Anesthesia Care Patient Profile: This is an 86 year old female. Last Colonoscopy: 2018. Complications: No immediate complications. Procedure: Pre-Anesthesia Assessment: - Prior to the procedure, a History and Physical was performed, and patient medications and allergies were reviewed. The patient's tolerance of previous anesthesia was also reviewed. The risks and benefits of the procedure and the sedation options and risks were discussed with the patient. All questions were answered, and informed consent was obtained. Prior Anticoagulants: The patient has taken no previous anticoagulant or antiplatelet agents. ASA Grade Assessment: Per anesthesia. After reviewing the risks and benefits, the patient was deemed in satisfactory condition to undergo the procedure. After I obtained informed consent, the scope was passed under direct vision. Throughout the procedure, the patient's blood pressure, pulse, and oxygen saturations were monitored continuously. The colonoscope was introduced through the anus and advanced to the cecum, identified by the appendiceal orifice, ileocecal valve and palpation. The colonoscopy was performed without difficulty. The patient tolerated the procedure well. The quality of the bowel preparation was good. Scope In: 2:26:23 PM Scope Withdrawal Time 0 hours 10 minutes 21 seconds Scope Out: 2:47:11 PM Total Procedure Duration Time 0 hours 20 minutes 48 seconds Findings: Hemorrhoids were found on perianal exam. Non-bleeding internal hemorrhoids were found. The hemorrhoids were Grade I (internal hemorrhoids that do not prolapse). Two sessile polyps were found in the sigmoid colon and ascending colon. The polyps were less than 5 mm in size. These polyps were removed with a cold biopsy forceps. Resection and retrieval were complete. Many small-mouthed diverticula were found in the sigmoid colon. The exam was otherwise without abnormality. Impression: - Hemorrhoids found on perianal exam. - Non-bleeding internal hemorrhoids. - Two less than 5 mm polyps in the sigmoid colon and in the ascending colon, removed with a cold biopsy forceps. Resected and retrieved. - Diverticulosis in the sigmoid colon. - The examination was otherwise normal. Recommendation: - Discharge patient to home. - Resume previous diet. - Continue present medications. - Await pathology results. - No repeat colonoscopy due to current age (66 years or older). Procedure Code(s): --- Professional --- 09095, Colonoscopy, flexible; with biopsy, single or multiple Diagnosis Code(s): --- Professional --- K64.0, First degree hemorrhoids D12.5, Benign neoplasm of sigmoid colon D50.9, Iron deficiency anemia, unspecified D12.2, Benign neoplasm of ascending colon K57.30, Diverticulosis of large intestine without perforation or abscess without bleeding CPT copyright 2017 [employer]. All rights reserved. The codes documented in this report are preliminary and upon registered nurse review may be revised to meet current compliance requirements. MD Daija Cagle MD 04/01/2022 2:58:31 PM This report has been signed electronically. Number of Addenda: 0 Note Initiated On: 04/01/2022 2:25 PM
--- NOTE | 2022-04-01 15:00 | OP.CCLET_ITS ---
04/01/2022 Phani Epperson [address] [place] [address] Re : Colonoscopy procedure for Gracie Avalos Dear Dr. Epperson This procedure was performed on March. My impressions and recommendations are as follows: Impressions : - Hemorrhoids found on perianal exam. - Non-bleeding internal hemorrhoids. - Two less than 5 mm polyps in the sigmoid colon and in the ascending colon, removed with a cold biopsy forceps. Resected and retrieved. - Diverticulosis in the sigmoid colon. - The examination was otherwise normal. Recommendations : - Discharge patient to home. - Resume previous diet. - Continue present medications. - Await pathology results. - No repeat colonoscopy due to current age (66 years or older). My findings are described in the full procedure note, which is enclosed. If I can be of further assistance, please feel free to contact me at Doctor phone number(s): , Work: . Sincerely, MD Daija Cagle MD 04/01/2022 2:58:31 PM This report has been signed electronically.
== END 2022-04-01 15:41 | disposition home or self-care (01) ==
PROVIDERS: PCP Family Medicine; Referring Provider Family Medicine; Visit Provider Surgery
PROC: 0DJD8ZZ Inspection of Lower Intestinal Tract, Via Natural or Artificial Opening Endoscopic (ICD-10-PCS; CPT 45378; principal; 2022-04-01 14:25)
DX: K63.5 Polyp of colon (principal); I27.21 Secondary pulmonary arterial hypertension; E11.22 Type 2 diabetes mellitus with diabetic chronic kidney disease; N18.30 Chronic kidney disease, stage 3 unspecified; D50.9 Iron deficiency anemia, unspecified; F41.9 Anxiety disorder, unspecified; Z87.19 Personal history of other diseases of the digestive system; I12.9 Hypertensive chronic kidney disease with stage 1 through stage 4 chronic kidney disease, or unspecified chronic kidney disease; M10.9 Gout, unspecified; E78.00 Pure hypercholesterolemia, unspecified; I25.2 Old myocardial infarction; I34.0 Nonrheumatic mitral (valve) insufficiency; E03.9 Hypothyroidism, unspecified; E66.9 Obesity, unspecified; Z78.0 Asymptomatic menopausal state; Z79.84 Long term (current) use of oral hypoglycemic drugs; Z79.899 Other long term (current) drug therapy; I45.2 Bifascicular block; Z68.32 Body mass index [BMI] 32.0-32.9, adult; K64.0 First degree hemorrhoids; K57.30 Diverticulosis of large intestine without perforation or abscess without bleeding
CPT/HCPCS: 45380; 43235; 82962; 88305; 88341; 88342; J7120; J2405

== ENCOUNTER 2022-04-02 09:12 | Inpatient (IN) | payer MEDICARE, OTHER, SELFPAY ==
[2022-04-02] VITALS (20 sets, daily range): BP systolic 97–131; BP diastolic 49–113; PULSE 63–128; RESP 12–28; TEMP 36.2–37.2; O2SAT 90–99; BMI 33.8; BMI 33.3
--- NOTE | 2022-04-02 09:19 | RAD_ITS ---
EXAM: XR CHEST, 1 VIEW CLINICAL INDICATION: hypoxia TECHNIQUE: Frontal view of the chest. This report was created using [employer] report generation technology. COMPARISON: 03/19/2022 FINDINGS: LUNGS AND PLEURAL SPACES: There is bilateral airspace disease with underlying interstitial opacities which may represent a combination of edema and pneumonia. No pneumothorax. No effusion. HEART: Unremarkable. Cardiac silhouette not enlarged. MEDIASTINUM: Central airways and mediastinal contour are unremarkable. BONES/JOINTS: Unremarkable. SOFT TISSUES: Unremarkable. RAD/Chest 1 View (Portable) IMPRESSION: Bilateral airspace disease greatest in the lower lobes with underlying interstitial opacities likely representing a combination of edema and pneumonia. Electronically Signed: Tyler Welch MD at 10:21 EDT ,
--- NOTE | 2022-04-02 09:20 | EKG12_ITS ---
Test Reason : CP Blood Pressure : / mmHG Vent. Rate : 125 BPM Atrial Rate : 129 BPM P-R Int : 000 ms QRS Dur : 160 ms QT Int : 308 ms P-R-T Axes : 000 269 051 degrees QTc Int : 444 ms Atrial fibrillation Right bundle branch block Septal infarct , age undetermined , cannot be excluded Abnormal ECG Confirmed by VAMSI JULES, ERIKA ([id number]), videotape editor TULIO MEANS ([id number]) on 04/05/2022 11:32:35 AM Referred By: ESTRADA Confirmed By:ERIKA AGUSTIN MD
--- NOTE | 2022-04-02 09:23 | EX.ED.DYSGE1 ---
HPI History of Present Illness Chief Complaint: Shortness of Breath Informant: patient, family and EMS Narrative Narrative: Patient is an 86-year-old female with extensive medical history including aortic stenosis, congestive heart failure, pulmonary atrial hypertension, chronic anemia and hypertension presenting via EMS for altered mental status. Apparently patient was having breakfast and seemed fine when she woke at 5 AM this morning. Prior to arrival she became very weak had to sit down. She had a hard time answering questions since. Patient has similar presentation 2 weeks ago on 03/19/2022 where she was found to have acute on chronic anemia and was admitted to the hospital. She received blood transfusions, diuresis for heart failure/fluid overload and had an echocardiogram which showed severe aortic valve stenosis. Out of consult was placed as patient stated that she did not want any invasive procedures including TARV. Patient is currently reporting some chest pain. [facility] Medical History Acute kidney injury superimposed on CKD Acute on chronic anemia Acute on chronic blood loss anemia Ambulates with cane Anemia Anxiety Arthritis Cardiology follow-up encounter Chronic anemia Chronic kidney disease, stage 3 CKD (chronic kidney disease), stage III Diabetes Difficulty swallowing Essential (primary) hypertension GI bleed (10/09/19) Gout High cholesterol History of echocardiogram History of edema History of heart attack History of non-ST elevation myocardial infarction (NSTEMI) (09/17/21) History of renal disease Hyperlipidemia Hypertension Hypothyroidism Iron deficiency anemia Non-rheumatic aortic stenosis Non-smoker Obesity Osteoarthritis Post-menopausal 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 Shortness of breath on exertion Syncope Thyroid disease Type 2 diabetes mellitus Walker as ambulation aid Wears dentures Wears glasses Home Medications levothyroxine 125 mcg tablet 125 mcg PO DAILY thyroid 08/27/18 [History Last Taken 04/01/22] pravastatin 20 mg tablet 20 mg PO QHS CHOLESTEROL 10/09/19 [History Last Taken 09/15/21] ferrous sulfate 325 mg (65 mg iron) tablet 325 mg PO BID SUPPLEMENT ##0 10/11/19 [Rx Last Taken 09/16/21] metformin 500 mg tablet,extended release 24 hr 500 mg PO BID diabetes 01/25/20 [History Last Taken 09/16/21] lorazepam 0.5 mg tablet 0.5 mg PO BID PRN PRN Anxiety 04/08/20 [History Last Taken 09/16/21] metoprolol tartrate 25 mg tablet 25 mg PO BID 03/19/22 [History Last Taken 04/01/22] furosemide 40 mg tablet 40 mg PO BID diuretic #90 tabs 03/21/22 [Rx Last Taken Unknown] potassium chloride 20 mEq tablet,extended release 40 meq PO DAILY #20 tabs 03/21/22 [Rx Last Taken Unknown] allopurinol 100 mg tablet 100 mg PO BID 03/29/22 [History Last Taken Unknown] Allergy/AdvReac Type Severity Reaction Status Date / Time No Known Allergies Allergy Verified 04/02/22 09:19 Family History Father CAD (coronary artery disease) Myocardial infarction in his 80's from 80's Brother CAD (coronary artery disease) Myocardial infarction from his 70's from [place] Sister Heart disease Rheumatic Heart Disease Surgical History History of cataract extraction History of colonoscopy (~2018) History of esophagogastroduodenoscopy (EGD) (09/2019) Social History Smoking Status: Never smoker ROS ROS ED Review of Systems ROS Unobtainable: due to mental status EXAM Physical Exam Const Vital Signs: 04/02/22 09:14 04/02/22 09:18 04/02/22 09:19 Temperature 98.2 F 98.2 F Temperature Source Temporal Temporal Pulse Rate 116 H 123 H 128 H Respiratory Rate 26 H 26 H 28 H Respiratory Pattern Blood Pressure 131/113 H 131/113 H 131/113 H Blood Pressure Mean 119 119 119 Pulse Ox 93 98 99 Oxygen Delivery Method Non-Rebreather Non-Rebreather Bi-pap Fraction of Inspired Oxygen (FIO2) 04/02/22 09:30 04/02/22 09:48 Temperature Temperature Source Pulse Rate 119 H Respiratory Rate 27 H Respiratory Pattern Normal Blood Pressure Blood Pressure Mean Pulse Ox 92 92 Oxygen Delivery Method Fraction of Inspired Oxygen (FIO2) 45 50 Positive well nourished and well developed Constitutional Narrative: Acute respiratory distress General Appearance ED: well developed and pallor HEENT Reports dry mucous membranes Negative for trauma Mouth ED: Yes dry mucous membranes Mouth: dry mucous membranes Eyes PERRL and EOMs intact bilaterally General Eye ED: Yes pale conjunctiva Neck supple and no JVD Chest Wall inspection of chest normal Resp Resp Narrative: Increased work of breathing. Diffuse crackles. Cardio regular rhythm Cardio Narrative: + murmur Rate: tachycardic GI normal to inspection, nondistended, normoactive bowel sounds and non-tender Inspection: Negative for abdominal distention Extremity General Extremety ED: Yes edema; Negative for tenderness General Extremity: edema Neuro Neuro Narrative: Somnolent but arousable to verbal stimuli. No focal deficits appreciated. Moving all extremities. Motor Exam: general weakness Psych mental status grossly normal Skin no rashes or lesions noted General Skin Exam: pallor MDM MDM MDM Narrative Medical decision making narrative: Patient arrived somnolent and in respiratory distress. She is diffuse crackles and is tachypneic, tachycardic and mildly hypertensive. She desats on nasal cannula into the 80s and is transition to a nonrebreather and then a BiPAP. I suspect she is in flash pulmonary edema based on the clinical presentation. Patient does have an ABG which shows hypoxia but has a normal pH and normal PCO2. CBC shows a stable if not slightly improved anemia with a hemoglobin of 10.5 and a normal white blood cell count. She has mild hyponatremia with a sodium of 128 and her creatinine is mildly above her baseline at 1.77. Lactate is elevated at 6.1 as well as her BNP elevated at 981. Chest x-ray interpreted by myself as pulmonary vascular congestion and radiology questions if there is an underlying pneumonia as well. Given the story, lack of fever and sudden onset of symptoms I suspect this is flash pulm edema and not pneumonia however patient is given IV antibiotics in the emergency room. She is given IV Lasix and improved significantly on BiPAP. Spoke with the patient and her family and patient does not want more invasive care and does not want to be intubated. Discussed with them if palliative/hospice would be more appropriate given that she does not want really any interventions. They are not sure at this time. Patient is admitted for further respiratory management. She is agreeable this plan of care. Lab Data Attestation: I reviewed the patient's lab results. Labs: Laboratory Results - last 24 hr 04/02/22 04/02/22 04/02/22 09:45 09:45 09:45 WBC 9.4 RBC 3.56 L Hgb 10.5 L Hct 33.3 L MCV 93.5 MCH 29.5 MCHC 31.5 L RDW Std Deviation 55.5 H RDW Coeff of Elisabeth 16.3 H Plt Count 287 MPV 8.9 Immature Gran % (Auto) 0.300 Neut % (Auto) 82.7 H Lymph % (Auto) 11.2 L Dunn % (Auto) 4.4 Eos % (Auto) 0.9 Baso % (Auto) 0.5 Absolute Neuts (auto) 7.7 Absolute Lymphs (auto) 1.05 Nucleated RBC % 0 PT 13.8 INR 1.1 Sodium 128 L Potassium 4.0 Chloride 93 L Carbon Dioxide 25.0 Anion Gap 10 BUN 23 H Creatinine 1.77 H Estim Creat Clear Calc 18.04 Est GFR (MDRD) Af Amer 35 L Est GFR (MDRD) Non-Af 29 L BUN/Creatinine Ratio 13.0 Glucose 338 H Lactic Acid Calcium 9.5 Total Bilirubin 0.70 AST 22 ALT 22 Alkaline Phosphatase 108 Troponin I High Sens 54 B-Natriuretic Peptide Total Protein 7.4 Albumin 3.1 L Globulin 4.3 H Albumin/Globulin Ratio 0.7 L Blood Type Antibody Screen 04/02/22 04/02/22 04/02/22 09:45 09:45 09:45 WBC RBC Hgb Hct MCV MCH MCHC RDW Std Deviation RDW Coeff of Elisabeth Plt Count MPV Immature Gran % (Auto) Neut % (Auto) Lymph % (Auto) Dunn % (Auto) Eos % (Auto) Baso % (Auto) Absolute Neuts (auto) Absolute Lymphs (auto) Nucleated RBC % PT INR Sodium Potassium Chloride Carbon Dioxide Anion Gap BUN Creatinine Estim Creat Clear Calc Est GFR (MDRD) Af Amer Est GFR (MDRD) Non-Af BUN/Creatinine Ratio Glucose Lactic Acid 6.1 H* Calcium Total Bilirubin AST ALT Alkaline Phosphatase Troponin I High Sens B-Natriuretic Peptide 981.9 H Total Protein Albumin Globulin Albumin/Globulin Ratio Blood Type A POSITIVE Antibody Screen NEGATIVE ABG Data ABG results: ABG 04/02/22 09:44 Specimen Type ART Sample Site R Brach pH 7.39 Bicarbonate Actual 22.3 Total CO2 24 Base Excess -3 L O2 Saturation 95 O2 % 45 ABG pCO2 37.2 ABG pO2 75 [place] Test Positive Respiration Rate 12 O2 Delivery Device BiPAP Clinical Comments 11/04 rr 12 O2 45% Radiography Diagnostic Testing: Clinical Impression(s) from Imaging Studies Chest X-Ray 04/02/22 09:19 IMPRESSION: Bilateral airspace disease greatest in the lower lobes with underlying interstitial opacities likely representing a combination of edema and pneumonia. Electronically Signed: Tyler Welch MD at 10:21 EDT , Rhythm Strip Rhythm Strip: Sinus Tach Rate: 125 Ectopy: None EKG Initial EKG: Attestation: I personally reviewed and interpreted this EKG as follows: Interpretation: Sinus Tachycardia Comments: Sinus tachycardia versus atrial fibrillation at a rate of 125 Right bundle branch block Leftward axis T wave inversions in aVR and V2 Follow-up EKG: Attestation: I personally reviewed and interpreted this EKG as follows: Interpretation: Sinus Rhythm Comments: Normal sinus rhythm at rate of 67 with PACs Bifascicular block with right bundle branch block and left anterior fascicular block NV interval 174 QRS 162 QTC 456 LVH with repolarization abnormalities Nonspecific T wave change Critical Care Time Critical Care Time: Yes Critical care time (excluding procedures): 30-74 minutes (40), Discussing w/Patient &/or Family/Child And Adolescent Psychologist, Arranging Admission or Transfer and Performing Direct Patient Care at Bedside Discharge Plan Triage Chief Complaint: Shortness of Breath ED Provider: Mimi Gil Dx/Rx/DC Orders Clinical Impression: Pulmonary edema, Non-rheumatic aortic stenosis, Acute exacerbation of CHF (congestive heart failure), Acute respiratory failure with hypoxia, Acute hyponatremia Primary Care Provider: Gordo Weeks Disposition Disposition: Acute Care [facility]
[2022-04-02] MEDS: 0.9% Normal Saline 1,000 ML 1000 ML IV (09:31)
[2022-04-02 09:51] LABS: Allen Test Positive; Base Excess -3 mmol/L (-2 to +2); Bicarbonate 22.3 mmol/L (22-26); Blood Gas Specimen Type ART; FI02 45; O2 Delivery Device BiPAP; PO2 75 mmHG (75-100); RR 12; SITE R Brach; SO2 95 % (95-99); Total Carbon Dioxide 24 mmol/L; pCO2 37.2 mmHg (35-45); pH 7.39 (7.35-7.45)
[2022-04-02 10:12] LABS: Absolute Lymphocyte Count 1.05 X10^3/uL (0.83-4.51); Absolute Neutrophil Count 7.7 X10^3/uL (2.0-7.7); Basophil# 0.05 X10^3/uL; Basophil% 0.5 % (0-1); Eosinophil# 0.08 X10^3/uL; Eosinophils% 0.9 % (0-5); Hematocrit 33.3 % (37-47); Hemoglobin 10.5 g/dL (12.0-15.0); Lymphocyte # 1.05 X10^3/ul (0.83-4.51); Lymphocyte % 11.2 % (19-41); Mean Corp Hgb Conc 31.5 g/dL (32-36); Mean Corpuscular Hgb 29.5 pg (27.0-32.0); Mean Corpuscular Volume 93.5 fL (81-99); Mean Platelet Vol. 8.9 fl (6.2-12.0); Monocyte# 0.41 X10^3/uL; Monocyte% 4.4 % (0-10); NRBC Flagged by Analyzer 0 % (0-5); Neutrophil # 7.73 X10^3/uL (2.7-7.7); Neutrophil % 82.7 % (47-70); Platelet Count 287 K/mm3 (150-450); RBC Distribution Width CV 16.3 % (11.6-14.6); RBC Distribution Width SD 55.5 fl (35.1-43.9); Red Blood Count 3.56 M/mm3 (4.2-5.4); White Blood Count 9.4 K/mm3 (4.4-11.0)
[2022-04-02 10:22] LABS: International Normalized Ratio 1.1; Prothrombin Time (Protime)PT. 13.8 SECONDS (11.7-14.9)
[2022-04-02 10:34] LABS: ALB/GLOB Ratio 0.7 RATIO (0.9-2.4); AST(SGOT) 22 U/L (15-37); Alanine Aminotransfer ALT/SGPT 22 U/L (13-56); Albumin, Serum 3.1 g/dL (3.2-5.0); Alkaline Phosphatase 108 U/L (45-117); Anion Gap 10 (5-15); BNP,B-Type NATRIURETIC PEPTIDE 981.9 pg/mL (0-100); BUN 23 mg/dL (7-18); Calcium,Total 9.5 mg/dL (8.5-10.1); Chloride 93 mmol/L (98-107); Creatinine, Serum 1.77 mg/dL (0.55-1.02); EST Glomerular Filtration Rate 29 mL/min (>60); Est Glom Filt Rate - Afr Amer 35 mL/min (>60); Estimated Creatinine Clearance 18.04 ml/min; Globulin 4.3 g/dL (2.2-4.2); Glucose 338 mg/dL (74-106); Protein, Total 7.4 g/dL (6.4-8.2); Sodium Level 128 mmol/L (136-145); Troponin-I HS (w/2H Reflex) 54 pg/mL (3.0-54.0)
[2022-04-02 10:44] LABS: Lactic Acid 6.1 mmol/L (0.4-1.9)
--- NOTE | 2022-04-02 11:21 | EKG12_ITS ---
Test Reason : REPEAT Blood Pressure : / mmHG Vent. Rate : 067 BPM Atrial Rate : 067 BPM P-R Int : 174 ms QRS Dur : 162 ms QT Int : 432 ms P-R-T Axes : -01 -80 250 degrees QTc Int : 456 ms Sinus rhythm with Premature atrial complexes Right bundle branch block Left anterior fascicular block Bifascicular block Left ventricular hypertrophy ST/T wave abnormality: Consider IVCD effect, repolarization effect, metabolic effect, or medication e ffect Septal TX, age undetermined, cannot be excluded Abnormal ECG Confirmed by VAMSI JULES, ERIKA ([id number]), editor book TULIO MEANS ([id number]) on 04/05/2022 11:41:45 AM Referred By: ESTRADA Confirmed By:ERIKA AGUSTIN MD
--- NOTE | 2022-04-02 11:32 | NURSING ---
PCU [facility]
--- NOTE | 2022-04-02 11:47 | PCM.HP.STD ---
Documented by User: JANY Cain 04/02/22 12:14 HPI - General General Date of Admission: 04/02/22 Date of Service: 04/02/22 Chief Complaint: Shortness of Breath HPI Narrative JAMIR TORRES, is a 86 F who presents with complaints of shortness of breath that started suddenly this morning while she was eating breakfast. Patient has a significant history of severe aortic stenosis. Daughter reports that patient had a EGD and colonoscopy yesterday and was told to hold her Lasix prior to these procedures. Patient's daughter reports that patient did not have 2 doses of Lasix as a result of these instructions. Patient has been evaluated and recommended for TAVR in previous admissions and patient has declined all invasive interventions. Patient also has a history of hypertension, chronic anemia, hypothyroidism, diabetes mellitus II. FORMERLY [facility] Medical History Acute kidney injury superimposed on CKD Acute on chronic anemia Acute on chronic blood loss anemia Ambulates with cane Anemia Anxiety Arthritis Cardiology follow-up encounter Chronic anemia Chronic kidney disease, stage 3 CKD (chronic kidney disease), stage III Diabetes Difficulty swallowing Essential (primary) hypertension GI bleed (10/09/19) Gout High cholesterol History of echocardiogram History of edema History of heart attack History of non-ST elevation myocardial infarction (NSTEMI) (09/17/21) History of renal disease Hyperlipidemia Hypertension Hypothyroidism Iron deficiency anemia Non-rheumatic aortic stenosis Non-smoker Obesity Osteoarthritis Post-menopausal 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 Shortness of breath on exertion Syncope Thyroid disease Type 2 diabetes mellitus Walker as ambulation aid Wears dentures Wears glasses Home Medications levothyroxine 125 mcg tablet 125 mcg PO DAILY thyroid 08/27/18 [History Last Taken 04/02/22] pravastatin 20 mg tablet 20 mg PO QHS CHOLESTEROL 10/09/19 [History Last Taken 04/01/22] ferrous sulfate 325 mg (65 mg iron) tablet 325 mg PO BID SUPPLEMENT ##0 10/11/19 [Rx Last Taken 04/02/22] metformin 500 mg tablet,extended release 24 hr 500 mg PO BID diabetes 01/25/20 [History Last Taken 04/02/22] lorazepam 0.5 mg tablet 0.5 mg PO BID PRN PRN Anxiety 04/08/20 [History Last Taken 09/16/21] metoprolol tartrate 25 mg tablet 12.5 mg PO BID heart rate 03/19/22 [History Last Taken 04/02/22] allopurinol 100 mg tablet 100 mg PO BID gout 03/29/22 [History Last Taken 04/02/22] furosemide 40 mg tablet 40 mg PO DAILY diuretic 04/02/22 [History Last Taken 04/02/22] potassium chloride 20 mEq tablet,extended release 10 meq PO BID supplement 04/02/22 [History Last Taken Unknown] Allergy/AdvReac Type Severity Reaction Status Date / Time No Known Allergies Allergy Verified 04/02/22 09:19 Family History Father CAD (coronary artery disease) Myocardial infarction in his 80's from 80's Brother CAD (coronary artery disease) Myocardial infarction from his 70's from [place] Sister Heart disease Rheumatic Heart Disease Surgical History History of cataract extraction History of colonoscopy (~2018) History of esophagogastroduodenoscopy (EGD) (09/2019) Social History Smoking Status: Never smoker ROS Constitutional Constitutional: Denies anorexia, change in weight, chills, fatigue, malaise or weakness Cardiovascular Cardiovascular: Reports dyspnea at rest, dyspnea on exertion, edema and tachypnea; Denies arrhythmia on telemetry, chest pain, hypertension or nausea Respiratory/Chest Respiratory/Chest: Reports shortness of breath at rest, shortness of breath with exertion and tachypnea; Denies cough Gastrointestinal Gastrointestinal: Denies abdominal pain, constipation, diarrhea, nausea or vomiting Genitourinary Genitourinary: Denies dysuria Musculoskeletal Musculoskeletal: Denies back pain, extremity pain, joint pain, joint stiffness or joint swelling Integumentary Integumentary: Denies dry skin Neurologic Neurologic: Denies abnormal gait, abnormal speech, confusion, dizziness or focal weakness Psychiatric Psychiatric: Denies anxiety or depression Endocrine Endocrinology: Denies change in body appearance Hematologic/Lymphatic Hematologic/Lymphatic: Reports anemia Vital Signs Vital Signs Vital Signs: 04/02/22 09:14 04/02/22 09:18 04/02/22 09:19 Temperature 98.2 F 98.2 F Temperature Source Temporal Temporal Pulse Rate 116 H 123 H 128 H Respiratory Rate 26 H 26 H 28 H Respiratory Pattern Blood Pressure 131/113 H 131/113 H 131/113 H Blood Pressure Mean 119 119 119 Pulse Ox 93 98 99 Oxygen Delivery Method Non-Rebreather Non-Rebreather Bi-pap Fraction of Inspired Oxygen (FIO2) 04/02/22 09:30 04/02/22 09:48 Temperature Temperature Source Pulse Rate 119 H Respiratory Rate 27 H Respiratory Pattern Normal Blood Pressure Blood Pressure Mean Pulse Ox 92 92 Oxygen Delivery Method Fraction of Inspired Oxygen (FIO2) 45 50 Weight Weight: 184 lb 15.485 oz Body Mass Index (BMI) 33.8 Physical Exam Const alert, oriented x3 and no apparent distress HEENT normocephalic and head/scalp atraumatic Eyes conjunctivae normal and no scleral icterus Neck supple General: trachea midline Resp normal respiratory effort Resp Narrative: Bipap on Effort and Inspection: symmetric chest movement Auscultation: crackles bilateral throughout Cardio regular rate, regular rhythm, S1 normal heart sound, S2 normal heart sound and peripheral pulses 2+ throughout GI normal to inspection, nondistended, normoactive bowel sounds, soft to palpation and non-tender Extremity normal capillary refill General Extremity: edema bilateral lower extremity Details: moderate Skin Lesions: no lesions Rashes: no rashes Neuro no focal motor deficits and no sensory deficits noted Speech: speech normal Psych thought process normal, cooperative and affect normal Appearance: appropriate Results Lab / Micro Data Result Diagrams: 04/02/22 09:45 04/02/22 09:45 Labs: Laboratory Results - last 24 hr 04/02/22 09:45: WBC 9.4, RBC 3.56 L, Hgb 10.5 L, Hct 33.3 L, MCV 93.5, MCH 29.5, MCHC 31.5 L, RDW Std Deviation 55.5 H, RDW Coeff of Elisabeth 16.3 H, Plt Count 287, MPV 8.9, Immature Gran % (Auto) 0.300, Neut % (Auto) 82.7 H, Lymph % (Auto) 11.2 L, [place] % (Auto) 4.4, Eos % (Auto) 0.9, Baso % (Auto) 0.5, Absolute Neuts (auto) 7.7, Absolute Lymphs (auto) 1.05, Nucleated RBC % 0 04/02/22 09:45: PT 13.8, INR 1.1 04/02/22 09:45: Sodium 128 L, Potassium 4.0, Chloride 93 L, Carbon Dioxide 25.0, Anion Gap 10, BUN 23 H, Creatinine 1.77 H, Estim Creat Clear Calc 18.04, Est GFR (MDRD) Af Amer 35 L, Est GFR (MDRD) Non-Af 29 L, BUN/Creatinine Ratio 13.0, Glucose 338 H, Calcium 9.5, Total Bilirubin 0.70, AST 22, ALT 22, Alkaline Phosphatase 108, Troponin I High Sens 54, Total Protein 7.4, Albumin 3.1 L, Globulin 4.3 H, Albumin/Globulin Ratio 0.7 L 04/02/22 09:45: Lactic Acid 6.1 H* 04/02/22 09:45: B-Natriuretic Peptide 981.9 H 04/02/22 09:45: Blood Type A POSITIVE, Antibody Screen NEGATIVE Micro: Microbiology 04/02/22 09:45 Nasal Secretion SARS-CoV-2 Antigen (Rapid) - Final ABG Data ABG results: ABG 04/02/22 09:44 Specimen Type ART Sample Site R Brach pH 7.39 Bicarbonate Actual 22.3 Total CO2 24 Base Excess -3 L O2 Saturation 95 O2 % 45 ABG pCO2 37.2 ABG pO2 75 [place] Test Positive Respiration Rate 12 O2 Delivery Device BiPAP Clinical Comments 11/04 rr 12 O2 45% Radiology Impression Chest X-Ray 04/02/22 09:19 IMPRESSION: Bilateral airspace disease greatest in the lower lobes with underlying interstitial opacities likely representing a combination of edema and pneumonia. Electronically Signed: Tyler Welch MD at 10:21 EDT , Assessment & Plan Assessment/Plan (1) Pulmonary edema: (2) Acute exacerbation of CHF (congestive heart failure): (3) Acute respiratory failure with hypoxia: (4) Acute hyponatremia: (5) Non-rheumatic aortic stenosis: PLAN: Plan 1. Acute respiratory failure with hypoxia secondary to aortic stenosis and pulmonary edema -Admit to PCU -Patient had EGD and colonoscopy on 04/01/2022 and subsequently had Lasix held prior to procedure per surgeon direction. Discussed with daughter and the importance of patient taking Lasix and that this needs to be discussed with all physicians moving forward for any type of procedures -Lasix 20 mg IV every 8 hours, Lasix 40 mg IV x1 given in ER -Daily weights and intake and output -N.p.o. while on BiPAP then cardiac calorie controlled diet -Elevate bilateral lower extremities -Encourage incentive spirometry -PT and OT to eval and treat -CBC and CMP daily -EKG every morning 2. Hyponatremia -Likely dilutional as patient is fluid overloaded -BMP daily 3. Elevated creatinine secondary to chronic kidney disease stage IIIb -Creatinine currently 1.77, baseline 1.3-1.4 -CMP daily 4. Hypertension -Continue metoprolol -Vital signs per protocol, currently stable 5. Diabetes mellitus type 2 -Hold metformin -ACH S blood sugars with sliding scale insulin ordered 6. Hypothyroidism -Continue levothyroxine 7. Hyperlipidemia -Continue pravastatin 8. Chronic anemia -Hemoglobin currently stable at 10.5 -CBC daily DVT prophylaxis-SCDs This patient was seen by Geraldine Romo NP-Lia under the supervision of Dr. Antonio. 31 minutes spent in clinical coordination of patient's plan of care. Documented by User: Dr. Thai Antonio DO 04/02/22 18:07 HPI - General General Date of Admission: 04/02/22 FOR[facility]LY [facility] Medical History Acute kidney injury superimposed on CKD Acute on chronic anemia Acute on chronic blood loss anemia Ambulates with cane Anemia Anxiety Arthritis Cardiology follow-up encounter Chronic anemia Chronic kidney disease, stage 3 CKD (chronic kidney disease), stage III Diabetes Difficulty swallowing Essential (primary) hypertension GI bleed (10/09/19) Gout High cholesterol History of echocardiogram History of edema History of heart attack History of non-ST elevation myocardial infarction (NSTEMI) (09/17/21) History of renal disease Hyperlipidemia Hypertension Hypothyroidism Iron deficiency anemia Non-rheumatic aortic stenosis Non-smoker Obesity Osteoarthritis Post-menopausal 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 Shortness of breath on exertion Syncope Thyroid disease Type 2 diabetes mellitus Walker as ambulation aid Wears dentures Wears glasses Home Medications levothyroxine 125 mcg tablet 125 mcg PO DAILY thyroid 08/27/18 [History Last Taken 04/02/22] pravastatin 20 mg tablet 20 mg PO QHS CHOLESTEROL 10/09/19 [History Last Taken 04/01/22] ferrous sulfate 325 mg (65 mg iron) tablet 325 mg PO BID SUPPLEMENT ##0 10/11/19 [Rx Last Taken 04/02/22] metformin 500 mg tablet,extended release 24 hr 500 mg PO BID diabetes 01/25/20 [History Last Taken 04/02/22] lorazepam 0.5 mg tablet 0.5 mg PO BID PRN PRN Anxiety 04/08/20 [History Last Taken 09/16/21] metoprolol tartrate 25 mg tablet 12.5 mg PO BID heart rate 03/19/22 [History Last Taken 04/02/22] allopurinol 100 mg tablet 100 mg PO BID gout 03/29/22 [History Last Taken 04/02/22] furosemide 40 mg tablet 40 mg PO DAILY diuretic 04/02/22 [History Last Taken 04/02/22] potassium chloride 20 mEq tablet,extended release 10 meq PO BID supplement 04/02/22 [History Last Taken Unknown] Allergy/AdvReac Type Severity Reaction Status Date / Time No Known Allergies Allergy Verified 04/02/22 09:19 Family History Father CAD (coronary artery disease) Myocardial infarction in his 80's from 80's Brother CAD (coronary artery disease) Myocardial infarction from his 70's from [place] Sister Heart disease Rheumatic Heart Disease Surgical History History of cataract extraction History of colonoscopy (~2018) History of esophagogastroduodenoscopy (EGD) (09/2019) Social History Smoking Status: Never smoker Results Lab / Micro Data Result Diagrams: 04/02/22 09:45 04/02/22 09:45 Assessment & Plan Assessment/Plan (1) Pulmonary edema: (2) Acute exacerbation of CHF (congestive heart failure): (3) Acute respiratory failure with hypoxia: (4) Acute hyponatremia: (5) Non-rheumatic aortic stenosis: Charges/Coding Addendum Addendum: Patient was seen and examined independently of Nasra Romo today, she came to the emergency room at [facility] today with cute onset of shortness of breath which started this morning. Work-up in the emergency room included a chest x-ray which was abnormal showing bilateral infiltrates suggestive of either pneumonia or CHF. Patient required BiPAP while in the emergency room to maintain her pulse ox. On examination she appeared in good health and spirits, she does not appear to be in any distress. Vital signs as documented. Skin warm and dry and without overt rashes. Neck without JVD, thyroid appears normal, trachea is midline, neck is supple. Lungs clear, normal air movement was noted. Heart exam notable for regular rhythm, normal sounds, there is a 3/6 systolic murmur noted at the right sternal border and apex, there were no rubs or gallops. Abdomen unremarkable and without evidence of organomegaly, masses, or abdominal aortic enlargement, bowel sounds are present in all 4 quadrants, no abdominal tenderness was noted. Extremities nonedematous, no cyanosis was noted, no clubbing was noted. Neuro: Cranial nerves II through XII are grossly intact, no focal motor deficits were noted, sensation to light touch and pinprick is intact, motor exam 5/5 throughout. Psych: Patient is alert and oriented x3, she does not appear anxious or depressed, she does not appear agitated. Impression: #1 acute hypoxic respiratory failure secondary to pulmonary edema as a result of severe aortic valvular heart disease-patient will be admitted to PCU, oxygen will be weaned if possible, patient will be placed on IV Lasix, patient is a DNR CC arrest no intubation. #2 acute pulmonary edema secondary to severe aortic valvular heart disease-again the patient will be treated with IV Lasix, patient does not want any valvular surgery performed and has refused a cardiac cath in the past. #3 essential hypertension-patient will remain on her current medications #4 hypothyroidism-patient will remain on Synthroid #5 hyperlipidemia-patient is on a statin #6 third-degree heart block-patient had had a long episode of third-degree heart block, there was a monitor strip today showing several second run of nonconducted P waves without QRS complexes. Patient was syncopal during this time. But awoke uneventfully. Patient is a DNR CC arrest. I have reviewed Nasra Romo's history and physical including her medical assessment and plan of care with the above additions endorse it. Total clinical time spent by myself addressing the patient's medical issues, reviewing the data, and collaborating with patient's care team: 50 minutes Visit Charges Inpatient E&M: [id number] Init Hosp L3
[2022-04-02] MEDS: Furosemide 40 MG/4 ML Vial IV (11:48)
[2022-04-02 12:01] LABS: Reflex Troponin-HS? (from REC) Y
[2022-04-02 13:29] LABS: Troponin-I HS 2404 pg/mL (3.0-54.0)
[2022-04-02 14:01] LABS: Reflex Lactate? Y
[2022-04-02 14:55] LABS: Lactic Acid 1.5 mmol/L (0.4-1.9)
[2022-04-02] MEDS: Insulin Lispro 100 UNIT/ML INSULN.PEN SC ×2 (16:59→21:39)
[2022-04-02 17:50] LABS: Bedside Glucose 320 mg/dL (74-106)
[2022-04-02] MEDS: LORazepam 0.5 MG Tablet PO (21:35)
[2022-04-02] MEDS: Furosemide 20 MG/2 ML VIAL IV (21:41)
[2022-04-02] MEDS: Pravastatin 20 MG Tablet PO (22:55)
[2022-04-02] MEDS: MELATONIN 3 MG TABLET PO (22:55)
[2022-04-02 23:25] LABS: Bedside Glucose 263 mg/dL (74-106)
[2022-04-03] VITALS (11 sets, daily range): BP systolic 113–127; BP diastolic 41–67; PULSE 59–102; RESP 12–35; TEMP 36.6–37.2; O2SAT 88–97
[2022-04-03 03:03] LABS: Mucous, Urine 0 SEEN /hpf (<or=2+); Red Blood Cells-Urine 0 SEEN /hpf (0-5)
[2022-04-03 03:06] LABS: Color, Urine Yellow (Yellow); Glucose, Dipstick Normal (Normal); Ketone-Dipstick Negative (Negative); Leukocyte Esterase-Dipstick 25 /ul (Negative); Nitrite-Dipstick Negative (Negative); Occult Blood-Urine Negative /ul (Negative); Protein-Dipstick Negative (Negative); Specific Gravity, Urine 1.015 (1.002-1.030); Urine Bilirubin Dipstick Negative (Negative); Urine Clarity Clear (Clear); Urine Urobilinogen Normal (Normal)
[2022-04-03 03:20] LABS: Bacteria RARE /hpf (None Seen); Squamous Epithelial Cells - UA 0-5 SEEN /hpf (5-10); White Blood Cells 0-5 SEEN /hpf (0-5)
--- NOTE | 2022-04-03 05:55 | EKG12_ITS ---
Test Reason : Blood Pressure : / mmHG Vent. Rate : 073 BPM Atrial Rate : 073 BPM P-R Int : 186 ms QRS Dur : 162 ms QT Int : 478 ms P-R-T Axes : 039 -87 -62 degrees QTc Int : 526 ms Normal sinus rhythm Left axis deviation Right bundle branch block Septal infarct , age undetermined Abnormal ECG When compared with ECG of 02-APR-2022 11:29, MANUAL COMPARISON REQUIRED, DATA IS UNCONFIRMED Confirmed by BATSHEVA JULES, TRENA ([id number]), online editor TULIO MEANS ([id number]) on 04/07/2022 9:40:36 AM Referred By: ROMANA Confirmed By:TRENA HERMAN MD
[2022-04-03 06:11] LABS: Absolute Lymphocyte Count 0.79 X10^3/uL (0.83-4.51); Absolute Neutrophil Count 4.7 X10^3/uL (2.0-7.7); Basophil# 0.02 X10^3/uL; Basophil% 0.3 % (0-1); Eosinophil# 0.07 X10^3/uL; Eosinophils% 1.2 % (0-5); Hematocrit 26.4 % (37-47); Hemoglobin 8.2 g/dL (12.0-15.0); Lymphocyte # 0.79 X10^3/ul (0.83-4.51); Mean Corp Hgb Conc 31.1 g/dL (32-36); Mean Corpuscular Hgb 28.5 pg (27.0-32.0); Mean Corpuscular Volume 91.7 fL (81-99); Mean Platelet Vol. 8.7 fl (6.2-12.0); Monocyte# 0.44 X10^3/uL; Monocyte% 7.2 % (0-10); NRBC Flagged by Analyzer 0 % (0-5); Neutrophil # 4.72 X10^3/uL (2.7-7.7); Neutrophil % 77.6 % (47-70); Platelet Count 195 K/mm3 (150-450); RBC Distribution Width CV 16.6 % (11.6-14.6); RBC Distribution Width SD 55.5 fl (35.1-43.9); Red Blood Count 2.88 M/mm3 (4.2-5.4); White Blood Count 6.1 K/mm3 (4.4-11.0)
[2022-04-03 06:47] LABS: ALB/GLOB Ratio 0.7 RATIO (0.9-2.4); AST(SGOT) 35 U/L (15-37); Alanine Aminotransfer ALT/SGPT 18 U/L (13-56); Albumin, Serum 2.5 g/dL (3.2-5.0); Alkaline Phosphatase 79 U/L (45-117); Anion Gap 5 (5-15); BUN 23 mg/dL (7-18); BUN/Creat Ratio 17.8 RATIO (10-20); Chloride 99 mmol/L (98-107); Creatinine, Serum 1.29 mg/dL (0.55-1.02); EST Glomerular Filtration Rate 42 mL/min (>60); Est Glom Filt Rate - Afr Amer 50 mL/min (>60); Estimated Creatinine Clearance 24.76 ml/min; Globulin 3.4 g/dL (2.2-4.2); Glucose 171 mg/dL (74-106); Potassium 3.2 mmol/L (3.5-5.1); Protein, Total 5.9 g/dL (6.4-8.2); Sodium Level 135 mmol/L (136-145)
[2022-04-03] MEDS: Insulin Lispro 100 UNIT/ML INSULN.PEN SC ×3 (06:57→16:44)
[2022-04-03] MEDS: Furosemide 20 MG/2 ML VIAL IV ×2 (06:59→14:30)
[2022-04-03] MEDS: Levothyroxine 125 MCG Tablet PO (07:02)
--- NOTE | 2022-04-03 10:24 | PN.HOSP_ITS ---
Documented by User: Geraldine Romo NP-C 04/03/22 10:30 Subjective Subjective Patient seen and examined. Patient currently on 4 L nasal cannula oxygen. Patient not on any oxygen at baseline however this is improved from patient being on BiPAP yesterday. Objective Data Objective Data Vital Signs: Vital Signs Temp Pulse Resp BP Pulse Ox O2 Del Method O2 Flow Rate 98 F 82 16 117/58 L 90 Nasal Cannula 4 04/03/22 03:15 04/03/22 07:24 04/03/22 03:15 04/03/22 03:15 04/03/22 09:37 04/03/22 03:15 04/03/22 09:37 FiO2 30 04/03/22 00:00 Oxygen Flow Rate (L/min) 4 Oxygen Delivery Method Nasal Cannula Weight: 182 lb 1.629 oz Body Mass Index (BMI) 33.3 Intake & Output: Intake and Output for Last 24 Hours 04/01/22 04/02/22 04/03/22 23:59 23:59 23:59 Intake Total 605 / 605 Output Total 700 / 700 Balance 605 / 205 -700 / -700 Lab / Micro Data Result Diagrams: 04/03/22 05:42 04/03/22 05:42 Labs: Laboratory Results - last 24 hr 04/02/22 09:45: Sodium 128 L, Potassium 4.0, Chloride 93 L, Carbon Dioxide 25.0, Anion Gap 10, BUN 23 H, Creatinine 1.77 H, Estim Creat Clear Calc 18.04, Est GFR (MDRD) Af Amer 35 L, Est GFR (MDRD) Non-Af 29 L, BUN/Creatinine Ratio 13.0, Glucose 338 H, Calcium 9.5, Total Bilirubin 0.70, AST 22, ALT 22, Alkaline Phosphatase 108, Troponin I High Sens 54, Total Protein 7.4, Albumin 3.1 L, Globulin 4.3 H, Albumin/Globulin Ratio 0.7 L 04/02/22 09:45: Lactic Acid 6.1 H* 04/02/22 09:45: B-Natriuretic Peptide 981.9 H 04/02/22 09:45: Blood Type A POSITIVE, Antibody Screen NEGATIVE 04/02/22 13:00: Troponin I High Sens 2404 H* 04/02/22 14:20: Lactic Acid 1.5 04/02/22 16:53: POC Glucose 320 H 04/02/22 21:39: POC Glucose 263 H 04/03/22 02:53: Urine Color Yellow, Urine Clarity Clear, Urine pH 6.0, Ur Spec ific [place] 1.015, Urine Protein Negative, Urine Glucose (UA) Normal, Urine Ketones Negative, Urine Occult Blood Negative, Urine Nitrite Negative, Urine Bilirubin Negative, Urine Urobilinogen Normal, Ur Leukocyte Esterase 25 H, Urine RBC 0 SEEN, Urine WBC 0-5 SEEN, Ur Squamous Epith Cells 0-5 SEEN, Urine Bacteria RARE, Urine Mucus 0 SEEN 04/03/22 05:42: WBC 6.1, RBC 2.88 L, Hgb 8.2 L, Hct 26.4 L, MCV 91.7, MCH 28.5, MCHC 31.1 L, RDW Std Deviation 55.5 H, RDW Coeff of Elisabeth 16.6 H, Plt Count 195, MPV 8.7, Immature Gran % (Auto) 0.700, Neut % (Auto) 77.6 H, Lymph % (Auto) 13.0 L, [place] % (Auto) 7.2, Eos % (Auto) 1.2, Baso % (Auto) 0.3, Absolute Neuts (auto) 4.7, Absolute Lymphs (auto) 0.79 L, Nucleated RBC % 0 04/03/22 05:42: Sodium 135 L, Potassium 3.2 L, Chloride 99, Carbon Dioxide 31.0, Anion Gap 5, BUN 23 H, Creatinine 1.29 H, Estim Creat Clear Calc 24.76, Est GFR (MDRD) Af Amer 50 L, Est GFR (MDRD) Non-Af 42 L, BUN/Creatinine Ratio 17.8, Glucose 171 H, Calcium 9.0, Total Bilirubin 0.50, AST 35, ALT 18, Alkaline Phosphatase 79, Total Protein 5.9 L, Albumin 2.5 L, Globulin 3.4, Albumin/Chantal bulin Ratio 0.7 L Micro: Microbiology 04/02/22 09:45 Nasal Secretion SARS-CoV-2 Antigen (Rapid) - Final Rhythm Strip Rhythm Strip: Sinus Tach Rate: 125 Ectopy: None Physical Exam Const alert, oriented x3 and no apparent distress HEENT normocephalic and head/scalp atraumatic Eyes conjunctivae normal and no scleral icterus Neck supple General: trachea midline Resp normal respiratory effort Resp Narrative: Bipap on Effort and Inspection: symmetric chest movement Auscultation: crackles bilateral throughout Cardio regular rate, regular rhythm, S1 normal heart sound, S2 normal heart sound and peripheral pulses 2+ throughout GI normal to inspection, nondistended, normoactive bowel sounds, soft to palpation and non-tender Extremity normal capillary refill General Extremity: edema bilateral lower extremity Details: moderate Skin Lesions: no lesions Rashes: no rashes Neuro no focal motor deficits and no sensory deficits noted Speech: speech normal Psych thought process normal, cooperative and affect normal Appearance: appropriate Assessment & Plan Assessment/Plan (1) Pulmonary edema: (2) Acute exacerbation of CHF (congestive heart failure): (3) Acute respiratory failure with hypoxia: (4) Acute hyponatremia: (5) Non-rheumatic aortic stenosis: PLAN: Plan 1. Acute respiratory failure with hypoxia secondary to aortic stenosis and pulmonary edema -Patient had EGD and colonoscopy on 04/01/2022 and subsequently had Lasix held prior to procedure per surgeon direction. Discussed with daughter and the importance of patient taking Lasix and that this needs to be discussed with all physicians moving forward for any type of procedures -Continue IV Lasix -Daily weights and intake and output -cardiac calorie controlled diet -Elevate bilateral lower extremities -Encourage incentive spirometry -PT and OT following -CBC and CMP daily -EKG every morning -Wean oxygen as tolerated 2. Hypokalemia -Potassium 3.2 -Potassium Chloride 40 meq x1 ordered 3. Hyponatremia -Improved 135 -BMP daily 3. Elevated creatinine secondary to chronic kidney disease stage IIIb -Creatinine currently 1.29, baseline 1.3-1.4 -CMP daily 4. Hypertension -Continue metoprolol -Vital signs per protocol, currently stable 5. Diabetes mellitus type 2 -Hold metformin -ACH S blood sugars with sliding scale insulin ordered 6. Hypothyroidism -Continue levothyroxine 7. Hyperlipidemia -Continue pravastatin 8. Chronic anemia -Hemoglobin 8.2 -CBC daily DVT prophylaxis-SCDs This patient was seen by JANY Cain under the supervision of Dr. Antonio. 14 minutes spent in clinical coordination of patient's plan of care. Documented by User: Dr. Thai Antonio, 04/03/22 14:47 Objective Data Lab / Micro Data Result Diagrams: 04/03/22 05:42 04/03/22 05:42 Assessment & Plan Assessment/Plan (1) Pulmonary edema: (2) Acute exacerbation of CHF (congestive heart failure): (3) Acute respiratory failure with hypoxia: (4) Acute hyponatremia: (5) Non-rheumatic aortic stenosis: Charges/Coding Addendum Addendum: Patient was seen and examined today independently of Nasra Romo, she continues to have arrhythmias-today she had an episode of what appeared to be Mobitz 1 and she also had an episode of what appeared to be tachycardia-possible paroxysmal atrial tachycardia-she remains on supplemental oxygen at this time, she is currently on 8 L/min. On examination she appeared her stated age, she does not appear to be in any distress. Vital signs as documented. Skin warm and dry and without overt rashes. Neck without JVD, thyroid appears normal, trachea is midline, neck is supple. Lungs-breath sounds were diminished at the bases bilaterally. Heart exam notable for regular rhythm, normal sounds, there is a 3/6 systolic murmur at the apex and right sternal border, no rubs or gallops were noted. Abdomen unremarkable and without evidence of organomegaly, masses, or abdominal aortic enlargement, bowel sounds are present in all 4 quadrants, no abdominal tenderness was noted. Extremities nonedematous, no cyanosis was noted, no clubbing was noted. Neuro: Cranial nerves II through XII are grossly intact, no focal motor deficits were noted, sensation to light touch and pinprick is intact, motor exam 5/5 throughout. Psych: Patient is alert and oriented x3, she does not appear anxious or depressed, she does not appear agitated. #1 acute hypoxic respiratory failure secondary to pulmonary edema as a result of severe aortic valvular heart disease-continue IV Lasix and supplemental oxygen, monitor pulse ox #2 acute pulmonary edema secondary to severe aortic valvular heart disease-again the patient will be treated with IV Lasix, patient does not want any valvular garcia rgery performed and has refused a cardiac cath in the past. #3 essential hypertension-patient will remain on her current medications #4 hypothyroidism-patient will remain on Synthroid #5 hyperlipidemia-patient is on a statin #6 An episode of third-degree heart block (yesterday)-patient had had a long episode of third-degree heart block, there was a monitor strip today showing a several second run of nonconducted P waves without QRS complexes.? Patient was syncopal during this time.? But awoke uneventfully.? Patient is a DNR CC arrest. Patient remains off her metoprolol. #7 episodic Mobitz 1 arrhythmia-I took the patient off her metoprolol yesterday due to concerns of heart block, she remains off metoprolol at this time. Lab reviewed Nasra Romo's progress note including her medical assessment and plan of care and with the above additions endorse it. Total clinical time spent by myself addressing the patient's medical issues, reviewing the data, and collaborating with patient's care team: 25 minutes Visit Charges Inpatient E&M: [id number] [facility] Hosp L3
[2022-04-03] MEDS: Potassium Chloride Oral Tablet 20 MEQ 40 MEQ PO (10:39)
[2022-04-03 11:55] LABS: Bedside Glucose 169 mg/dL (74-106)
--- NOTE | 2022-04-03 14:03 | EKG12_ITS ---
Test Reason : abnormal rhthym Blood Pressure : / mmHG Vent. Rate : 070 BPM Atrial Rate : 090 BPM P-R Int : 000 ms QRS Dur : 154 ms QT Int : 422 ms P-R-T Axes : 050 270 057 degrees QTc Int : 455 ms Sinus rhythm with complete heart block and Wide QRS rhythm Right bundle branch block Minimal voltage criteria for LVH, may be normal variant ( R in aVL ) Septal infarct , age undetermined Abnormal ECG When compared with ECG of 03-APR-2022 04:09, MANUAL COMPARISON REQUIRED, DATA IS UNCONFIRMED Confirmed by BATSHEVA JULES, TRENA ([id number]), senior technical editor SAVANNAH GONZALES ([id number]) on 04/06/2022 9:46:21 AM Referred By: AMARI Confirmed By:TRENA HERMAN MD
--- NOTE | 2022-04-03 16:03 | CASEMGMT ---
KORI RHODES Chart Review: Patient was admitted 03/19-03/21/22 for Severe Anemia. See KORI RHODES assessment from 03/20/22. Patient was discharged to home with GI follow-up. Patient had EGD and colonoscopy on 04/01/22 and was told to hold lasix times 2 doses. Patient returned to [facility] ED on 04/02/22 for SOB. Leona solitarioy on Bipap and IV Lasix BID. Will monitor progress with therapy for possible HHC. Will monitor patient for home oxygen at discharge. KORI RHODES went to discuss discharge planning with patient, currently sleeping with bipap. Will follow-up with patient when able to participate in discharge planning. CM will continue to follow this patient and plan for a safe discharge.
--- NOTE | 2022-04-03 17:11 | PCM.HOSP.N ---
Hospitalist Note Seen and examined late this afternoon, her respiratory status has been declining this afternoon, family is present and I had a discussion with them about terminal care, they are okay with keeping her comfortable and giving the patient morphine. At this time I will change her over to nasal cannula oxygen and give her IV morphine for comfort. I suspect that the patient may pass away this evening. Family is aware.
[2022-04-03] MEDS: Morphine 4 MG/ML Syringe IV (17:22)
--- NOTE | 2022-04-03 17:28 | NURSING ---
pt had 6 second pause diaphoretic, dr Antonio @ bedside talking with family will keep comfortable as per her wishes, medicated as per order with morphine, nc@ 8l , family @ bedside
--- NOTE | 2022-04-03 18:15 | EXP.PCM_ITS ---
Preliminary Cause of Preliminary Cause of Preliminary Cause of : Hypoxemic respiratory failure secondary to pulmonary edema from end-stage valvular heart disease Date of Admission: 04/02/22 Date of : 04/03/22 Principle Diagnosis 1 acute hypoxic respiratory failure secondary to pulmonary edema as a result of severe aortic valvular heart disease-continue IV Lasix and supplemental oxygen,? monitor pulse ox #2 acute pulmonary edema secondary to severe aortic valvular heart disease-again the patient will be treated with IV Lasix, patient does not want any valvular surgery performed and has refused a cardiac cath in the past. #3 essential hypertension-patient will remain on her current medications #4 hypothyroidism-patient will remain on Synthroid #5 hyperlipidemia-patient is on a statin #6? An episode of third-degree heart block (yesterday)-patient had had a long episode of third-degree heart block, there was a monitor strip today showing a several second run of nonconducted P waves without QRS complexes.? Patient was syncopal during this time.? But awoke uneventfully.? Patient is a DNR CC arrest.? Patient remains off her metoprolol. #7 episodic Mobitz 1 arrhythmia-I took the patient off her metoprolol yesterday due to concerns of heart block, she remains off metoprolol at this time. Problem List: Active and Suspected Problems (Updated 04/02/22 @ 11:[address] Mimi Gil, DO) Pulmonary edema (Acute) Acute respiratory failure with hypoxia (Acute) Acute hyponatremia (Acute) Hospital Course This 86-year-old white female was seen in the emergency room at [facility] after being brought in with severe respiratory distress from home. Patient had a history of end-stage valvular heart disease and had refused any intervention to fix her valve. Chest x-ray is obtained in the emergency room which showed bilateral infiltrates consistent with pulmonary edema, patient was admitted to PCU, she was placed on IV Lasix and supplemental oxygen, patient was a DNR CC arrest no intubation. On the afternoon of 04/03/2022, her respirat ory status declined, I had a discussion with the patient's family members and they agreed that the patient should be comfort care and the patient was placed on nasal cannula oxygen for comfort after failing BiPAP, she was medicated with morphine for respiratory distress and at 181 on 04/03/2022. Visit Charges Inpatient E&M: [id number] Disch Hosp
--- NOTE | 2022-04-03 18:35 | CM.ED ---
KAILEY met with patient's , Hunter and family members. Emotional support provided. Family desires [facility] in [place]. Shanel, cashier manager updated. Flores CALDWELL
--- NOTE | 2022-04-03 18:46 | NURSING ---
for lifebanc pt had 15cc iv fluid last hour of life
== END 2022-04-03 22:00 | DRG 189 ==
LOC: ED 11:36 → PCU 11:59
PROVIDERS: Nurse Practitioner Family; Admitting Provider Internal Medicine; Emergency Provider Emergency Medicine; PCP Family Medicine; Visit Provider Internal Medicine
DX: J81.0 Acute pulmonary edema (principal); J96.01 Acute respiratory failure with hypoxia; I44.2 Atrioventricular block, complete; I13.0 Hypertensive heart and chronic kidney disease with heart failure and stage 1 through stage 4 chronic kidney disease, or unspecified chronic kidney disease; I47.1 Supraventricular tachycardia; E87.1 Hypo-osmolality and hyponatremia; I45.2 Bifascicular block; I27.21 Secondary pulmonary arterial hypertension; N18.32 Chronic kidney disease, stage 3b; E11.22 Type 2 diabetes mellitus with diabetic chronic kidney disease; I50.23 Acute on chronic systolic (congestive) heart failure; I50.84 End stage heart failure; I35.0 Nonrheumatic aortic (valve) stenosis; D50.9 Iron deficiency anemia, unspecified; E03.9 Hypothyroidism, unspecified; F41.9 Anxiety disorder, unspecified; M10.9 Gout, unspecified; I25.2 Old myocardial infarction; E78.00 Pure hypercholesterolemia, unspecified; E87.6 Hypokalemia; Z87.19 Personal history of other diseases of the digestive system; Z78.0 Asymptomatic menopausal state; Z79.84 Long term (current) use of oral hypoglycemic drugs; Z79.899 Other long term (current) drug therapy; I49.1 Atrial premature depolarization; Z66 Do not resuscitate
CPT/HCPCS: 36415; 36600; 71045; 80053; 81001; 82803; 82962; 83605; 83880; 84484; 85025; 85610; 86850; 86900; 86901; 87426; 93005; 94002; 94003; 94762; 97110; 97116; 97162; 97165; 97530; 97535; 99285; J7030; A4216; J0696; J1940